=== PATIENT | female | born 1935 | race Caucasian/White ===

== ENCOUNTER 2017-04-07 16:57 | Inpatient (IN) | payer MEDICARE, BC, OTHER ==
[2017-04-07] VITALS (7 sets, daily range): BP systolic 159–168; BP diastolic 68–87; PULSE 60–64; RESP 16–20; TEMP 96–98; O2SAT 96–97
[~2017-04-07] VITALS: Ht 154.9 cm; Wt 58.8 kg
[~2017-04-07 16:57] MED LIST: ATEN-102 PO; B-COTAB41 PO; CART180C4 PO; CO Q100C9 PO; COUM2TAB PO; COUM3TAB PO; COZA100T PO; DIGO0.12 PO; ISOS60 PO; OSTETAB13 OR; SIMV10 PO; [UNRECOGNIZED DRUG - OTHER] PO; [UNRECOGNIZED DRUG - OTHER] PO
[2017-04-07] MEDS ORDERED: DILT0.05 PO (17:13)
[2017-04-07] MEDS ORDERED: SIMV5TAB3 PO (17:13)
[2017-04-07] MEDS ORDERED: ATEN50TA PO (17:13)
[2017-04-07] MEDS ORDERED: LOSA100T PO (17:13)
[2017-04-07] MEDS ORDERED: DIGO0.12 PO (17:13)
[2017-04-07] MEDS ORDERED: LEVO25TA4 PO (17:13)
[2017-04-07] MEDS ORDERED: ATEN25TA PO (17:13)
[2017-04-07] MEDS ORDERED: WARF4TAB51 PO (17:13)
[2017-04-07] MEDS ORDERED: NITR0.4S SL (17:13)
[2017-04-07] MEDS ORDERED: WARF-58 PO (17:13)
[2017-04-07] MEDS ORDERED: ISOS60TA PO (17:13)
[2017-04-07] MEDS ORDERED: SODIUM CHLORIDE 0.9% FLUSH 10 ML FLUSH IVF PRN (17:15)
[2017-04-07] MEDS ORDERED: ASPIRIN 81 MG CHEW TAB PO ONE (17:15)
[2017-04-07] MEDS: NITROGLYCERIN 0.4 MG SL 25 TABS/BTL SL SCH ×4 (17:20→17:49)
[2017-04-07 17:21] LABS: AUTOMATED NEUTROPHIL # 4.2 TH/MM3 (1.8-7.7); BASOPHIL % 0.7 % (0.0-2.0); EOSINOPHIL # 0.1 TH/MM3 (0-0.4); EOSINOPHIL % 1.4 % (0.0-4.0); HEMATOCRIT 43.9 % (35.0-46.0); HEMO FLAGS DIFF FINAL; LYMPH % 24.9 % (9.0-44.0); LYMPHOCYTE # 1.6 TH/MM3 (1.0-4.8); MEAN CELL VOLUME 91.4 FL (80.0-100.0); MEAN CORPUSCULAR HEMOGLOBIN 30.5 PG (27.0-34.0); MEAN CORPUSCULAR HGB CONC 33.3 % (32.0-36.0); MONO % 11.3 % (0.0-8.0); NEUT % 61.7 % (16.0-70.0); PLATELET COUNT 200 TH/MM3 (150-450); RED CELL DISTRIBUTION WIDTH 12.1 % (11.6-17.2); WHITE BLOOD COUNT 6.6 TH/MM3 (4.0-11.0)
--- NOTE | 2017-04-07 17:26 | PD ---
HPI Chief Complaint: Chest Pain Time Seen by Provider: 17:05 Travel History International Travel<30 days: No Contact w/Intl Traveler<30days: No History of Present Illness HPI Patient is an 81-year-old female with history of hypertension, hyperlipidemia, "prediabetes", A. fib currently on Coumadin for anticoagulation, mitral valve replacement, hx of bare-metal stent placement, presents to emergency room with complaints of chest pain. Patient reports that 2 hours prior to coming to the emergency room, she was at home sitting on her couch. Reports that she began to have pains to her left breast which radiated down her left arm. Patient reports that pain feels "pressure and pain" to her chest. Reports that she did feel short of breath with her symptoms. Patient denies nausea or vomiting or diaphoresis. 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 De Oliveira. Reports that she was given nitroglycerin to take for her chest pain, reports that she didn't take any prior to coming to the emergency room as didn't think her symptoms were severe. PFSH Past Medical History Hx Anticoagulant Therapy: Yes Atrial Fibrillation: Yes Anxiety: Yes Cardiac Catheterization: Yes Cardiovascular Problems: Yes (DE,CAD, STENTS, PACEMEAKER, CABG) Diminished Hearing: No Hypertension: Yes Immunizations Current: Yes (HEPAVAX) PNEUMOCCOCAL Vaccine (Year): 2007 Menopausal: Yes : 8 Para: 7 Miscarriage: 1 Past Surgical History Cardiac Surgery: Yes (MITRAL VALVE REPAIR; PACEMAKER stents 2013) Coronary Artery Bypass Graft: Yes Genitourinary Surgery: Yes (KIDNEY STONES REMOVED. 20 YR AGO) Pacemaker: Yes Other Surgery: Yes Social History Alcohol Use: Yes (OCC) Tobacco Use: No Substance Use: No Allergies-Medications (Allergen,Severity, Reaction): Coded Allergies: Flagyl (Unverified Allergy, Severe, RASH, 06/11/15) Reported Meds & Prescriptions Reported Meds & Active Scripts Active Reported Claritin (Loratadine) 5 Mg Chew 5 Mg CHEW DAILY Magnesium (Magnesium Oxide) 400 Mg Tablet 1 Tab PO DAILY Vitamin D (Cholecalciferol) 400 Unit Cap 1 Cap PO DAILY Co Q 10 (Coenzyme Q10 (Ubidecarenone)) 10 Mg Cap 1 Cap PO DAILY B Complex (B-Complex Vitamins) 1 Cap 1 Cap PO DAILY Vitamin A 8,000 Unit Capsule 1 Cap PO DAILY [Osteo prime ultra] 1 Tab PO BID [New remedy ] 150 Mg PO BID Preservision Areds (Multiple Vitamins W/ Minerals) 1 Tab 1 Tab PO BID [Turmeric force] 320 Mg PO BID Nitrostat SL (Nitroglycerin) 0.4 Mg Subl 0.4 Mg SL DIRECTED PRN 1 tablet under the tongue as needed for chest pain. Repeat every 5 minutes for a total of 3 DOSES or call 911 if NO relief. Levothyroxine (Levothyroxine Sodium) 25 Mcg Tab 25 Mcg PO DAILY Isosorbide Mononitrate ER (Isosorbide Mononitrate) 60 Mg Tab 60 Mg PO DAILY Simvastatin 5 Mg Tab 5 Mg PO DAILY Warfarin 2 Mg Tab 2 Mg PO DAILY Warfarin 3 Mg Tab 3 Mg PO DAILY Atenolol 50 Mg Tab 50 Mg PO HS Atenolol 25 Mg Tab 25 Mg PO DAILY Diltiazem ER 24 HR 180 Mg Finn 180 Mg PO DAILY Losartan (Losartan Potassium) 100 Mg Tab 150 Mg PO DAILY Digoxin 0.125 Mg Tab 0.125 Mg PO DAILY Review of Systems General / Constitutional: No: Fever Eyes: No: Visual changes HENT: No: Headaches Cardiovascular: Positive: Chest Pain or Discomfort, No: Palpitations, Irregular Rhythm, Tachycardia, Diaphoresis Respiratory: Positive: Shortness of Breath Gastrointestinal: No: Nausea, Vomiting, Abdominal Pain Genitourinary: No: Dysuria Musculoskeletal: No: Pain Skin: No Rash Neurologic: No: Weakness Psychiatric: No: Depression Endocrine: No: Polydipsia Hematologic/Lymphatic: No: Easy Bruising Physical Exam Narrative GENERAL: Mild distress SKIN: Focused skin assessment warm/dry. HEAD: Atraumatic. Normocephalic. EYES: Pupils equal and round. No scleral icterus. No injection or drainage. ENT: No nasal bleeding or discharge. Mucous membranes pink and moist. NECK: Trachea midline. No JVD. CARDIOVASCULAR: Regular rate and rhythm. No murmur appreciated. RESPIRATORY: No accessory muscle use. Clear to auscultation. Breath sounds equal bilaterally. GASTROINTESTINAL: Abdomen soft, non-tender, nondistended. Hepatic and splenic margins not palpable. MUSCULOSKELETAL: No obvious deformities. No clubbing. No cyanosis. No edema. NEUROLOGICAL: Awake and alert. No obvious cranial nerve deficits. Motor grossly within normal limits. Normal speech. PSYCHIATRIC: Patient anxious Data Data Last Documented VS Vital Signs Date Time Temp Pulse Resp B/P Pulse Ox O2 Delivery O2 Flow Rate FiO2 04/07/17 17:25 16 04/07/17 17:22 97 04/07/17 17:21 61 159/82 04/07/17 17:05 Room Air Orders B-Type Natriuretic Peptide (04/07/17 17:05) Ckmb (Isoenzyme) Profile (04/07/17 17:05) Complete Blood Count With Diff (04/07/17 17:05) Comprehensive Metabolic Panel (04/07/17 17:05) Magnesium (Mg) (04/07/17 17:05) Prothrombin Time / Inr (Pt) (04/07/17 17:05) Act Partial Throm Time (Ptt) (04/07/17 17:05) Troponin I (04/07/17 17:05) Lipase (04/07/17 17:05) Ecg Monitoring (04/07/17 17:05) Iv Access Insert/Monitor (04/07/17 17:05) Oximetry (04/07/17 17:05) Aspirin Chew (Aspirin Chew) (04/07/17 17:15) Sodium Chloride 0.9% Flush (Ns Flush) (04/07/17 17:15) Nitroglycerin Sl (Nitrostat Sl) (04/07/17 17:15) Chest, Single Ap (04/07/17 17:05) Place In Observation (04/07/17 17:52) Activity Bed Rest With Brp (04/07/17 17:52) Vital Signs (Adult) Q4H (04/07/17 17:52) Cardiac Rhythm .As Directed (04/07/17 17:52) Notify Dr: Other .PRN (04/07/17 17:52) Notify Dr. Parameters (04/07/17 17:52) Resp Oxygen Nasal Cannula (04/07/17 ) Diet Npo (04/08/17 Breakfast) Diet Heart Healthy (04/07/17 Dinner) Ckmb (Isoenzyme) Profile (04/07/17 17:52) Ckmb (Isoenzyme) Profile (04/07/17 20:52) Troponin I (04/07/17 17:52) Troponin I (04/07/17 20:52) Electrocardiogram (04/07/17 17:52) Electrocardiogram (04/07/17 20:52) ^ Obtain (04/07/17 17:52) Sodium Chloride 0.9% Flush (Ns Flush) (04/07/17 18:00) Sodium Chloride 0.9% Flush (Ns Flush) (04/07/17 21:00) Acetaminophen (Tylenol) (04/07/17 18:00) Nitroglycerin Sl (Nitrostat Sl) (04/07/17 18:00) Aquatic Ecologist / Telemetry JONATAN.Q8H (04/07/17 17:52) Labs Laboratory Tests Test 04/07/17 17:05 White Blood Count 6.6 TH/MM3 Red Blood Count 4.80 MIL/MM3 Hemoglobin 14.6 GM/DL Hematocrit 43.9 % Mean Corpuscular Volume 91.4 FL Mean Corpuscular Hemoglobin 30.5 PG Mean Corpuscular Hemoglobin 33.3 % Concent Red Cell Distribution Width 12.1 % Platelet Count 200 TH/MM3 Mean Platelet Volume 8.5 FL Neutrophils (%) (Auto) 61.7 % Lymphocytes (%) (Auto) 24.9 % Monocytes (%) (Auto) 11.3 % Eosinophils (%) (Auto) 1.4 % Basophils (%) (Auto) 0.7 % Neutrophils # (Auto) 4.2 TH/MM3 Lymphocytes # (Auto) 1.6 TH/MM3 Monocytes # (Auto) 0.7 TH/MM3 Eosinophils # (Auto) 0.1 TH/MM3 Basophils # (Auto) 0.0 TH/MM3 CBC Comment DIFF FINAL Differential Comment Prothrombin Time 21.3 SEC Prothromb Time International 1.9 RATIO Ratio Activated Partial 31.8 SEC Thromboplast Time Sodium Level 142 MEQ/L Potassium Level 3.8 MEQ/L Chloride Level 110 MEQ/L Carbon Dioxide Level 25.0 MEQ/L Anion Gap 7 MEQ/L Blood Urea Nitrogen 24 MG/DL Creatinine 0.78 MG/DL Estimat Glomerular Filtration 71 ML/MIN Rate Random Glucose 100 MG/DL Calcium Level 9.8 MG/DL Magnesium Level 1.9 MG/DL Total Bilirubin 0.3 MG/DL Aspartate Amino Transf 33 U/L (AST/SGOT) Alanine Aminotransferase 36 U/L (ALT/SGPT) Alkaline Phosphatase 73 U/L Total Creatine Kinase 57 U/L Troponin I LESS THAN 0.02 NG/ML B-Type Natriuretic Peptide 104 PG/ML Total Protein 7.6 GM/DL Albumin 4.0 GM/DL Lipase 162 U/L MDM Medical Decision Making Medical Screen Exam Complete: Yes Emergency Medical Condition: Yes Interpretation(s) EKG at 1701: Ventricular paced at 73bpm, qt/qtc: 349/375 Differential Diagnosis Differential includes ACS, arrhythmia, electrolyte abnormality, PE, pneumonia, afib Narrative Course Patient is an 81-year-old female with history of A. fib, hypertension, hyperlipidemia, mitral valve replacement, coronary disease with history of metal stent to her circumflex marginal branch presents to emergency room with complaints of chest pain for the past 2 hours. Patient reports a pressure to her left chest radiates that her left arm with associated shortness of breath. Patient reports history of chest pain in the past, she was seen and admitted to the hospital on June 13, [address] De Oliveira performed a cardiac catheterization. At that time, patient was found to have: 1) Left anterior descending artery with an eccentric 60% proximal stenosis 2) Right coronary artery is dominant and has about a 60% stenosis Impression: Patient was found to have a two-vessel coronary artery disease but since the fractional flow reserve measurements indicated that both lesions should be treated medically, nitrate therapy was added on top of her existing medications and she was discharged at that time. Plan to administer SL nitro to see if this helps with her. Labs including trop ordered. Xray of chest ordered. Patient was placed on monitoring tech upon arrival to ER. Patient with near resolution of chest pain after 3 SL nitro. Vital Signs Date Time Temp Pulse Resp B/P Pulse Ox O2 Delivery O2 Flow Rate FiO2 04/07/17 17:25 16 04/07/17 17:22 97 04/07/17 17:21 61 16 159/82 96 04/07/17 17:05 61 16 97 Room Air Laboratory Tests Test 04/07/17 17:05 White Blood Count 6.6 TH/MM3 (4.0-11.0) Red Blood Count 4.80 MIL/MM3 (4.00-5.30) Hemoglobin 14.6 GM/DL (11.6-15.3) Hematocrit 43.9 % (35.0-46.0) Mean Corpuscular Volume 91.4 FL (80.0-100.0) Mean Corpuscular Hemoglobin 30.5 PG (27.0-34.0) Mean Corpuscular Hemoglobin 33.3 % Concent (32.0-36.0) Red Cell Distribution Width 12.1 % (11.6-17.2) Platelet Count 200 TH/MM3 (150-450) Mean Platelet Volume 8.5 FL (7.0-11.0) Neutrophils (%) (Auto) 61.7 % (16.0-70.0) Lymphocytes (%) (Auto) 24.9 % (9.0-44.0) Monocytes (%) (Auto) 11.3 % (0.0-8.0) Eosinophils (%) (Auto) 1.4 % (0.0-4.0) Basophils (%) (Auto) 0.7 % (0.0-2.0) Neutrophils # (Auto) 4.2 TH/MM3 (1.8-7.7) Lymphocytes # (Auto) 1.6 TH/MM3 (1.0-4.8) Monocytes # (Auto) 0.7 TH/MM3 (0-0.9) Eosinophils # (Auto) 0.1 TH/MM3 (0-0.4) Basophils # (Auto) 0.0 TH/MM3 (0-0.2) CBC Comment DIFF FINAL Differential Comment Prothrombin Time 21.3 SEC (9.8-11.6) Prothromb Time International 1.9 RATIO Ratio Activated Partial 31.8 SEC Thromboplast Time (24.3-30.1) Sodium Level 142 MEQ/L (136-145) Potassium Level 3.8 MEQ/L (3.5-5.1) Chloride Level 110 MEQ/L (98-107) Carbon Dioxide Level 25.0 MEQ/L (21.0-32.0) Anion Gap 7 MEQ/L (5-15) Blood Urea Nitrogen 24 MG/DL (7-18) Creatinine 0.78 MG/DL (0.50-1.00) Estimat Glomerular Filtration 71 ML/MIN (>89) Rate Random Glucose 100 MG/DL (74-106) Calcium Level 9.8 MG/DL (8.5-10.1) Magnesium Level 1.9 MG/DL (1.5-2.5) Total Bilirubin 0.3 MG/DL (0.2-1.0) Aspartate Amino Transf 33 U/L (15-37) (AST/SGOT) Alanine Aminotransferase 36 U/L (10-53) (ALT/SGPT) Alkaline Phosphatase 73 U/L (45-117) Total Creatine Kinase 57 U/L (26-192) Troponin I LESS THAN 0.02 NG/ML (0.02-0.05) B-Type Natriuretic Peptide 104 PG/ML (0-100) Total Protein 7.6 GM/DL (6.4-8.2) Albumin 4.0 GM/DL (3.4-5.0) Lipase 162 U/L (73-393) Last Impressions Chest X-Ray 04/07/17 1705 Signed Impressions: Service Date/Time: Friday, April 07, 2017 17:12 - CONCLUSION: Cardiomegaly. Clear lungs. Chacho Trinidad Jr., MD Plan to obs for chest pain Case reviewed with Dr. Garcia who accepts pt to service Diagnosis Primary Impression: Chest pain Qualified Code: R07.9 - Chest pain, unspecified type Admitting Information Admitting Physician Requests: Observation Zahida Porras DO Apr 07, 2017 17:26
[2017-04-07 17:28] LABS: CHLORIDE 110 MEQ/L (98-107); POTASSIUM 3.8 MEQ/L (3.5-5.1); SODIUM (NA) 142 MEQ/L (136-145)
[2017-04-07 17:31] LABS: ANION GAP 7 MEQ/L (5-15)
[2017-04-07 17:32] LABS: BLOOD UREA NITROGEN 24 MG/DL (7-18); MAGNESIUM 1.9 MG/DL (1.5-2.5)
[2017-04-07 17:33] LABS: APTT (PATIENT) 31.8 SEC (24.3-30.1); INTERNATIONAL NORMALIZED RATIO 1.9 RATIO; PROTHROMBIN TIME - PATIENT 21.3 SEC (9.8-11.6)
[2017-04-07 17:34] LABS: ALT (GPT) 36 U/L (10-53); AST (GOT) 33 U/L (15-37); GLOMERULAR FILTRATION RATE 71 ML/MIN (>89)
[2017-04-07 17:36] LABS: TOTAL BILIRUBIN ADULT 0.3 MG/DL (0.2-1.0)
[2017-04-07 17:37] LABS: ALKALINE PHOSPHATASE 73 U/L (45-117)
[2017-04-07 17:38] LABS: CREATINE KINASE 57 U/L (26-192)
--- NOTE | 2017-04-07 17:43 | RADRPT ---
EXAM DATE/TIME: 04/07/2017 17:12 [facility] COMPARISON: CHEST SINGLE AP, June 11, 2015, 8:58. INDICATIONS : Chest pain with shortness of breath. MEDICAL HISTORY : Cardiovascular disease. SURGICAL HISTORY : Pacemaker. Mitral valve replacement. ENCOUNTER: Initial ACUITY: 1 day PAIN SCORE: 5/10 LOCATION: Left chest FINDINGS: A single portable frontal view of the chest shows mild cardiomegaly. No pulmonary vascular engorgemen t. Left-sided pacing device. Median sternotomy wires. Clear lungs. No effusions. CONCLUSION: Cardiomegaly. Clear lungs. Chacho Trinidad Jr., MD on April 07, 2017 at 17:41 Board Certified Radiologist. This report was verified electronically.
[2017-04-07] MEDS ORDERED: OCUVTAB4 PO (17:45)
[2017-04-07] MEDS ORDERED: [UNRECOGNIZED DRUG - OTHER] PO (17:45)
[2017-04-07] MEDS ORDERED: LORA1CHW CHEW (17:45)
[2017-04-07] MEDS ORDERED: CO Q10CA PO (17:45)
[2017-04-07] MEDS ORDERED: [UNRECOGNIZED DRUG - OTHER] PO (17:45)
[2017-04-07] MEDS ORDERED: MAGN400T24 PO (17:45)
[2017-04-07] MEDS ORDERED: VITA80003 PO (17:45)
[2017-04-07] MEDS ORDERED: VITA400C28 PO (17:45)
[2017-04-07] MEDS ORDERED: [UNRECOGNIZED DRUG - OTHER] PO (17:45)
[2017-04-07] MEDS ORDERED: VITACAP7 PO (17:45)
[2017-04-07] MEDS ORDERED: ACETAMINOPHEN 500 MG CPLT PO PRN (18:00)
[2017-04-07] MEDS ORDERED: NITROGLYCERIN 0.4 MG SL 25 TABS/BTL SL PRN ×2 (18:00→18:30)
[2017-04-07] MEDS ORDERED: SODIUM CHLORIDE 0.9% FLUSH 10 ML FLUSH IV FLUSH PRN (18:00)
--- NOTE | 2017-04-07 18:17 | HHI.HP ---
[facility] Primary Care Physician Radha Tucker Admission Diagnosis Chest pain Diagnoses: Chief Complaint: Chest pain History of Present Illness Patient is a 1-year-old female with known history of coronary artery disease and cardiac stent who complains of chest tightness in the left side and radiating into the mid chest and into her left shoulder. This occurred while she was playing cards. 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 She is on Coumadin for mitral valve replacement as well as for atrial fibrillation. She also has a pacemaker. Patient presents at this time with chest discomfort which resolved with nitroglycerin in the emergency room. Her urologist is Dr. De Oliveira who did have cardiac catheterization completed 2 years ago when she had a heart attack. Patient this time is chest pain-free, her EKG on my review is paced and irregular. Patient has been admitted to the chest pain unit for further observation Review of Systems Constitutional: DENIES: Diaphoretic episodes, Fatigue, Fever, Weight gain, Weight loss, Chills, Dizziness, Change in appetite, Night Sweats Endocrine: DENIES: Abnorml menstrual pattern, Heat/cold intolerance, Polydipsia , Polyuria, Polyphagia Eyes: DENIES: Blurred vision, Diplopia, Eye inflammation, Eye pain, Vision loss , Photosensitivity, Double Vision Ears, nose, mouth, throat: DENIES: Tinnitus, Hearing loss, Vertigo, Nasal discharge, Oral lesions, Throat pain, Hoarseness, Ear Pain, Running Nose, Epistaxis, Sinus Pain, Toothache, Odynophagia Respiratory: DENIES: Apneas, Cough, Snoring, Wheezing, Hemoptysis, Sputum production, Shortness of breath Cardiovascular: COMPLAINS OF: Chest pain Gastrointestinal: DENIES: Abdominal pain, Black stools, Bloody stools, Constipation, Diarrhea, Nausea, Vomiting, Difficulty Swallowing, Anorexia Genitourinary: DENIES: Abnormal vaginal bleeding, Dysmenorrhea, Dyspareunia, Sexual dysfunction, Urinary frequency, Urinary incontinence, Urgency, Hematuria , Dysuria, Nocturia, Vaginal discharge Musculoskeletal: DENIES: Joint pain, Muscle aches, Stiffness, Joint Swelling, Back pain, Neck pain Integumentary: DENIES: Abnormal pigmentation, Pruritus, Rash, Nail changes, Breast masses, Breast skin changes, Nipple discharge Hematologic/lymphatic: DENIES: Bruising, Lymphadenopathy Immunologic/allergic: DENIES: Eczema, Urticaria Neurologic: DENIES: Abnormal gait, Headache, Localized weakness, Paresthesias, Seizures, Speech Problems, Tremor, Poor Balance Psychiatric: DENIES: Anxiety, Confusion, Mood changes, Depression, Hallucinations, Agitation, Suicidal Ideation, Homicidal Ideation, Delusions Except as stated in HPI: all other systems reviewed are Neg Past Family Social History Past Medical History Hypertension Coronary artery disease Atrial fibrillation Mitral valve replacement, mechanical Hyperlipidemia Past Surgical History Mitral valve replacement, mechanical Pacemaker Lithotripsy Cardiac stent Reported Medications Reviewed in the medical record Allergies: Coded Allergies: Flagyl (Unverified Allergy, Severe, RASH, 06/11/15) Active Ordered Medications Reviewed in the medical record Family History Patient does not know any cardiac history, Social History No tobacco or alcohol dependency, lives independently, from [place] Physical Exam Vital Signs Vital Signs Date Time Temp Pulse Resp B/P Pulse Ox O2 Delivery O2 Flow Rate FiO2 04/07/17 17:25 16 04/07/17 17:22 97 04/07/17 17:21 61 16 159/82 96 04/07/17 17:05 61 16 97 Room Air Physical Exam GENERAL: This is a well-nourished, well-developed patient, in no apparent distress. SKIN: No rashes, ecchymoses or lesions. Cool and dry. HEAD: Atraumatic. Normocephalic. No temporal or scalp tenderness. EYES: Pupils equal round and reactive. Extraocular motions intact. No scleral icterus. No injection or drainage. ENT: Nose without bleeding, purulent drainage or septal hematoma. Throat without erythema, tonsillar hypertrophy or exudate. Uvula midline. Airway patent. NECK: Trachea midline. No JVD or lymphadenopathy. Supple, nontender, no meningeal signs. CARDIOVASCULAR: paced afib rhythm without murmurs, gallops, or rubs. RESPIRATORY: Clear to auscultation. Breath sounds equal bilaterally. No wheezes , rales, or rhonchi. GASTROINTESTINAL: Abdomen soft, non-tender, nondistended. No hepato-splenomegaly , or palpable masses. No guarding. MUSCULOSKELETAL: Extremities without clubbing, cyanosis, or edema. No joint tenderness, effusion, or edema noted. No calf tenderness. Negative Homans sign bilaterally. NEUROLOGICAL: Awake and alert. Cranial nerves II through XII intact. Motor and sensory grossly within normal limits. Five out of 5 muscle strength in all muscle groups. Normal speech. Laboratory Laboratory Tests Test 04/07/17 17:05 White Blood Count 6.6 Red Blood Count 4.80 Hemoglobin 14.6 Hematocrit 43.9 Mean Corpuscular Volume 91.4 Mean Corpuscular Hemoglobin 30.5 Mean Corpuscular Hemoglobin 33.3 Concent Red Cell Distribution Width 12.1 Platelet Count 200 Mean Platelet Volume 8.5 Neutrophils (%) (Auto) 61.7 Lymphocytes (%) (Auto) 24.9 Monocytes (%) (Auto) 11.3 Eosinophils (%) (Auto) 1.4 Basophils (%) (Auto) 0.7 Neutrophils # (Auto) 4.2 Lymphocytes # (Auto) 1.6 Monocytes # (Auto) 0.7 Eosinophils # (Auto) 0.1 Basophils # (Auto) 0.0 CBC Comment DIFF FINAL Differential Comment Prothrombin Time 21.3 Prothromb Time International 1.9 Ratio Activated Partial 31.8 Thromboplast Time Sodium Level 142 Potassium Level 3.8 Chloride Level 110 Carbon Dioxide Level 25.0 Anion Gap 7 Blood Urea Nitrogen 24 Creatinine 0.78 Estimat Glomerular Filtration 71 Rate Random Glucose 100 Calcium Level 9.8 Magnesium Level 1.9 Total Bilirubin 0.3 Aspartate Amino Transf 33 (AST/SGOT) Alanine Aminotransferase 36 (ALT/SGPT) Alkaline Phosphatase 73 Total Creatine Kinase 57 Troponin I LESS THAN 0.02 B-Type Natriuretic Peptide 104 Total Protein 7.6 Albumin 4.0 Lipase 162 Result Diagram: 04/07/17 1705 04/07/171704 Imaging Last Impressions Chest X-Ray 04/07/171704 Signed Impressions: Service Date/Time: Friday, April 07, 2017 17:12 - CONCLUSION: Cardiomegaly. Clear lungs. Chacho Trinidad Jr., MD Assessment and Plan Problem List: (1) Chest pain ICD Code: R07.9 Status: Acute Plan: atypical in nature but with risk factors of age, CAD admit to [facility], hold beta karma and continue other home medications, continue telemetry, morphine, oxygen, nitroglycerin, aspirin Patient on warfarin Paced rhythm likely will need pharmacological stress test Problem Qualifiers (1) Chest pain: Qualified Code: R07.9 - Chest pain, unspecified type Christina Garcia MD Apr 07, 2017 18:17
[2017-04-07] MEDS: PRAVASTATIN SOD 10 MG TAB PO SCH (21:27)
[2017-04-07] MEDS: SODIUM CHLORIDE 0.9% FLUSH 10 ML FLUSH IV FLUSH SCH (21:27)
[2017-04-08] VITALS (13 sets, daily range): BP systolic 118–155; BP diastolic 51–82; PULSE 50–76; RESP 18–20; TEMP 96.7–98.2; O2SAT 93–98
[2017-04-08] MEDS: HEPARIN-D5W INJ 250 ML IV SCH ×2 (03:11→21:32)
[2017-04-08] MEDS: LEVOTHYROXINE SODIUM 25 MCG TAB PO SCH (06:27)
[2017-04-08] MEDS ORDERED: HEPARIN SODIUM - IV 10,000 UNITS/10 ML VIAL IV PRN (07:45)
--- NOTE | 2017-04-08 08:26 | MB ---
cc: JONH CHENG MD DATE OF CONSULTATION April 04, 2017 REASON FOR CONSULTATION Non-ST elevation MO. HISTORY OF PRESENT ILLNESS The patient is a pleasant 81-year-old woman who sees my partner, Dr. De Oliveira, for a history of moderate two-vessel coronary disease as well as a mechanical mitral valve, atrial fibrillation and permanent pacemaker. The patient was in the usual state of health until yesterday when she began having left-sided chest pressure radiating to her arm and her back. This persisted for quite some time and then she presented to the emergency department where she received nitroglycerin with subsequent resolution of her symptoms. Her troponin became mildly positive and I was consulted. Currently the patient is asymptomatic, denying any residual chest pain, shortness breath, lightheadedness, dizziness or syncope. PAST MEDICAL HISTORY 1. Moderate coronary disease which has been treated medically and bare metal stent to the circumflex. 2. Pacemaker. 3. Atrial fibrillation. 4. Mechanical mitral valve on Coumadin. CURRENT MEDICATIONS 1. Digoxin 0.25 mg daily. 2. Cardizem 180 mg daily. 3. Imdur 60 mg daily. 4. Cozaar 150 mg daily. 5. Heparin drip. ALLERGIES FLAGYL. PHYSICAL EXAMINATION VITAL SIGNS: Afebrile, pulse 86, respiratory rate 16, BP 140/74, sating 98% on room air. GENERAL: A pleasant, well-appearing woman in no distress. NECK: No JVD. LUNGS: Clear to auscultation bilaterally. CARDIOVASCULAR: Regular rhythm. No murmurs appreciated. ABDOMEN: Benign. EXTREMITIES: No edema. LABORATORY DATA INR is 1.9, troponin is 0.13. Sodium 142, potassium 2.8, chloride 110, bicarb 25, BUN 24, creatinine 0.78. White count 6.6, hematocrit 43.9, platelets 200. EKG Baseline atrial fibrillation with ventricularly paced rhythm. IMPRESSION [id number] MO. The patient has convincing symptoms as well as this laboratory data consistent with non-ST elevation MO. She is currently on a heparin bridge while her Coumadin is being held. PLAN I will transfer her to the [facility] and likely one of my partners will perform a cardiac catheterization today or tomorrow. Further recommendation will be based on that test. Thank you again for the opportunity to participate in this patient's care. MD SANDIE Esparza/JACKSON 8:05 AM 8:12 AM
[2017-04-08] MEDS: SODIUM CHLORIDE 0.9% FLUSH 10 ML FLUSH IV FLUSH SCH ×2 (09:00→21:24)
--- NOTE | 2017-04-08 09:02 | HHI.PR ---
Subjective Remarks Written by Sharad Godwin, acting as scribe for Dr. Fierro on 04/08/17 at 09: 00. Patient denies any recurrent chest pain. Patient did have elevated troponin on her third set. Cardiology has evaluated patient and plans to transfer the patient to the main hospital for cardiac catheterization or further cardiac evaluation. Patient is currently asymptomatic. She is eager to go home. Objective Vitals Vital Signs Date Time Temp Pulse Resp B/P Pulse Ox O2 Delivery O2 Flow Rate FiO2 04/08/17 08:03 96 21 04/08/17 08:00 97.4 67 20 152/81 98 04/08/17 04:00 97.3 62 20 139/65 97 04/08/17 00:00 96.7 64 20 133/51 98 04/07/17 23:00 60 04/07/17 21:52 96 21 04/07/17 21:15 96.0 64 20 161/87 97 04/07/17 19:05 96 Room Air 04/07/17 19:05 98.0 62 18 168/68 97 Room Air 04/07/17 17:54 14 04/07/17 17:22 97 04/07/17 17:21 61 16 159/82 96 04/07/17 17:05 61 16 97 Room Air I/O 04/07/17 04/07/17 04/07/17 04/08/17 04/08/17 04/08/17 07:00 15:00 23:00 07:00 15:00 23:00 Intake Total 60 ml 60 ml Balance 60 ml 60 ml Intake Oral 60 ml 60 ml # Voids 1 1 # Bowel Movements 0 0 Result Diagram: 04/07/17 1705 04/07/171704 Imaging Last Impressions Chest X-Ray 04/07/171704 Signed Impressions: Service Date/Time: Friday, April 07, 2017 17:12 - CONCLUSION: Cardiomegaly. Clear lungs. Chacho Trinidad Jr., MD Objective Remarks GENERAL: Well-developed, well-nourished, in no acute distress. alert and orientated Eyes: Extraocular muscles are intact. Conjunctivae were clear. NECK: Supple Trachea midline no deviation. CARDIAC: Regular rhythm, regular rate. No murmurs LUNGS: Clear to auscultation bilaterally. No wheeze. No use of accessory muscles on inspiration or expiration. ABDOMEN: Soft, nontender. Nondistended. Bowel sounds heard in all 4 quadrants. EXTREMITIES: No edema, pulses are equal bilaterally. ambulating in room NEUROLOGY: Mood and affect appear appropriate. Cranial nerves II through XII grossly intact. Moving all extremities, speech is clear Urinary Catheter: No Vascular Central Line Catheter: No A/P Assessment and Plan Non-ST elevated myocardial infarction the patient presented with Chest pain with elevated troponin Patient with increased risk factors to include age, hypertension, hyponatremia , coronary artery disease, coronary stenting, coronary bypass surgery. Patient evaluated by demand planning analyst for elevated troponin level and recommending transfer to the main hospital for cardiac catheterization and further cardiac evaluation Patient continued on heparin IV Patient continued on Imdur, nitroglycerin as needed, ARB, statin Hypertension, hyperlipidemia, coronary disease Continue patient's home medications Obtain lipid panel Chronic atrial fibrillation Home medications have been continued Mechanical heart valve Patient continued on anticoagulation Hypothyroidism Replacement therapy has been continued DVT prevention Patient on heparin IV and Coumadin This note was transcribed by flako Godwin. I, Dr. Loretta Fierro personally performed the history, physical exam, and medical decision making; and confirmed the accuracy of the information in the transcribed note. Authenticated by Dr. Loretta Fierro on 04/08/17 at 0900. Sharad Godwin Apr 08, 2017 09:02 Loretta Fierro MD Apr 09, 2017 17:53
[2017-04-08] MEDS: DILTIAZEM-CD 180 MG CAP ER PO SCH (09:19)
[2017-04-08] MEDS: ISOSORBIDE MONONITRATE 60 MG TAB PO SCH (09:19)
[2017-04-08] MEDS: LOSARTAN 50 MG TAB PO SCH (09:19)
[2017-04-08] MEDS: DIGOXIN 0.125 MG TAB PO SCH (09:19)
[2017-04-08 09:50] LABS: APTT (PATIENT) 37.9 SEC (24.3-30.1)
[2017-04-08] MEDS: HEPARIN SODIUM - IV 10,000 UNITS/10 ML VIAL IV PRN (10:12)
--- NOTE | 2017-04-08 14:59 | EKG ---
Date Performed: 04/07/2017 Time Performed: 17:02:55 PTAGE: 81 years EKG: Underlying atrial fibrillation with a ventricular paced rhythm. ELECTRONIC VENTRICULAR PACE MAKER -- CONTOUR ANALYSIS BASED ON INTRINSIC RHYTHM ST DEVIATION AND MODERATE T-WAVE ABNORMALITY, CON CIVIL DEFENSE DIRECTOR LATERAL ISCHEMIA ST DEVIATION AND MODERATE T-WAVE ABNORMALITY, CONSIDER INFERIOR ISCHEMIA When compared to previous tracing, the patient is now paced. ABNORMAL ECG PREVIOUS TRACING : 06/11/2015 08.09 DOCTOR: Charleen Christensen Interpretating Date/Time 04/08/2017 14:58:23
[2017-04-08] MEDS ORDERED: MIDAZOLAM HCL 2 MG/2 ML VIAL ONE (16:19)
[2017-04-08] MEDS ORDERED: HEPARIN-NS/PF INJ 500 ML ONE (16:19)
[2017-04-08] MEDS ORDERED: HEPARIN SODIUM - IV 10,000 UNITS/10 ML VIAL ONE (16:21)
--- NOTE | 2017-04-08 16:41 | MB ---
cc: APRIL GOMEZ DATE OF CONSULTATION: 04/08/2017 REASON FOR CONSULTATION: Chest pain, mildly elevated troponin' s. DATE OF : 1935 HISTORY OF PRESENT ILLNESS: 81-year-old female with known history of coronary artery disease mechanical mitral valve replacement, atrial fibrillation and permanent pacemaker who presented to the hospital for evaluation of substernal chest pressure. She reports that she was in her usual state of health until yesterday when she began having this left-sided chest pressure that was radiating to the left arm for which she presented to the emergency department for further management and evaluation. Cardiology was consulted. Dr. Jansen saw her at [facility], I recommended the patient to be transferred to the [facility] hospital for cath evaluation. Currently she remains doing well. She reports that her chest pain that went away with nitroglycerin. She has been started on heparin drip and denies chest pain, shortness of breath, lightheadedness, dizziness, syncope, palpitations, paroxysmal nocturnal dyspnea, or leg edema. REVIEW OF SYSTEMS Review of systems negative except for what is mentioned in history of present illness. PAST MEDICAL HISTORY Mechanical mitral valve, atrial fibrillation, hypertension. Pacemaker. HOME MEDICATIONS: Digoxin 0.25 mg p.o. daily, Cardizem 180 mg p.o. daily, Imdur 60 mg p.o. daily, Cozaar 150 mg p.o. daily ALLERGIES FLAGYL FAMILY HISTORY Noncontributory. SOCIAL HISTORY Denies illicit drug use, smoking or alcohol abuse. PHYSICAL EXAMINATION: VITAL SIGNS: Temperature 97, respiratory rate 20, Heart rate 72, blood pressure 118/66, O2 sat 93% on room air. GENERAL: Generally awake, alert, oriented, in no acute distress. NECK: No jugular venous distention, no carotid bruits. HEART: Regular rate and rhythm, some metallic taste appreciated with 2/6 systolic ejection murmur. LUNGS: The lungs are clear to auscultation bilaterally. EXTREMITIES: No cyanosis or edema. Pulses throughout. LABORATORY DATA CBC; hemoglobin 14, Hematocrit 43, platelets 200, INR 1.9. Chemistries sodium 142, potassium 3.8, BUN 24, creatinine 0.78, troponin less than 0.02, 0.03 and 0.13. B-type natriuretic peptide 104. <<3:11>> 169, cholesterol 140, LDL 51, HDL 45. RADIOLOGIC: Chest x-ray; Cardiomegaly. ELECTROCARDIOGRAM; Ventricular paced rhythm. ASSESSMENT/PLAN 81-year-old female with known coronary artery disease presenting with chest pain suggestive of angina. She remains fairly hemodynamically stable. The chest pain has gone away with nitroglycerin and troponins have been mildly trending up. Given the patient's symptoms and findings, I would agree to do a left heart cath to further, restratify her coronary artery disease and progression of coronary artery disease, risks, benefits, of left heart cath / PCI including but not limited to infection, acute kidney injury, bleeding, neurovascular trauma, stroke, emergent bypass surgery and have been explained to the patient. The patient understands risks and is willing to proceed. RECOMMENDATIONS 1. Keep NPO for this work up today. 2. Continue aggressive medical management for coronary artery disease. 3. Continue heparin drip. Thank you further management to be determined. MD DESTINY Spivey/iain /2:27 PM /4:26 PM THONG
[2017-04-08] MEDS ORDERED: ADENOSINE STRESS TEST INJ 90 MG/30 ML VIAL ONE (16:57)
[2017-04-08] MEDS ORDERED: PROTAMINE SULFATE 50 MG/5 ML VIAL ONE (17:14)
[2017-04-08] MEDS ORDERED: CLOPIDOGREL 300 MG TAB ONE (17:14)
--- NOTE | 2017-04-08 17:25 | EKG ---
Date Performed: 04/07/2017 Time Performed: 22:34:13 PTAGE: 81 years EKG: ELECTRONIC VENTRICULAR PACEMAKER ABNORMAL RHYTHM ECG INTERPRETATION BASED ON A DEFAULT AGE OF 40 YEARS Since PREVIOUS TRACING , no significant change noted PREVIOUS TRACIN04/07/2017 20.36 DOCTOR: Charleen Christensen Interpretating Date/Time 04/08/2017 17:24:08
--- NOTE | 2017-04-08 17:26 | CATHPROC ---
[employer] HIS Report Study Information Study Number Admission Scheduled Start Study Start [id number] Apr 07 2017 5:54PM 04/08/2017 Apr 08 2017 1:15PM [facility] Cardiac Catheterization Admit Source Facility Department Other [facility] - Tape Maker Physician and Clinical Staff Initial Pete Smart RN, Jt Power Digger OperatorOma Peck RN Other cathlab, cathlab Other Kash RN, Jt RecordMango Walker RCIS(BS) Scrub Miroslava Jacome,(R) Scrub Zahida Vaughn RN Procedures Performed Procedure Location (Site) Vessel Name Coronary Angiograms LCA Left Coronary Coronary Angiograms RCA Right Coronary Drug Eluting Inflatio LAD Prox Left Coronary PTCA LAD Prox Left Coronary Wire insertion Fem Art (right) Femoral Art Equipment Time Pipe Bending Machine Operator Description Size Mfg Part Number Used/Scraped COPILOT VALVE, BLEEDBACK [id number] 16:49 [employer] Used CONTROL *[id number] PERCLOSE, PRO GLIDE CLOSER 17:13 [employer] FR 6 [id number] *[id number] Used DEVICE TRANSDUCER, TRUWAVE [id number] 16:16 PACE MELGOZA * Used W/STOCKCOCK *[id number]- INTRODUCER SET, 16:16 [employer]. FR 5 SC-NT-U-SST Used MICROPUNCTURE, STIFFENED *[id number] *[id number] *[id number] 16:16 SpaceFace INDUSTRIES PACK, CCL CUSTOM * Used *[id number] BALLOON, 3.5 X 12MM NC [id number] 17:11 MEDTRONIC 12MM Used EUPHORA *[id number] 17:06 MEDTRONIC STENT, 3.0 15 INTEGRITY 3.0 15 Used *[id number] 16:48 MEDTRONIC/AVE EBU 3.5 Z2 GUIDE CATHETER FR 6 Used *[id number] 17:04 Bevvy MEDICAL 30 BAYRON INDEFLATOR Used *[id number] 16:48 [employer]ev[employer] MEDICAL PACK, ANGIOPLASTY * [id number] Used [id number] 16:16 Bevvy MEDICAL WIRE, 3MMJ .035 180CM 180CM Used *[id number] 16:16 NAMIC MANIFOLD, 4 PORT * Used *[id number] 16:16 NYCOMED OMNIPAQUE, 350 MG, 150ML 150ML [id number] Used [id number] 16:16 STARR MEDICAL BLANKET,WARM AIR CCL * Used *[id number] 16:16 TERUMO MEDICAL SHEATH, FR5 TERUMO (10CM) FR 5 Used *[id number] 16:50 TERUMO MEDICAL SHEATH, FR6 TERUMO (10CM) FR 6 Used *[id number] 16:52 [employer] PRIME WIRE, VERRATA 185CM 185CM [id number] *[id number] Used Equipment Model, Serial, Lot Number and Expiration Data Description Model Number Serial Number Lot Number Expiration Date PERCLOSE, PRO GLIDE CLOSER [id number] 12-04-2018 DEVICE STENT, 3.0 15 INTEGRITY [id number] 01-30-2018 History: Current Medications Medication Dosage/Unit Route Frequency Last Date/Time Taken CARDIZEM Imdur ASA Coumadin HEPARIN History: Allergies Allergy Reaction Flagyl RASH History: Risk Factors Family History of Hypertension Dyslipidemia Previous [place] Previous Heart Failure Premature CAD Yes Yes No Yes No Prior Valve Prior PCI Prior PCIDate Prior CABG Surgery Yes Yes 09/06/2013 No Cerebrovascular Peripheral Artery Chronic Lung On Dialysis Diabetes Disease Disease Disease No No No No No History: Symptoms/Diagnosis Selection Items Chest pain History: CV Disease Selection Items Known CAD History: Stress Tests Stress or Imaging Studies Performed No History: Other Disease Selection Items CAD HTN History: [place]/CV Data Previous Cath Date Previous CABG Date 09/06/2013 09/06/2013 History: Other Current Smoker No Labs Hgb (g/dl) Hct (%) WBC (l/cumm) Platelets (thousands) 11.60-17.00 35.00-51.00 4.00-11.00 150.00-450.00 14.6 43.9 6.6 200 Glucose (mg/dl) BUN (mg/dl) Creatinine (mg/dl) BUN:Creatinine (1:x) 74.00-106.00 7.00-18.00 0.50-1.30 10.00-20.00 100 24 0.7 34.3 Na (meq/l) K (meq/l) 136.00-145.00 3.50-5.10 142 3.8 INR (PTT:PT) 0.90-1.10 1.9 Troponin I (ng/ml) CPK (u/l) CPK-MB (ng/ML) 0.02-0.05 26.00-308.00 0.50-3.60 0.13 56 Not Drawn Medication Medication Total Dose (Bolus/Oral) Medication Total Dosage/Unit 1% XYLOCAINE 20 mL FENTANYL 25 mcg HEPARIN 5000 units PLAVIX 600 mg PROTAMINE 30 mg VERSED 1 mg Medications (Bolus/Oral) Medication Time Given Dosage/Unit Administered By Reason FENTANYL 04/08/2017 4:39:06 PM 25 mcg Oma Heller 25 mcg FENTANYL given in lab by Oma Heller, MAGEN in Right Antecubital via Peripheral IV. Ordered b y Pete Hardwick. VERSED 04/08/2017 4:39:13 PM 1 mg Oma Heller 1 mg VERSED given in lab by Oma Heller RN in Right Antecubital via Peripheral IV. Ordered by Co Pete Duenas. 1% XYLOCAINE 04/08/2017 4:39:30 PM 20 mL Pete Hardwick 20 mL 1% XYLOCAINE given in lab by Pete Hardwick in Right Groin via Subcutaneous. Ordered by Pete Cook. HEPARIN 04/08/2017 4:46:02 PM 5000 units Oma Heller 5000 units HEPARIN given in lab by Oma Heller RN in Right Antecubital via Peripheral IV. Ordere d by Pete Hardwick. PROTAMINE 04/08/2017 5:23:38 PM 30 mg Oma Heller 30 mg PROTAMINE given in lab by Oma Heller RN in Right Antecubital via Peripheral IV. Ordered b y Pete Hardwick. PLAVIX 04/08/2017 5:25:52 PM 600 mg Oma Heller 600 mg PLAVIX given in lab by Oma Heller RN via Oral. Ordered by Pete Hardwick. Medication (Drip) Medication Time Given Dosage/Unit Concentration/Unit Diluent (ml) Solution ADENOSINE DRIP 04/08/2017 5:02:05 PM 140 mcg/kg/min 90 mg 90 NaCl .9 140 mcg/kg/min ADENOSINE DRIP given in lab by Oma Heller RN in Right Antecubital via Peripheral IV. Pump/Drip Flow = 518.28 ml/hr using NaCl .9 with a concentration of 90 mg in 90 ml. Ordered by Pete Hardwick. ADENOSINE DRIP 04/08/2017 5:03:14 PM 0 units/hr 0 D5W STOPPED 0 units/hr ADENOSINE DRIP STOPPED given in lab by Oma Heller, MAGEN in Left Antecubital via Periphe ral IV. Pump/Drip Flow = 0 ml/hr using D5W. Ordered by Pete Hardwick. IV Solutions 04/08/2017 4:15:41 PM 0 mL (IV) 500 NaCl .9 Patient arrived on IV Solutions given by cathlab cathbrittanie in Right Antecubital via Peripheral IV. Pum p/Drip Flow = 20 ml/hr using NaCl .9. Ordered by Pete Hardwick. Initial Case Assessment Cardiovascular HR Rhythm NIBP Chest Pain 67 nsr 162/47 0 Edema Present Skin color Skin None Normal Warm Dry Circulatory - Right Pulses Dorsalis Pedis Femoral 2 2 Scale (0,1,2,3,4,d) Circulatory - Left Pulses Dorsalis Pedis Femoral 2 2 Scale (0,1,2,3,4,d) Neurological State Oriented to time-place- Alert Moves all extremities person Respiration - General Respiration Rate SpO2 (%) (B/min) 15 98 Final Case Assessment Cardiovascular HR Rhythm NIBP Chest Pain 66 nsr 167/73 0 Edema Present Skin color Skin None Normal Warm Dry Circulatory - Right Pulses Dorsalis Pedis Femoral 2 2 Scale (0,1,2,3,4,d) Circulatory - Left Pulses Dorsalis Pedis Femoral 2 2 Scale (0,1,2,3,4,d) Neurological State Oriented to time-place- Alert Moves all extremities person Respiration - General Respiration Rate SpO2 (%) (B/min) 15 98 Chronological Log Time Study Chronological Log 16:15:32 Patient arrived via Bed. 16:15:33 Patient Name, D.O.B, / Armband Verified By R.N. 16:15:33 Consent signed by the physician and the patient and verified by the Tape Maker staff. 16:15:34 Verbal Stimulation=2 Physical Stimulation=2 Airway=2 Respiration=2 TOTAL=8. (0=absent, 1=li mited, 2=present) 16:15:34 Pre-op and post- op instructions given; patient acknowledges understanding of instructions. 16:15:35 Presedation assessment performed by Tape Maker RN. 16:15:36 Immediate Presedation assesment performed by physician. 16:15:37 Patient has been NPO for More than 6Hrs. 16:15:37 Skin Breakdown- none per patient 16:15:38 Patient Warmer Placed on the Table. 16:15:40 Eufemia Prominences Protected 16:15:41 A # 20 IV was noted in the Antecubital (right). Grade = 0 Patient arrived on IV Solutions given by cathlab, cathlab in Right Antecubital via Peripheral I V. Pump/Drip Flow = 20 16:15:41 ml/hr using NaCl .9. Ordered by Pete Hardwick. 16:15:42 History and physical on the chart or being dictated. Vitals capture started with the following parameters, Patient=Adult, Interval=5 min, Initial Pr tytpjm=281 mmHg, 16:19:21 Deflation Rate=5 mmHg, Cuff placed on Right Arm 16:20:38 HR=68 bpm, RQVI=246/47 mmhg, SpO2=97.0 %, Resp=15 B/min, Pain=0, Fritz=8, Cano=2 16:21:45 Reference ECG taken Assessment: Initial Case, HR=67 BPM, Rhythm=nsr, OMIL=876/47 mmhg, Chest Pain=0, Edema=None, Co thiago=Normal, Skin = Warm, Dry Right Pulses: Layo Ped=2, Femoral=2 16:22:27 Left Pulses: Layo Ped=2, Femoral=2 Neurological: State=Alert, Ox3, CASEY Respiration: Resp=15 B/min, SpO2=98 % 16:25:04 HR=70 bpm, FZSE=307/73 mmhg, SpO2=98.0 %, Resp=9 B/min, Pain=0, Fritz=8, Cano=2 16:30:01 HR=67 bpm, NQXN=924/72 mmhg, SpO2=97.0 %, Resp=8 B/min, Pain=0, Fritz=8, Cano=2 16:32:39 Bilateral groins prepped with 2% chlorhexidine, and with a 3 min. waiting time. 16:35:00 HR=68 bpm, LHTX=327/76 mmhg, SpO2=97.0 %, Resp=15 B/min, Pain=0, Fritz=8, Cano=2 16:35:02 MD arrived. 16::42 Contrast Scanned 16::43 Immediate Presedation assesment performed by physician. Time Out. Correct patient, correct procedure,correct physician, ,power injector loaded or not l oaded with contrast with 16:37:44 surgical team present. Time Out Concurred by MD, individual staff and BRINE TANK OPERATOR in procedure 16:38:02 Case Start 16:38:02 Verbal Stimulation=2 Physical Stimulation=2 Airway=2 Respiration=2 TOTAL=8. (0=absent, 1=li mited, 2=present) 16:38:11 Pressure channel 1 zeroed. 25 mcg FENTANYL given in lab by Oma Heller, MAGEN in Right Antecubital via Peripheral IV. Ord ered by Mulu, 16:39:06 Pete. 16:39:13 1 mg VERSED given in lab by Oma Heller, MAGEN in Right Antecubital via Peripheral IV. Ord ered by Pete Hardwick. 20 mL 1% XYLOCAINE given in lab by Pete Hardwick in Right Groin via Subcutaneous. Ordered b y Mulu, 16:39:30 Pete. 16:40:01 HR=72 bpm, QYKR=697/74 mmhg, SpO2=96.0 %, Resp=19 B/min, Pain=0, Fritz=8, Cano=2 16:40:40 Access site was Right Femoral Artery. A INTRODUCER SET, MICROPUNCTURE, STIFFENED FR 5 was advanced into the Fem Art (right) using the 16:40:47 Percutaneous technique. A SHEATH, FR5 TERUMO (10CM) FR 5 was exchanged in the Fem Art (right). This was necessary in or jade to 16:40:51 accomodate a larger catheter. A JR 4.0 INFINITI CATHETER FR 5 was advanced over a wire. OMNIPAQUE, 350 MG, 150ML 150ML was us ed for 16:42:26 injections. Recorded Pressure: Ao, HR=70, Condition=Condition 1 16:43:56 (Aorta) Ao 160/69/106 16:44:15 The RCA was injected and visualized at various angles. OMNIPAQUE, 350 MG, 150ML 150ML used . After removing the current catheter a JL 4.0 INFINITI CATHETER FR 5 was advanced over a WIRE, 3 MMJ .035 180CM 16:44:36 180CM. 16:45:06 HR=75 bpm, FQYS=657/75 mmhg, SpO2=93.0 %, Resp=15 B/min, Pain=0, Fritz=8, Cano=2 16:45:27 The LCA was injected and visualized at various angles. OMNIPAQUE, 350 MG, 150ML 150ML used . 5000 units HEPARIN given in lab by Oma Heller, RN in Right Antecubital via Peripheral IV. Ordered by Mulu, 16:46:02 Pete. 16:49:01 Catheter was removed A SHEATH, FR6 TERUMO (10CM) FR 6 was exchanged in the Fem Art (right). This was necessary in or jade to 16:49:05 accomodate a larger catheter. 16:50:03 HR=67 bpm, JHVZ=873/65 mmhg, SpO2=95.0 %, Resp=15 B/min, Pain=0, Fritz=8, Cano=2 A EBU 3.5 Z2 GUIDE CATHETER FR 6 was advanced over a wire. OMNIPAQUE, 350 MG, 150ML 150ML was u sed for 16:50:07 injections. 16:51:05 Activated Clotting Time Drawn 16:53:50 A PRIME WIRE, VERRATA 185CM 185CM was inserted via Fem Art (right). 16:55:06 HR=71 bpm, EEOK=331/68 mmhg, SpO2=94.0 %, Resp=15 B/min, Pain=0, Fritz=8, Cano=2 16:55:27 Interventional wire has crossed the lesion 16:55:51 Flow Wire was was placed in the LAD Prox. The FFR measures ~FFR~ percent. The IFR measures 90 Percent. 17:00:01 HR=65 bpm, DNTF=253/78 mmhg, SpO2=94.0 %, Resp=17 B/min, Pain=0, Fritz=8, Cano=2 140 mcg/kg/min ADENOSINE DRIP given in lab by Oma Heller, RN in Right Antecubital via Kira pheral IV. 17:02:05 Pump/Drip Flow = 518.28 ml/hr using NaCl .9 with a concentration of 90 mg in 90 ml. Ordered by Pete Hardwick. 17:02:21 Flow Wire was was placed in the LAD Prox. The FFR measures 79 percent. The IFR measures ~IF R~ Percent. 0 units/hr ADENOSINE DRIP STOPPED given in lab by Oma Heller, MAGEN in Left Antecubital via P eripheral IV. 17:03:14 Pump/Drip Flow = 0 ml/hr using D5W. Ordered by Pete Hardwick. 17:05:02 HR=68 bpm, MERJ=183/71 mmhg, SpO2=97.0 %, Resp=14 B/min, Pain=0, Fritz=8, Cano=2 A STENT, 3.0 15 INTEGRITY 3.0 15 was advanced through a EBU 3.5 Z2 GUIDE CATHETER FR 6 over a P RIME WIRE, 17:05:29 VERRATA 185CM 185CM. A STENT, 3.0 15 INTEGRITY 3.0 15 was deployed using a 30 BAYRON INDEFLATOR at 12 atmospheres for 1 5 seconds in 17:07:05 the LAD Prox. 17:07:58 Delivery device removed A BALLOON, 3.5 X 12MM NC EUPHORA 12MM was inserted over PRIME WIRE, VERRATA 185CM 185CM via the LAD 17:09:06 Prox. 17:10:03 HR=67 bpm, VSWN=723/71 mmhg, SpO2=96.0 %, Resp=13 B/min, Pain=0, Fritz=8, Cano=2 A BALLOON, 3.5 X 12MM NC EUPHORA 12MM over a PRIME WIRE, VERRATA 185CM 185CM in the LAD Prox wa s 17:10:20 inflated using a 30 BAYRON INDEFLATOR at 18 bayron for 20 sec. 17:11:37 Balloon Removed. 17:12:03 Wire removed 17:12:20 Catheter was removed 17:12:26 PERCLOSE, PRO GLIDE CLOSER DEVICE FR 6 placement in the Fem Art (right) 17:15:43 HR=71 bpm, CEJX=642/73 mmhg, SpO2=96.0 %, Resp=16 B/min, Pain=0, Fritz=8, Cano=2 17:15:59 Case End Assessment: Final Case, HR=66 BPM, Rhythm=nsr, WUQB=430/73 mmhg, Chest Pain=0, Edema=None, [place] r=Normal, Skin = Warm, Dry Right Pulses: Layo Ped=2, Femoral=2 17:16:04 Left Pulses: Layo Ped=2, Femoral=2 Neurological: State=Alert, Ox3, CASEY Respiration: Resp=15 B/min, SpO2=98 % 17:16:26 Sterile dressing applied to site 17:16:29 No case complications noted. 17:16:30 Cine recording checked. 17:16:31 Holding Area notified of successful intervention. 17:17:09 Bedside Report will be given. 17:17:10 Contrast Scanned 17:17:12 Verbal Stimulation=2 Physical Stimulation=2 Airway=2 Respiration=2 TOTAL=8. (0=absent, 1=li mited, 2=present) 17:20:01 ACT (Normal Range 90-180) = 410 17:20:10 HR=69 bpm, JLHN=493/62 mmhg, SpO2=96.0 %, Resp=11 B/min, Pain=0, Fritz=8, Cano=2 30 mg PROTAMINE given in lab by Oma Heller RN in Right Antecubital via Peripheral IV. Ord ered by Mulu 17:23:38 Pete. 17:25:03 HR=63 bpm, MXDI=205/75 mmhg, SpO2=95.0 %, Resp=11 B/min, Pain=0, Fritz=8, Cano=2 17:25:52 600 mg PLAVIX given in lab by Oma Heller, RN via Oral. Ordered by Pete Hardwick. 17:26:49 Vitals capture stopped. End Study - Contrast Media Used In Study Contrast Total Opened (mL) Total Used (mL) Total Wasted (mL) Omnipaque 90 90 0 End Study - Maximum Contrast Load Max Contrast Load (mL) 440.6 End Study - Radiation Exposure Fluoro Time (minutes) 6.6 End Study - Patient Disposition Complications Transferred To Interventional Outcome No Tape Maker Holding successful
[2017-04-08] MEDS ORDERED: SODIUM CHLOR 0.9% 1000 ML INJ 1,000 ML IV SCH (17:27)
--- NOTE | 2017-04-08 17:27 | EKG ---
Date Performed: 04/07/2017 Time Performed: 20:36:05 PTAGE: 81 years EKG: UNCERTAIN IRREGULAR RHYTHM ELECTRONIC VENTRICULAR PACEMAKER --demand PREVIOUS TRACING : 04/07/2017 17.02 Since previous tracing, no significant change noted DOCTOR: Charleen Christensen Interpretating Date/Time 04/08/2017 17:26:50
[2017-04-08] MEDS ORDERED: CLOPIDOGREL 300 MG TAB PO ONE (17:30)
[2017-04-08] MEDS ORDERED: ACETAMINOPHEN 325 MG TAB PO PRN (17:30)
[2017-04-08] MEDS ORDERED: MISC INFORMATION XX ONE (17:30)
[2017-04-08] MEDS ORDERED: PILL SPLITTER OTHER PRN (17:45)
--- NOTE | 2017-04-08 18:31 | MA ---
cc: APRIL GOMEZ DATE: 04/08/2017 PROCEDURE PERFORMED: 1. Left heart catheterization. 2. Selective right and left coronary angiography. 3. IFR and FFR to proximal left anterior descending. 4. Successful percutaneous coronary intervention / bare-metal stent to the proximal left anterior descending. INDICATIONS FOR THE PROCEDURE: Unstable angina. Positive FFR. DESCRIPTION OF THE PROCEDURE IN DETAIL: Consent was signed. The patient was brought to the cardiac record label intern in a fasting state. The right groin was prepped and draped in a sterile fashion using 1% lidocaine for local anesthesia and a micropuncture kit. A 5-Maltese sheath was inserted into the right common femoral artery. A right common femoral artery angiography was performed to confirm position of the sheath. Then selective right and left coronary angiography was performed with the JR-4 and JL-4 diagnostic catheters. Angiography was taken was taken in multiple views. There was a 70% lesion in the proximal left anterior descending, which had progressed from previously. We decided to do FFR to confirm ischemia. For this, the 5-Maltese sheath was exchanged for a 6-Maltese sheath. Heparin was given for IV anticoagulation. The left main was engaged with an EBU 3.5 guide and the pressure wire was introduced and equalized before crossing the lesion. The IFR measurement was 0.90 for which FFR was done with adenosine infusion. The FFR value was 0.79, which is positive for ischemia. Thus, we direct stented the proximal LAD with a 3.0 x 15 bare-metal stent and postdilated with a noncompliant 3.5 x 12 balloon. Final angiographic views revealed good stent position and expansion with CORI III flow. The patient tolerated procedure without complications. Estimated blood loss less than 30 mL. Total contrast used 75 mL The right groin access site was closed with a Perclose assist device. The patient was loaded with Plavix after the procedure. ANGIOGRAPHIC RESULTS: 1. Right coronary artery: The right coronary artery is a dominant vessel giving off the PDA. It is patent with CORI III flow and nonobstructive coronary artery disease. It has a 60% lesion in the proximal RCA. 2. Left main: The left main is patent with CORI III. 3. Left anterior descending: The left anterior descending is a transapical vessel giving off one diagonal and it has a 70% lesion mildly calcified in the proximal left anterior descending. 4. The left circumflex artery is patent with CORI III flow. It also has a patent stent in the first OM vessel. The and third are patent with CORI III flow and nonobstructive coronary artery disease. CONCLUSIONS: 1. Successful percutaneous coronary intervention / bare-metal stent to the proximal left anterior descending. 2. Positive FFR to the proximal left anterior descending. RECOMMENDATIONS: 1. The patient will be admitted to [facility] for post cath care and heparin infusion will be continued. 2. She should start the Coumadin for a goal INR of 2.5 to 3.5 in the setting of a metallic mitral valve. 3. She should continue aspirin and Plavix. 4. Follow up with her photocomposition keyboard operator upon discharge 5. The Plavix can be stopped in around 6-12 weeks given that the stent was a bare-metal stent. 6. Continue aggressive medical management for coronary artery disease. MD DESTINY Spivey/DEANNA /5:20 PM /6:19 PM THONG
[2017-04-08] MEDS ORDERED: WARFARIN SOD 3 MG TAB PO ONE (20:00)
[2017-04-08] MEDS: ATORVASTATIN 10 MG TAB PO SCH (21:00)
[2017-04-08] MEDS: METOPROLOL TARTRATE 25 MG TAB PO SCH (21:22)
[2017-04-08] MEDS: PRAVASTATIN SOD 10 MG TAB PO SCH (21:23)
[2017-04-08 22:07] LABS: APTT (PATIENT) 30.1 SEC (24.3-30.1)
[2017-04-09] VITALS (22 sets, daily range): BP systolic 114–151; BP diastolic 51–82; PULSE 50–101; RESP 18–19; TEMP 97.7–98.2; O2SAT 95–98
[2017-04-09 04:45] LABS: APTT (PATIENT) 29.3 SEC (24.3-30.1)
[2017-04-09] MEDS: HEPARIN SODIUM - IV 10,000 UNITS/10 ML VIAL IV PRN (05:44)
[2017-04-09] MEDS: LEVOTHYROXINE SODIUM 25 MCG TAB PO SCH (05:45)
[2017-04-09] MEDS: ASPIRIN 81 MG CHEW TAB PO SCH (08:57)
[2017-04-09] MEDS: DILTIAZEM-CD 180 MG CAP ER PO SCH (08:57)
[2017-04-09] MEDS: METOPROLOL TARTRATE 25 MG TAB PO SCH ×2 (08:57→22:10)
[2017-04-09] MEDS: CLOPIDOGREL 75 MG TAB PO SCH (08:58)
[2017-04-09] MEDS: DIGOXIN 0.125 MG TAB PO SCH (08:58)
[2017-04-09] MEDS: ISOSORBIDE MONONITRATE 60 MG TAB PO SCH (08:58)
[2017-04-09] MEDS: LISINOPRIL 5 MG TAB PO SCH (08:58)
[2017-04-09] MEDS: SODIUM CHLORIDE 0.9% FLUSH 10 ML FLUSH IV FLUSH SCH ×2 (08:59→22:12)
[2017-04-09] MEDS: LOSARTAN 50 MG TAB PO SCH (08:59)
--- NOTE | 2017-04-09 09:09 | HHI.PR ---
Subjective Remarks Hemocult positive. Patient however says rectal bleeding is improving. Says she has rectal bleeding with bowel movements. Says she had a quarter of a cough today with bowel movement but is getting less. Discussed with Dr. Bates cardiology. H&H is stable. We'll continue heparin. The patient denies having any chest pain, shortness of breath, nausea, vomiting diarrhea or constipation. No fever or chills. Denies cough. Objective Vitals Vital Signs Date Time Temp Pulse Resp B/P Pulse Ox O2 Delivery O2 Flow Rate FiO2 04/09/17 08:02 98.2 89 19 136/76 96 04/09/17 05:00 72 04/09/17 04:13 98.1 57 19 151/82 98 04/09/17 04:00 50 04/09/17 03:00 60 04/09/17 02:00 66 04/09/17 01:00 64 04/09/17 00:00 66 04/08/17 23:22 98.2 50 19 147/80 93 04/08/17 23:00 72 04/08/17 22:00 66 04/08/17 21:00 70 04/08/17 20:00 76 04/08/17 20:00 98.0 66 19 148/82 96 04/08/17 20:00 98.0 66 18 148/82 96 04/08/17 19:00 75 04/08/17 18:37 97.8 69 19 155/69 93 04/08/17 12:00 97.0 72 20 118/66 96 I/O 04/08/17 04/08/17 04/08/17 04/09/17 04/09/17 04/09/17 07:00 15:00 23:00 07:00 15:00 23:00 Intake Total 60 ml 0 ml 660 ml Output Total 650 ml Balance 60 ml 0 ml 10 ml Intake Oral 60 ml 0 ml 240 ml IV Total 420 ml Output Urine Total 650 ml # Voids 1 2 # Bowel Movements 0 1 Result Diagram: 04/07/17170404/07/171704 Imaging Last Impressions Chest X-Ray 04/07/171704 Signed Impressions: Service Date/Time: Friday, April 07, 2017 17:12 - CONCLUSION: Cardiomegaly. Clear lungs. Chacho Trinidad Jr., MD Objective Remarks GENERAL: Well-developed, well-nourished, in no acute distress. alert and orientated CARDIAC: Regular rhythm, regular rate. S1/S2 are heard. No murmurs gallops or rubs. LUNGS: Clear to auscultation bilaterally. No wheeze, rhonchi or rales. No use of accessory muscles on inspiration or expiration. ABDOMEN: Soft, nontender. Nondistended. Bowel sounds heard in all 4 quadrants. No organomegaly or masses. Negative rebound, negative guarding EXTREMITIES: No edema, pulses are equal bilaterally. No cyanosis or clubbing NEUROLOGY: Mood and affect appear appropriate. Cranial nerves II through XII grossly intact. Moving all extremities, speech is clear A/P Problem List: (1) Chest pain ICD Code: R07.9 Status: Acute Assessment and Plan Non-ST elevated myocardial infarction the patient presented with Chest pain with elevated troponin Patient with increased risk factors to include age, hypertension, hyponatremia, coronary artery disease, coronary stenting, coronary bypass surgery. S/P cardiac cath by Dr Bates cardiology: 60% on prox RCA Prox left anterior descending artery 70% lesion mildly calcified s/p PCI .bare - metal stent to the proximal left anterior descending Continue heparin infusion post cath per Dr Bates Start coumadin for goal of INR 2.5 - 3.5 in the setting of metallic valve Continue ASA and Plavix. Plavix can be stopped in around 6-12 weeks To follow up with her cardiology doctor upon discharge Continue aggressive management for CAD Continue Imdur, nitroglycerin as needed, ARB, statin Hemoccult positive: adjust heparin . H/H stable . Monitor H/H, consult GI. Will notify cardiology Hypertension, hyperlipidemia, coronary disease Continue patient's home medications Obtain lipid panel Chronic atrial fibrillation Home medications have been continued Mechanical heart valve Patient continued on anticoagulation Hypothyroidism Replacement therapy has been continued DVT prevention Patient on heparin IV and Coumadin However hemocult positive. H/H stable . Adjust heparin. Consult GI Problem Qualifiers (1) Chest pain: Qualified Code: R07.9 - Chest pain, unspecified type Chinyere Donnelly MD Apr 09, 2017 09:09
--- NOTE | 2017-04-09 09:38 | PD.CARD.PN ---
Subjective Subjective Remarks No CV complaints Episode of Black stools this AM Objective Medications Current Medications Medications (Trade) Dose Ordered Sig/Schuyler Route Start Time Stop Time Status Last Admin (NS Flush) 2 ml UNSCH PRN IV FLUSH 04/07/17 18:00 (NS Flush) 2 ml BID IV FLUSH 04/07/17 21:00 04/09/17 08:59 (Tylenol) 500 mg Q4H PRN PO 04/07/17 18:00 (Nitrostat Sl) 0.4 mg Q5M PRN SL 04/07/17 18:00 (Lanoxin) 0.125 mg DAILY PO 04/08/17 09:00 04/09/17 08:58 (Cardizem Cd) 180 mg DAILY PO 04/08/17 09:00 04/09/17 08:57 (Imdur) 60 mg DAILY PO 04/08/17 09:00 04/09/17 08:58 (Synthroid) 25 mcg DAILY@06 PO 04/08/17 06:00 04/09/17 05:45 (Cozaar) 150 mg DAILY PO 04/08/17 09:00 04/09/17 08:59 (Pravachol) 10 mg HS PO 04/07/17 21:00 04/08/17 21:23 (Heparin Inj) 5,000 units UNSCH PRN IV 04/08/17 07:45 Heparin Sodium (Porcine) 2500 units 2,500 units UNSCH PRN IV 04/08/17 07:45 04/09/17 05:44 (Heparin-D5W Inj) 250 ml @ 0 mls/hr TITRATE IV 04/08/17 01:45 04/08/17 21:32 (Tylenol) 325 mg Q4H PRN PO 04/08/17 17:30 (Aspirin Chew) 81 mg DAILY PO 04/09/17 09:00 04/09/17 08:57 (Plavix) 75 mg DAILY PO 04/09/17 09:00 04/09/17 08:58 (Lopressor) 12.5 mg BID PO 04/08/17 21:00 04/09/17 08:57 (Prinivil) 5 mg DAILY PO 04/09/17 09:00 04/09/17 08:58 (Lipitor) 10 mg HS PO 04/08/17 21:00 (Pill Splitter) 1 ea UNSCH PRN OTHER 04/08/17 17:45 Vital Signs / I&O Vital Signs Date Time Temp Pulse Resp B/P Pulse Ox O2 Delivery O2 Flow Rate FiO2 04/09/17 08:02 98.2 89 19 136/76 96 04/09/17 05:00 72 04/09/17 04:13 98.1 57 19 151/82 98 04/09/17 04:00 50 04/09/17 03:00 60 04/09/17 02:00 66 04/09/17 01:00 64 04/09/17 00:00 66 04/08/17 23:22 98.2 50 19 147/80 93 04/08/17 23:00 72 04/08/17 22:00 66 04/08/17 21:00 70 04/08/17 20:00 76 04/08/17 20:00 98.0 66 19 148/82 96 04/08/17 20:00 98.0 66 18 148/82 96 04/08/17 19:00 75 04/08/17 18:37 97.8 69 19 155/69 93 04/08/17 12:00 97.0 72 20 118/66 96 I/O 04/08/17 04/08/17 04/08/17 04/09/17 04/09/17 04/09/17 07:00 15:00 23:00 07:00 15:00 23:00 Intake Total 60 ml 0 ml 660 ml Output Total 650 ml Balance 60 ml 0 ml 10 ml Intake Oral 60 ml 0 ml 240 ml IV Total 420 ml Output Urine Total 650 ml # Voids 1 2 # Bowel Movements 0 1 Physical Exam GENERAL: Well-nourished, well-developed patient. SKIN: Warm and dry. HEAD: Normocephalic. EYES: No scleral icterus. No injection or drainage. NECK: Supple, trachea midline. No JVD or lymphadenopathy. CARDIOVASCULAR: Regular rate and rhythm metallic murmurs, gallops, or rubs. RESPIRATORY: Breath sounds equal bilaterally. No accessory muscle use. GASTROINTESTINAL: Abdomen soft, non-tender, nondistended. EXTREMITIES: No cyanosis, or edema. NEUROLOGICAL: Awake, alert, and oriented x 3. Non-focal. Laboratory Laboratory Tests Test 04/08/17 04/09/17 20:56 03:21 Activated Partial 30.1 SEC 29.3 SEC Thromboplast Time Assessment and Plan Problem List: (1) NSTEMI (non-ST elevated myocardial infarction) Assessment and Plan: s/p PCI/BMS to Prox LAD. DAPT ASA and Plavix Mechanical Mitral Valve on Heparin drip. Episode of Bloody bowel movement overnight. Hemodynamically stable. CBC/INR pending Recommendations: 1. f/u AM Labs results 2. Cont DAPT 3. Cont Heparin drip 4. INR goal 2.5-3.5 given mitral valve prothesis (2) Atrial fibrillation (3) HTN (hypertension) (4) Chest pain Problem Qualifiers (1) Chest pain: Qualified Code: R07.9 - Chest pain, unspecified type Pete Hardwick MD Apr 09, 2017 09:38
[2017-04-09 10:38] LABS: AUTOMATED NEUTROPHIL # 6.2 TH/MM3 (1.8-7.7); BASOPHIL % 0.5 % (0.0-2.0); EOSINOPHIL # 0.1 TH/MM3 (0-0.4); EOSINOPHIL % 1.1 % (0.0-4.0); HEMATOCRIT 42.3 % (35.0-46.0); HEMO FLAGS DIFF FINAL; LYMPH % 8.7 % (9.0-44.0); LYMPHOCYTE # 0.7 TH/MM3 (1.0-4.8); MEAN CELL VOLUME 91.5 FL (80.0-100.0); MEAN CORPUSCULAR HEMOGLOBIN 30.7 PG (27.0-34.0); MEAN CORPUSCULAR HGB CONC 33.5 % (32.0-36.0); MONO % 8.6 % (0.0-8.0); NEUT % 81.1 % (16.0-70.0); PLATELET COUNT 162 TH/MM3 (150-450); RED BLOOD COUNT 4.63 MIL/MM3 (4.00-5.30); RED CELL DISTRIBUTION WIDTH 12.5 % (11.6-17.2); WHITE BLOOD COUNT 7.7 TH/MM3 (4.0-11.0)
[2017-04-09 10:49] LABS: INTERNATIONAL NORMALIZED RATIO 1.5 RATIO; PROTHROMBIN TIME - PATIENT 16.4 SEC (9.8-11.6)
[2017-04-09 10:56] LABS: APTT (PATIENT) 55.8 SEC (24.3-30.1)
[2017-04-09 10:57] LABS: BICARBONATE 28.2 MEQ/L (21.0-32.0); POTASSIUM 3.7 MEQ/L (3.5-5.1)
--- NOTE | 2017-04-09 15:29 | PD.CONS ---
HPI History of Present Illness This is a 81 year old female with hx CAD, MVR, AF, pacemaker on coumadin who presented w/ c/o left sided chest pressure. She was found to have NSTEMI, is s/ p cath and on heparin gtt until INR therapeutic from coumadin, also on plavix and ASA. 2 d ago she started having black stool with BRBPR with some associated mild abd cramping. Pos hemoccult. No hx GIB. She is having loose stool as well but says that is normal for her- 7-9 BM daily. Denies n/v, weight loss. She had colonoscopy 2-3 ago locally but cannot recall further details. (Macie Smith) PFSH Past Medical History Hypertension Coronary artery disease Atrial fibrillation Mitral valve replacement, mechanical Hyperlipidemia Past Surgical History Mitral valve replacement, mechanical Pacemaker Lithotripsy Cardiac stent (Macie Smith) Coded Allergies: Flagyl (Unverified Allergy, Severe, RASH, 06/11/15) Family History Patient does not know any cardiac history, Social History No tobacco or alcohol dependency, lives independently, from [place] (Macie Smith) Review of Systems Constitutional: DENIES: Fever Eyes: DENIES: Blurred vision Ears, nose, mouth, throat: DENIES: Hearing loss Respiratory: DENIES: Hemoptysis Cardiovascular: DENIES: Chest pain Gastrointestinal: COMPLAINS OF: Black stools, Bloody stools, Diarrhea, DENIES : Abdominal pain, Constipation, Nausea, Vomiting, Hematemesis Genitourinary: DENIES: Hematuria Musculoskeletal: DENIES: Joint Swelling Integumentary: DENIES: Jaundice Hematologic/lymphatic: DENIES: Lymphadenopathy Neurologic: DENIES: Headache Psychiatric: DENIES: Confusion (Macie Smith) GI Exam Vitals I&O Vital Signs Date Time Temp Pulse Resp B/P Pulse Ox O2 Delivery O2 Flow Rate FiO2 04/09/17 14:05 101 04/09/17 13:01 85 04/09/17 12:18 72 04/09/17 12:18 97.7 72 19 119/66 97 04/09/17 10:50 85 04/09/17 09:02 81 04/09/17 08:02 89 04/09/17 08:02 98.2 89 19 136/76 96 04/09/17 05:00 72 04/09/17 04:13 98.1 57 19 151/82 98 04/09/17 04:00 50 04/09/17 03:00 60 04/09/17 02:00 66 04/09/17 01:00 64 04/09/17 00:00 66 04/08/17 23:22 98.2 50 19 147/80 93 04/08/17 23:00 72 04/08/17 22:00 66 04/08/17 21:00 70 04/08/17 20:00 76 04/08/17 20:00 98.0 66 19 148/82 96 04/08/17 20:00 98.0 66 18 148/82 96 04/08/17 19:00 75 04/08/17 18:37 97.8 69 19 155/69 93 I/O 04/08/17 04/08/17 04/08/17 04/09/17 04/09/17 04/09/17 07:00 15:00 23:00 07:00 15:00 23:00 Intake Total 60 ml 0 ml 660 ml Output Total 650 ml Balance 60 ml 0 ml 10 ml Intake Oral 60 ml 0 ml 240 ml IV Total 420 ml Output Urine Total 650 ml # Voids 1 2 # Bowel Movements 0 1 Imaging Last Impressions Chest X-Ray 04/07/17 1705 Signed Impressions: Service Date/Time: Friday, April 07, 2017 17:12 - CONCLUSION: Cardiomegaly. Clear lungs. Chacho Trinidad Jr., MD Laboratory Test 04/08/17 04/09/17 04/09/17 20:56 03:21 10:12 Activated Partial 30.1 SEC 29.3 SEC 55.8 SEC Thromboplast Time White Blood Count 7.7 TH/MM3 Red Blood Count 4.63 MIL/MM3 Hemoglobin 14.2 GM/DL Hematocrit 42.3 % Mean Corpuscular Volume 91.5 FL Mean Corpuscular Hemoglobin 30.7 PG Mean Corpuscular Hemoglobin 33.5 % Concent Red Cell Distribution Width 12.5 % Platelet Count 162 TH/MM3 Mean Platelet Volume 8.5 FL Neutrophils (%) (Auto) 81.1 % Lymphocytes (%) (Auto) 8.7 % Monocytes (%) (Auto) 8.6 % Eosinophils (%) (Auto) 1.1 % Basophils (%) (Auto) 0.5 % Neutrophils # (Auto) 6.2 TH/MM3 Lymphocytes # (Auto) 0.7 TH/MM3 Monocytes # (Auto) 0.7 TH/MM3 Eosinophils # (Auto) 0.1 TH/MM3 Basophils # (Auto) 0.0 TH/MM3 CBC Comment DIFF FINAL Differential Comment Prothrombin Time 16.4 SEC Prothromb Time International 1.5 RATIO Ratio Sodium Level 141 MEQ/L Potassium Level 3.7 MEQ/L Chloride Level 106 MEQ/L Carbon Dioxide Level 28.2 MEQ/L Anion Gap 7 MEQ/L Blood Urea Nitrogen 18 MG/DL Creatinine 0.71 MG/DL Estimat Glomerular Filtration 79 ML/MIN Rate Random Glucose 95 MG/DL Calcium Level 9.0 MG/DL Date/Time Procedure Status Source Growth 04/09/17 01:54 Stool Occult Blood (DUNCAN) - Final Complete Stool Stool HEMOCCULT POSITIVE Physical Examination HEENT: PERRL; normocephalic; atraumatic; no jaundice. CHEST: CTA CARDIAC: irr HR ABDOMEN: Soft, nondistended, mild lower abd TTP; no hepatosplenomegaly; bowel sounds are present in all four quadrants. EXTREMITIES: No clubbing, cyanosis, or edema. SKIN: Normal; no rash; no jaundice. 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 (Macie Smith) Assessment and Plan Plan ASSESSMENT - melena, hematochezia - onset 2 day ago. Has been on heparin gtt since cath, NSTEMI. Also on coumadin, plavix, ASA. no prev hx GIB last colonoscopy 2-3 y ago, never had EGD HH stable. INR 1.7 PLAN - pt could benefit from EGD/colonoscopy, would need to d/w cardiology - notify GI of active bleeding - if active bleeding bleed scan - will monitor HH over weekend - PPI - supporitive care - further recs to follow This pt seen by myself and Dr Aguilar and this note is written on her behalf ( Macie Smith) Physician Comments seen, examined agree with above cardiac clearance for egd/colonoscopy if further bleeding bleeding scan , ct abdomen/pelvis has chronic diarrhea, alternating with constipation, states sometimes she has 8- 10 bm's day, with crampy abdominal pain and urgency she had extensive work-up, as per her negative (Rajni Aguilar MD) Macie Smith Apr 09, 2017 15:29 Rajni Aguilar MD Apr 09, 2017 20:39
[2017-04-09 20:41] LABS: APTT (PATIENT) 51.3 SEC (24.3-30.1)
[2017-04-09] MEDS ORDERED: TEMAZEPAM 7.5 MG CAP PO ONE (21:00)
[2017-04-09] MEDS: ATORVASTATIN 10 MG TAB PO SCH (22:09)
[2017-04-09] MEDS: PRAVASTATIN SOD 10 MG TAB PO SCH (22:10)
[2017-04-10] VITALS (20 sets, daily range): BP systolic 91–141; BP diastolic 48–85; PULSE 59–88; RESP 16–18; TEMP 97.9–98.5; O2SAT 94–97
[2017-04-10] MEDS: HEPARIN-D5W INJ 250 ML IV SCH (04:07)
[2017-04-10] MEDS: LEVOTHYROXINE SODIUM 25 MCG TAB PO SCH (05:54)
[2017-04-10 07:57] LABS: AUTOMATED NEUTROPHIL # 3.8 TH/MM3 (1.8-7.7); BASOPHIL % 0.8 % (0.0-2.0); EOSINOPHIL # 0.2 TH/MM3 (0-0.4); EOSINOPHIL % 2.9 % (0.0-4.0); HEMATOCRIT 39.5 % (35.0-46.0); HEMO FLAGS DIFF FINAL; LYMPHOCYTE # 1.2 TH/MM3 (1.0-4.8); MEAN CELL VOLUME 91.7 FL (80.0-100.0); MEAN CORPUSCULAR HGB CONC 33.8 % (32.0-36.0); MONO % 11.7 % (0.0-8.0); NEUT % 64.6 % (16.0-70.0); PLATELET COUNT 157 TH/MM3 (150-450); RED BLOOD COUNT 4.31 MIL/MM3 (4.00-5.30); RED CELL DISTRIBUTION WIDTH 12.7 % (11.6-17.2); WHITE BLOOD COUNT 5.8 TH/MM3 (4.0-11.0)
[2017-04-10 08:02] LABS: INTERNATIONAL NORMALIZED RATIO 1.5 RATIO; PROTHROMBIN TIME - PATIENT 17.3 SEC (9.8-11.6)
[2017-04-10 08:04] LABS: APTT (PATIENT) 54.6 SEC (24.3-30.1)
[2017-04-10 08:19] LABS: POTASSIUM 3.9 MEQ/L (3.5-5.1)
--- NOTE | 2017-04-10 08:46 | HHI.PR ---
Subjective Remarks Had a bloody BM yesterday. Patient says she had no more bloody BM. Had a normal BM n blood in it in the morning today. No n/v/d/c. Denies chest pain or sob. Feels better. Patient is refusing EGD /colonoscopy says she had done this procedures recently and were normal. H/H at baseline so far. We might restart coumadin as INR is 1.5 and monitor for bleeding. Objective Vitals Vital Signs Date Time Temp Pulse Resp B/P Pulse Ox O2 Delivery O2 Flow Rate FiO2 04/10/17 06:13 60 04/10/17 05:06 64 04/10/17 04:17 98.1 87 16 120/64 96 04/10/17 04:17 61 04/10/17 03:26 59 04/10/17 02:08 61 04/10/17 01:28 63 04/10/17 00:14 62 04/10/17 00:14 97.9 84 16 141/75 97 04/09/17 23:45 63 04/09/17 22:00 74 04/09/17 21:51 68 04/09/17 20:15 98.0 69 18 114/51 95 04/09/17 20:15 66 04/09/17 19:00 79 04/09/17 18:34 76 04/09/17 17:10 93 04/09/17 16:26 97.8 98 19 123/60 97 04/09/17 16:26 98 04/09/17 15:37 97 04/09/17 14:05 101 04/09/17 13:01 85 04/09/17 12:18 72 04/09/17 12:18 97.7 72 19 119/66 97 04/09/17 10:50 85 04/09/17 09:02 81 I/O 04/09/17 04/09/17 04/09/17 04/10/17 04/10/17 04/10/17 07:00 15:00 23:00 07:00 15:00 23:00 Intake Total 660 ml 640 ml 723 ml Output Total 650 ml Balance 10 ml 640 ml 723 ml Intake Oral 240 ml 640 ml 480 ml IV Total 420 ml 243 ml Output Urine Total 650 ml # Voids 6 2 # Bowel Movements 1 5 Result Diagram: 04/10/1718 04/10/17 0718 Imaging Last Impressions Chest X-Ray 04/07/17 1705 Signed Impressions: Service Date/Time: Friday, April 07, 2017 17:12 - CONCLUSION: Cardiomegaly. Clear lungs. Chacho Trinidad Jr., MD Objective Remarks GENERAL: Well-developed, well-nourished, in no acute distress. alert and orientated CARDIAC: Regular rhythm, regular rate. S1/S2 are heard. No murmurs gallops or rubs. LUNGS: Clear to auscultation bilaterally. No wheeze, rhonchi or rales. No use of accessory muscles on inspiration or expiration. ABDOMEN: Soft, nontender. Nondistended. Bowel sounds heard in all 4 quadrants. No organomegaly or masses. Negative rebound, negative guarding EXTREMITIES: No edema, pulses are equal bilaterally. No cyanosis or clubbing NEUROLOGY: Mood and affect appear appropriate. Cranial nerves II through XII grossly intact. Moving all extremities, speech is clear A/P Problem List: (1) Chest pain ICD Code: R07.9 Status: Acute Assessment and Plan Non-ST elevated myocardial infarction the patient presented with Chest pain with elevated troponin Patient with increased risk factors to include age, hypertension, hyponatremia, coronary artery disease, coronary stenting, coronary bypass surgery. S/P cardiac cath by Dr Bates cardiology: 60% on prox RCA Prox left anterior descending artery 70% lesion mildly calcified s/p PCI .bare - metal stent to the proximal left anterior descending Continue heparin infusion post cath per Dr Bates Coumadin for goal of INR 2.5 - 3.5 in the setting of metallic valve held 2/2 rectal bleeding) Continue ASA and Plavix. Plavix can be stopped in around 6-12 weeks To follow up with her cardiology doctor upon discharge Continue aggressive management for CAD Continue Imdur, nitroglycerin as needed, ARB, statin Hemoccult positive: adjust heparin . H/H stable . Monitor H/H, consult GI. Discussed with Dr Bates, recommends continuing heparin. Rectal bleeding subsided. Patient is also refusing EGD/Colonoscopy. INR is 1.5 (04/10) Hypertension, hyperlipidemia, coronary disease Continue patient's home medications Obtain lipid panel Chronic atrial fibrillation Home medications have been continued Mechanical heart valve Patient continued on anticoagulation Hypothyroidism Replacement therapy has been continued DVT prevention Patient on heparin IV and Coumadin However hemocult positive. H/H stable . Adjust heparin. Consult GI, refusing EGD /colonoscopy Problem Qualifiers (1) Chest pain: Qualified Code: R07.9 - Chest pain, unspecified type Chinyere Donnelly MD Apr 10, 2017 08:46
[2017-04-10] MEDS: PANTOPRAZOLE SOD 40 MG DELAYED RELEASE TAB PO SCH (09:00)
[2017-04-10] MEDS: SODIUM CHLORIDE 0.9% FLUSH 10 ML FLUSH IV FLUSH SCH ×2 (09:00→20:26)
[2017-04-10] MEDS: DIGOXIN 0.125 MG TAB PO SCH (09:21)
[2017-04-10] MEDS: ASPIRIN 81 MG CHEW TAB PO SCH (09:21)
[2017-04-10] MEDS: LISINOPRIL 5 MG TAB PO SCH (09:21)
[2017-04-10] MEDS: ISOSORBIDE MONONITRATE 60 MG TAB PO SCH (09:21)
[2017-04-10] MEDS: METOPROLOL TARTRATE 25 MG TAB PO SCH ×2 (09:22→20:26)
[2017-04-10] MEDS: CLOPIDOGREL 75 MG TAB PO SCH (09:22)
[2017-04-10] MEDS: LOSARTAN 50 MG TAB PO SCH (09:23)
[2017-04-10] MEDS: DILTIAZEM-CD 180 MG CAP ER PO SCH (09:23)
--- NOTE | 2017-04-10 12:27 | HHI.GIFU ---
Subjective Remarks patient is resting in bed, denies further bleeding, states had BM today and that was normal in color. Refusing EGD/colonoscopy, states if bleeding persists when she goes home, she will consider doing colonoscopy but for now she is fine. (Nimesh Hilario) Objective Vitals I&O Vital Signs Date Time Temp Pulse Resp B/P Pulse Ox O2 Delivery O2 Flow Rate FiO2 04/10/17 06:13 60 04/10/17 05:06 64 04/10/17 04:17 98.1 87 16 120/64 96 04/10/17 04:17 61 04/10/17 03:26 59 04/10/17 02:08 61 04/10/17 01:28 63 04/10/17 00:14 62 04/10/17 00:14 97.9 84 16 141/75 97 04/09/17 23:45 63 04/09/17 22:00 74 04/09/17 21:51 68 04/09/17 20:15 98.0 69 18 114/51 95 04/09/17 20:15 66 04/09/17 19:00 79 04/09/17 18:34 76 04/09/17 17:10 93 04/09/17 16:26 97.8 98 19 123/60 97 04/09/17 16:26 98 04/09/17 15:37 97 04/09/17 14:05 101 04/09/17 13:01 85 I/O 04/09/17 04/09/17 04/09/17 04/10/17 04/10/17 04/10/17 07:00 15:00 23:00 07:00 15:00 23:00 Intake Total 660 ml 640 ml 723 ml Output Total 650 ml Balance 10 ml 640 ml 723 ml Intake Oral 240 ml 640 ml 480 ml IV Total 420 ml 243 ml Output Urine Total 650 ml # Voids 6 2 # Bowel Movements 1 5 Laboratory Laboratory Tests Test 04/09/17 04/10/17 18:55 07:18 Activated Partial 51.3 54.6 Thromboplast Time White Blood Count 5.8 Red Blood Count 4.31 Hemoglobin 13.4 Hematocrit 39.5 Mean Corpuscular Volume 91.7 Mean Corpuscular Hemoglobin 31.0 Mean Corpuscular Hemoglobin 33.8 Concent Red Cell Distribution Width 12.7 Platelet Count 157 Mean Platelet Volume 8.5 Neutrophils (%) (Auto) 64.6 Lymphocytes (%) (Auto) 20.0 Monocytes (%) (Auto) 11.7 Eosinophils (%) (Auto) 2.9 Basophils (%) (Auto) 0.8 Neutrophils # (Auto) 3.8 Lymphocytes # (Auto) 1.2 Monocytes # (Auto) 0.7 Eosinophils # (Auto) 0.2 Basophils # (Auto) 0.0 CBC Comment DIFF FINAL Differential Comment Prothrombin Time 17.3 Prothromb Time International 1.5 Ratio Sodium Level 142 Potassium Level 3.9 Chloride Level 108 Carbon Dioxide Level 27.0 Anion Gap 7 Blood Urea Nitrogen 25 Creatinine 0.68 Estimat Glomerular Filtration 83 Rate Random Glucose 98 Calcium Level 9.0 Date/Time Procedure Status Source Growth 04/09/17 01:54 Stool Occult Blood ([facility]) - Final Complete Stool Stool HEMOCCULT POSITIVE Imaging Last Impressions Chest X-Ray 04/07/17 1705 Signed Impressions: Service Date/Time: Wednesday, April 07, 2017 17:12 - CONCLUSION: Cardiomegaly. Clear lungs. Chacho Trinidad Jr., MD Physical Exam HEENT: normocephalic; atraumatic; no jaundice. NECK: Neck is supple, no JVD, no lymphadenopathy. CHEST: Chest is clear to auscultation and percussion. CARDIAC: irregular heart rate ABDOMEN: Soft, nondistended, nontender; no hepatosplenomegaly; bowel sounds are present in all four quadrants. EXTREMITIES: No clubbing, cyanosis, or edema. SKIN: Normal; no rash; no jaundice. 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 (Yanelis,Nimesh YANCEYP) Assessment and Plan Plan ASSESSMENT - melena, hematochezia - onset few days ago. No bleeding today, hh 13.4/39.5 stable Has been on heparin gtt since cath, NSTEMI. Also on Coumadin, Plavix, ASA. no prev hx GIB last colonoscopy 2-3 y ago, never had EGD HH stable. INR 1.7 PLAN - Heart healthy diet - pt refusing EGD/colonoscopy, will consider if bleeding returns - notify GI of active bleeding - if active bleeding bleed scan - monitor HH - PPI - supportive care This pt seen by myself and Dr Aguilar and this note is written on her behalf ( Nimesh Hilario) Physician Comments seen, examined agree with above just had black stools -still not willing to have egd/colon we will order bleeding scan stat , (Rajni Aguilar MD) Nimesh Hilario Apr 10, 2017 12:27 Rajni Aguilar MD Apr 10, 2017 15:10
[2017-04-10] MEDS ORDERED: WARFARIN SOD 3 MG TAB PO SCH (16:00)
--- NOTE | 2017-04-10 19:04 | RADRPT ---
EXAM DATE/TIME: 04/10/2017 16:31 [facility] COMPARISON: No previous studies available for comparison. INDICATIONS : Blood in stool. Abdominal cramping. DOSE: 22 mCi Tc99m Ultratag labeled red blood cells IV IMAGIN hrs MEDICAL HISTORY : Hypertension. SURGICAL HISTORY : Tonsillectomy. Coronary artery stent. Pacemaker. CABG. ENCOUNTER: Initial ACUITY: 2 days PAIN SCALE: 0/10 LOCATION: Abdomen. TECHNIQUE: Following the modified in vitro labeling of autologous red cells, dynamic continuous images were acqu ired for the specified interval. FINDINGS: BIODISTRIBUTION: There is a very good labeling of red cells without significant uptake in the gastric wall. There is good delineation of the blood pool of the spleen and abdominal vessels. BLEEDING: No episodes of active GI bleeding are observed during specified interval of continuous observation. CONCLUSION: Normal examination. Raimundo Bates MD on April 10, 2017 at 19:02 Board Certified Radiologist. This report was verified electronically.
[2017-04-10] MEDS: ATORVASTATIN 10 MG TAB PO SCH (20:26)
[2017-04-10] MEDS: PRAVASTATIN SOD 10 MG TAB PO SCH (20:26)
[2017-04-10] MEDS ORDERED: TEMAZEPAM 7.5 MG CAP PO ONE (21:15)
[2017-04-10 21:59] LABS: HEMATOCRIT 35.8 % (35.0-46.0); REVIEW FLAG FINAL
[2017-04-11] VITALS (25 sets, daily range): BP systolic 105–148; BP diastolic 55–80; PULSE 60–98; RESP 16–22; TEMP 97.3–98.2; O2SAT 97–98
[2017-04-11] MEDS: LEVOTHYROXINE SODIUM 25 MCG TAB PO SCH (06:10)
[2017-04-11] MEDS: HEPARIN-D5W INJ 250 ML IV SCH (06:14)
[2017-04-11] MEDS: ISOSORBIDE MONONITRATE 60 MG TAB PO SCH (08:12)
[2017-04-11] MEDS: LOSARTAN 50 MG TAB PO SCH (08:13)
[2017-04-11] MEDS: CLOPIDOGREL 75 MG TAB PO SCH (08:13)
[2017-04-11] MEDS: PANTOPRAZOLE SOD 40 MG DELAYED RELEASE TAB PO SCH (08:13)
[2017-04-11] MEDS: LISINOPRIL 5 MG TAB PO SCH (08:14)
[2017-04-11] MEDS: SODIUM CHLORIDE 0.9% FLUSH 10 ML FLUSH IV FLUSH SCH ×2 (08:15→21:00)
[2017-04-11] MEDS: DIGOXIN 0.125 MG TAB PO SCH (08:17)
[2017-04-11] MEDS: METOPROLOL TARTRATE 25 MG TAB PO SCH ×2 (08:17→21:57)
[2017-04-11] MEDS: DILTIAZEM-CD 180 MG CAP ER PO SCH (08:17)
[2017-04-11] MEDS: ASPIRIN 81 MG CHEW TAB PO SCH (08:18)
--- NOTE | 2017-04-11 09:10 | HHI.GIFU ---
Subjective Remarks Lying in bed in no distress. Wants to go home. Reports one episode of dark stool this morning. No abdominal pain. No nausea or vomiting. (Isabella Baez) Objective Vitals I&O Vital Signs Date Time Temp Pulse Resp B/P Pulse Ox O2 Delivery O2 Flow Rate FiO2 04/11/17 07:28 97.6 72 16 128/67 98 04/11/17 06:00 65 04/11/17 05:00 62 04/11/17 04:00 63 16 112/62 97 04/11/17 04:00 63 04/11/17 03:00 62 04/11/17 02:00 61 04/11/17 01:00 66 04/11/17 00:00 97.9 68 16 126/72 97 04/11/17 00:00 60 04/10/17 23:00 74 04/10/17 22:00 88 04/10/17 21:00 88 04/10/17 20:00 98.4 86 16 120/85 97 04/10/17 20:00 76 04/10/17 15:00 69 04/10/17 15:00 98.4 64 17 115/63 97 04/10/17 14:00 78 04/10/17 13:00 82 04/10/17 12:00 74 04/10/17 11:00 97.9 75 16 110/48 97 04/10/17 11:00 70 04/10/17 10:00 76 I/O 04/10/17 04/10/17 04/10/17 04/11/17 04/11/17 04/11/17 06:59 14:59 22:59 06:59 14:59 22:59 Intake Total 723 ml 240 ml 360 ml Balance 723 ml 240 ml 360 ml Intake Oral 480 ml 240 ml 360 ml IV Total 243 ml # Voids 2 3 2 # Bowel Movements 4 Laboratory Laboratory Tests Test 04/10/17 21:23 Hemoglobin 12.0 Hematocrit 35.8 Date/Time Procedure Status Source Growth 04/09/17 01:54 Stool Occult Blood ([facility]) - Final Complete Stool Stool HEMOCCULT POSITIVE Imaging Last Impressions GI Bleed Scan Nuclear Medicine 04/10/17 0000 Signed Impressions: Service Date/Time: Monday, April 10, 2017 16:31 - CONCLUSION: Normal examination. Raimundo Bates MD Chest X-Ray 04/07/17 1705 Signed Impressions: Service Date/Time: Friday, April 07, 2017 17:12 - CONCLUSION: Cardiomegaly. Clear lungs. Chacho Trinidad Jr., MD Physical Exam HEENT: PERRLA. Normocephalic; atraumatic; no jaundice. NECK: Neck is supple, no JVD, no lymphadenopathy. CHEST: CTA CARDIAC: Regular rate and rhythm. ABDOMEN: Soft, nondistended, nontender; no hepatosplenomegaly; bowel sounds x 4 quadrants. SKIN: Normal; no rash; no jaundice. ASP DEVELOPER: No focal deficits; alert and oriented x 3 (Isabella Baez) Assessment and Plan Plan ASSESSMENT - Melena, hematochezia, One episode of dark stools reported this morning. HH (04/10) 12/35.8, stable. INR 1.5. Has been on heparin gtt since cath, NSTEMI. Also on Coumadin, Plavix, ASA. No previous history of GIB. Last colonoscopy 2-3 y ago, never had EGD. GI Bleed Scan Nuclear Medicine 04/10/17--Normal examination. PLAN - Patient was refusing EGD/Colonoscopy when I first saw her this morning, but now agrees. - Obtain consents - Clear liquid diet today - NPO after MN tonight - Bowel prep today - Notify GI of active bleeding - Monitor HH, transfuse as needed - PPI - Supportive care Patient seen and examined by Dr. Aguilar and myself and this note is written on her behalf. (Isabella Baez) Physician Comments seen, examined agree with above egd/colon in am abdominal protrusion-states this is normal for her -we will order ct abdomen/ pelvis Coumadin on hold-on heparin drip hold heparin drip at 6 am (Rajni Aguilar MD) Isabella Baez Apr 11, 2017 09:10 Rajni Aguilar MD Apr 11, 2017 15:52
[2017-04-11 09:12] LABS: AUTOMATED NEUTROPHIL # 4.4 TH/MM3 (1.8-7.7); BASOPHIL # 0.1 TH/MM3 (0-0.2); BASOPHIL % 0.9 % (0.0-2.0); EOSINOPHIL # 0.2 TH/MM3 (0-0.4); EOSINOPHIL % 3.2 % (0.0-4.0); HEMO FLAGS DIFF FINAL; LYMPH % 19.6 % (9.0-44.0); LYMPHOCYTE # 1.3 TH/MM3 (1.0-4.8); MEAN CELL VOLUME 92.4 FL (80.0-100.0); MEAN CORPUSCULAR HGB CONC 33.6 % (32.0-36.0); NEUT % 66.3 % (16.0-70.0); PLATELET COUNT 164 TH/MM3 (150-450); RED BLOOD COUNT 4.22 MIL/MM3 (4.00-5.30); RED CELL DISTRIBUTION WIDTH 12.7 % (11.6-17.2); WHITE BLOOD COUNT 6.6 TH/MM3 (4.0-11.0)
[2017-04-11 09:23] LABS: APTT (PATIENT) 55.1 SEC (24.3-30.1); INTERNATIONAL NORMALIZED RATIO 1.3 RATIO; PROTHROMBIN TIME - PATIENT 14.1 SEC (9.8-11.6)
--- NOTE | 2017-04-11 11:37 | HHI.PR ---
Subjective Remarks Events overnight. Afebrile, vital signs stable. Patient continues to have bloody bowel movements. She has no complaints at this time and would like to go home. She refused colonoscopy/EGD again today. Discussed at length with patient the need to stop her GI bleeding prior to restarting her Coumadin and to be therapeutic on her INR prior to discharge. Patient agreed to have EGD colonoscopy done. Objective Vitals Vital Signs Date Time Temp Pulse Resp B/P Pulse Ox O2 Delivery O2 Flow Rate FiO2 04/11/17 07:28 97.6 72 16 128/67 98 04/11/17 07:00 69 04/11/17 06:00 65 04/11/17 05:00 62 04/11/17 04:00 63 16 112/62 97 04/11/17 04:00 63 04/11/17 03:00 62 04/11/17 02:00 61 04/11/17 01:00 66 04/11/17 00:00 97.9 68 16 126/72 97 04/11/17 00:00 60 04/10/17 23:00 74 04/10/17 22:00 88 04/10/17 21:00 88 04/10/17 20:00 98.4 86 16 120/85 97 04/10/17 20:00 76 04/10/17 15:00 69 04/10/17 15:00 98.4 64 17 115/63 97 04/10/17 14:00 78 04/10/17 13:00 82 04/10/17 12:00 74 I/O 04/10/17 04/10/17 04/10/17 04/11/17 04/11/17 04/11/17 07:00 15:00 23:00 07:00 15:00 23:00 Intake Total 723 ml 240 ml 360 ml Balance 723 ml 240 ml 360 ml Intake Oral 480 ml 240 ml 360 ml IV Total 243 ml # Voids 2 3 2 # Bowel Movements 4 Result Diagram: 04/11/17 0755 04/11/17 0755 Objective Remarks GENERAL: Well-developed, well-nourished, in no acute distress. alert and orientated CARDIAC: Regular rhythm, regular rate. S1/S2 are heard. No murmurs gallops or rubs. LUNGS: Clear to auscultation bilaterally. No wheeze, rhonchi or rales. No use of accessory muscles on inspiration or expiration. ABDOMEN: Soft, nontender. Nondistended. Bowel sounds heard in all 4 quadrants. No organomegaly or masses. Negative rebound, negative guarding EXTREMITIES: No edema, pulses are equal bilaterally. No cyanosis or clubbing NEUROLOGY: Mood and affect appear appropriate. Cranial nerves II through XII grossly intact. Moving all extremities, speech is clear A/P Problem List: (1) Chest pain ICD Code: R07.9 Status: Acute Assessment and Plan Non-ST elevated myocardial infarction the patient presented with Chest pain with elevated troponin Patient with increased risk factors to include age, hypertension, hyponatremia, coronary artery disease, coronary stenting, coronary bypass surgery. S/P cardiac cath by Dr Bates cardiology: 60% on prox RCA Prox left anterior descending artery 70% lesion mildly calcified s/p PCI .bare - metal stent to the proximal left anterior descending Continue heparin infusion post cath per Dr Bates Coumadin for goal of INR 2.5 - 3.5 in the setting of metallic valve (held 2/2 GI bleeding) Continue ASA and Plavix. Plavix can be stopped in around 6-12 weeks To follow up with her cardiology doctor upon discharge Continue aggressive management for CAD Continue Imdur, nitroglycerin as needed, ARB, statin Hemoccult positive: H/H stable. Monitor H/H, consult GI. Discussed with Dr Bates, recommends continuing heparin. Continues to have bloody BM. GI consulted, recommend EGD/Colonoscopy which the patient initially refused. Now agrees to procedure. INR is 1.3 (8/6). Hold Coumadin until GI bleed resolves. Goal INR as above. Hypertension, hyperlipidemia, coronary disease Continue patient's home medications Lipid panel significant for triglycerides of 169, rest within normal limits Chronic atrial fibrillation Home medications have been continued Mechanical heart valve Patient continued on anticoagulation as above Hypothyroidism Replacement therapy has been continued DVT prevention Patient on heparin IV Discharge Planning Pending results of EGD/colonoscopy and resolution of GI bleed. Transition to Coumadin when appropriate, goal INR 2.53.5. Problem Qualifiers (1) Chest pain: Qualified Code: R07.9 - Chest pain, unspecified type Zahida Mantilla MD R3 Apr 11, 2017 11:37
[2017-04-11] MEDS ORDERED: PEG (High)/E-LYTE SOLN 4000 ML BTL PO ONE (16:00)
[2017-04-11] MEDS ORDERED: DIATRIZOATE MEGLUM/DIATRIZOATE SOD 9 ML CUP PO ONE (16:45)
[2017-04-11] MEDS ORDERED: IOHEXOL 350 MG/ML 10 ML VIAL (for RAD DIAG) IV ONE (19:33)
--- NOTE | 2017-04-11 19:47 | RADRPT ---
EXAM DATE/TIME: 04/11/2017 19:26 [facility] COMPARISON: No previous studies available for comparison. INDICATIONS : Abdominal distension. IV CONTRAST: 71 cc Omnipaque 350 (iohexol) IV ORAL CONTRAST: Prescribed oral contrast ingested. RADIATION DOSE: 9.96 CTDIvol (mGy) MEDICAL HISTORY : Cardiovascular disease. Renal calculi. Hypertension.Coronary artery disease. SURGICAL HISTORY : Pacemaker. ENCOUNTER: Initial ACUITY: 1 day PAIN SCALE: 3/10 LOCATION: Bilateral abdomen TECHNIQUE: Volumetric scanning of the abdomen and pelvis was performed. Using automated exposure control and ad justment of the mA and/or kV according to patient size, radiation dose was kept as low as reasonably achievable to obtain optimal diagnostic quality images. DICOM format image data is available electro nically for review and comparison. FINDINGS: Linear atelectasis or scarring present at the lung bases. Pacer lead tip in right ventricle. Tiny hepatic cysts present. Liver otherwise unremarkable. No significant abnormality in the spleen, a drenals, pancreas. No calcified gallstones. There are numerous exophytic lesions in both kidneys most characteristic of simple and complex renal cysts. No hydronephrosis or evidence for obstructive uropathy. Numerous surgical clips in the retrope ritoneum on the right side. Calcification near the proximal right ureter measures about 3 mm but is u nclear if this is actually within the ureter. Previous study not currently available for review. No p elvic masses or adenopathy. No bladder calculi. No acute bony abnormalities. No bowel obstruction. CONCLUSION: 1. No bowel obstruction, free air or free fluid. No acute findings within the abdomen. 2. Numerous simple and complex renal cysts bilaterally. No obstructive uropathy or hydronephrosis. Colonic diverticula without evidence for diverticulitis. Raimundo Bates MD on April 11, 2017 at 19:38 Board Certified Radiologist. This report was verified electronically.
[2017-04-11] MEDS: PRAVASTATIN SOD 10 MG TAB PO SCH (21:57)
[2017-04-11] MEDS: ATORVASTATIN 10 MG TAB PO SCH (21:57)
[2017-04-12] VITALS (18 sets, daily range): BP systolic 119–147; BP diastolic 53–79; PULSE 60–94; RESP 18–20; TEMP 97.8–98.3; O2SAT 97–100
[2017-04-12] MEDS: LEVOTHYROXINE SODIUM 25 MCG TAB PO SCH (07:25)
[2017-04-12] MEDS: ASPIRIN 81 MG CHEW TAB PO SCH (08:12)
[2017-04-12] MEDS: LISINOPRIL 5 MG TAB PO SCH (08:12)
[2017-04-12] MEDS: DIGOXIN 0.125 MG TAB PO SCH (08:12)
[2017-04-12] MEDS: PANTOPRAZOLE SOD 40 MG DELAYED RELEASE TAB PO SCH (08:13)
[2017-04-12] MEDS: LOSARTAN 50 MG TAB PO SCH (08:13)
[2017-04-12] MEDS: METOPROLOL TARTRATE 25 MG TAB PO SCH ×2 (08:13→20:57)
[2017-04-12] MEDS: ISOSORBIDE MONONITRATE 60 MG TAB PO SCH (08:13)
[2017-04-12] MEDS: SODIUM CHLORIDE 0.9% FLUSH 10 ML FLUSH IV FLUSH SCH ×2 (08:15→20:58)
[2017-04-12] MEDS: DILTIAZEM-CD 180 MG CAP ER PO SCH (08:38)
[2017-04-12 09:25] LABS: AUTOMATED NEUTROPHIL # 4.4 TH/MM3 (1.8-7.7); BASOPHIL # 0.1 TH/MM3 (0-0.2); BASOPHIL % 0.8 % (0.0-2.0); EOSINOPHIL # 0.1 TH/MM3 (0-0.4); EOSINOPHIL % 2.3 % (0.0-4.0); HEMATOCRIT 36.7 % (35.0-46.0); HEMO FLAGS DIFF FINAL; LYMPH % 19.2 % (9.0-44.0); LYMPHOCYTE # 1.3 TH/MM3 (1.0-4.8); MEAN CELL VOLUME 90.1 FL (80.0-100.0); MEAN CORPUSCULAR HEMOGLOBIN 31.4 PG (27.0-34.0); MEAN CORPUSCULAR HGB CONC 34.9 % (32.0-36.0); NEUT % 67.7 % (16.0-70.0); PLATELET COUNT 157 TH/MM3 (150-450); RED BLOOD COUNT 4.07 MIL/MM3 (4.00-5.30); RED CELL DISTRIBUTION WIDTH 12.6 % (11.6-17.2); WHITE BLOOD COUNT 6.5 TH/MM3 (4.0-11.0)
[2017-04-12 09:33] LABS: APTT (PATIENT) 30.9 SEC (24.3-30.1); INTERNATIONAL NORMALIZED RATIO 1.1 RATIO
[2017-04-12 10:06] LABS: BICARBONATE 26.5 MEQ/L (21.0-32.0); POTASSIUM 4.4 MEQ/L (3.5-5.1)
[2017-04-12] MEDS ORDERED: PROPOFOL 200 MG/20 ML AMP IV ONE (10:18)
--- NOTE | 2017-04-12 10:55 | HHI.GIFU ---
Subjective Remarks EGD and Colonoscopy performed. Gastritis present and biopsy taken. In cecum an AVM was bleeding actively. Cauterized with bipolar and clip placed. Bleeding controlled and stopped. Tolerated well. Objective Vitals I&O Vital Signs Date Time Temp Pulse Resp B/P Pulse Ox O2 Delivery O2 Flow Rate FiO2 04/12/17 08:00 94 04/12/17 07:00 68 04/12/17 07:00 98.2 82 20 147/79 99 04/12/17 06:00 78 04/12/17 05:00 80 04/12/17 04:00 72 04/12/17 03:00 83 04/12/17 03:00 97.8 78 20 147/79 98 04/12/17 02:00 76 04/12/17 01:00 78 04/12/17 00:00 92 04/11/17 23:00 80 04/11/17 23:00 97.3 80 20 120/67 97 04/11/17 22:00 98 04/11/17 21:00 82 04/11/17 20:00 76 04/11/17 19:00 98.0 75 22 148/80 98 04/11/17 19:00 68 04/11/17 18:01 68 04/11/17 17:00 66 04/11/17 16:00 94 04/11/17 15:00 98.2 65 16 122/62 97 04/11/17 15:00 67 04/11/17 14:00 66 04/11/17 13:00 62 04/11/17 12:00 68 04/11/17 11:00 97.6 69 16 105/55 97 I/O 04/11/17 04/11/17 04/11/17 04/12/17 04/12/17 04/12/17 07:00 15:00 23:00 07:00 15:00 23:00 Intake Total 360 ml 1000 ml 1290 ml Output Total 350 ml Balance 360 ml 1000 ml 940 ml Intake Oral 360 ml 1000 ml 1200 ml IV Total 90 ml Output Urine Total 350 ml # Voids 2 6 5 Laboratory Laboratory Tests Test 04/12/17 08:12 White Blood Count 6.5 Red Blood Count 4.07 Hemoglobin 12.8 Hematocrit 36.7 Mean Corpuscular Volume 90.1 Mean Corpuscular Hemoglobin 31.4 Mean Corpuscular Hemoglobin 34.9 Concent Red Cell Distribution Width 12.6 Platelet Count 157 Mean Platelet Volume 9.2 Neutrophils (%) (Auto) 67.7 Lymphocytes (%) (Auto) 19.2 Monocytes (%) (Auto) 10.0 Eosinophils (%) (Auto) 2.3 Basophils (%) (Auto) 0.8 Neutrophils # (Auto) 4.4 Lymphocytes # (Auto) 1.3 Monocytes # (Auto) 0.7 Eosinophils # (Auto) 0.1 Basophils # (Auto) 0.1 CBC Comment DIFF FINAL Differential Comment Prothrombin Time 12.0 Prothromb Time International 1.1 Ratio Activated Partial 30.9 Thromboplast Time Sodium Level 143 Potassium Level 4.4 Chloride Level 109 Carbon Dioxide Level 26.5 Anion Gap 8 Blood Urea Nitrogen 21 Creatinine 0.75 Estimat Glomerular Filtration 74 Rate Random Glucose 90 Calcium Level 9.4 Date/Time Procedure Status Source Growth 04/09/17 01:54 Stool Occult Blood ([facility]) - Final Complete Stool Stool HEMOCCULT POSITIVE Physical Exam HEENT: PERRLA. Normocephalic; atraumatic; no jaundice. NECK: Neck is supple, no JVD, no lymphadenopathy. CHEST: CTA CARDIAC: Regular rate and rhythm. ABDOMEN: Soft, nondistended, nontender; no hepatosplenomegaly; bowel sounds x 4 quadrants. SKIN: Normal; no rash; no jaundice. 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 (04/10) 12/35.8, stable. INR 1.5. Has been on heparin gtt since cath, NSTEMI. Also on Coumadin, Plavix, ASA. No previous history of GIB. Last colonoscopy 2-3 y ago, never had EGD. GI Bleed Scan Nuclear Medicine 04/10/17--Normal examination. EGD performed. No ulcer, moderate gastritis. Colonoscopy showed actively bleeding AVM. Cauterized and clipped. PLAN Advance to regular diet. OK to discharge tomorrow if stable and otherwise ok for discharge. OK to resume anticoagulants tomorrow. Flakito Malhotra MD Apr 12, 2017 10:55
[2017-04-12] MEDS: CLOPIDOGREL 75 MG TAB PO SCH (11:45)
--- NOTE | 2017-04-12 15:04 | HHI.PR ---
Subjective Remarks Follow up for GI bleed, NSTEMI s/p stent. The patient is seen post EGD/ colonoscopy, ambulating her room. She reports multiple episodes of bright red bloody stools overnight with the bowel prep. Colonoscopy revealed cecum AVM that was cauterized and clipped. The patient denies any abdominal pain or nausea /vomiting. She tolerated oral intake post procedure. Denies any chest pain or shortness of breath. She adamantly wants to go home tomorrow. She is familiar with lovenox injections. She follows with Dr. De Oliveira cardiology and Deo in the office who monitors her INR. Explained tomorrow will initiate Lovenox and Coumadin and she will need to follow with Deo for INR checks every other day. Patient verbalizes understanding and is looking forward to discharge tomorrow. Objective Vitals Vital Signs Date Time Temp Pulse Resp B/P Pulse Ox O2 Delivery O2 Flow Rate FiO2 04/12/17 14:00 82 04/12/17 13:00 75 04/12/17 12:00 60 04/12/17 11:48 97.8 72 20 125/53 100 04/12/17 11:48 60 04/12/17 11:10 97.2 61 16 124/61 97 04/12/17 10:50 97.6 62 16 104/61 99 04/12/17 08:00 94 04/12/17 07:00 68 04/12/17 07:00 98.2 82 20 147/79 99 04/12/17 06:00 78 04/12/17 05:00 80 04/12/17 04:00 72 04/12/17 03:00 83 04/12/17 03:00 97.8 78 20 147/79 98 04/12/17 02:00 76 04/12/17 01:00 78 04/12/17 00:00 92 04/11/17 23:00 80 04/11/17 23:00 97.3 80 20 120/67 97 04/11/17 22:00 98 04/11/17 21:00 82 04/11/17 20:00 76 04/11/17 19:00 98.0 75 22 148/80 98 04/11/17 19:00 68 04/11/17 18:01 68 04/11/17 17:00 66 04/11/17 16:00 94 04/11/17 15:00 98.2 65 16 122/62 97 04/11/17 15:00 67 I/O 04/11/17 04/11/17 04/11/17 04/12/17 04/12/17 04/12/17 07:00 15:00 23:00 07:00 15:00 23:00 Intake Total 360 ml 1000 ml 1290 ml Output Total 350 ml Balance 360 ml 1000 ml 940 ml Intake Oral 360 ml 1000 ml 1200 ml IV Total 90 ml Output Urine Total 350 ml # Voids 2 6 5 Result Diagram: 04/12/17 0812 04/12/17 0812 Imaging Last Impressions Abdomen/Pelvis CT 04/11/17 0000 Signed Impressions: Service Date/Time: Tuesday, April 11, 2017 19:26 - CONCLUSION: 1. No bowel obstruction, free air or free fluid. No acute findings within the abdomen. 2. Numerous simple and complex renal cysts bilaterally. No obstructive uropathy or hydronephrosis. Colonic diverticula without evidence for diverticulitis. Raimundo Bates MD GI Bleed Scan Nuclear Medicine 04/10/17 0000 Signed Impressions: Service Date/Time: Monday, April 10, 2017 16:31 - CONCLUSION: Normal examination. Raimundo Bates MD Chest X-Ray 04/07/17 1705 Signed Impressions: Service Date/Time: Friday, April 07, 2017 17:12 - CONCLUSION: Cardiomegaly. Clear lungs. Chacho Trinidad Jr., MD Objective Remarks GENERAL: Well-nourished, well-developed pleasant elderly female patient in [facility]. Ambulating her room. SKIN: Warm and dry. No rash. HEENT: Normocephalic. Atraumatic.Pupils equal and round. Mucous membranes pink and moist. NECK: Supple. Trachea midline. CARDIOVASCULAR: Regular rate and rhythm. S1, S2 noted. No murmur appreciated. RESPIRATORY: No accessory muscle use. Clear to auscultation. Breath sounds equal bilaterally. GASTROINTESTINAL: Abdomen soft, non-tender, nondistended. Normoactive bowel sounds x4. MUSCULOSKELETAL: No obvious deformities. Extremities without clubbing, cyanosis , or edema. NEUROLOGICAL: Awake and alert. No obvious cranial nerve deficits. Motor grossly within normal limits. Normal speech. PSYCHIATRIC: Appropriate mood and affect; insight and judgment normal. Procedures 04/08/17 - cardiac catheterization by Dr. Bates - 60% on prox RCA; Prox LAD 70% lesion mildly calcified s/p PCI bare-metal stent to the proximal LAD 04/12/17 - EGD/Colonoscopy by Dr. Malhotra, revealed gastritis s/p biopsy, and cecum AVM s/p clip/cauterized. Medications and IVs Current Medications Medications (Trade) Dose Ordered Sig/Schuyler Route Start Time Stop Time Status Last Admin (NS Flush) 2 ml UNSCH PRN IV FLUSH 04/07/17 18:00 (NS Flush) 2 ml BID IV FLUSH 04/07/17 21:00 04/12/17 08:15 (Tylenol) 500 mg Q4H PRN PO 04/07/17 18:00 (Nitrostat Sl) 0.4 mg Q5M PRN SL 04/07/17 18:00 (Lanoxin) 0.125 mg DAILY PO 04/08/17 09:00 04/12/17 08:12 (Cardizem Cd) 180 mg DAILY PO 04/08/17 09:00 04/12/17 08:38 (Imdur) 60 mg DAILY PO 04/08/17 09:00 04/12/17 08:13 (Synthroid) 25 mcg DAILY@06 PO 04/08/17 06:00 04/12/17 07:25 (Cozaar) 150 mg DAILY PO 04/08/17 09:00 04/12/17 08:13 (Pravachol) 10 mg HS PO 04/07/17 21:00 04/11/17 21:57 (Heparin Inj) 5,000 units UNSCH PRN IV 04/08/17 07:45 Heparin Sodium (Porcine) 2500 units 2,500 units UNSCH PRN IV 04/08/17 07:45 04/09/17 05:44 (Heparin-D5W Inj) 250 ml @ 0 mls/hr TITRATE IV 04/08/17 01:45 Hold 04/11/17 06:14 (Tylenol) 325 mg Q4H PRN PO 04/08/17 17:30 (Aspirin Chew) 81 mg DAILY PO 04/09/17 09:00 04/12/17 08:12 (Plavix) 75 mg DAILY PO 04/09/17 09:00 04/12/17 11:45 (Lopressor) 12.5 mg BID PO 04/08/17 21:00 04/12/17 08:13 (Prinivil) 5 mg DAILY PO 04/09/17 09:00 04/12/17 08:12 (Lipitor) 10 mg HS PO 04/08/17 21:00 04/11/17 21:57 (Pill Splitter) 1 ea UNSCH PRN OTHER 04/08/17 17:45 Pantoprazole Sodium 40 mg 40 mg DAILY PO 04/10/17 09:00 04/12/17 08:13 (Coumadin Consult Pharmacy) 0 ml @ 0 mls/hr UNSCH OTHER 04/10/17 10:00 Hold (Coumadin) 3 mg DAILY@1600 PO 04/10/17 16:00 Hold A/P Problem List: (1) Chest pain ICD Code: R07.9 Status: Acute Assessment and Plan 81-year-old female with history of CAD, mechanical mitral valve replacement on Coumadin, atrial fibrillation, HTN, HLD, presents with chest pain. NSTEMI: patient presented with chest pain, troponins 0.02 --> 0.03 --> 0.13. Multiple risk factors with previous CABG, cardiac stent, HTN, HLD, age. -S/p cardiac catheterization 04/08/[address] Bates - 60% on prox RCA; Prox LAD 70% lesion mildly calcified s/p PCI bare-metal stent to the proximal LAD -continued on heparin infusion post cath with transition to Coumadin however held secondary to GI bleeding, see below -Coumadin goal of INR 2.5 - 3.5 in the setting of metallic valve -Continue ASA and Plavix. Plavix can be stopped in around 6-12 weeks per cardiology -Continue Imdur, nitroglycerin prn, ARB, statin -Plan to follow up with her ring conductor Dr. De Oliveira after discharge. GI Bleeding: patient reports bright red bloody BM, Hemoccult positive. -Monitored H&H, remained stable around 12-13 -Anticoagulation on hold -GI consulted -S/p EGD/colonoscopy which revealed gastritis s/p biopsy, and cecum bleeding AVM s/p clip/cautery, bleeding resolved -Per GI, cleared to restart anticoagulation tomorrow and ok to discharge if stable -repeat CBC in am Mechanical heart valve replacement: On Coumadin with Goal INR 2.5-3.5 -Coumadin initially held secondary to GIB as above, however cleared by GI to restart coumadin tomorrow 04/13 -patient adamantly wants to go home and does not want to wait for therapeutic INR, but agrees to bridging with Lovenox injections -will start Lovenox bid and Coumadin 04/13 -patient follows with Deo at Dr. De Oliveira's office for INR checks, instructed to check INR every other day after discharge Hypertension/Hyperlipidemia: chronic, stable -Continue patient's home medications -Lipid panel significant for triglycerides of 169, otherwise within normal limits -outpatient f/up with PCP Atrial fibrillation: chronic, stable -Home medications have been continued -Plan to restart Coumadin 04/13 as above Hypothyroidism: chronic -Replacement therapy has been continued DVT: Coumadin on hold as above, restart tomorrow 04/13 if stable. Discharge Planning Likely discharge tomorrow if stable. Needs lovenox injections at discharge. Patient plans to follow with Dr. De Oliveira's office for INR checks after discharge. Problem Qualifiers (1) Chest pain: Qualified Code: R07.9 - Chest pain, unspecified type Anna Kowalski PA-C Apr 12, 2017 3:04 pm
[2017-04-12] MEDS: ATORVASTATIN 10 MG TAB PO SCH (20:57)
[2017-04-12] MEDS: PRAVASTATIN SOD 10 MG TAB PO SCH (20:57)
[2017-04-13] VITALS: BP 124/56; PULSE 66; RESP 18; TEMP 98.3; O2SAT 96
[2017-04-13 02:14] VITALS: PULSE 59
[2017-04-13 04:00] VITALS: BP 117/58; PULSE 64; RESP 18; TEMP 98; O2SAT 98
[2017-04-13] MEDS: LEVOTHYROXINE SODIUM 25 MCG TAB PO SCH (06:44)
[2017-04-13 07:29] LABS: APTT (PATIENT) 24.9 SEC (24.3-30.1); AUTOMATED NEUTROPHIL # 4.1 TH/MM3 (1.8-7.7); BASOPHIL % 0.6 % (0.0-2.0); EOSINOPHIL # 0.1 TH/MM3 (0-0.4); EOSINOPHIL % 2.2 % (0.0-4.0); HEMO FLAGS DIFF FINAL; LYMPH % 16.6 % (9.0-44.0); MEAN CELL VOLUME 90.9 FL (80.0-100.0); MEAN CORPUSCULAR HEMOGLOBIN 31.2 PG (27.0-34.0); MEAN CORPUSCULAR HGB CONC 34.3 % (32.0-36.0); MONO % 10.9 % (0.0-8.0); NEUT % 69.7 % (16.0-70.0); PLATELET COUNT 139 TH/MM3 (150-450); PROTHROMBIN TIME - PATIENT 11.4 SEC (9.8-11.6); RED BLOOD COUNT 3.53 MIL/MM3 (4.00-5.30); RED CELL DISTRIBUTION WIDTH 12.3 % (11.6-17.2); WHITE BLOOD COUNT 5.8 TH/MM3 (4.0-11.0)
[2017-04-13 07:45] LABS: BICARBONATE 24.1 MEQ/L (21.0-32.0)
[2017-04-13 08:05] VITALS: BP 149/68; PULSE 86; RESP 16; TEMP 98.2; O2SAT 99
[2017-04-13] MEDS ORDERED: ENOXAPARIN SODIUM 60 MG/0.6 ML SYRINGE SQ SCH (09:00)
[2017-04-13] MEDS: SODIUM CHLORIDE 0.9% FLUSH 10 ML FLUSH IV FLUSH SCH (09:00)
[2017-04-13] MEDS: ISOSORBIDE MONONITRATE 60 MG TAB PO SCH (09:00)
[2017-04-13] MEDS: DILTIAZEM-CD 180 MG CAP ER PO SCH (09:13)
[2017-04-13] MEDS: PANTOPRAZOLE SOD 40 MG DELAYED RELEASE TAB PO SCH (09:13)
[2017-04-13] MEDS: METOPROLOL TARTRATE 25 MG TAB PO SCH (09:14)
[2017-04-13] MEDS: LOSARTAN 50 MG TAB PO SCH (09:14)
[2017-04-13] MEDS: ASPIRIN 81 MG CHEW TAB PO SCH (09:14)
[2017-04-13] MEDS: LISINOPRIL 5 MG TAB PO SCH (09:14)
[2017-04-13] MEDS: CLOPIDOGREL 75 MG TAB PO SCH (09:14)
[2017-04-13] MEDS: DIGOXIN 0.125 MG TAB PO SCH (09:15)
[2017-04-13] MEDS ORDERED: METO25TA3 PO (12:00)
[2017-04-13] MEDS ORDERED: PANT40TA3 PO (12:00)
[2017-04-13] MEDS ORDERED: ENOX60P SQ (12:00)
[2017-04-13] MEDS ORDERED: PLAV75TA29 PO (12:00)
[2017-04-13] MEDS ORDERED: LISI-519 PO (12:00)
[2017-04-13] MEDS ORDERED: ASPI81CH25 PO (12:00)
--- NOTE | 2017-04-13 12:04 | HHI.DCPOC ---
Discharge Care Plan Diagnosis: (1) Mitral valve replaced (2) NSTEMI (non-ST elevated myocardial infarction) (3) HTN (hypertension) (4) Atrial fibrillation (5) AVM (arteriovenous malformation) of colon with hemorrhage Goals to Promote Your Health * To prevent worsening of your condition and complications * To maintain your health at the optimal level Directions to Meet Your Goals Take your medications as prescribed Follow your dietary instruction Follow activity as directed Keep your appointments as scheduled Take your immunizations and boosters as scheduled If your symptoms worsen call your PCP, if no PCP go to Urgent Care Center or Emergency Room Smoking is Dangerous to Your Health. Avoid second hand smoke Call the 24-hour hour crisis hotline for domestic abuse at Yang Graham DO Apr 13, 2017 12:04
--- NOTE | 2017-04-13 12:18 | HHI.DS ---
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 Bates - 60% on prox RCA; Prox LAD 70% lesion mildly calcified s/p PCI bare-metal stent to the proximal LAD 04/12/17 - EGD/Colonoscopy by Dr. Malhotra, revealed gastritis s/p biopsy, and cecum AVM s/p clip/cauterized. Brief History - From Admission Patient is a 1-year-old female with known history of coronary artery disease and cardiac stent who complains of chest tightness in the left side and radiating into the mid chest and into her left shoulder. This occurred while she was playing cards. 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 She is on Coumadin for mitral valve replacement as well as for atrial fibrillation. She also has a pacemaker. Patient presents at this time with chest discomfort which resolved with nitroglycerin in the emergency room. Her urologist is Dr. De Oliveira who did have cardiac catheterization completed 2 years ago when she had a heart attack. Patient this time is chest pain-free, her EKG on my review is paced and irregular. Patient has been admitted to the chest pain unit for further observation CBC/BMP: 04/13/17 0612 04/13/17 0612 Significant Findings Laboratory Tests Test 04/11/17 04/12/17 04/13/17 07:55 08:12 06:12 Monocytes (%) (Auto) 10.0 % 10.0 % 10.9 % (0.0-8.0) (0.0-8.0) (0.0-8.0) Prothrombin Time 14.1 SEC 12.0 SEC (9.8-11.6) (9.8-11.6) Activated Partial 55.1 SEC 30.9 SEC Thromboplast Time (24.3-30.1) (24.3-30.1) Chloride Level 109 MEQ/L 109 MEQ/L 108 MEQ/L (98-107) (98-107) (98-107) Blood Urea Nitrogen 24 MG/DL (7-18) 21 MG/DL (7-18) 20 MG/DL (7-18) Estimat Glomerular Filtration 75 ML/MIN (>89) 74 ML/MIN (>89) 81 ML/MIN (>89) Rate Red Blood Count 3.53 MIL/MM3 (4.00-5.30) Hemoglobin 11.0 GM/DL (11.6-15.3) Hematocrit 32.0 % (35.0-46.0) Platelet Count 139 TH/MM3 (150-450) Imaging Last Impressions Abdomen/Pelvis CT 04/11/17 0000 Signed Impressions: Service Date/Time: Tuesday, April 11, 2017 19:26 - CONCLUSION: 1. No bowel obstruction, free air or free fluid. No acute findings within the abdomen. 2. Numerous simple and complex renal cysts bilaterally. No obstructive uropathy or hydronephrosis. Colonic diverticula without evidence for diverticulitis. Raimundo Bates MD GI Bleed Scan Nuclear Medicine 04/10/17 0000 Signed Impressions: Service Date/Time: Monday, April 10, 2017 16:31 - CONCLUSION: Normal examination. Raimundo Bates MD Chest X-Ray 04/07/17 1705 Signed Impressions: Service Date/Time: Friday, April 07, 2017 17:12 - CONCLUSION: Cardiomegaly. Clear lungs. Chacho Trinidad Jr., MD PE at Discharge GENERAL: Well-nourished, well-developed, in NAD. SKIN: Warm and dry. No rash. HEENT: Normocephalic. Atraumatic.Pupils equal and round. Mucous membranes pink and moist. NECK: Supple. Trachea midline. CARDIOVASCULAR: Irregularly irregular. Mechanical click appreciated. RESPIRATORY: No accessory muscle use. Clear to auscultation. Breath sounds equal bilaterally. GASTROINTESTINAL: Abdomen soft, non-tender, nondistended. Normoactive bowel sounds x4. MUSCULOSKELETAL: No obvious deformities. Extremities without clubbing, cyanosis , or edema. NEUROLOGICAL: Awake and alert. No obvious cranial nerve deficits. Motor grossly within normal limits. Normal speech. PSYCHIATRIC: Appropriate mood and affect; insight and judgment normal. Pt update on day of discharge The patient was feeling well and wanted to go home. She wanted to know why she started bleeding all of a sudden. She said she would have no problem giving herself the Lovenox injections at home. She says she will follow-up with her dolphin researcher on Wednesday. Discussed with physical therapy. Hospital Course NSTEMI The patient presented with chest pain, troponins 0.02 --> 0.03 --> 0.13. Multiple risk factors with previous CABG, cardiac stent, HTN, HLD, age. Cardiology was consulted. S/p cardiac catheterization 04/08/[address] Bates - 60 % on prox RCA; Prox LAD 70% lesion mildly calcified s/p PCI bare-metal stent to the proximal LAD. She was continued on heparin infusion post cath with transition to Coumadin. Coumadin goal of INR 2.5 - 3.5 in the setting of metallic valve. She will continue ASA and Plavix. Plavix can be stopped in around 6-12 weeks per cardiology. She will continue Imdur, nitroglycerin prn, ACEi, statin. She will follow up with her dolphin researcher Dr. De Oliveira on Wednesday. GI Bleeding Patient reported bright red bloody BM, Hemoccult positive. Anticoagulation was placed on hold. GI was consulted. Bleeding scan was negative. S/p EGD/ colonoscopy which revealed gastritis s/p biopsy, and cecum bleeding AVM s/p clip /cautery. Bleeding has resolved. She was cleared to restart anticoagulation by GI. Mechanical heart valve replacement On Coumadin with Goal INR 2.5-3.5. Coumadin initially held secondary to GIB as above, however, cleared by GI to restart Coumadin 04/13. Heparin gtt will be switched to Lovenox. The pt will receive Lovenox teaching. The pt will follow her INR regularly with her dolphin researcher while on Coumadin and Lovenox bridge. Pt Condition on Discharge: Good Discharge Disposition: Discharge Home Discharge Time: > 30 minutes Discharge Instructions DIET: Follow Instructions for: Heart Healthy Diet Activities you can perform: Weight Bearing as Diomedes Follow up Referrals: Cardiology - 1 Week with Bubba De Oliveira MD Gastroenterology - 1 Week with Flakito Malhotra MD PCP Follow-up - 04/16/17 New Orders: CBC NO DIFF - 2-3 Days PT/INR - 2-3 Days New Medications: Aspirin (Aspirin Low Strength) 81 Mg Chew 81 MG PO DAILY CAD #30 EA Clopidogrel (Plavix) 75 Mg Tab 75 MG PO DAILY CAD #30 TAB Enoxaparin Inj (Lovenox Inj) 60 Mg/0.6 Ml Syr 60 MG SQ Q12H Heart valve #14 INJECTION Lisinopril (Lisinopril) 5 Mg Tab 5 MG PO DAILY Blood Pressure Management #30 TAB Metoprolol Tartrate (Metoprolol Tartrate) 25 Mg Tab 12.5 MG PO BID CAD #60 TAB Pantoprazole (Pantoprazole) 40 Mg Tab 40 MG PO DAILY Stomach #30 TAB Continued Medications: Atenolol (Atenolol) 25 Mg Tab 25 MG PO DAILY Blood Pressure Management #30 TAB Atenolol (Atenolol) 50 Mg Tab 50 MG PO HS Blood Pressure Management #14 Ref 0 TAB B-Complex Vitamins (B Complex) 1 Cap 1 CAP PO DAILY Nutritional Supplement #30 Ref 0 CAP Cholecalciferol (Vitamin D) 400 Unit Cap 1 CAP PO DAILY Coenzyme Q10 (Ubidecarenone) (Co Q 10) 10 Mg Cap 1 CAP PO DAILY Digoxin (Digoxin) 0.125 Mg Tab 0.125 MG PO DAILY Regulate Heart Beat #30 Ref 0 TAB Diltiazem ER 24 HR (Diltiazem ER 24 HR) 180 Mg Finn 180 MG PO DAILY #30 Ref 0 TAB Isosorbide Mononitrate ER (Isosorbide Mononitrate ER) 60 Mg Tab 60 MG PO DAILY Prevent Chest Pain #30 Ref 0 TAB Levothyroxine (Levothyroxine) 25 Mcg Tab 25 MCG PO DAILY Thyroid #30 Ref 0 TAB Loratadine (Claritin) 5 Mg Chew 5 MG CHEW DAILY Allergy Management Ref 0 TAB Losartan (Losartan) 100 Mg Tab 150 MG PO DAILY Blood Pressure Management #30 Ref 0 TAB Magnesium Oxide (Magnesium) 400 Mg Tablet 1 TAB PO DAILY Multiple Vitamins W/ Minerals (Preservision Areds) 1 Tab 1 TAB PO BID Nutritional Supplement Ref 0 TAB Nitroglycerin SL (Nitrostat SL) 0.4 Mg Subl 0.4 MG SL DIRECTED 1 tablet under the tongue as needed for chest pain. Repeat every 5 minutes for a total of 3 DOSES or call 911 if NO relief. PRN CHEST PAIN #100 Ref 0 TAB.SL Simvastatin (Simvastatin) 5 Mg Tab 5 MG PO DAILY Cholesterol Management #30 Ref 0 TAB Vitamin A (Vitamin A) 8,000 Unit Capsule 1 CAP PO DAILY Warfarin (Warfarin) 3 Mg Tab 3 MG PO DAILY Blood Clot Prevention #30 Ref 0 TAB Warfarin (Warfarin) 2 Mg Tab 2 MG PO DAILY Blood Clot Prevention #30 Ref 0 TAB ([New remedy ]) 150 MG PO BID ([Osteo prime ultra]) 1 TAB PO BID ([Turmeric force]) 320 MG PO BID Yang Graham DO Apr 13, 2017 12:18
== END 2017-04-13 12:56 | disposition home or self-care (01) | DRG 249 ==
LOC: PHED 16:57 → PHEDA 17:54 → PH3B 21:12 → HCIS 04-08 15:13 → OBSVTOIN 04-10 10:40 → HCIS 04-11 13:30 → N04A 04-12 17:09
PROVIDERS: ADMIT Hospitalist; ATTEND Hospitalist
PROC: 4A023N7 Measurement of Cardiac Sampling and Pressure, Left Heart, Percutaneous Approach (ICD-10-PCS; 2017-04-08)
PROC: B2111ZZ Fluoroscopy of Multiple Coronary Arteries using Low Osmolar Contrast (ICD-10-PCS; 2017-04-08)
PROC: 4A033BC Measurement of Arterial Pressure, Coronary, Percutaneous Approach (ICD-10-PCS; 2017-04-08)
PROC: B41F1ZZ Fluoroscopy of Right Lower Extremity Arteries using Low Osmolar Contrast (ICD-10-PCS; 2017-04-08)
PROC: 02703DZ Dilation of Coronary Artery, One Artery with Intraluminal Device, Percutaneous Approach (ICD-10-PCS; principal; 2017-04-08 14:00)
PROC: 0DB68ZX Excision of Stomach, Via Natural or Artificial Opening Endoscopic, Diagnostic (ICD-10-PCS; 2017-04-12)
PROC: 0W3P4ZZ Control Bleeding in Gastrointestinal Tract, Percutaneous Endoscopic Approach (ICD-10-PCS; 2017-04-12 10:09)
DX: I21.4 Non-ST elevation (NSTEMI) myocardial infarction (principal); K92.2 Gastrointestinal hemorrhage, unspecified; I48.2 Chronic atrial fibrillation; I25.110 Atherosclerotic heart disease of native coronary artery with unstable angina pectoris; I10 Essential (primary) hypertension; Z95.2 Presence of prosthetic heart valve; Z95.1 Presence of aortocoronary bypass graft; Z95.0 Presence of cardiac pacemaker; E78.5 Hyperlipidemia, unspecified; R73.03 Prediabetes; Z79.01 Long term (current) use of anticoagulants; Z95.5 Presence of coronary angioplasty implant and graft; I25.2 Old myocardial infarction; Z87.442 Personal history of urinary calculi; E03.9 Hypothyroidism, unspecified; K29.70 Gastritis, unspecified, without bleeding; Q27.33 Arteriovenous malformation of digestive system vessel
CPT/HCPCS: 71010; 74177; 78278; 80048; 80053; 80061; 82272; 82550; 83690; 83735; 83880; 84484; 85002; 85014; 85018; 85025; 85610; 85730; 88305; 92928; 93005; 93454; 93571; 96365; 96366; 96375; 96376; A9560; C1725; C1760; C1769; C1876; C1887; C1893; G0269; G0378; J0153; J1644; J1650; J2250; J2720; J3010; J7030; Q9963; Q9967

== ENCOUNTER 2017-04-16 13:08 | Inpatient (IN) | payer MEDICARE, BC, OTHER ==
[~2017-04-16] VITALS: Ht 149.9 cm; Wt 59.5 kg
[~2017-04-16 13:08] MED LIST changes: +ASPI81CH25 PO; -ATEN-102 PO; +ATEN25TA PO; +ATEN50TA PO; -B-COTAB41 PO; -CART180C4 PO; -CO Q100C9 PO; +CO Q10CA PO; -COUM2TAB PO; -COUM3TAB PO; -COZA100T PO; +DILT0.05 PO; +ENOX60P SQ; -ISOS60 PO; +ISOS60TA PO; +LEVO25TA4 PO; +LISI-519 PO; +LORA1CHW CHEW; +LOSA100T PO; +MAGN400T24 PO; +METO25TA3 PO; +NITR0.4S SL; +OCUVTAB4 PO; -OSTETAB13 OR; +PANT40TA3 PO; +PLAV75TA29 PO; -SIMV10 PO; +SIMV5TAB3 PO; +VITA400C28 PO; +VITA80003 PO; +VITACAP7 PO; +WARF-58 PO; +WARF4TAB51 PO; +[UNRECOGNIZED DRUG - OTHER] PO; +[UNRECOGNIZED DRUG - OTHER] PO; +[UNRECOGNIZED DRUG - OTHER] PO; -[UNRECOGNIZED DRUG - OTHER] PO; -[UNRECOGNIZED DRUG - OTHER] PO
[2017-04-16 13:10] VITALS: BP 148/70; PULSE 90; RESP 16; TEMP 98.4; O2SAT 98
--- NOTE | 2017-04-16 13:20 | PD ---
Physical Exam Date Seen by Provider: Apr 16, 2017 Time Seen by Provider: 13:18 Narrative Pt is an 81 year old female presenting for evaluation of bleeding from rectum, on coumadin. Pt appears well, VSS. Awaiting bed placement. Data Data Last Documented VS Vital Signs Date Time Temp Pulse Resp B/P Pulse Ox O2 Delivery O2 Flow Rate FiO2 04/16/17 13:10 98.4 90 16 148/70 98 MDM Supervised Visit with JOON: Laureen Connolly Apr 16, 2017 13:20
[2017-04-16] MEDS ORDERED: SODIUM CHLORIDE 0.9% FLUSH 10 ML FLUSH IVF PRN (14:45)
--- NOTE | 2017-04-16 15:15 | PD ---
HPI Chief Complaint: Abdominal Pain Time Seen by Provider: 14:36 Travel History International Travel<30 days: No Contact w/Intl Traveler<30days: No Traveled to known affect area: No History of Present Illness HPI 81-year-old female presents with black stools with bright red blood since yesterday. She is on aspirin, Plavix, Lovenox, and Coumadin. She states she stopped her Lovenox and Coumadin this morning after advised by her specialist. She states Dr. Sanchez is her GI specialist. She states she recently was in the hospital within the cloth seconds sorter physician Dr. Malhotra did a scope where they had to cauterize bleeding. She states her specialist did not do the procedure because it happened also quickly. She denies any belly pain or other concurrent complaints at this time other than general tiredness. Quality is black with bright red blood. Severity is since yesterday. PFSH Past Medical History Hx Anticoagulant Therapy: Yes Atrial Fibrillation: Yes Blood Disorders: No Anxiety: Yes Cancer: No Cardiac Catheterization: Yes Cardiovascular Problems: Yes (FL,CAD, STENTS, PACEMEAKER, CABG) Chemotherapy: No Coronary Artery Disease: Yes Diminished Hearing: No Endocrine: No Genitourinary: No Hypertension: Yes Immune Disorder: No Implanted Vascular Access Dvce: Yes Musculoskeletal: No Neurologic: No Psychiatric: No Reproductive: No Respiratory: No Immunizations Current: Yes (HEPAVAX) Radiation Therapy: No PNEUMOCCOCAL Vaccine (Year): 2007 ?: Not Menopausal: Yes : 8 Para: 7 Miscarriage: 1 Past Surgical History Body Medical Devices: pace maker. Cardiac Surgery: Yes (MV, PACEMAKER) Coronary Artery Bypass Graft: Yes Coronary Stent: Yes Genitourinary Surgery: Yes (KIDNEY STONE X 2) Pacemaker: Yes Tonsillectomy: Yes Other Surgery: Yes Social History Alcohol Use: Yes (OCC) Tobacco Use: No Substance Use: No Allergies-Medications (Allergen,Severity, Reaction): Coded Allergies: Flagyl (Unverified Allergy, Severe, RASH, 06/11/15) Reported Meds & Prescriptions Reported Meds & Active Scripts Active Pantoprazole (Pantoprazole Sodium) 40 Mg Tab 40 Mg PO DAILY Metoprolol Tartrate 25 Mg Tab 12.5 Mg PO BID Lisinopril 5 Mg Tab 5 Mg PO DAILY Lovenox Inj (Enoxaparin Sodium) 60 Mg/0.6 Ml Syr 60 Mg SQ Q12H Plavix (Clopidogrel Bisulfate) 75 Mg Tab 75 Mg PO DAILY Aspirin Low Strength (Aspirin) 81 Mg Chew 81 Mg PO DAILY Reported Claritin (Loratadine) 5 Mg Chew 5 Mg CHEW DAILY Magnesium (Magnesium Oxide) 400 Mg Tablet 1 Tab PO DAILY Vitamin D (Cholecalciferol) 400 Unit Cap 1 Cap PO DAILY Co Q 10 (Coenzyme Q10 (Ubidecarenone)) 10 Mg Cap 1 Cap PO DAILY B Complex (B-Complex Vitamins) 1 Cap 1 Cap PO DAILY Vitamin A 8,000 Unit Capsule 1 Cap PO DAILY [Osteo prime ultra] 1 Tab PO BID [New remedy ] 150 Mg PO BID Preservision Areds (Multiple Vitamins W/ Minerals) 1 Tab 1 Tab PO BID [Turmeric force] 320 Mg PO BID Nitrostat SL (Nitroglycerin) 0.4 Mg Subl 0.4 Mg SL DIRECTED PRN 1 tablet under the tongue as needed for chest pain. Repeat every 5 minutes for a total of 3 DOSES or call 911 if NO relief. Levothyroxine (Levothyroxine Sodium) 25 Mcg Tab 25 Mcg PO DAILY Isosorbide Mononitrate ER (Isosorbide Mononitrate) 60 Mg Tab 60 Mg PO DAILY Simvastatin 5 Mg Tab 5 Mg PO DAILY Warfarin 2 Mg Tab 2 Mg PO DAILY Warfarin 3 Mg Tab 3 Mg PO DAILY Atenolol 50 Mg Tab 50 Mg PO HS Atenolol 25 Mg Tab 25 Mg PO DAILY Diltiazem ER 24 HR 180 Mg Finn 180 Mg PO DAILY Losartan (Losartan Potassium) 100 Mg Tab 150 Mg PO DAILY Digoxin 0.125 Mg Tab 0.125 Mg PO DAILY Review of Systems Except as stated in HPI: all other systems reviewed are Neg Physical Exam Narrative GENERAL: Well-nourished, well-developed patient. SKIN: Warm and dry. HEAD: Normocephalic and atraumatic. EYES: No injection or drainage. ENT: No nasal drainage noted. NECK: Supple, trachea midline. CARDIOVASCULAR: Regular rate and rhythm RESPIRATORY: No increased effort. No accessory muscle use. GASTROINTESTINAL: Abdomen soft, non-tender, nondistended. RECTAL EXAM: Performed with bicycle i assembler and after permission. No large external hemorrhoid or fissure, stool is black with blood NEUROLOGICAL: Awake. Moves all extremities. Normal speech. Data Data Last Documented VS Vital Signs Date Time Temp Pulse Resp B/P Pulse Ox O2 Delivery O2 Flow Rate FiO2 04/16/17 13:10 98.4 90 16 148/70 98 Orders Complete Blood Count With Diff (04/16/17 14:34) Comprehensive Metabolic Panel (04/16/17 14:34) Prothrombin Time / Inr (Pt) (04/16/17 14:34) Act Partial Throm Time (Ptt) (04/16/17 14:34) Type And Screen (04/16/17 14:34) Ecg Monitoring (04/16/17 14:34) Iv Access Insert/Monitor (04/16/17 14:34) Oximetry (04/16/17 14:34) Sodium Chloride 0.9% Flush (Ns Flush) (04/16/17 14:45) Consult Gastroenterology (04/16/17 ) (Hub Use Only)Inp Phy Cons/Ref (04/16/17 ) Admit Order (Ed Use Only) (04/16/17 16:38) Labs Laboratory Tests Test 04/16/17 14:50 White Blood Count 7.0 TH/MM3 Red Blood Count 3.47 MIL/MM3 Hemoglobin 10.9 GM/DL Hematocrit 31.7 % Mean Corpuscular Volume 91.4 FL Mean Corpuscular Hemoglobin 31.4 PG Mean Corpuscular Hemoglobin 34.4 % Concent Red Cell Distribution Width 12.7 % Platelet Count 187 TH/MM3 Mean Platelet Volume 8.7 FL Neutrophils (%) (Auto) 65.5 % Lymphocytes (%) (Auto) 22.4 % Monocytes (%) (Auto) 9.0 % Eosinophils (%) (Auto) 2.2 % Basophils (%) (Auto) 0.9 % Neutrophils # (Auto) 4.6 TH/MM3 Lymphocytes # (Auto) 1.6 TH/MM3 Monocytes # (Auto) 0.6 TH/MM3 Eosinophils # (Auto) 0.2 TH/MM3 Basophils # (Auto) 0.1 TH/MM3 CBC Comment DIFF FINAL Differential Comment Prothrombin Time 15.1 SEC Prothromb Time International 1.3 RATIO Ratio Activated Partial 29.5 SEC Thromboplast Time Sodium Level 141 MEQ/L Potassium Level 4.2 MEQ/L Chloride Level 109 MEQ/L Carbon Dioxide Level 24.2 MEQ/L Anion Gap 8 MEQ/L Blood Urea Nitrogen 24 MG/DL Creatinine 1.17 MG/DL Estimat Glomerular Filtration 44 ML/MIN Rate Random Glucose 96 MG/DL Calcium Level 8.9 MG/DL Total Bilirubin 0.2 MG/DL Aspartate Amino Transf 30 U/L (AST/SGOT) Alanine Aminotransferase 38 U/L (ALT/SGPT) Alkaline Phosphatase 62 U/L Total Protein 7.0 GM/DL Albumin 3.7 GM/DL Blood Type A POSITIVE Antibody Screen NEGATIVE Blood Bank Comment MDM Medical Decision Making Medical Screen Exam Complete: Yes Emergency Medical Condition: Yes Medical Record Reviewed: Yes (past history confirmed) Interpretation(s) CBC & BMP Diagram 04/16/17 14:50 Differential Diagnosis GI bleed, anemia, lab error, supratherapeutic INR Narrative Course Will check blood work and discuss with her GI specialist Labs are stable but patient has complex case given the mechanical valve and multiple blood thinners. She'll be admitted to the hospital for further care and I will discuss with her GI specialist who she is requesting Physician Communication Physician Communication dr medina states to admit to medicine dr herman agrees to admit Diagnosis Primary Impression: GI bleed Qualified Code: K92.2 - Gastrointestinal hemorrhage, unspecified gastrointestinal hemorrhage type Admitting Information Admitting Physician Requests: Admit Yeni Pruett MD Apr 16, 2017 15:15
[2017-04-16 15:18] LABS: AUTOMATED NEUTROPHIL # 4.6 TH/MM3 (1.8-7.7); BASOPHIL # 0.1 TH/MM3 (0-0.2); BASOPHIL % 0.9 % (0.0-2.0); EOSINOPHIL # 0.2 TH/MM3 (0-0.4); EOSINOPHIL % 2.2 % (0.0-4.0); HEMATOCRIT 31.7 % (35.0-46.0); HEMO FLAGS DIFF FINAL; LYMPH % 22.4 % (9.0-44.0); LYMPHOCYTE # 1.6 TH/MM3 (1.0-4.8); MEAN CELL VOLUME 91.4 FL (80.0-100.0); MEAN CORPUSCULAR HEMOGLOBIN 31.4 PG (27.0-34.0); MEAN CORPUSCULAR HGB CONC 34.4 % (32.0-36.0); NEUT % 65.5 % (16.0-70.0); PLATELET COUNT 187 TH/MM3 (150-450); RED BLOOD COUNT 3.47 MIL/MM3 (4.00-5.30); RED CELL DISTRIBUTION WIDTH 12.7 % (11.6-17.2)
[2017-04-16 15:27] LABS: APTT (PATIENT) 29.5 SEC (24.3-30.1); INTERNATIONAL NORMALIZED RATIO 1.3 RATIO; PROTHROMBIN TIME - PATIENT 15.1 SEC (9.8-11.6)
[2017-04-16 15:35] LABS: ALT (GPT) 38 U/L (10-53); ANION GAP 8 MEQ/L (5-15); AST (GOT) 30 U/L (15-37); BICARBONATE 24.2 MEQ/L (21.0-32.0); BLOOD UREA NITROGEN 24 MG/DL (7-18); CHLORIDE 109 MEQ/L (98-107); GLOMERULAR FILTRATION RATE 44 ML/MIN (>89); POTASSIUM 4.2 MEQ/L (3.5-5.1); SODIUM (NA) 141 MEQ/L (136-145)
[2017-04-16 15:38] LABS: ALKALINE PHOSPHATASE 62 U/L (45-117); TOTAL BILIRUBIN ADULT 0.2 MG/DL (0.2-1.0)
[2017-04-16 16:49] VITALS: BP 142/65; PULSE 61; RESP 16; O2SAT 98
[2017-04-16] MEDS: SODIUM CHLOR 0.9% 1000 ML INJ 1,000 ML IV SCH (17:07)
--- NOTE | 2017-04-16 17:44 | HHI.HP ---
[facility] Rad[facility] Tucker Admission Diagnosis gi bleed Diagnoses: Chief Complaint: black stools Travel History International Travel<30 Days: No Contact w/Intl Traveler <30 Da: No Traveled to Known Affected Are: No History of Present Illness Patient is a prepped pleasant 81-year-old female with known history of CAD status post PCI with bare metal stent of the LAD last April 08, history of mitral valve prosthesis metallic valve was actually just recently discharged here from a few days ago. She came back in today with black tarry stools that started yesterday evening. This morning had another black bowel movement and on wiping had bright red back bright re blood on tissue. Patient denies any nausea vomiting or abdominal pain. And admitted for further evaluation. Patient states compliance with medication. She was discharged from last admission with Lovenox with Coumadin overlap + Plavix. INR is subtherapeutic. Review of last admission patient underwent EGD with biopsy - shows mild gastritis, no ulcers, pathologic gastritis colonoscopy with cauterization of AVMs and clipping of cecal AVMs. Patient currently denies any chest pains or shortness of breath. Review of Systems Constitutional: DENIES: Fever, Weight loss, Chills, Change in appetite Eyes: DENIES: Blurred vision, Double Vision Ears, nose, mouth, throat: DENIES: Tinnitus, Ear Pain, Epistaxis, Odynophagia Respiratory: DENIES: Cough, Hemoptysis, Sputum production, Shortness of breath Cardiovascular: DENIES: Chest pain, Palpitations, Dyspnea on Exertion, Lower Extremity Edema, Orthopnea Gastrointestinal: DENIES: Black stools, Bloody stools, Difficulty Swallowing, Anorexia Genitourinary: DENIES: Urgency, Hematuria, Vaginal discharge Musculoskeletal: DENIES: Joint pain, Stiffness Integumentary: DENIES: Pruritus Hematologic/lymphatic: DENIES: Bruising Immunologic/allergic: DENIES: Urticaria Neurologic: DENIES: Headache, Speech Problems, Tremor Psychiatric: DENIES: Suicidal Ideation, Homicidal Ideation Past Family Social History Past Medical History CAD status post non-ST elevation DC [place] 3- status post PCI with bare-metal stent of LAD History of mitral valve metallic prosthesis Hypertension Hypothyroidism Past Surgical History No major surgeries Reported Medications Plavix Aspirin Lovenox 60 mg subcutaneous every 12 Lisinopril 5 mg daily Lopressor 12.5 mg twice a day Protonix Digoxin 0.125 mg daily Imdur 60 mg daily Synthroid 60 g daily Losartan 150 mg daily Allergies: Coded Allergies: Flagyl (Unverified Allergy, Severe, RASH, 06/11/15) Family History Noncontributory Social History Nonsmoker. Occasional wine Physical Exam Vital Signs Vital Signs Date Time Temp Pulse Resp B/P Pulse Ox O2 Delivery O2 Flow Rate FiO2 04/16/17 16:49 61 16 142/65 98 04/16/17 13:10 98.4 90 16 148/70 98 Physical Exam GENERAL: Awake alert no acute distress SKIN: No rashes, ecchymoses or lesions. Cool and dry. HEAD: Atraumatic. Normocephalic. No temporal or scalp tenderness. EYES: Pupils equal round and reactive. Extraocular motions intact. No scleral icterus. No injection or drainage. ENT: Nose without bleeding, purulent drainage or septal hematoma. Throat without erythema, tonsillar hypertrophy or exudate. Uvula midline. Airway patent. NECK: Trachea midline. No JVD or lymphadenopathy. Supple, nontender, no meningeal signs. CARDIOVASCULAR: irregularly irregular rhythm, systolic click left sternal border RESPIRATORY: Clear to auscultation. Breath sounds equal bilaterally. No wheezes , rales, or rhonchi. GASTROINTESTINAL: Abdomen soft, non-tender, nondistended. No guarding. MUSCULOSKELETAL: Extremities without clubbing, cyanosis, or edema. No joint tenderness, effusion, or edema noted. No calf tenderness. Negative Homans sign bilaterally. NEUROLOGICAL: Awake and alert. Cranial nerves II through XII intact. Motor and sensory grossly within normal limits. Five out of 5 muscle strength in all muscle groups. Normal speech. Laboratory Laboratory Tests Test 04/16/17 14:50 White Blood Count 7.0 Red Blood Count 3.47 Hemoglobin 10.9 Hematocrit 31.7 Mean Corpuscular Volume 91.4 Mean Corpuscular Hemoglobin 31.4 Mean Corpuscular Hemoglobin 34.4 Concent Red Cell Distribution Width 12.7 Platelet Count 187 Mean Platelet Volume 8.7 Neutrophils (%) (Auto) 65.5 Lymphocytes (%) (Auto) 22.4 Monocytes (%) (Auto) 9.0 Eosinophils (%) (Auto) 2.2 Basophils (%) (Auto) 0.9 Neutrophils # (Auto) 4.6 Lymphocytes # (Auto) 1.6 Monocytes # (Auto) 0.6 Eosinophils # (Auto) 0.2 Basophils # (Auto) 0.1 CBC Comment DIFF FINAL Differential Comment Prothrombin Time 15.1 Prothromb Time International 1.3 Ratio Activated Partial 29.5 Thromboplast Time Sodium Level 141 Potassium Level 4.2 Chloride Level 109 Carbon Dioxide Level 24.2 Anion Gap 8 Blood Urea Nitrogen 24 Creatinine 1.17 Estimat Glomerular Filtration 44 Rate Random Glucose 96 Calcium Level 8.9 Total Bilirubin 0.2 Aspartate Amino Transf 30 (AST/SGOT) Alanine Aminotransferase 38 (ALT/SGPT) Alkaline Phosphatase 62 Total Protein 7.0 Albumin 3.7 Blood Type A POSITIVE Antibody Screen NEGATIVE Blood Bank Comment Result Diagram: 04/16/17 1450 04/16/17 1450 Assessment and Plan Assessment and Plan 81-year-old female presenting with bright red blood per rectum Acute GI bleeding recurrent recent admission a week ago for the same. -Workup done showed AVMs status post cauterization and clipping. GI consultED Monitor H&H. Clear liquids for now. Nothing by mouth post midnight. Start patient on PPI IV Acute kidney injury likely secondary to GI bleed. Will start patient on gentle hydration Recent NSTEMI History of hypertension, hyperlipidemia History of metallic mitral valve History of atrial fibrillation rate controlled. Patient on Coumadin - HOld. Start Heparin drip protocol Continue on lisinopril 5 mg daily. Lopressor 12.5 mg twice a day. Digoxin 0.125 mg daily. Imdur 60 mg daily. Continue on Plavix. Plan is to be on Plavix 6-12 weeks post procedure. History of hypothyroidism continue on Synthroid Discussed with patient. She specifically requested for Dr. Sanchez Discussed Condition With Patient and family. Physician Certification 2 Midnight Certification Type: Admission for Inpatient Services Order for Inpatient Services The services are ordered in accordance with Medicare regulations or non- Medicare payer requirements, as applicable. In the case of services not specified as inpatient-only, they are appropriately provided as inpatient services in accordance with the 2-midnight benchmark. Estimated LOS (days): 3 days is the estimated time the patient will need to remain in the hospital, assuming treatment plan goals are met and no additional complications. Post-Hospital Plan: Not yet determined Emilie Malone MD Apr 16, 2017 17:44 Emilie Malone MD Apr 16, 2017 17:44
[2017-04-16] MEDS ORDERED: NITROGLYCERIN 0.4 MG SL 25 TABS/BTL SL PRN (18:00)
[2017-04-16] MEDS ORDERED: SODIUM CHLORIDE 0.9% FLUSH 10 ML FLUSH IV FLUSH PRN (18:00)
[2017-04-16] MEDS ORDERED: HEPARIN-D5W INJ 250 ML IV SCH (18:15)
[2017-04-16] MEDS ORDERED: PILL SPLITTER OTHER PRN (19:45)
[2017-04-16 20:00] VITALS: BP 140/63; PULSE 65; PULSE 66; RESP 20; TEMP 98.1; O2SAT 98
[2017-04-16] MEDS: PANTOPRAZOLE SODIUM 40 MG VIAL IV PUSH SCH (20:44)
[2017-04-16] MEDS: METOPROLOL TARTRATE 25 MG TAB PO SCH (20:44)
[2017-04-16 21:00] VITALS: PULSE 60
[2017-04-16 22:00] VITALS: PULSE 60
[2017-04-16] MEDS ORDERED: diphenhydrAMINE HCL 50 MG CAP PO PRN (22:15)
[2017-04-16 23:00] VITALS: PULSE 60
[2017-04-17] VITALS (16 sets, daily range): BP systolic 113–158; BP diastolic 65–75; PULSE 60–76; RESP 16–20; TEMP 97.3–98.1; O2SAT 98–100
[2017-04-17 01:12] LABS: HEMATOCRIT 26.3 % (35.0-46.0); MEAN CELL VOLUME 91.5 FL (80.0-100.0); MEAN CORPUSCULAR HEMOGLOBIN 31.5 PG (27.0-34.0); MEAN CORPUSCULAR HGB CONC 34.4 % (32.0-36.0); PLATELET COUNT 163 TH/MM3 (150-450); RED BLOOD COUNT 2.87 MIL/MM3 (4.00-5.30); RED CELL DISTRIBUTION WIDTH 12.8 % (11.6-17.2); REVIEW FLAG FINAL; WHITE BLOOD COUNT 7.1 TH/MM3 (4.0-11.0)
[2017-04-17 04:31] LABS: HEMATOCRIT 25.1 % (35.0-46.0); MEAN CELL VOLUME 91.5 FL (80.0-100.0); MEAN CORPUSCULAR HEMOGLOBIN 31.5 PG (27.0-34.0); MEAN CORPUSCULAR HGB CONC 34.4 % (32.0-36.0); PLATELET COUNT 148 TH/MM3 (150-450); RED BLOOD COUNT 2.74 MIL/MM3 (4.00-5.30); RED CELL DISTRIBUTION WIDTH 12.4 % (11.6-17.2); REVIEW FLAG FINAL; WHITE BLOOD COUNT 6.1 TH/MM3 (4.0-11.0)
[2017-04-17 04:42] LABS: APTT (PATIENT) 55.1 SEC (24.3-30.1)
[2017-04-17 04:52] LABS: BICARBONATE 24.1 MEQ/L (21.0-32.0); POTASSIUM 3.8 MEQ/L (3.5-5.1)
[2017-04-17] MEDS: LEVOTHYROXINE SODIUM 25 MCG TAB PO SCH (06:07)
[2017-04-17] MEDS: SODIUM CHLOR 0.9% 1000 ML INJ 1,000 ML IV SCH (07:18)
[2017-04-17] MEDS: CHOLECALCIFEROL (VIT D3) 400 UNIT TAB PO SCH (08:39)
[2017-04-17] MEDS: METOPROLOL TARTRATE 25 MG TAB PO SCH ×2 (08:39→21:19)
[2017-04-17] MEDS: PRAVASTATIN SOD 10 MG TAB PO SCH (08:39)
[2017-04-17] MEDS: LISINOPRIL 5 MG TAB PO SCH (08:39)
[2017-04-17] MEDS: MAGNESIUM OXIDE 400 MG TAB PO SCH (08:39)
[2017-04-17] MEDS: DILTIAZEM-CD 180 MG CAP ER PO SCH (08:39)
[2017-04-17] MEDS: DIGOXIN 0.125 MG TAB PO SCH (08:39)
[2017-04-17] MEDS: ISOSORBIDE MONONITRATE 60 MG TAB PO SCH (08:39)
--- NOTE | 2017-04-17 09:24 | HHI.PR ---
Subjective Remarks clinically feels well- no chest pains, shortness of breath, abdominal apin, nausea or vomiting patient had 2 episodes of bright red blood per rectum- no pain at all Objective Vitals Vital Signs Date Time Temp Pulse Resp B/P Pulse Ox O2 Delivery O2 Flow Rate FiO2 04/17/17 07:39 100 Room Air 04/17/17 07:39 67 04/17/17 07:39 97.9 67 18 123/67 100 04/17/17 06:00 60 04/17/17 05:00 60 04/17/17 04:00 60 04/17/17 04:00 Room Air 04/17/17 04:00 98.0 62 20 131/65 98 04/17/17 03:00 60 04/17/17 02:00 60 04/17/17 01:00 60 04/17/17 00:00 Room Air 04/17/17 00:00 62 04/17/17 00:00 98.0 72 20 144/71 99 04/16/17 23:00 60 04/16/17 22:00 60 04/16/17 21:00 60 04/16/17 20:00 Room Air 04/16/17 20:00 98.1 65 20 140/63 98 04/16/17 20:00 66 04/16/17 16:49 61 16 142/65 98 04/16/17 13:10 98.4 90 16 148/70 98 I/O 04/16/17 04/16/17 04/16/17 04/17/17 04/17/17 04/17/17 07:00 15:00 23:00 07:00 15:00 23:00 Intake Total 858 ml Output Total 700 ml Balance 158 ml Intake Oral 100 ml IV Total 758 ml Output Urine Total 700 ml # Bowel Movements 1 Result Diagram: 04/17/170 04/17/17409 Objective Remarks awake and alert, vital stable, NAD anicter lungs clear regular rhythm abdomen soft, nontender extremities no edema neuro exam unremarkable A/P Assessment and Plan 81-year-old female presenting with bright red blood per rectum recent NSTEMI on DAPT (DC on Lovenox/coumadin and Plavix) Acute GI bleeding recurrent recent admission a week ago for the same. 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 GI consulted- known to Dr. Sanchez- hopefully she will get scope today - will d/w Dr. Kim physician Nothing by mouth . on PPI IV get a Bleeding scan Acute anemia- secondary to GIB transfuse total 2 units RBC with recent VA. ff CBC Recent NSTEMI on DAPT History of hypertension, hyperlipidemia History of metallic mitral valve prosthesis History of atrial fibrillation rate controlled. Patient on Coumadin - HOld. Hold heparin drip. Hold Plavix for now (plan was to be on it for 6-12 weeks post procedure) Continue on lisinopril 5 mg daily. Lopressor 12.5 mg twice a day. Digoxin 0.125 mg daily. Imdur 60 mg daily. Cardiology consult for recommendations- dilemma- known to Dr. Bates Acute kidney injury likely secondary to GI bleed. - creatinine improved with gentle hydration ff BMP History of hypothyroidism continue on Synthroid Discussed with patient. total time spent discussion with consultants 90 minutes d/w Dr. Kim at length. we will get Cardiology - d/w Emilie Carpenter MD Apr 17, 2017 09:23
[2017-04-17 10:38] LABS: APTT (PATIENT) 51.2 SEC (24.3-30.1)
--- NOTE | 2017-04-17 10:38 | MB ---
cc: VICENTE FLOR DATE OF CONSULTATION: 04/17/2017. REASON FOR CONSULTATION: GI bleed. HISTORY OF PRESENT ILLNESS: This is a pleasant 81-year-old female who has a significant cardiac history. She has coronary artery disease status post percutaneous coronary intervention with insertion of a bare-metal stent on April 08, history of mitral valve prosthesis with metallic valve. She was discharged several days ago after a recent admission. She developed lower GI bleed and was evaluated by Dr. Malhotra here in the hospital. The patient underwent EGD with biopsy which showed mild gastritis, no active bleeding source on upper endoscopy evaluation. A colonoscopy revealed an actively bleeding AVM that was cauterized and apparently clipping was performed. The procedure note is not available in the computer at this time for some reason. In any event, the patient was discharged and then she was readmitted with bloody stools. She denies any abdominal pain. Hemoglobin in the emergency room was 10.9 and today it is currently 8.6. Transfusions have been ordered. This morning she had four bowel movements. She states she notes her stools are dark with a maroon component as well. It is notable that the patient has been on several anticoagulation medications including coumadin and Lovenox, which was bridging her Coumadin therapy to therapeutic levels. She was also receiving Plavix and aspirin therapy. Her anticoagulation therapy has been stopped temporarily. Hemodynamically she appears to be stable at this time. I was asked to evaluate her further. PAST MEDICAL HISTORY: 1. Hypertension. 2. Hypothyroidism. 3. Coronary artery disease. 4. Status post non-S-T myocardial infarction April 08. MEDICATIONS: Medications mentioned above includin. Anticoagulation therapy. 2. Aspirin. 3. Plavix. 4. Coumadin. 5. Protonix. 6. Lopressor. 7. Lisinopril. 8. Digoxin. 9. Imdur. 10. Synthroid. 11. Losartan. ALLERGIES: FLAGYL. FAMILY HISTORY: Negative from a GI standpoint. SOCIAL HISTORY: Nonsmoker. Denies alcohol use. REVIEW OF SYSTEMS: A twelve point review of systems is as mentioned above. She has had no syncopal episodes. PHYSICAL EXAMINATION: GENERAL: A well-developed female alert and oriented times three and in no acute distress. VITAL SIGNS: Stable. HEAD, EYES, EARS, NOSE, THROAT: Unremarkable. NECK: Neck is supple. CARDIAC: Cardiac exam S1-S2 slightly irregular rhythm. I do hear an audible click at the left chest region. She does have a palpable pacemaker on the left as well. CHEST: Chest is clear to A&P. ABDOMEN: The abdomen is soft, nontender. Bowel sounds are present. No mass. EXTREMITIES: Without clubbing, cyanosis or edema. NEUROLOGICALLY: She is intact. LAB WORK: Mentioned above. Platelet count was 187,000. INR on admission was 1.5. Prothrombin time 15. Liver enzymes are normal. IMPRESSION: An 81-year-old female with significant cardiac history who presents with recurrent GI bleeding. Suspected etiologies are lower GI source perhaps secondary to the recent AVM that was cauterized and apparently clipped endoscopically. PLAN: I have discussed the case with her primary care physician, admitting doctor. Her anticoagulation therapy has been placed on hold. We discussed options to evaluate her further. We will obtain a stat nuclear bleeding scan to try and localize the site. We will begin prep for colonoscopy for a second look and evaluation of her possible lower GI bleeding. We did discuss with the patient the procedure and risks of colonoscopy including bleeding, sepsis and especially the risks of perforation as I have concerns about any attempt at repeat cautery especially in the cecal area. We could consider injection therapy or repeat clipping if necessary if active bleeding is seen. Another option would be having interventional radiology involved if active bleeding source is found on the bleeding scan to attempt a coil technique procedure to stop the bleeding if necessary. Of course, all of this is probably related to her multiple anticoagulants that she has been taking, which makes bleeding more prominent. We could consider the use of Octreotide, although the value may be limited as well. I would certainly follow her hemoglobin and hematocrits and transfuse. Once again, I discussed the case with the staff and the patient herself. I thank you kindly for this consult. MD LINSEY Mason/DEANNA /10:05 AM /10:18 AM
--- NOTE | 2017-04-17 11:20 | PD.CONS ---
HPI Consult Requested By Reason for Consult GI bleeding with mitral valve replacement and coronary stent Primary Care Physician Radha Tucker History of Present Illness The patient has a complex cardiac history. She had a St[employer] Beau mitral valve replacement in 2001 for severe mitral regurgitation. In 2013 she underwent bare metal stent of obtuse marginal #1. She has known moderate disease with normal FFR but came in with a non-ST elevation AL earlier this month. Catheterization by Dr. Bates showed moderate disease with a 70% proximal LAD lesion that had an abnormal FFR. She underwent bare metal stenting with a 3.0 x 15 mm bare metal stent. Her obtuse marginal stent had been patent. During that hospital stay she did have GI bleeding with scoping showing gastritis along with an AV malformation which was cauterized. She was sent home on aspirin, clopidogrel, Coumadin and Lovenox bridging. She was readmitted with several episodes of dark black stool and actually had bright red blood in the presence of the hospitalist to have spoken to. She has no cardiopulmonary symptoms. EKG showed atrial fibrillation with ventricular demand pacemaker Review of Systems Respiratory: DENIES: Cough, Snoring, Wheezing, Sputum production Gastrointestinal: COMPLAINS OF: Bloody stools Genitourinary: DENIES: Urinary incontinence Neurologic: DENIES: Tingling or numbness Musculoskeletal: COMPLAINS OF: Joint pain Psychiatric: DENIES: Anxiety, Depression Hematologic: COMPLAINS OF: Bruising tendencies, Bleeding tendencies Past Family Social History Allergies: Coded Allergies: Flagyl (Unverified Allergy, Severe, RASH, 06/11/15) Past Medical History Cardiac as above Medtronic permanent pacemaker Hypertension Hyperlipidemia Hypothyroidism Renal calculus Hepatitis C Paroxysmal ventricular tachycardia GI as above Past Surgical History Mitral valve replacement Cataract Tonsillectomy Reported Medications Reported Meds & Active Scripts Active Metoprolol Tartrate 25 Mg Tab 12.5 Mg PO BID Lisinopril 5 Mg Tab 5 Mg PO DAILY Lovenox Inj (Enoxaparin Sodium) 60 Mg/0.6 Ml Syr 60 Mg SQ Q12H Plavix (Clopidogrel Bisulfate) 75 Mg Tab 75 Mg PO DAILY Aspirin Low Strength (Aspirin) 81 Mg Chew 81 Mg PO DAILY Reported Magnesium (Magnesium Oxide) 400 Mg Tablet 1 Tab PO DAILY Vitamin D (Cholecalciferol) 400 Unit Cap 1 Cap PO DAILY B Complex (B-Complex Vitamins) 1 Cap 1 Cap PO DAILY Vitamin A 8,000 Unit Capsule 1 Cap PO DAILY [Osteo prime ultra] 1 Tab PO BID [New remedy ] 150 Mg PO BID [Turmeric force] 320 Mg PO BID Nitrostat SL (Nitroglycerin) 0.4 Mg Subl 0.4 Mg SL DIRECTED PRN 1 tablet under the tongue as needed for chest pain. Repeat every 5 minutes for a total of 3 DOSES or call 911 if NO relief. Levothyroxine (Levothyroxine Sodium) 25 Mcg Tab 25 Mcg PO DAILY Isosorbide Mononitrate ER (Isosorbide Mononitrate) 60 Mg Tab 60 Mg PO DAILY Simvastatin 5 Mg Tab 5 Mg PO DAILY Warfarin 2 Mg Tab 2 Mg PO DAILY Warfarin 3 Mg Tab 3 Mg PO DAILY Diltiazem ER 24 HR 180 Mg Finn 180 Mg PO DAILY Losartan (Losartan Potassium) 100 Mg Tab 150 Mg PO DAILY Digoxin 0.125 Mg Tab 0.125 Mg PO DAILY Active Ordered Medications Current Medications Medications (Trade) Dose Ordered Sig/Schuyler Route Start Time Stop Time Status Last Admin Sodium Chloride 2 ml 2 ml UNSCH PRN IVF 04/16/17 14:45 (NS 1000 ml Inj) 1,000 ml @ 70 mls/hr [id number] IV 04/16/17 17:00 04/17/17 07:18 (Lanoxin) 0.125 mg DAILY PO 04/17/17 09:00 04/17/17 08:39 (Cardizem Cd) 180 mg DAILY PO 04/17/17 09:00 04/17/17 08:39 (Imdur) 60 mg DAILY PO 04/17/17 09:00 04/17/17 08:39 (Synthroid) 25 mcg DAILY@07 PO 04/17/17 07:00 04/17/17 06:07 (Prinivil) 5 mg DAILY PO 04/17/17 09:00 04/17/17 08:39 (Mag-Ox) 400 mg DAILY PO 04/17/17 09:00 04/17/17 08:39 (Lopressor) 12.5 mg BID PO 04/16/17 21:00 04/17/17 08:39 (Nitrostat Sl) 0.4 mg STAT PRN SL 04/16/17 18:00 (Vitamin D3) 400 units DAILY PO 04/17/17 09:00 04/17/17 08:39 (Pravachol) 10 mg DAILY PO 04/17/17 09:00 04/17/17 08:39 (Protonix Inj) 40 mg Q24H IV PUSH 04/16/17 18:00 04/16/17 20:44 (NS Flush) 2 ml UNSCH PRN IV FLUSH 04/16/17 18:00 (Pill Splitter) 1 ea UNSCH PRN OTHER 04/16/17 19:45 (Benadryl) 25 mg HS PRN PO 04/16/17 22:15 04/16/17 22:15 Family History Noncontributory Social History The patient is . She does not smoke and rarely drinks. Physical Exam Vital Signs Vital Signs Date Time Temp Pulse Resp B/P Pulse Ox O2 Delivery O2 Flow Rate FiO2 04/17/17 10:38 98.1 64 16 113/66 98 04/17/17 07:39 100 Room Air 04/17/17 07:39 67 04/17/17 07:39 97.9 67 18 123/67 100 04/17/17 06:00 60 04/17/17 05:00 60 04/17/17 04:00 60 04/17/17 04:00 Room Air 04/17/17 04:00 98.0 62 20 131/65 98 04/17/17 03:00 60 04/17/17 02:00 60 04/17/17 01:00 60 04/17/17 00:00 Room Air 04/17/17 00:00 62 04/17/17 00:00 98.0 72 20 144/71 99 04/16/17 23:00 60 04/16/17 22:00 60 04/16/17 21:00 60 04/16/17 20:00 Room Air 04/16/17 20:00 98.1 65 20 140/63 98 04/16/17 20:00 66 04/16/17 16:49 61 16 142/65 98 04/16/17 13:10 98.4 90 16 148/70 98 Physical Exam CONSTITUTIONAL: A well-developed, well-nourished patient in no apparent distress. EYES: Conjunctiva normal. Sclera nonicteric. Eyelids normal. No xanthelasma. HEENT: Oral mucosa normal without pallor or cyanosis. NECK: JVD less than or equal to 5 cm of water. RESPIRATORY: Breathing is unlabored without accessory muscle use. Normal breath sounds. No wheezes, rales or rubs present. CARDIOVASCULAR: Normal point of maximal impulse. No cardiac thrill present. Regular rate and rhythm. No murmurs, gallops, rubs or clicks present. [place] mitral valve closure sound. PULSES: Carotid arteries: Normal pulses bilaterally without bruits. Palmar arteries: Radial pulses 1-2+ bilaterally Abdominal aorta: Aortic pulses normal without bruits or enlargement. Femoral arteries: 1-2+ bilaterally. No bruits present. Pedal pulses: 1+ bilaterally PERIPHERAL CIRCULATION: No cyanosis, clubbing, edema or varicosities present. GASTROINTESTINAL: Normal bowel sounds. Nontender without rigidity or guarding. No masses present. No hepatomegaly. Liver is nontender to palpation and spleen is nonpalpable. Digital rectal exam-not indicated for cardiovascular exam. MUSCULOSKELETAL: No kyphosis or scoliosis present. The patient is not ambulated. Able to undergo rehabilitation. SKIN: Skin turgor is normal. No rashes. NEUROLOGIC: Grossly oriented to person, place and time. Normal mood and appropriate affect. Laboratory Laboratory Tests Test 04/16/17 04/16/17 04/16/17 04/17/17 14:50 17:57 19:47 00:33 White Blood Count 7.0 7.1 Red Blood Count 3.47 2.87 Hemoglobin 10.9 9.0 Hematocrit 31.7 26.3 Mean Corpuscular Volume 91.4 91.5 Mean Corpuscular Hemoglobin 31.4 31.5 Mean Corpuscular Hemoglobin 34.4 34.4 Concent Red Cell Distribution Width 12.7 12.8 Platelet Count 187 163 Mean Platelet Volume 8.7 8.7 Neutrophils (%) (Auto) 65.5 Lymphocytes (%) (Auto) 22.4 Monocytes (%) (Auto) 9.0 Eosinophils (%) (Auto) 2.2 Basophils (%) (Auto) 0.9 Neutrophils # (Auto) 4.6 Lymphocytes # (Auto) 1.6 Monocytes # (Auto) 0.6 Eosinophils # (Auto) 0.2 Basophils # (Auto) 0.1 CBC Comment DIFF FINAL Differential Comment Prothrombin Time 15.1 Prothromb Time International 1.3 Ratio Activated Partial 29.5 Thromboplast Time Sodium Level 141 Potassium Level 4.2 Chloride Level 109 Carbon Dioxide Level 24.2 Anion Gap 8 Blood Urea Nitrogen 24 Creatinine 1.17 Estimat Glomerular Filtration 44 Rate Random Glucose 96 Calcium Level 8.9 Total Bilirubin 0.2 Aspartate Amino Transf 30 (AST/SGOT) Alanine Aminotransferase 38 (ALT/SGPT) Alkaline Phosphatase 62 Total Protein 7.0 Albumin 3.7 Blood Type A POSITIVE A POSITIVE A POSITIVE Antibody Screen NEGATIVE Blood Bank Comment Crossmatch Leukocyte-Reduced Red Blood Cells Test 04/17/17 04/17/17 04:10 10:06 White Blood Count 6.1 Red Blood Count 2.74 Hemoglobin 8.6 Hematocrit 25.1 Mean Corpuscular Volume 91.5 Mean Corpuscular Hemoglobin 31.5 Mean Corpuscular Hemoglobin 34.4 Concent Red Cell Distribution Width 12.4 Platelet Count 148 Mean Platelet Volume 8.4 Activated Partial 55.1 51.2 Thromboplast Time Sodium Level 143 Potassium Level 3.8 Chloride Level 112 Carbon Dioxide Level 24.1 Anion Gap 7 Blood Urea Nitrogen 25 Creatinine 0.69 Estimat Glomerular Filtration 81 Rate Random Glucose 86 Calcium Level 8.3 Date/Time Procedure Status Source Growth 04/17/17 07:50 Stool Occult Blood ([facility]) Received Stool Stool Pending Result Diagram: 04/17/1740904/17/17409 Imaging Reviewed. Bleeding scan is pending. Assessment and Plan Assessment and Plan Problems: Recurrent GI bleed Recent bare metal stent St. Beau mitral valve replacement Atrial fibrillation Ventricular demand pacemaker Hypertension Hyperlipidemia Hypothyroidism Recommendations: Given active bleeding, hold anticoagulation and antiplatelet agents although risk of stent thrombosis and valve thrombosis is high. Endocarditis prophylaxis when appropriate Continue other medication Bleeding scan and GI input Further recommendations to follow. I suspect the patient might tolerate Coumadin and Plavix alone but I do feel that the Lovenox and additional aspirin may have influenced the bleeding. Js Quintero MD Apr 17, 2017 11:20
[2017-04-17] MEDS ORDERED: PEG (High)/E-LYTE SOLN 4000 ML BTL PO ONE (13:00)
--- NOTE | 2017-04-17 13:51 | RADRPT ---
EXAM DATE/TIME: 04/17/2017 12:19 [facility] COMPARISON: GI BLEEDING SCAN, April 10, 2017, 16:31. INDICATIONS : Rectal bleeding. DOSE: 21 mCi Tc99m Ultratag labeled red blood cells IV IMAGIN min. MEDICAL HISTORY : Hypertension. Myocardial infarction. SURGICAL HISTORY : Pacemaker. CABG Angioplasty. colonoscopy with cauterization of AVMs and clipping of cecal AVMs. ENCOUNTER: Initial ACUITY: 2 days PAIN SCALE: 0/10 LOCATION: lower quadrant TECHNIQUE: Following the modified in vitro labeling of autologous red cells, dynamic continuous images were acqu ired for the specified interval. FINDINGS: BIODISTRIBUTION: There is a very good labeling of red cells without significant uptake in the gastric wall. There is good delineation of the blood pool of the spleen and abdominal vessels. BLEEDING: Active extravasation of radiotracer is identified in the right lower cord in the abdomen. It is uncer tain whether the active extravasation is in the distal small bowel or proximal ascending colon.. CONCLUSION: Positive GI bleeding scan with active radiotracer extravasation in the right lower quadrant of the ab domen. Kota Aguilera MD on April 17, 2017 at 13:44 Board Certified Radiologist. This report was verified electronically.
[2017-04-17] MEDS ORDERED: OCTREOTIDE INJ 50 MCG/ML AMP IV ONE (16:45)
[2017-04-17] MEDS: OCTREOTIDE 500 MCG/NS 500 ML - 50 mcg/hr IV SCH ×2 (17:20)
[2017-04-17] MEDS: PANTOPRAZOLE SODIUM 40 MG VIAL IV PUSH SCH (17:22)
--- NOTE | 2017-04-17 17:23 | EKG ---
Date Performed: 04/16/2017 Time Performed: 17:47:03 PTAGE: 81 years EKG: ELECTRONIC VENTRICULAR PACEMAKER ABNORMAL RHYTHM ECG Compared to prior tracing no significa nt change PREVIOUS TRACING : 04/07/2017 22.34 DOCTOR: Toni Mcmanus Interpretating Date/Time 04/17/2017 17:19:29
[2017-04-17 19:49] LABS: HEMATOCRIT 39.7 % (35.0-46.0); REVIEW FLAG FINAL
[2017-04-18] VITALS (20 sets, daily range): BP systolic 119–160; BP diastolic 54–77; PULSE 60–74; RESP 16; TEMP 97.8–98.6; O2SAT 95–99
[2017-04-18] MEDS: OCTREOTIDE 500 MCG/NS 500 ML - 50 mcg/hr IV SCH ×4 (04:12→13:00)
[2017-04-18] MEDS: LEVOTHYROXINE SODIUM 25 MCG TAB PO SCH (06:18)
[2017-04-18] MEDS: MAGNESIUM OXIDE 400 MG TAB PO SCH (07:41)
[2017-04-18] MEDS: DILTIAZEM-CD 180 MG CAP ER PO SCH (07:42)
[2017-04-18] MEDS: METOPROLOL TARTRATE 25 MG TAB PO SCH ×2 (07:42→21:36)
[2017-04-18] MEDS: CHOLECALCIFEROL (VIT D3) 400 UNIT TAB PO SCH (07:42)
[2017-04-18] MEDS: LISINOPRIL 5 MG TAB PO SCH (07:42)
[2017-04-18] MEDS: ISOSORBIDE MONONITRATE 60 MG TAB PO SCH (07:42)
[2017-04-18] MEDS: PRAVASTATIN SOD 10 MG TAB PO SCH (07:42)
[2017-04-18] MEDS: DIGOXIN 0.125 MG TAB PO SCH (07:42)
[2017-04-18] MEDS: SODIUM CHLOR 0.9% 1000 ML INJ 1,000 ML IV SCH (07:43)
--- NOTE | 2017-04-18 08:18 | PD.CARD.PN ---
Subjective Subjective Remarks The patient has continued to have GI bleeding. Telemetry reveals atrial fibrillation with ventricular demand pacemaker. She denies chest pain, shortness of breath, lightheadedness or GI symptoms otherwise. Objective Medications Reviewed Vital Signs / I&O Vital Signs Date Time Temp Pulse Resp B/P Pulse Ox O2 Delivery O2 Flow Rate FiO2 04/18/17 07:46 97.9 66 16 160/68 99 04/18/17 07:46 66 04/18/17 06:00 74 04/18/17 05:00 60 04/18/17 04:00 60 04/18/17 03:00 97.9 61 16 154/70 96 04/18/17 03:00 60 04/18/17 02:00 62 04/18/17 01:00 62 04/18/17 00:00 62 04/17/17 23:00 97.8 68 16 152/73 99 04/17/17 23:00 60 04/17/17 22:00 76 04/17/17 21:00 76 04/17/17 20:00 72 04/17/17 19:00 72 04/17/17 19:00 97.8 71 18 158/70 98 04/17/17 15:55 97.3 62 18 136/75 99 04/17/17 15:55 69 04/17/17 11:09 98.1 63 18 113/66 100 04/17/17 10:38 98.1 64 16 113/66 98 I/O 04/17/17 04/17/17 04/17/17 04/18/17 04/18/17 04/18/17 07:00 15:00 23:00 07:00 15:00 23:00 Intake Total 858 ml 3606 ml 1194 ml Output Total 700 ml Balance 158 ml 3606 ml 1194 ml Intake Oral 100 ml 2500 ml IV Total 758 ml 414 ml 1194 ml Packed Cells 692 ml Output Urine Total 700 ml # Voids 7 8 # Bowel Movements 1 6 8 Physical Exam GENERAL: Well-nourished, well-developed patient in no apparent distress. SKIN: Warm and dry. NECK: JVD normal - less than or equal to 5 cm H20. CARDIOVASCULAR: Regular rate and rhythm without murmurs, gallops, or rubs. [place] mitral valve closure sound. RESPIRATORY: Normal breath sounds - equal bilaterally. No accessory muscle use. No wheezes, rales or rubs. PERIPHERY: No cyanosis, or edema. Laboratory Laboratory Tests Test 04/17/17 04/17/17 10:06 19:39 Activated Partial 51.2 SEC Thromboplast Time Hemoglobin 13.5 GM/DL Hematocrit 39.7 % Imaging Last 48 hours Impressions GI Bleed Scan Nuclear Medicine 04/17/17 0000 Signed Impressions: Service Date/Time: Wednesday, April 17, 2017 12:19 - CONCLUSION: Positive GI bleeding scan with active radiotracer extravasation in the right lower quadrant of the abdomen. Kota Aguilera MD Assessment and Plan Assessment and Plan Problems: Recurrent GI bleed Recent bare metal stent St. Beau mitral valve replacement Atrial fibrillation Ventricular demand pacemaker Hypertension Hyperlipidemia Hypothyroidism Recommendations: Given active bleeding, hold anticoagulation and antiplatelet agents although risk of stent thrombosis and valve thrombosis is high. Endocarditis prophylaxis when appropriate Continue other medication GI workup which certainly is absolutely necessary as we do need to reinitiate her antiplatelet agents and anticoagulation. Further recommendations to follow. I suspect the patient might tolerate Coumadin and Plavix alone but I do feel that the Lovenox and additional aspirin may have influenced the bleeding. Js Quintero MD Apr 18, 2017 08:18
[2017-04-18] MEDS ORDERED: ceFAZolin 1 GM ADDVANTAGE VIAL IV ONE (09:07)
[2017-04-18] MEDS ORDERED: EPINEPHrine HCL (1:10,000) 1 MG/10 ML SYRINGE OTHER ONE (09:20)
[2017-04-18] MEDS ORDERED: PROPOFOL 200 MG/20 ML AMP IV ONE (10:20)
--- NOTE | 2017-04-18 11:22 | RADRPT ---
EXAM DATE/TIME: 04/18/2017 10:49 [facility] COMPARISON: No previous studies available for comparison. INDICATIONS : Clip placement during colonoscopy and evaluation of free air. MEDICAL HISTORY : Kidney stones. SURGICAL HISTORY : Surgery for kidney stones 1983. ENCOUNTER: Initial ACUITY: 1 day PAIN SCORE: 0/10 LOCATION: Bilateral abdomen. FINDINGS: AP supine and erect views of the abdomen were obtained and demonstrate gas and stool noted in the col on. There are multiple loops nondilated air-containing small bowel present with no evidence of free a ir or mass effect. There are multiple surgical clips and karina in the right side of the pelvis. The patient is status post median sternotomy. Transvenous pacer is noted in place. There are multiple ov erlying electrocardiogram leads. CONCLUSION: Nonspecific, nonobstructive bowel gas pattern which may represent a mild ileus. Yang Johnson MD on April 18, 2017 at 11:19 Board Certified Radiologist. This report was verified electronically.
[2017-04-18 11:40] LABS: HEMATOCRIT 31.1 % (35.0-46.0); MEAN CELL VOLUME 89.5 FL (80.0-100.0); MEAN CORPUSCULAR HEMOGLOBIN 30.1 PG (27.0-34.0); MEAN CORPUSCULAR HGB CONC 33.6 % (32.0-36.0); PLATELET COUNT 144 TH/MM3 (150-450); RED BLOOD COUNT 3.47 MIL/MM3 (4.00-5.30); WHITE BLOOD COUNT 6.7 TH/MM3 (4.0-11.0)
[2017-04-18] MEDS ORDERED: DO NOT ADM ANY ANTICOAGULANT DRUGS PRN (12:00)
[2017-04-18 12:39] LABS: BANDS 1 % (0-6); EOSINOPHILS 1 % (0-4); MYELOCYTES 1 % (0-0); NEUTROPHIL # MANUAL DIFF 5.6 TH/MM3 (1.8-7.7); POLYS (SEG NEUTROPHILS) 82 % (16-70); WBC DIFF SAMPLE 100
[2017-04-18 12:40] LABS: SCAN/DIFF FINAL DIFF MANUAL
[2017-04-18] MEDS: SUCRALFATE 1 GM TAB PO SCH ×2 (13:47→18:00)
--- NOTE | 2017-04-18 13:49 | HHI.PR ---
Subjective Remarks had colonoscopy done just now- with epi-in with clipping now stools brown liquid, no blood at all this am prior to procedure- had bright red blood Objective Vitals Vital Signs Date Time Temp Pulse Resp B/P Pulse Ox O2 Delivery O2 Flow Rate FiO2 04/18/17 13:24 69 04/18/17 12:08 60 04/18/17 11:38 63 04/18/17 11:38 97.8 68 16 158/77 98 04/18/17 11:15 97.8 60 15 139/65 96 04/18/17 11:00 67 15 132/72 94 04/18/17 10:45 63 16 133/66 100 04/18/17 10:37 97.5 61 15 121/59 96 04/18/17 08:18 67 04/18/17 07:46 97.9 66 16 160/68 99 04/18/17 07:46 66 04/18/17 06:00 74 04/18/17 05:00 60 04/18/17 04:00 60 04/18/17 03:00 97.9 61 16 154/70 96 04/18/17 03:00 60 04/18/17 02:00 62 04/18/17 01:00 62 04/18/17 00:00 62 04/17/17 23:00 97.8 68 16 152/73 99 04/17/17 23:00 60 04/17/17 22:00 76 04/17/17 21:00 76 04/17/17 20:00 72 04/17/17 19:00 72 04/17/17 19:00 97.8 71 18 158/70 98 04/17/17 15:55 97.3 62 18 136/75 99 04/17/17 15:55 69 I/O 04/17/17 04/17/17 04/17/17 04/18/17 04/18/17 04/18/17 07:00 15:00 23:00 07:00 15:00 23:00 Intake Total 858 ml 3606 ml 1194 ml 100 ml Output Total 700 ml 0 ml Balance 158 ml 3606 ml 1194 ml 100 ml Intake Oral 100 ml 2500 ml IV Total 758 ml 414 ml 1194 ml Packed Cells 692 ml Other 100 ml Output Urine Total 700 ml Estimated Blood Loss 0 ml # Voids 7 8 0 # Bowel Movements 1 6 8 Result Diagram: 04/18/17 1111 04/17/17 0410 Imaging Last Impressions Abdomen X-Ray 04/18/17 0000 Signed Impressions: Service Date/Time: Tuesday, April 18, 2017 10:49 - CONCLUSION: Nonspecific, nonobstructive bowel gas pattern which may represent a mild ileus. Yang Johnson MD GI Bleed Scan Nuclear Medicine 04/17/17 0000 Signed Impressions: Service Date/Time: Monday, April 17, 2017 12:19 - CONCLUSION: Positive GI bleeding scan with active radiotracer extravasation in the right lower quadrant of the abdomen. 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 S/P repeat colonoscopy with clipping of cecal AVM today 04/18 PPI + sucralfate Decrease octreotide to 25 mg/hr x 4 hours then DC S/P 2 units RBC 04/17. H and H dropped from 13- 10/. actively bleeding- went for stat scope Keep Hgb > 10 with recent NV recheck H and H later this pm d/w Dr. Kim post colonoscopy - I will continue to hold antiplatelet today. continue on PPI, sucralfate added Recent NSTEMI on DAPT- will continue to hold for today- History of metallic mitral valve prosthesis- hold coumadin- will reevaluate in am History of atrial fibrillation rate controlled. reconsider starting tomorrow -Plavix + coumadin will need to be restarted as soon as possible to prevent stent thrombosis History of hypertension, hyperlipidemia Patient on Coumadin - HOld. Hold heparin drip. Hold Plavix for now (plan was to be on it for 6-12 weeks post procedure)- will restart in am if bleeding controlled Continue on lisinopril 5 mg daily. Lopressor 12.5 mg twice a day. Digoxin 0.125 mg daily. Imdur 60 mg daily. appreciate Cardiology- Dr. Quintero ff along with us closely Acute kidney injury likely secondary to GI bleed. - creatinine improved with gentle hydration ff BMP History of hypothyroidism continue on Synthroid Discussed with patient and Emilie Jin MD Apr 18, 2017 13:49
[2017-04-18] MEDS: PANTOPRAZOLE SODIUM 40 MG VIAL IV PUSH SCH (18:00)
[2017-04-18 18:30] LABS: HEMATOCRIT 33.4 % (35.0-46.0)
[2017-04-19] VITALS (26 sets, daily range): BP systolic 130–162; BP diastolic 60–83; PULSE 60–73; RESP 16–20; TEMP 97.9–98.4; O2SAT 95–98
[2017-04-19] MEDS: LEVOTHYROXINE SODIUM 25 MCG TAB PO SCH (06:43)
[2017-04-19 06:52] LABS: HEMATOCRIT 34.5 % (35.0-46.0); MEAN CELL VOLUME 88.5 FL (80.0-100.0); MEAN CORPUSCULAR HEMOGLOBIN 29.9 PG (27.0-34.0); MEAN CORPUSCULAR HGB CONC 33.8 % (32.0-36.0); PLATELET COUNT 165 TH/MM3 (150-450); RED CELL DISTRIBUTION WIDTH 14.4 % (11.6-17.2); REVIEW FLAG FINAL; WHITE BLOOD COUNT 6.7 TH/MM3 (4.0-11.0)
[2017-04-19] MEDS: CHOLECALCIFEROL (VIT D3) 400 UNIT TAB PO SCH (09:18)
[2017-04-19] MEDS: DILTIAZEM-CD 180 MG CAP ER PO SCH (09:18)
[2017-04-19] MEDS: PRAVASTATIN SOD 10 MG TAB PO SCH (09:18)
[2017-04-19] MEDS: ISOSORBIDE MONONITRATE 60 MG TAB PO SCH (09:18)
[2017-04-19] MEDS: SUCRALFATE 1 GM TAB PO SCH ×3 (09:18→17:01)
[2017-04-19] MEDS: METOPROLOL TARTRATE 25 MG TAB PO SCH ×2 (09:19→21:24)
[2017-04-19] MEDS: LISINOPRIL 5 MG TAB PO SCH (09:19)
[2017-04-19] MEDS: MAGNESIUM OXIDE 400 MG TAB PO SCH (09:20)
[2017-04-19] MEDS: DIGOXIN 0.125 MG TAB PO SCH (09:20)
--- NOTE | 2017-04-19 10:03 | HHI.GIFU ---
GI Follow-up Note Consult Follow-up Subjective: Patient doing well. no BM or bleeding this am. Hgb stable. No N,V, abd pain or SOB/CP Objective: PHYSICAL EXAMINATION: Vitals signs stable No fever HEENT: no jaundice. Throat is clear. NECK: Neck is supple, no JVD, no lymphadenopathy. CHEST: Chest is clear to auscultation and percussion. ABDOMEN: Soft, nondistended, nontender; no hepatosplenomegaly; bowel sounds are present in all four quadrants. EXTREMITIES: No edema. SKIN: no rash [employer]ER: No focal deficits; alert and oriented times three. Available Data (labs, X- Rays, Procedues) : 11.8 --11.7 (stable) ASSESSMENT/PLAN: 1. Lower GI bleeding-pt bleeding from past cautery site. are injected and re- clipped and bleeding so far as not re-occurred. 2. Anemia-stable PLAN: 1. Pt is at high risk of re-bleeding and at high risk for thrombosis. Ideally stay off anticoagulation but she needs them. I would start with Plavix and then add on her Coumadin. 2. If re-bleeding she will need IR for angiography or surgery. It was a pleasure seeing Aleksandr Hill Thank you for this consult. Entered by: Sarabjit Jain MD Apr 19, 2017 10:03
--- NOTE | 2017-04-19 11:33 | PD.CARD.PN ---
Subjective Subjective Remarks no angina Objective Medications Current Medications Medications (Trade) Dose Ordered Sig/Schuyler Route Start Time Stop Time Status Last Admin Sodium Chloride 2 ml 2 ml UNSCH PRN IVF 04/16/17 14:45 (NS 1000 ml Inj) 1,000 ml @ 40 mls/hr Q24H IV 04/16/17 17:00 04/18/17 07:43 (Lanoxin) 0.125 mg DAILY PO 04/17/17 09:00 04/19/17 09:20 (Cardizem Cd) 180 mg DAILY PO 04/17/17 09:00 04/19/17 09:18 (Imdur) 60 mg DAILY PO 04/17/17 09:00 04/19/17 09:18 (Synthroid) 25 mcg DAILY@07 PO 04/17/17 07:00 04/19/17 06:43 (Prinivil) 5 mg DAILY PO 04/17/17 09:00 04/19/17 09:19 (Mag-Ox) 400 mg DAILY PO 04/17/17 09:00 04/19/17 09:20 (Lopressor) 12.5 mg BID PO 04/16/17 21:00 04/19/17 09:19 (Nitrostat Sl) 0.4 mg STAT PRN SL 04/16/17 18:00 (Vitamin D3) 400 units DAILY PO 04/17/17 09:00 04/19/17 09:18 (Pravachol) 10 mg DAILY PO 04/17/17 09:00 04/19/17 09:18 (Protonix Inj) 40 mg Q24H IV PUSH 04/16/17 18:00 04/18/17 18:00 (NS Flush) 2 ml UNSCH PRN IV FLUSH 04/16/17 18:00 (Pill Splitter) 1 ea UNSCH PRN OTHER 04/16/17 19:45 (Benadryl) 25 mg HS PRN PO 04/16/17 22:15 04/16/17 22:15 Miscellaneous Information ALL NURSING DEPARTME... UNSCH PRN .XX 04/18/17 12:00 04/19/17 11:59 (Carafate) 1 gm TID PO 04/18/17 13:00 04/19/17 09:18 Vital Signs / I&O Vital Signs Date Time Temp Pulse Resp B/P Pulse Ox O2 Delivery O2 Flow Rate FiO2 04/19/17 08:02 98.1 62 20 159/77 95 04/19/17 07:00 60 04/19/17 06:00 62 04/19/17 05:00 64 04/19/17 04:00 60 04/19/17 03:00 60 04/19/17 03:00 98.0 70 16 162/66 98 04/19/17 02:00 60 04/19/17 01:00 60 04/19/17 00:00 60 04/18/17 23:00 98.6 61 16 119/57 96 04/18/17 23:00 60 04/18/17 22:00 64 04/18/17 21:00 62 04/18/17 20:00 62 04/18/17 19:00 62 04/18/17 19:00 98.1 66 16 141/54 98 04/18/17 18:05 61 04/18/17 17:05 65 04/18/17 16:24 69 04/18/17 16:24 97.9 69 16 153/71 95 04/18/17 13:24 69 04/18/17 12:08 60 04/18/17 11:38 63 04/18/17 11:38 97.8 68 16 158/77 98 I/O 04/18/17 04/18/17 04/18/17 04/19/17 04/19/17 04/19/17 07:00 15:00 23:00 07:00 15:00 23:00 Intake Total 1194 ml 100 ml 838 ml 240 ml Output Total 0 ml 400 ml Balance 1194 ml 100 ml 838 ml -160 ml Intake Oral 480 ml 240 ml IV Total 1194 ml 358 ml Other 100 ml Output Urine Total 400 ml Estimated Blood Loss 0 ml # Voids 8 0 7 2 # Bowel Movements 8 Physical Exam Alert Chest clear CV click S1 nl S2 RRR Abd soft Ext no edema Laboratory Laboratory Tests Test 04/18/17 04/18/17 04/19/17 14:02 17:42 04:57 Blood Type A POSITIVE Crossmatch Leukocyte-Reduced Red Blood Cells Blood Bank Comment Hemoglobin 11.8 GM/DL 11.7 GM/DL Hematocrit 33.4 % 34.5 % White Blood Count 6.7 TH/MM3 Red Blood Count 3.90 MIL/MM3 Mean Corpuscular Volume 88.5 FL Mean Corpuscular Hemoglobin 29.9 PG Mean Corpuscular Hemoglobin 33.8 % Concent Red Cell Distribution Width 14.4 % Platelet Count 165 TH/MM3 Mean Platelet Volume 8.5 FL Imaging Last 48 hours Impressions Abdomen X-Ray 04/18/17 0000 Signed Impressions: Service Date/Time: Tuesday, April 18, 2017 10:49 - CONCLUSION: Nonspecific, nonobstructive bowel gas pattern which may represent a mild ileus. Yang Johnson MD Assessment and Plan Problem List: (1) Stented coronary artery Assessment and Plan: restart clopidogrel. Try to stay off asa (2) History of mitral valve replacement with mechanical valve Assessment and Plan: resume warfarin (3) GI bleed (4) Atrial fibrillation Problem Qualifiers (1) GI bleed: Qualified Code: K92.2 - Gastrointestinal hemorrhage, unspecified gastrointestinal hemorrhage type Bubba De Oliveira MD Apr 19, 2017 11:33
[2017-04-19] MEDS ORDERED: CLOPIDOGREL 75 MG TAB PO ONE (11:45)
--- NOTE | 2017-04-19 13:31 | HHI.PR ---
Subjective Remarks no chest pains or shortness of breath no active GI bleeding reported no abdominal apin, nausea or vomiting Objective Vitals Vital Signs Date Time Temp Pulse Resp B/P Pulse Ox O2 Delivery O2 Flow Rate FiO2 04/19/17 11:00 97.9 69 18 154/74 98 04/19/17 08:02 98.1 62 20 159/77 95 04/19/17 07:00 60 04/19/17 06:00 62 04/19/17 05:00 64 04/19/17 04:00 60 04/19/17 03:00 60 04/19/17 03:00 98.0 70 16 162/66 98 04/19/17 02:00 60 04/19/17 01:00 60 04/19/17 00:00 60 04/18/17 23:00 98.6 61 16 119/57 96 04/18/17 23:00 60 04/18/17 22:00 64 04/18/17 21:00 62 04/18/17 20:00 62 04/18/17 19:00 62 04/18/17 19:00 98.1 66 16 141/54 98 04/18/17 18:05 61 04/18/17 17:05 65 04/18/17 16:24 69 04/18/17 16:24 97.9 69 16 153/71 95 I/O 04/18/17 04/18/17 04/18/17 04/19/17 04/19/17 04/19/17 07:00 15:00 23:00 07:00 15:00 23:00 Intake Total 1194 ml 100 ml 838 ml 240 ml Output Total 0 ml 400 ml Balance 1194 ml 100 ml 838 ml -160 ml Intake Oral 480 ml 240 ml IV Total 1194 ml 358 ml Other 100 ml Output Urine Total 400 ml Estimated Blood Loss 0 ml # Voids 8 0 7 2 # Bowel Movements 8 Result Diagram: 04/19/17 0457 04/17/17 0410 Imaging Last Impressions Abdomen X-Ray 04/18/17 0000 Signed Impressions: Service Date/Time: Tuesday, April 18, 2017 10:49 - CONCLUSION: Nonspecific, nonobstructive bowel gas pattern which may represent a mild ileus. Yang Johnson MD GI Bleed Scan Nuclear Medicine 04/17/17 0000 Signed Impressions: Service Date/Time: Monday, April 17, 2017 12:19 - CONCLUSION: Positive GI bleeding scan with active radiotracer extravasation in the right lower quadrant of the abdomen. 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 S/P 2 units RBC 04/17. Keep Hgb > 10 with recent AL continue on PPI, sucralfate Recent NSTEMI on DAPT History of metallic mitral valve prosthesis- hold coumadin- will reevaluate in am History of atrial fibrillation rate controlled. History of hypertension, hyperlipidemia start -Plavix + coumadin today 04/19 Continue on lisinopril 5 mg daily. Lopressor 12.5 mg twice a day. Digoxin 0.125 mg daily. Imdur 60 mg daily. cardiology ff Acute kidney injury likely secondary to GI bleed. - creatinine improved with gentle hydration ff BMP History of hypothyroidism continue on Synthroid Discussed with patient Increase activity as tolerated Emilie Malone MD Apr 19, 2017 13:31
[2017-04-19] MEDS: SODIUM CHLOR 0.9% 1000 ML INJ 1,000 ML IV SCH (14:12)
[2017-04-19] MEDS ORDERED: WARFARIN SOD 3 MG TAB PO SCH (16:00)
[2017-04-19] MEDS: PANTOPRAZOLE SODIUM 40 MG VIAL IV PUSH SCH (17:02)
[2017-04-19] MEDS: TEMAZEPAM 15 MG CAP PO PRN (21:24)
[2017-04-20] VITALS (27 sets, daily range): BP systolic 129–165; BP diastolic 68–85; PULSE 59–96; RESP 18–20; TEMP 98.1–98.8; O2SAT 96–98
[2017-04-20] MEDS: LEVOTHYROXINE SODIUM 25 MCG TAB PO SCH (06:10)
[2017-04-20 06:59] LABS: INTERNATIONAL NORMALIZED RATIO 1.1 RATIO
--- NOTE | 2017-04-20 08:47 | PD.CARD.PN ---
Subjective Subjective Remarks no complaints Objective Medications Current Medications Medications (Trade) Dose Ordered Sig/Schuyler Route Start Time Stop Time Status Last Admin Sodium Chloride 2 ml 2 ml UNSCH PRN IVF 04/16/17 14:45 (NS 1000 ml Inj) 1,000 ml @ 40 mls/hr Q24H IV 04/16/17 17:00 04/19/17 14:12 (Lanoxin) 0.125 mg DAILY PO 04/17/17 09:00 04/19/17 09:20 (Cardizem Cd) 180 mg DAILY PO 04/17/17 09:00 04/19/17 09:18 (Imdur) 60 mg DAILY PO 04/17/17 09:00 04/19/17 09:18 (Synthroid) 25 mcg DAILY@07 PO 04/17/17 07:00 04/20/17 06:10 (Prinivil) 5 mg DAILY PO 04/17/17 09:00 04/19/17 09:19 (Mag-Ox) 400 mg DAILY PO 04/17/17 09:00 04/19/17 09:20 (Lopressor) 12.5 mg BID PO 04/16/17 21:00 04/19/17 21:24 (Nitrostat Sl) 0.4 mg STAT PRN SL 04/16/17 18:00 (Vitamin D3) 400 units DAILY PO 04/17/17 09:00 04/19/17 09:18 (Pravachol) 10 mg DAILY PO 04/17/17 09:00 04/19/17 09:18 (Protonix Inj) 40 mg Q24H IV PUSH 04/16/17 18:00 04/19/17 17:02 (NS Flush) 2 ml UNSCH PRN IV FLUSH 04/16/17 18:00 (Pill Splitter) 1 ea UNSCH PRN OTHER 04/16/17 19:45 (Benadryl) 25 mg HS PRN PO 04/16/17 22:15 04/16/17 22:15 (Carafate) 1 gm TID PO 04/18/17 13:00 04/19/17 17:01 (Plavix) 75 mg DAILY PO 04/20/17 09:00 (Coumadin) 3 mg DAILY@1600 PO 04/19/17 16:00 04/19/17 17:01 (Restoril) 15 mg HS PRN PO 04/19/17 17:15 04/19/17 21:24 Vital Signs / I&O Vital Signs Date Time Temp Pulse Resp B/P Pulse Ox O2 Delivery O2 Flow Rate FiO2 04/20/17 07:01 78 04/20/17 06:11 65 04/20/17 05:00 62 04/20/17 04:00 64 04/20/17 03:00 59 04/20/17 03:00 98.4 63 156/81 96 04/20/17 02:00 64 04/20/17 01:00 66 04/20/17 00:00 64 04/19/17 23:00 98.4 69 145/83 97 04/19/17 23:00 66 04/19/17 22:00 70 04/19/17 21:00 68 04/19/17 20:00 64 04/19/17 20:00 98.2 62 130/60 98 04/19/17 19:00 73 04/19/17 18:00 68 04/19/17 17:00 66 04/19/17 16:30 98.3 66 20 135/65 97 04/19/17 16:00 62 04/19/17 15:00 60 04/19/17 14:00 60 04/19/17 13:00 68 04/19/17 12:00 64 04/19/17 11:00 60 04/19/17 11:00 97.9 69 18 154/74 98 04/19/17 10:00 60 04/19/17 09:00 70 I/O 04/19/17 04/19/17 04/19/17 04/20/17 04/20/17 04/20/17 07:00 15:00 23:00 07:00 15:00 23:00 Intake Total 240 ml 1260 ml 640 ml Output Total 400 ml 1000 ml 600 ml Balance -160 ml 260 ml 40 ml Intake Oral 240 ml 860 ml 240 ml IV Total 400 ml 400 ml Output Urine Total 400 ml 1000 ml 600 ml # Voids 2 Physical Exam Alert Chest clear CV click S1 nl S2 RRR Abd soft Ext no edema Laboratory Laboratory Tests Test 04/20/17 05:37 Prothrombin Time 12.0 SEC Prothromb Time International 1.1 RATIO Ratio Assessment and Plan Problem List: (1) Stented coronary artery Assessment and Plan: Continue clopidogrel. Check Verify Now test in AM (2) History of mitral valve replacement with mechanical valve Assessment and Plan: Increase warfarin 5mg daily (3) GI bleed Assessment and Plan: s/p transfusion and clipping of cecal AVM. (4) Atrial fibrillation Assessment and Plan DC home in AM if stable Problem Qualifiers (1) GI bleed: Qualified Code: K92.2 - Gastrointestinal hemorrhage, unspecified gastrointestinal hemorrhage type Bubba De Oliveira MD Apr 20, 2017 08:47
[2017-04-20] MEDS: ISOSORBIDE MONONITRATE 60 MG TAB PO SCH (09:00)
[2017-04-20] MEDS: MAGNESIUM OXIDE 400 MG TAB PO SCH (09:02)
[2017-04-20] MEDS: DIGOXIN 0.125 MG TAB PO SCH (09:02)
[2017-04-20] MEDS: LISINOPRIL 5 MG TAB PO SCH (09:02)
[2017-04-20] MEDS: CHOLECALCIFEROL (VIT D3) 400 UNIT TAB PO SCH (09:02)
[2017-04-20] MEDS: METOPROLOL TARTRATE 25 MG TAB PO SCH ×2 (09:03→21:46)
[2017-04-20] MEDS: DILTIAZEM-CD 180 MG CAP ER PO SCH (09:03)
[2017-04-20] MEDS: CLOPIDOGREL 75 MG TAB PO SCH (09:03)
[2017-04-20] MEDS: PRAVASTATIN SOD 10 MG TAB PO SCH (09:03)
[2017-04-20] MEDS: SUCRALFATE 1 GM TAB PO SCH ×3 (09:03→18:37)
--- NOTE | 2017-04-20 10:19 | HHI.GIFU ---
Subjective Remarks No further bleeding having normal BMs tolerating po well HB 11 Objective Vitals I&O Vital Signs Date Time Temp Pulse Resp B/P Pulse Ox O2 Delivery O2 Flow Rate FiO2 04/20/17 07:01 78 04/20/17 06:11 65 04/20/17 05:00 62 04/20/17 04:00 64 04/20/17 03:00 59 04/20/17 03:00 98.4 63 156/81 96 04/20/17 02:00 64 04/20/17 01:00 66 04/20/17 00:00 64 04/19/17 23:00 98.4 69 145/83 97 04/19/17 23:00 66 04/19/17 22:00 70 04/19/17 21:00 68 04/19/17 20:00 64 04/19/17 20:00 98.2 62 130/60 98 04/19/17 19:00 73 04/19/17 18:00 68 04/19/17 17:00 66 04/19/17 16:30 98.3 66 20 135/65 97 04/19/17 16:00 62 04/19/17 15:00 60 04/19/17 14:00 60 04/19/17 13:00 68 04/19/17 12:00 64 04/19/17 11:00 60 04/19/17 11:00 97.9 69 18 154/74 98 I/O 04/19/17 04/19/17 04/19/17 04/20/17 04/20/17 04/20/17 06:59 14:59 22:59 06:59 14:59 22:59 Intake Total 240 ml 1260 ml 640 ml Output Total 400 ml 1000 ml 600 ml Balance -160 ml 260 ml 40 ml Intake Oral 240 ml 860 ml 240 ml IV Total 400 ml 400 ml Output Urine Total 400 ml 1000 ml 600 ml # Voids 2 Laboratory Laboratory Tests Test 04/20/17 05:37 Prothrombin Time 12.0 Prothromb Time International 1.1 Ratio Date/Time Procedure Status Source Growth 04/17/17 07:50 Stool Occult Blood ([facility]) - Final Complete Stool Stool HEMOCCULT NEGATIVE Physical Exam NECK: Neck is supple, no JVD, no lymphadenopathy. CHEST: Chest is clear to auscultation and percussion. CARDIAC: Regular rate and rhythm with no murmur gallop or rubs. ABDOMEN: Soft, nondistended, nontender; no hepatosplenomegaly; bowel sounds are present in all four quadrants. EXTREMITIES: No clubbing, cyanosis, or edema. SKIN: Normal; no rash; no jaundice. Assessment and Plan Assessment: (1) GI bleed Plan Pt appears stable GI no further bleeding anticoag therapy as per cardilogy ...will sign off thanks Problem Qualifiers (1) GI bleed: Qualified Code: K92.2 - Gastrointestinal hemorrhage, unspecified gastrointestinal hemorrhage type Yao Kim MD Apr 20, 2017 10:19
--- NOTE | 2017-04-20 11:25 | MR ---
cc: VICENTE FLOR DATE 04/18/2017 DATE OF 1935 PROCEDURE PERFORMED Colonoscopy with control of hemorrhage INDICATION FOR THE PROCEDURE Patient with a history of multiple anticoagulation and therapy for cardiac disease who presented with rectal bleeding. The patient had a colonoscopy performed for rectal bleeding approximately a week ago. At that time, she was found to have a cecal AVM that was cauterized with a bipolar device and also a clip was applied. However, the patient had recurrent bleeding which required repeat colonoscopy at this time. Photographs were taken. No biopsies. PREMEDICATION Administered by anesthesiology. MONITORING Accomplished with pulse oximeter, EKG, and blood pressure monitor. PROCEDURE NOTE After informed consent was obtained and the procedure risks and benefits were explained including the risks of bleeding, sepsis, perforation, risks of anesthesia, the patient was placed in the left lateral position. The video colonoscope was inserted in the rectum. As the scope was advanced to the descending colon and transverse colon, several flecks of bright red blood were noted scattered. The ascending colon and cecum were approached and entered. There was more blood in the ascending colon and in the cecum there was a large 3 cm clot noted adherent to the mucosa. This was slowly removed in several portions using the polypectomy snare. Ultimately, we got to the base of the problem and the entire clot was removed. There was oozing of blood noted from a previous site where cautery was applied. There was one clip noted lateral to the bleeding site. Using the injector device, I injected 1:10,000 epinephrine into this site. Bleeding, most definitely diminished and stopped after injection therapy. Thereafter, we applied one additional clipped to the site for further hemostasis. A second clip was attempted to be deployed, but could not be deployed, therefore it felt prudent to remove the colonoscope as there was no further bleeding noted. The patient tolerated the procedure well. No immediate complications were noted. Postprocedure, vital signs were stable. Postprocedure abdominal films appeared to be benign. Two clips were noted in the cecum and there was multiple clips from a prior surgical procedures in the distribution of the ureter as she reports a previous history of kidney stones years ago. Once again, postprocedure vital signs were stable. The patient was alert without any complaints. IMPRESSION This examination revealed active bleeding from the cecal region, a large clot was found in this area. Bleeding from the lesion was controlled with epinephrine injection and ultimately another clip was applied to the area. PLAN Would monitor the H&H closely. Start the patient on a clear liquid diet. If she has no further bleeding, we could consider restarting and resuming her anticoagulation therapy as medically necessary. We will discuss the findings with the patient's family. I have discussed this with the patient herself as well. MD LINSEY Mason/MADDY /10:58 AM /11:13 AM
--- NOTE | 2017-04-20 13:11 | HHI.PR ---
Subjective Remarks doing great stools brown good po Objective Vitals Vital Signs Date Time Temp Pulse Resp B/P Pulse Ox O2 Delivery O2 Flow Rate FiO2 04/20/17 11:45 98.4 66 18 133/68 97 04/20/17 08:30 98.8 85 18 149/78 97 04/20/17 07:01 78 04/20/17 06:11 65 04/20/17 05:00 62 04/20/17 04:00 64 04/20/17 03:00 59 04/20/17 03:00 98.4 63 156/81 96 04/20/17 02:00 64 04/20/17 01:00 66 04/20/17 00:00 64 04/19/17 23:00 98.4 69 145/83 97 04/19/17 23:00 66 04/19/17 22:00 70 04/19/17 21:00 68 04/19/17 20:00 64 04/19/17 20:00 98.2 62 130/60 98 04/19/17 19:00 73 04/19/17 18:00 68 04/19/17 17:00 66 04/19/17 16:30 98.3 66 20 135/65 97 04/19/17 16:00 62 04/19/17 15:00 60 04/19/17 14:00 60 I/O 04/19/17 04/19/17 04/19/17 04/20/17 04/20/17 04/20/17 06:59 14:59 22:59 06:59 14:59 22:59 Intake Total 240 ml 1260 ml 640 ml Output Total 400 ml 1000 ml 600 ml Balance -160 ml 260 ml 40 ml Intake Oral 240 ml 860 ml 240 ml IV Total 400 ml 400 ml Output Urine Total 400 ml 1000 ml 600 ml # Voids 2 Result Diagram: 04/19/17 0457 04/17/17 0410 Imaging Last Impressions Abdomen X-Ray 04/18/17 0000 Signed Impressions: Service Date/Time: Tuesday, April 18, 2017 10:49 - CONCLUSION: Nonspecific, nonobstructive bowel gas pattern which may represent a mild ileus. Yang Johnson MD GI Bleed Scan Nuclear Medicine 04/17/17 0000 Signed Impressions: Service Date/Time: Monday, April 17, 2017 12:19 - CONCLUSION: Positive GI bleeding scan with active radiotracer extravasation in the right lower quadrant of the abdomen. 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 S/P repeat colonoscopy with clipping of cecal AVM today 04/18- No further episodes PPI + sucralfate. S/P 2 units RBC 04/17. Keep Hgb > 10 with recent PR continue on PPI, sucralfate Recent NSTEMI on DAPT History of metallic mitral valve prosthesis- hold coumadin- will reevaluate in am History of atrial fibrillation rate controlled. History of hypertension, hyperlipidemia started -Plavix + coumadin- 04/19- tolerating well Continue on lisinopril 5 mg daily. Lopressor 12.5 mg twice a day. Digoxin 0.125 mg daily. Imdur 60 mg daily. cardiology ff Acute kidney injury likely secondary to GI bleed. - resolved History of hypothyroidism continue on Synthroid Discussed with patient Increase activity as tolerated DC planning tomorrow if stable Emilie Malone MD Apr 20, 2017 13:11
[2017-04-20] MEDS ORDERED: WARFARIN SOD 5 MG TAB PO SCH (16:00)
[2017-04-20] MEDS: PANTOPRAZOLE SODIUM 40 MG VIAL IV PUSH SCH (18:37)
[2017-04-20] MEDS: TEMAZEPAM 15 MG CAP PO PRN (21:46)
[2017-04-21] VITALS (15 sets, daily range): BP systolic 145–160; BP diastolic 74–93; PULSE 60–92; RESP 18–20; TEMP 97.8–98.3; O2SAT 95–98
[2017-04-21] MEDS: LEVOTHYROXINE SODIUM 25 MCG TAB PO SCH (06:00)
[2017-04-21 07:07] LABS: HEMATOCRIT 30.4 % (35.0-46.0); MEAN CELL VOLUME 87.5 FL (80.0-100.0); MEAN CORPUSCULAR HGB CONC 35.5 % (32.0-36.0); PLATELET COUNT 158 TH/MM3 (150-450); RED BLOOD COUNT 3.47 MIL/MM3 (4.00-5.30); RED CELL DISTRIBUTION WIDTH 14.4 % (11.6-17.2); REVIEW FLAG FINAL; WHITE BLOOD COUNT 5.3 TH/MM3 (4.0-11.0)
[2017-04-21 07:12] LABS: BICARBONATE 25.9 MEQ/L (21.0-32.0); POTASSIUM 3.6 MEQ/L (3.5-5.1)
[2017-04-21 07:21] LABS: P2Y12 REACTION UNITS (PRU) 205 PRU (194-418)
--- NOTE | 2017-04-21 07:27 | PD.CARD.PN ---
Subjective Subjective Remarks no complaints. Denies seeing blood in her stool Objective Medications Current Medications Medications (Trade) Dose Ordered Sig/Schuyler Route Start Time Stop Time Status Last Admin Sodium Chloride 2 ml 2 ml UNSCH PRN IVF 04/16/17 14:45 (NS 1000 ml Inj) 1,000 ml @ 40 mls/hr Q24H IV 04/16/17 17:00 04/19/17 14:12 (Lanoxin) 0.125 mg DAILY PO 04/17/17 09:00 04/20/17 09:02 (Cardizem Cd) 180 mg DAILY PO 04/17/17 09:00 04/20/17 09:03 (Imdur) 60 mg DAILY PO 04/17/17 09:00 04/20/17 09:00 (Synthroid) 25 mcg DAILY@07 PO 04/17/17 07:00 04/21/17 06:00 (Prinivil) 5 mg DAILY PO 04/17/17 09:00 04/20/17 09:02 (Mag-Ox) 400 mg DAILY PO 04/17/17 09:00 04/20/17 09:02 (Lopressor) 12.5 mg BID PO 04/16/17 21:00 04/20/17 21:46 (Nitrostat Sl) 0.4 mg STAT PRN SL 04/16/17 18:00 (Vitamin D3) 400 units DAILY PO 04/17/17 09:00 04/20/17 09:02 (Pravachol) 10 mg DAILY PO 04/17/17 09:00 04/20/17 09:03 (Protonix Inj) 40 mg Q24H IV PUSH 04/16/17 18:00 04/20/17 18:37 (NS Flush) 2 ml UNSCH PRN IV FLUSH 04/16/17 18:00 (Pill Splitter) 1 ea UNSCH PRN OTHER 04/16/17 19:45 (Benadryl) 25 mg HS PRN PO 04/16/17 22:15 04/16/17 22:15 (Carafate) 1 gm TID PO 04/18/17 13:00 04/20/17 18:37 (Plavix) 75 mg DAILY PO 04/20/17 09:00 04/20/17 09:03 (Restoril) 15 mg HS PRN PO 04/19/17 17:15 04/20/17 21:46 (Coumadin) 5 mg DAILY@16 PO 04/20/17 16:00 04/20/17 16:35 Vital Signs / I&O Vital Signs Date Time Temp Pulse Resp B/P Pulse Ox O2 Delivery O2 Flow Rate FiO2 04/21/17 04:00 60 04/21/17 00:00 97.9 63 20 149/74 96 04/21/17 00:00 64 04/20/17 20:00 67 04/20/17 20:00 98.3 70 20 165/85 98 04/20/17 18:01 68 04/20/17 17:00 88 04/20/17 16:00 94 04/20/17 15:01 98.1 63 18 129/70 97 04/20/17 15:00 67 04/20/17 14:00 78 04/20/17 13:01 68 04/20/17 12:00 64 04/20/17 11:45 98.4 66 18 133/68 97 04/20/17 11:00 76 04/20/17 10:00 78 04/20/17 09:00 96 04/20/17 08:30 98.8 85 18 149/78 97 04/20/17 08:00 70 I/O 04/20/17 04/20/17 04/20/17 04/21/17 04/21/17 04/21/17 07:00 15:00 23:00 07:00 15:00 23:00 Intake Total 640 ml 1020 ml 240 ml Output Total 600 ml 600 ml 300 ml Balance 40 ml 420 ml -60 ml Intake Oral 240 ml 720 ml 240 ml IV Total 400 ml 300 ml Output Urine Total 600 ml 600 ml 300 ml # Voids 6 # Bowel Movements 6 Physical Exam Alert Chest clear CV click S1 nl S2 RRR Abd soft Ext no edema Laboratory Laboratory Tests Test 04/21/17 05:02 White Blood Count 5.3 TH/MM3 Red Blood Count 3.47 MIL/MM3 Hemoglobin 10.8 GM/DL Hematocrit 30.4 % Mean Corpuscular Volume 87.5 FL Mean Corpuscular Hemoglobin 31.0 PG Mean Corpuscular Hemoglobin 35.5 % Concent Red Cell Distribution Width 14.4 % Platelet Count 158 TH/MM3 Mean Platelet Volume 8.6 FL Platelet Function P2Y12 React 205 PRU Units Sodium Level 141 MEQ/L Potassium Level 3.6 MEQ/L Chloride Level 109 MEQ/L Carbon Dioxide Level 25.9 MEQ/L Anion Gap 6 MEQ/L Blood Urea Nitrogen 8 MG/DL Creatinine 0.50 MG/DL Estimat Glomerular Filtration 118 ML/MIN Rate Random Glucose 83 MG/DL Calcium Level 8.2 MG/DL Assessment and Plan Problem List: (1) Stented coronary artery Assessment and Plan: continue clopidogrel and warfarin (2) History of mitral valve replacement with mechanical valve Assessment and Plan: warfarin resumed (3) GI bleed Assessment and Plan: will hold off on ASA or lovenox (4) Atrial fibrillation Assessment and Plan OK to DC home. Warfarin 3mg daily until INR Wednesday my office. PCP or GI need to follow her hematocrit Problem Qualifiers (1) GI bleed: Qualified Code: K92.2 - Gastrointestinal hemorrhage, unspecified gastrointestinal hemorrhage type Bubba De Oliveira MD Apr 21, 2017 07:27
[2017-04-21] MEDS: CHOLECALCIFEROL (VIT D3) 400 UNIT TAB PO SCH (09:11)
[2017-04-21] MEDS: PRAVASTATIN SOD 10 MG TAB PO SCH (09:11)
[2017-04-21] MEDS: LISINOPRIL 5 MG TAB PO SCH (09:11)
[2017-04-21] MEDS: CLOPIDOGREL 75 MG TAB PO SCH (09:11)
[2017-04-21] MEDS: MAGNESIUM OXIDE 400 MG TAB PO SCH (09:11)
[2017-04-21] MEDS: METOPROLOL TARTRATE 25 MG TAB PO SCH (09:12)
[2017-04-21] MEDS: DIGOXIN 0.125 MG TAB PO SCH (09:12)
[2017-04-21] MEDS: DILTIAZEM-CD 180 MG CAP ER PO SCH (09:12)
[2017-04-21] MEDS: ISOSORBIDE MONONITRATE 60 MG TAB PO SCH (09:12)
[2017-04-21] MEDS: SUCRALFATE 1 GM TAB PO SCH (09:14)
--- NOTE | 2017-04-21 11:32 | HHI.PR ---
Subjective Remarks doing great stools brown, Objective Vitals Vital Signs Date Time Temp Pulse Resp B/P Pulse Ox O2 Delivery O2 Flow Rate FiO2 04/21/17 08:45 98.3 76 18 160/93 96 04/21/17 07:01 67 04/21/17 06:00 68 04/21/17 05:00 66 04/21/17 04:00 97.8 62 20 160/83 98 04/21/17 04:00 60 04/21/17 03:00 60 04/21/17 02:00 60 04/21/17 01:00 64 04/21/17 00:00 97.9 63 20 149/74 96 04/21/17 00:00 64 04/20/17 23:00 60 04/20/17 22:00 68 04/20/17 21:00 62 04/20/17 20:00 67 04/20/17 20:00 98.3 70 20 165/85 98 04/20/17 19:00 74 04/20/17 18:01 68 04/20/17 17:00 88 04/20/17 16:00 94 04/20/17 15:01 98.1 63 18 129/70 97 04/20/17 15:00 67 04/20/17 14:00 78 04/20/17 13:01 68 04/20/17 12:00 64 04/20/17 11:45 98.4 66 18 133/68 97 I/O 04/20/17 04/20/17 04/20/17 04/21/17 04/21/17 04/21/17 07:00 15:00 23:00 07:00 15:00 23:00 Intake Total 640 ml 1020 ml 240 ml Output Total 600 ml 600 ml 300 ml Balance 40 ml 420 ml -60 ml Intake Oral 240 ml 720 ml 240 ml IV Total 400 ml 300 ml Output Urine Total 600 ml 600 ml 300 ml # Voids 6 # Bowel Movements 6 Result Diagram: 04/21/17 0502 04/21/17 0502 Imaging Last Impressions Abdomen X-Ray 04/18/17 0000 Signed Impressions: Service Date/Time: Tuesday, April 18, 2017 10:49 - CONCLUSION: Nonspecific, nonobstructive bowel gas pattern which may represent a mild ileus. Yang Johnson MD GI Bleed Scan Nuclear Medicine 04/17/17 0000 Signed Impressions: Service Date/Time: Monday, April 17, 2017 12:19 - CONCLUSION: Positive GI bleeding scan with active radiotracer extravasation in the right lower quadrant of the abdomen. 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 S/P repeat colonoscopy with clipping of cecal AVM today 04/18- No further episodes PPI + sucralfate. S/P 2 units RBC 04/17. Keep Hgb > 10 with recent IA continue on PPI, sucralfate Recent NSTEMI on DAPT History of metallic mitral valve prosthesis- hold coumadin- will reevaluate in am History of atrial fibrillation rate controlled. History of hypertension, hyperlipidemia started -Plavix + coumadin- 04/19- tolerating well Continue on lisinopril 5 mg daily. Lopressor 12.5 mg twice a day. Digoxin 0.125 mg daily. Imdur 60 mg daily. cardiology ff - ff up with Dr. de oliveira on [facility] Acute kidney injury likely secondary to GI bleed. - resolved History of hypothyroidism continue on Synthroid Home today Increase activity as tolerated FF up with PCP, Dr. medina and Dr. De Oliveira as OP Emilie Malone MD Apr 21, 2017 11:32
--- NOTE | 2017-04-21 11:41 | HHI.DS ---
Discharge Summary Admission Date Apr 16, 2017 at 16:41 Discharge Date: Apr 21, 2017 Admitting Diagnosis gi bleed Procedures 04/18- colonoscopy with epi injection and clipping of cecal AVM Brief History - From Admission Patient is a prepped pleasant 81-year-old female with known history of CAD status post PCI with bare metal stent of the LAD last April 08, history of mitral valve prosthesis metallic valve was actually just recently discharged here from a few days ago. She came back in today with black tarry stools that started yesterday evening. This morning had another black bowel movement and on wiping had bright red back bright re blood on tissue. Patient denies any nausea vomiting or abdominal pain. And admitted for further evaluation. Patient states compliance with medication. She was discharged from last admission with Lovenox with Coumadin overlap + Plavix. INR is subtherapeutic. Review of last admission patient underwent EGD with biopsy - shows mild gastritis, no ulcers, pathologic gastritis colonoscopy with cauterization of AVMs and clipping of cecal AVMs. Patient currently denies any chest pains or shortness of breath. CBC/BMP: 04/21/17 0502 04/21/17 0502 Significant Findings Laboratory Tests Test 04/18/17 04/19/17 04/20/17 04/21/17 17:42 04:57 05:37 05:02 Hematocrit 33.4 % 34.5 % 30.4 % (35.0-46.0) (35.0-46.0) (35.0-46.0) Red Blood Count 3.90 MIL/MM3 3.47 MIL/MM3 (4.00-5.30) (4.00-5.30) Prothrombin Time 12.0 SEC (9.8-11.6) Hemoglobin 10.8 GM/DL (11.6-15.3) Chloride Level 109 MEQ/L (98-107) Calcium Level 8.2 MG/DL (8.5-10.1) Imaging Last Impressions Abdomen X-Ray 04/18/17 0000 Signed Impressions: Service Date/Time: Tuesday, April 18, 2017 10:49 - CONCLUSION: Nonspecific, nonobstructive bowel gas pattern which may represent a mild ileus. Yang Johnson MD GI Bleed Scan Nuclear Medicine 04/17/17 0000 Signed Impressions: Service Date/Time: Monday, April 17, 2017 12:19 - CONCLUSION: Positive GI bleeding scan with active radiotracer extravasation in the right lower quadrant of the abdomen. Kota Aguilera MD PE at Discharge awake and alert, vital stable, NAD anicteric lungs clear regular rhythm abdomen soft, nontender extremities no edema neuro exam unremarkable Pt update on day of discharge vital stable\ no bleeding no chest pains or shortness of breath no abdominal pain Hospital Course 81-year-old female presenting with bright red blood per rectum recent NSTEMI on DAPT (was DC on Lovenox/coumadin and Plavix) Acute GI bleeding recurrent recent admission a week ago for the same. S/P repeat colonoscopy with clipping of cecal AVM today 04/18- No further episodes PPI + sucralfate. S/P 2 units RBC 04/17. Keep Hgb > 10 with recent CA continue on PPI, sucralfate Recent NSTEMI on DAPT History of metallic mitral valve prosthesis- hold coumadin- will reevaluate in am History of atrial fibrillation rate controlled. History of hypertension, hyperlipidemia started -Plavix + coumadin- 04/19- tolerating well Continue on lisinopril 5 mg daily. Lopressor 12.5 mg twice a day. Digoxin 0.125 mg daily. Imdur 60 mg daily. cardiology ff - ff up with Dr. de oliveira on [facility] Acute kidney injury likely secondary to GI bleed. - resolved History of hypothyroidism continue on Synthroid Home today Increase activity as tolerated FF up with PCP, Dr. kim and Dr. De Oliveira as OP Pt Condition on Discharge: Stable Discharge Disposition: Discharge Home Discharge Time: <= 30 minutes Discharge Instructions DIET: Follow Instructions for: Heart Healthy Diet Follow up Referrals: Cardiology - 04/26/17 with Bubba De Oliveira MD Gastroenterology - 04/26/17 with Yao Kim MD PCP Follow-up - 04/23/17 with ROSALBA New Medications: Lansoprazole (Prevacid) 30 Mg Capdr 30 MG PO DAILY GI #30 Ref 0 CAP Sucralfate (Carafate) 1 Gm Tab 1 GM PO TID GI Days 30 TAB Continued Medications: B-Complex Vitamins (B Complex) 1 Cap 1 CAP PO DAILY Nutritional Supplement #30 Ref 0 CAP Cholecalciferol (Vitamin D) 400 Unit Cap 1 CAP PO DAILY Clopidogrel (Plavix) 75 Mg Tab 75 MG PO DAILY CAD #30 TAB Digoxin (Digoxin) 0.125 Mg Tab 0.125 MG PO DAILY Regulate Heart Beat #30 Ref 0 TAB Diltiazem ER 24 HR (Diltiazem ER 24 HR) 180 Mg Finn 180 MG PO DAILY #30 Ref 0 TAB Isosorbide Mononitrate ER (Isosorbide Mononitrate ER) 60 Mg Tab 60 MG PO DAILY Prevent Chest Pain #30 Ref 0 TAB Levothyroxine (Levothyroxine) 25 Mcg Tab 25 MCG PO DAILY Thyroid #30 Ref 0 TAB Lisinopril (Lisinopril) 5 Mg Tab 5 MG PO DAILY Blood Pressure Management #30 TAB Losartan (Losartan) 100 Mg Tab 150 MG PO DAILY Blood Pressure Management #30 Ref 0 TAB Magnesium Oxide (Magnesium) 400 Mg Tablet 1 TAB PO DAILY Metoprolol Tartrate (Metoprolol Tartrate) 25 Mg Tab 12.5 MG PO BID CAD #60 TAB Nitroglycerin SL (Nitrostat SL) 0.4 Mg Subl 0.4 MG SL DIRECTED 1 tablet under the tongue as needed for chest pain. Repeat every 5 minutes for a total of 3 DOSES or call 911 if NO relief. PRN CHEST PAIN #100 Ref 0 TAB.SL Simvastatin (Simvastatin) 5 Mg Tab 5 MG PO DAILY Cholesterol Management #30 Ref 0 TAB Vitamin A (Vitamin A) 8,000 Unit Capsule 1 CAP PO DAILY Warfarin (Warfarin) 3 Mg Tab 3 MG PO DAILY Blood Clot Prevention #30 Ref 0 TAB Discontinued Medications: Aspirin (Aspirin Low Strength) 81 Mg Chew 81 MG PO DAILY CAD #30 EA Warfarin (Warfarin) 2 Mg Tab 2 MG PO DAILY Blood Clot Prevention #30 Ref 0 TAB Emilie Malone MD Apr 21, 2017 11:41
[2017-04-21] MEDS ORDERED: CARA1TAB6 PO (12:10)
[2017-04-21] MEDS ORDERED: PREV30CA11 PO (12:11)
== END 2017-04-21 13:41 | disposition home or self-care (01) | DRG 920 ==
LOC: NEPE 13:08 → NEDH 16:41 → HCIS 18:46
PROVIDERS: ADMIT Internal Medicine; ATTEND Internal Medicine
PROC: 30233N1 Transfusion of Nonautologous Red Blood Cells into Peripheral Vein, Percutaneous Approach (ICD-10-PCS; 2017-04-17)
PROC: 0W3P8ZZ Control Bleeding in Gastrointestinal Tract, Via Natural or Artificial Opening Endoscopic (ICD-10-PCS; principal; 2017-04-18 09:05)
DX: K91.840 Postprocedural hemorrhage of a digestive system organ or structure following a digestive system procedure (principal); N17.9 Acute kidney failure, unspecified; I48.91 Unspecified atrial fibrillation; K92.2 Gastrointestinal hemorrhage, unspecified; D62 Acute posthemorrhagic anemia; Z95.1 Presence of aortocoronary bypass graft; I25.2 Old myocardial infarction; I10 Essential (primary) hypertension; E78.5 Hyperlipidemia, unspecified; Z95.2 Presence of prosthetic heart valve; Z79.01 Long term (current) use of anticoagulants; Z79.82 Long term (current) use of aspirin; Z79.02 Long term (current) use of antithrombotics/antiplatelets; E03.9 Hypothyroidism, unspecified; Z95.5 Presence of coronary angioplasty implant and graft; I25.10 Atherosclerotic heart disease of native coronary artery without angina pectoris; Z95.0 Presence of cardiac pacemaker
CPT/HCPCS: 36430; 74020; 78278; 80048; 80053; 82272; 85007; 85014; 85018; 85025; 85027; 85576; 85610; 85730; 86850; 86900; 86901; 86920; 93005; A9560; C9113; J0171; J0690; J1644; J2354; J7030; J7040; P9016; Q0163

== ENCOUNTER 2018-06-27 20:11 | Inpatient (IN) ==
--- NOTE | 2018-06-27 21:00 | ED ---
HPI General Chief complaint: Chest Pain Stated complaint: Patient states chest pain/left arm hurts/head pain Time Seen by Provider: 06/27/18 20:25 Source: patient Mode of arrival: ambulatory Limitations: no limitations History of Present Illness HPI narrative: The patient is an 82 year old female who presents to the [facility] emergency department with a history of after eating dinner tonight having onset of lightheaded sensation, left arm achy sensation, headache overlying her forehead and shortness of breath. She reports that she has had similar pain in the past related to cardiac disease. She reports that she had 3 stents placed previously. She denies being on aspirin daily, however she is on warfarin related to a history of atrial fibrillation and a prosthetic metallic valve replacement involving her mitral valve. The patient reports that she took 1 nitroglycerin prior to arrival. She reports that the symptoms continued, therefore she came to the emergency department. She denies having any chest pain at this time, however she reports that when she has had cardiac problems in the past she did not have chest pain. She reports that after the nitroglycerin her shortness of breath, lightheaded sensation, sensation that her body was in a vice improved, however she continues to have an achy sensation in the left arm and headache over her forehead. The patient reports that her blood pressure was elevated prior to arrival at 163/90. 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 She reports that she last had a stress test done approximate 1-2 years ago. Her last cardiac catheterization with stent placement was in April 2017. She denies having any known recent fevers. She reports having a chronic cough which she determines is related to allergies and medication. Otherwise on review of systems she denies having neck pain, abdominal pain, vomiting, diarrhea, urinary symptoms, one-sided weakness, slurred speech, facial droop, difficulty with word finding ability, or vision changes. Related Data Home Medications Medication Instructions Recorded Confirmed atenolol 75 mg PO DAILY 06/27/18 06/27/18 digoxin 0.125 mg PO DAILY 06/27/18 06/27/18 diltiazem HCl 180 mg PO DAILY 06/27/18 06/27/18 isosorbide mononitrate 60 mg PO QAM 06/27/18 06/27/18 levothyroxine 25 mcg PO DAILY 06/27/18 06/27/18 lisinopril 5 mg PO DAILY 06/27/18 06/27/18 losartan 100 mg PO DAILY 06/27/18 06/27/18 magnesium 250 mg PO DAILY 06/27/18 06/27/18 nitroglycerin [Nitrostat] 0.4 mg SUBLINGUAL Q5-15M PRN 06/27/18 06/27/18 simvastatin 5 mg PO QPM 06/27/18 06/27/18 warfarin 5 mg PO [id number] 06/27/18 06/27/18 Allergies Allergy/AdvReac Type Severity Reaction Status Date / Time metronidazole Allergy Severe RASH Verified 06/27/18 20:21 diphenhydramine AdvReac Anxiety Verified 06/27/18 20:21 [From Bennicol] Review of Systems ROS: all other systems reviewed are negative [facility] Medical History Medical History A-fib (Acute) Anxiety (Acute) GI bleed (Acute) H/O one miscarriage (Acute) Hypertension (Acute) Kidney stone (Acute) Menopause (Acute) Mitral valve disease (Acute) Pacemaker (Acute) Surgical History Surgical History History of cardiac cath (Acute) Hx of CABG (Acute) H/O mitral valve replacement (Acute) Social History Social History Substance History: No History of Abuse Smoking Status: Never smoker How Often Do You Have a Drink Containing Alcohol: Never Recent Travel in [facility] within the Last 8 Weeks: No Recent Out of Country Travel within the Last 8 Weeks: No Immunization History Tetanus Immunization: Unsure Exam Const General: cooperative, no acute distress and well developed Nutritional Appearance: well nourished Orientation: alert, awake and oriented x3 HENMT Head: normocephalic and atraumatic Nose: no nasal discharge and no epistaxis Mouth: moist mucous membranes Throat: posterior oropharynx normal and uvula midline Eyes Sclera: normal sclerae Pupils: PERRL Neck Neck: no meningeal signs, trachea midline and no JVD Resp Effort & Inspection: no use of accessory muscles Auscultation: clear to auscultation bilaterally Cardio Rate: regular rate Rhythm: regular rhythm Heart Sounds: no murmurs GI Inspection: non-distended Palpation: soft, no hepatosplenomegaly and nontender Auscultation: normal bowel sounds Back/Spine/Pelvis Back: no CVA tenderness Skin General: dry skin (warm) Neuro General: alert, awake, oriented x3 and other (Grossly nonfocal.) Speech: speech normal Motor: no movement abnormalities noted Extrem General: normal to inspection (2+ pulses in all 4 extremities.), no calf tenderness, no clubbing, no cyanosis and no edema Psych Mood: congruent mood Affect: normal affect Judgment: judgment good Course Initial Documented Vital Signs Temperature 98.2 F 06/27/18 20:17 Pulse Rate 78 06/27/18 20:17 Respiratory Rate 20 06/27/18 20:17 Blood Pressure 162/77 H 06/27/18 20:17 Pulse Oximetry 97 06/27/18 20:17 Last Documented Vital Signs Temperature 98.2 F 06/27/18 20:31 Pulse Rate 60 06/27/18 21:05 Respiratory Rate 20 06/27/18 21:24 Blood Pressure 142/63 H 06/27/18 21:05 Pulse Oximetry 97 06/27/18 21:39 Medical Decision Making [facility] Narrative Medical decision making narrative: During the course of the patient's emergency department visit, the patient's history, examination, and differential diagnosis were reviewed with the patient. The patient was placed on a home energy inspector with oximetry and frequent blood pressure monitoring. The patient had IV access obtained and blood work sent for analysis. The patient was initially provided glycerin sublingual x1, nitroglycerin 1 inch to the chest wall. The patient's diagnostic studies are remarkable for a normal white count at 7.4 , hemoglobin 15.1, platelets 57 in a patient with a history of normal platelets recently, however she has been slightly low in the past down to 144 in April 2017, PT 26.1, INR 2.6, PTT 34.5, chemistries remarkable for BUN of 25, creatinine 1.02, glucose 124, AST is 40, magnesium 2, initial set of cardiac enzymes within normal limits, normal BNP. Lipase is noted to be within normal limits. Chest x-ray showed compensated cardiomegaly, lungs remain clear, no significant abnormality or change from prior examinations. The patient will be admitted to the chest pain center for rule out serial cardiac enzyme protocol followed by stress testing. The patient reports that her last stress test was 1-2 years ago. The patient's results were discussed with the patient, including the plan of care. I explained that further testing and/ or monitoring is indicated based on the patient's history, examination, and/ or laboratory findings. Therefore, I recommended admission for additional evaluation. The patient expressed understanding and was agreeable with this plan. The patient was admitted to the hospital in stable condition and sent to a bed under the care of the [facility]. Medical Screen Exam Complete: Yes Emergency Medical Condition: Yes Differential Diagnosis Differential Diagnosis: Acute coronary syndrome, versus pneumonia, versus congestive heart failure, versus angina Medical Records Medical records reviewed: Yes I reviewed the patient's medical records. Lab Data Lab results reviewed: Yes I reviewed the patient's lab results. Result diagrams: 06/27/18 20:57 06/27/18 20:57 Lab Results 06/27/18 06/27/18 06/27/18 Range/Units 20:57 20:57 20:57 WBC 7.4 (4.0-11.0) th/mm3 RBC 4.79 (4.00-5.30) mil/mm3 Hgb 15.1 (11.6-15.3) gm/dL Hct 43.6 (35.0-46.0) % MCV 91.0 (80.0-100.0) fL MCH 31.4 (27.0-34.0) pg MCHC 34.5 (32.0-36.0) % RDW 12.6 (11.6-17.2) % Plt Count 57 L (150-450) th/mm3 MPV 10.6 (7.0-11.0) fL Prelim Diff (Auto) Slide review pending Neut % (Auto) 66.9 (16.0-70.0) % Lymph % (Auto) 20.5 (9.0-44.0) % Hart % (Auto) 8.9 H (0.0-8.0) % Eos % (Auto) 2.8 (0.0-4.0) % Baso % (Auto) 0.9 (0.0-2.0) % Neut # (Auto) 5.0 (1.8-7.7) th/mm3 Lymph # (Auto) 1.5 (1.0-4.8) th/mm3 Hart # (Auto) 0.7 (0.0-0.9) th/mm3 Eos # (Auto) 0.2 (0.0-0.4) th/mm3 Baso # (Auto) 0.1 (0.0-0.2) th/mm3 WBC Differential . Diff Scan Auto diff confirmed Differential Comment . PT (9.8-11.6) sec INR Ratio APTT (24.3-30.1) sec Sodium 140 (136-145) meq/L Potassium 4.6 (3.5-5.1) meq/L Chloride 106 (98-107) meq/L Carbon Dioxide 26.0 (21.0-32.0) meq/L Anion Gap 8 (5-15) meq/L BUN 25 H (7-18) mg/dL Creatinine 1.02 H (0.50-1.00) mg/dL Estimated GFR 52 L (>89) mL/min Random Glucose 124 H (74-106) mg/dL Calcium 9.4 (8.5-10.1) mg/dL Magnesium (1.5-2.5) mg/dL Total Bilirubin 0.4 (0.2-1.0) mg/dL AST 40 H (15-37) U/L ALT 49 (10-53) U/L Alkaline Phosphatase 72 (45-117) U/L Total Creatine Kinase (26-192) U/L Troponin I Less than 0.02 L (0.02-0.05) ng/mL B-Natriuretic Peptide 74 (0-100) pg/mL Total Protein 7.6 (6.4-8.2) g/dL Albumin 3.9 (3.4-5.0) g/dL Lipase 135 (73-393) U/L 06/27/18 06/27/18 Range/Units 20:57 20:57 WBC (4.0-11.0) th/mm3 RBC (4.00-5.30) mil/mm3 Hgb (11.6-15.3) gm/dL Hct (35.0-46.0) % MCV (80.0-100.0) fL MCH (27.0-34.0) pg MCHC (32.0-36.0) % RDW (11.6-17.2) % Plt Count (150-450) th/mm3 MPV (7.0-11.0) fL Prelim Diff (Auto) Neut % (Auto) (16.0-70.0) % Lymph % (Auto) (9.0-44.0) % Hart % (Auto) (0.0-8.0) % Eos % (Auto) (0.0-4.0) % Baso % (Auto) (0.0-2.0) % Neut # (Auto) (1.8-7.7) th/mm3 Lymph # (Auto) (1.0-4.8) th/mm3 Hart # (Auto) (0.0-0.9) th/mm3 Eos # (Auto) (0.0-0.4) th/mm3 Baso # (Auto) (0.0-0.2) th/mm3 WBC Differential Diff Scan Differential Comment PT 26.1 H (9.8-11.6) sec INR 2.6 Ratio APTT 34.5 H (24.3-30.1) sec Sodium (136-145) meq/L Potassium (3.5-5.1) meq/L Chloride (98-107) meq/L Carbon Dioxide (21.0-32.0) meq/L Anion Gap (5-15) meq/L BUN (7-18) mg/dL Creatinine (0.50-1.00) mg/dL Estimated GFR (>89) mL/min Random Glucose (74-106) mg/dL Calcium (8.5-10.1) mg/dL Magnesium 2.0 (1.5-2.5) mg/dL Total Bilirubin (0.2-1.0) mg/dL AST (15-37) U/L ALT (10-53) U/L Alkaline Phosphatase (45-117) U/L Total Creatine Kinase 75 (26-192) U/L Troponin I (0.02-0.05) ng/mL B-Natriuretic Peptide (0-100) pg/mL Total Protein (6.4-8.2) g/dL Albumin (3.4-5.0) g/dL Lipase (73-393) U/L Imaging Data Radiologist's impression: Chest X-Ray 06/27/18 20:44 CONCLUSION: 1. Compensated cardiomegaly. 2. Lungs remain clear. 3. No significant change from prior. ECG Data Attestation: I personally reviewed and interpreted this ECG as follows: Interpretation: The patient had an EKG done on arrival that shows an electronic ventricular paced rhythm, heart rate of 68, QRS duration 164 ms, QTC 440 ms. Discharge Plan Discharge Disposition Patient Disposition: 30 Still Patient Discharge Details Diagnosis: Chest pain, rule out acute myocardial infarction Physicians Team ED Provider: Caroline De Oliveira Primary Care Provider: UNKNOWN, Attending Provider: Brett Adame Discharge Interventions Interventions: Vital Signs Last Done: 06/27/18 20:33 Status ED Status: Admitted Observation Patient
[2018-06-27 21:10] LABS: Baso # (Auto) 0.1 th/mm3 (0.0-0.2); Baso % (Auto) 0.9 % (0.0-2.0); Eos # (Auto) 0.2 th/mm3 (0.0-0.4); Eos % (Auto) 2.8 % (0.0-4.0); Hematocrit 43.6 % (35.0-46.0); Hemoglobin 15.1 gm/dL (11.6-15.3); Lymph # (Auto) 1.5 th/mm3 (1.0-4.8); Lymph % (Auto) 20.5 % (9.0-44.0); Mean Corpuscular HGB Conc 34.5 % (32.0-36.0); Mean Corpuscular Hemoglobin 31.4 pg (27.0-34.0); Mean Platelet Volume 10.6 fL (7.0-11.0); Mono # (Auto) 0.7 th/mm3 (0.0-0.9); Mono % (Auto) 8.9 % (0.0-8.0); Neut % (Auto) 66.9 % (16.0-70.0); Platelet Count 57 th/mm3 (150-450); Red Blood Count 4.79 mil/mm3 (4.00-5.30); Red Cell Distribution Width 12.6 % (11.6-17.2); White Blood Count 7.4 th/mm3 (4.0-11.0)
[2018-06-27 21:20] LABS: Activated Partial Thrombo Time 34.5 sec (24.3-30.1); INR 2.6 Ratio; Prothrombin Time 26.1 sec (9.8-11.6)
[2018-06-27 21:36] LABS: Albumin 3.9 g/dL (3.4-5.0); Anion Gap 8 meq/L (5-15); Aspartate Aminotransferase 40 U/L (15-37); Blood Urea Nitrogen 25 mg/dL (7-18); Calcium 9.4 mg/dL (8.5-10.1); Chloride 106 meq/L (98-107); Glomerular Filtration Rate 52 mL/min (>89); Glucose,Random 124 mg/dL (74-106); Lipase 135 U/L (73-393); Potassium 4.6 meq/L (3.5-5.1); Sodium 140 meq/L (136-145)
[2018-06-27 21:37] LABS: Alanine Aminotransferase 49 U/L (10-53)
--- NOTE | 2018-06-27 21:38 | XR ---
EXAM DATE: 06/27/2018 8:44 PM EDT AGE/SEX: 82 years / Female INDICATIONS: Chest pain. CLINICAL DATA: This is the patient's initial encounter. Patient reports that signs and symptoms have been present for 1 day and indicates a pain score of 4/10. MEDICAL/SURGICAL HISTORY: Cardiovascular disease. . Pacemaker. Mitral valve replacement. COMPARISON: [facility], CHEST SINGLE AP, 04/07/2017. . FINDINGS: A single AP view of the chest demonstrates the lungs to be symmetrically aerated without evidence of mass, infiltrate or effusion. Heart size remains prominent but well compensated. Left subclavian bipo lar pacer is radiographically intact. Median sternotomy wires are intact as well. Osseous structures are intact. CONCLUSION: 1. Compensated cardiomegaly. 2. Lungs remain clear. 3. No significant change from prior. Electronically signed by: Ehsan Wick MD 06/27/2018 9:37 PM EDT
[2018-06-27 21:41] LABS: Alkaline Phosphatase 72 U/L (45-117); Total Protein 7.6 g/dL (6.4-8.2)
[2018-06-27] MEDS ORDERED: Acetaminophen 500 MG Tablet PO PRN (22:26)
[2018-06-28 00:48] LABS: Troponin I 0.04 ng/mL (0.02-0.05)
[2018-06-28 04:08] LABS: Troponin I 0.29 ng/mL (0.02-0.05)
[2018-06-28] MEDS: dilTIAZem CD 180 MG Capsule PO SCH (08:40)
[2018-06-28] MEDS: Digoxin 125 MCG Tablet PO SCH (08:40)
[2018-06-28] MEDS: Isosorbide Mononitrate 60 MG ER 24HR Tablet (Imdur) PO SCH (08:40)
[2018-06-28] MEDS: Atenolol 25 MG Tablet PO SCH (08:41)
[2018-06-28] MEDS: Lisinopril 5 MG Tablet PO SCH (08:41)
[2018-06-28] MEDS ORDERED: MAGNESIUM 250 MG PO SCH (09:00)
[2018-06-28] MEDS ORDERED: Aspirin 325 MG Tablet PO SCH (09:00)
--- NOTE | 2018-06-28 09:50 | P.HPCA ---
History of Present Illness Primary Care Physician: UNKNOWN Chief Complaint: Chest pain History of Present Illness: This is an 82-year-old female history of CAD with total of 3 stents most recently April 2017 that presents to ED with complaint of last evening around 6 :00 developing a left arm pain and then a pressure in the top of her head with some shortness of breath. She states these are the symptoms that she has had in the past when needing stents. Denies diaphoresis. Symptoms lasted about 3 hours. She tried nitroglycerin at home without any change in symptoms. She was given sublingual nitroglycerin in the emergency department which did seem to help. Currently denies chest discomfort. Voices compliance with all medications. Takes warfarin as she has a mechanical mitral valve. History of CAD with stents. History of mitral valve replacement. Hypertension and hyperlipidemia. There is family history of CAD. She is a non-smoker. - Diagnosis (1) Chest pain (2) CAD (coronary artery disease) (3) History of heart artery stent (4) Hyperlipidemia (5) Pacemaker Review of Systems General: Patient denies fevers, chills, and recent travel. HEENT: Patient denies headache, sore throat, difficulty swallowing. Cardiovascular: Has the chest discomfort as mentioned above. Denies sensation of heart beating rapidly or irregularly. No syncope. Denies diaphoresis. Respiratory: She was short of breath mildly. Denies inspirational chest discomfort. Denies coughing wheezing or hemoptysis. GI: Patient denies nausea, vomiting, diarrhea, abdominal pain, bloody stools. Musculoskeletal: Patient denies joint pain or edema. Denies calf pain or edema. Neurovascular: Patient denies numbness, tingling, weakness in extremities. Denies headache. Endocrine: Denies polyuria and polydipsia. Hematologic: Denies easy bruising. Skin: Denies rash or itching. PMFSH - History History Provided By: Patient - Medical History Medical History: Medical History (Last Reviewed 06/27/18 @ 20:57 by Caroline De Oliveira MD) A-fib Anxiety GI bleed H/O one miscarriage Hypertension Kidney stone Menopause Mitral valve disease Pacemaker - Surgical History Surgical History: Surgical History (Last Updated 06/27/18 @ 20:58 by Caroline De Oliveira MD) History of cardiac cath Hx of CABG H/O mitral valve replacement - Tobacco History Second Hand Smoke Exposure: No Smoking Status: Never smoker - Alcohol History How Often Do You Have a Drink Containing Alcohol: Monthly or less - Substance Use History Substance History: No History of Abuse - Travel History Recent Travel in the [place] Within the Last 8 Weeks: No Recent Travel Out of the Country Within the Last 8 Weeks: No - Immunization History Tetanus Immunization: Unsure Medications and Allergies Active Medications: Active Medications Acetaminophen (Tylenol) 500 mg PO Q4H PRN PRN Reason: HEADACHE Aspirin (Aspirin) 325 mg PO DAILY [facility] Last Admin: 06/28/18 08:39 Dose: 325 mg Atenolol (Tenormin) 50 mg PO HS [facility] Atenolol (Tenormin) 25 mg PO DAILY [facility] Last Admin: 06/28/18 08:41 Dose: 25 mg Digoxin (Lanoxin) 125 mcg PO DAILY [facility] Last Admin: 06/28/18 08:40 Dose: 125 mcg Diltiazem HCl (Cardizem Cd 24hr) 180 mg PO DAILY [facility] Last Admin: 06/28/18 08:40 Dose: 180 mg Isosorbide Mononitrate (Imdur) 60 mg PO DAILY [facility] Last Admin: 06/28/18 08:40 Dose: 60 mg Levothyroxine Sodium (Synthroid) 25 mcg PO DAILY@0600 [facility] Last Admin: 06/28/18 08:39 Dose: 25 mcg Lisinopril (Prinivil) 5 mg PO DAILY [facility] Last Admin: 06/28/18 08:41 Dose: 5 mg Losartan Potassium (Cozaar) 100 mg PO DAILY [facility] Last Admin: 06/28/18 08:40 Dose: 100 mg Nitroglycerin (Nitro-Bid 2% Oint) 0.5 inch TOPICAL Q6HR [facility] Last Admin: 06/28/18 08:39 Dose: 0.5 inch Non-Formulary Medication (Magnesium [Magnesium]) 250 mg PO DAILY [facility] Pravastatin Sodium (Pravachol) 10 mg PO QPM [facility] Sodium Chloride (Ns Flush) 2 ml IV.FLUSH UNSCH PRN PRN Reason: FLUSH AFTER USING IV ACCESS Sodium Chloride (Ns Flush) 2 ml IV.FLUSH BID [facility] Sodium Chloride (Ns Flush) 2 ml IV.FLUSH PRN PRN PRN Reason: FLUSH AFTER USING IV ACCESS Allergies Allergy/AdvReac Type Severity Reaction Status Date / Time metronidazole Allergy Severe RASH Verified 06/27/18 20:21 diphenhydramine AdvReac Anxiety Verified 06/27/18 20:21 [From Jennie] Home Medications Medication Instructions Recorded Confirmed Type atenolol 25 mg PO DAILY 06/27/18 06/28/18 History digoxin 0.125 mg PO DAILY 06/27/18 06/27/18 History diltiazem HCl 180 mg PO DAILY 06/27/18 06/27/18 History isosorbide mononitrate 60 mg PO QAM 06/27/18 06/27/18 History levothyroxine 25 mcg PO DAILY 06/27/18 06/27/18 History lisinopril 5 mg PO DAILY 06/27/18 06/27/18 History losartan 100 mg PO DAILY 06/27/18 06/27/18 History magnesium 250 mg PO DAILY 06/27/18 06/27/18 History nitroglycerin [Nitrostat] 0.4 mg SUBLINGUAL Q5-15M PRN 06/27/18 06/27/18 History simvastatin 5 mg PO QPM 06/27/18 06/27/18 History warfarin 5 mg PO [id number] 06/27/18 06/27/18 History atenolol 50 mg PO HS 06/28/18 06/28/18 History Exam Vital signs: Vital Signs 06/27/18 20:17 06/27/18 20:31 06/27/18 20:33 Temperature 98.2 F 98.2 F Pulse Rate 78 70 67 Respiratory Rate 20 20 20 Blood Pressure 162/77 H 140/65 140/65 Pulse Oximetry 97 96 98 06/27/18 21:05 06/27/18 21:24 06/27/18 21:39 Temperature Pulse Rate 60 Respiratory Rate 18 20 Blood Pressure 142/63 H Pulse Oximetry 97 97 06/27/18 22:38 06/28/18 00:00 06/28/18 00:15 Temperature 98.2 F Pulse Rate 60 63 Respiratory Rate 20 16 Blood Pressure 155/67 H 142/76 H Pulse Oximetry 93 L 98 06/28/18 04:00 06/28/18 08:00 Temperature 98.4 F 97.8 F Pulse Rate 62 67 Respiratory Rate 16 16 Blood Pressure 134/60 157/72 H Pulse Oximetry 94 L 98 Intake & Output 06/27/18 06/28/18 06/28/18 18:59 06:59 18:59 Weight 58.96 kg Other: # Voids 2 Date of Last Bowel Movement 06/27/18 Weight On Admission 58.96 kg Narrative: GENERAL: This is a well-nourished, well-developed patient, in no apparent distress. Patient speaks in clear complete sentences. Patient is pleasant. HEENT: Head is atraumatic and normocephalic. Neck is supple without lymphadenopathy and trachea is midline. No JVD or carotid bruits. CARDIOVASCULAR: Grade 2 systolic murmur left sternal border. Regular rate and rhythm without gallops or rubs. RESPIRATORY: Clear to auscultation. Breath sounds equal bilaterally. No wheezes , rales, or rhonchi. Chest wall is nontender. No use of accessory muscles. GASTROINTESTINAL: Abdomen is nontender, nondistended. Abdomen soft. No obvious pulsatile mass or bruit. No CVA tenderness. Strong femoral pulses bilaterally. Normal bowel sounds in all quadrants. MUSCULOSKELETAL: Patient is moving upper and lower extremities freely. No calf tenderness or edema, no Homans sign. Strong pulses in upper and lower extremities. NEUROLOGICAL: Patient is alert and oriented. Cranial nerves 2-12 are grossly intact. No focal deficits and speech is clear. SKIN: No rash and turgor is normal. Results 06/27/18 20:57 06/27/18 20:57 Cardiac Enzymes 06/27/18 06/27/18 06/28/18 Range/Units 20:57 20:57 00:01 AST 40 H (15-37) U/L Troponin I Less than 0.02 L 0.04 (0.02-0.05) ng/mL B-Natriuretic Peptide 74 (0-100) pg/mL 06/28/18 Range/Units 03:23 AST (15-37) U/L Troponin I 0.29 H D (0.02-0.05) ng/mL B-Natriuretic Peptide (0-100) pg/mL Coagulation 06/27/18 06/27/18 Range/Units 20:57 20:57 PT 26.1 H (9.8-11.6) sec APTT 34.5 H (24.3-30.1) sec B-Natriuretic Peptide 74 (0-100) pg/mL CBC 06/27/18 Range/Units 20:57 WBC 7.4 (4.0-11.0) th/mm3 RBC 4.79 (4.00-5.30) mil/mm3 Hgb 15.1 (11.6-15.3) gm/dL Hct 43.6 (35.0-46.0) % Plt Count 57 L (150-450) th/mm3 Neut # (Auto) 5.0 (1.8-7.7) th/mm3 Lymph # (Auto) 1.5 (1.0-4.8) th/mm3 Addison # (Auto) 0.7 (0.0-0.9) th/mm3 Eos # (Auto) 0.2 (0.0-0.4) th/mm3 Baso # (Auto) 0.1 (0.0-0.2) th/mm3 Comprehensive Metabolic Panel 06/27/18 Range/Units 20:57 Sodium 140 (136-145) meq/L Potassium 4.6 (3.5-5.1) meq/L Chloride 106 (98-107) meq/L Carbon Dioxide 26.0 (21.0-32.0) meq/L BUN 25 H (7-18) mg/dL Creatinine 1.02 H (0.50-1.00) mg/dL Calcium 9.4 (8.5-10.1) mg/dL AST 40 H (15-37) U/L ALT 49 (10-53) U/L Alkaline Phosphatase 72 (45-117) U/L Total Protein 7.6 (6.4-8.2) g/dL Albumin 3.9 (3.4-5.0) g/dL Intake and Output 06/27/18 06/28/18 06/28/18 22:59 06:59 14:59 Other: # Voids 2 Date of Last Bowel Movement 06/27/18 Weight 58.967 kg 58.96 kg Weight On Admission 58.96 kg - Imaging and Cardiology Imaging: Impressions Chest X-Ray 06/27/18 20:44 CONCLUSION: 1. Compensated cardiomegaly. 2. Lungs remain clear. 3. No significant change from prior. EKG interpretations - IA, pacemaker, normal Pacemaker: ventricular pacing w/capture (except when refractory) (EKGs reveal ventricular pacing.) Caprini VTE Risk Assessment Caprini VTE Risk Assessment: Moderate/High Risk (score >= 2) Caprini Risk Assessment Model: Point Value = 1 Point Value = 2 Point Value = 3 Point Value = 5 Age 41-60 Minor surgery BMI > 25 kg/m2 Swollen legs Varicose veins or History of unexplained or recurrent spontaneous Oral contraceptives or hormone replacement Sepsis (< 1 month) Serious lung disease, including pneumonia (< 1 month) Abnormal pulmonary function Acute myocardial infarction Congestive heart failure (< 1 month) History of inflammatory bowel disease Medical patient at bed rest Age 61-74 Arthroscopic surgery Major open surgery (> 45 min) Laparoscopic surgery (> 45 min) Malignancy Confined to bed (> 72 hours) Immobilizing plaster cast Central venous access Age >= 75 History of VTE Family history of VTE Factor V Leiden Prothrombin [id number] Lupus anticoagulant Anticardiolipin antibodies Elevated serum homocysteine Heparin-induced thrombocytopenia Other congenital or acquired thrombophilia Stroke (< 1 month) Elective arthroplasty Hip, pelvis, or leg fracture Acute spinal cord injury (< 1 month) Prophylaxis Regimen: Total Risk Factor Score Risk Level Prophylaxis Regimen 0-1 Low Early ambulation 2 Moderate Order ONE of the following: *Sequential Compression Device (SCD) *Heparin 5000 units SQ BID 3-4 Higher Order ONE of the following medications: *Heparin 5000 units SQ TID *Enoxaparin/Lovenox 40 mg SQ daily (WT < 150 kg, CrCl > 30 mL/min) *Enoxaparin/Lovenox 30 mg SQ daily (WT < 150 kg, CrCl > 10-29 mL/min) *Enoxaparin/Lovenox 30 mg SQ BID (WT < 150 kg, CrCl > 30 mL/min) AND/OR *Sequential Compression Device (SCD) 5 or more Highest Order ONE of the following medications: *Heparin 5000 units SQ TID (Preferred with Epidurals) *Enoxaparin/Lovenox 40 mg SQ daily (WT < 150 kg, CrCl > 30 mL/min) *Enoxaparin/Lovenox 30 mg SQ daily (WT < 150 kg, CrCl > 10-29 mL/min) *Enoxaparin/Lovenox 30 mg SQ BID (WT < 150 kg, CrCl > 30 mL/min) AND *Sequential Compression Device (SCD) Assessment and Plan - Assessment (1) Chest pain Code(s): R07.9 - Chest pain, unspecified Status: Acute (2) CAD (coronary artery disease) Code(s): I25.10 - Atherosclerotic heart disease of [place] coronary artery without angina pectoris Status: Acute (3) History of heart artery stent Code(s): Z95.5 - Presence of coronary angioplasty implant and graft Status: Acute (4) Hyperlipidemia Code(s): E78.5 - Hyperlipidemia, unspecified Status: Acute (5) Pacemaker Code(s): Z95.0 - Presence of cardiac pacemaker Status: Acute - Plan * Chest pain: Patient's third troponin elevated to 0.29 and is now a non-STEMI. She was seen by Dr. Christensen. I discussed this patient with her ultimate hoops trainer which is Dr. De Oliveira. Recommended to hold warfarin and he will perform a cardiac catheterization tomorrow. Also requested heparin and that will be started as well. * History of CAD with heart artery stents: Patient of cardiac catheterization with Dr. De Oliveira tomorrow. * Hypertension: Continue medication. * Hyperlipidemia: Continue medication. * Pacemaker: Patient is ventricularly paced. Continue follow-up with her ultimate hoops trainer. Patient is stable at this time. She is agreeable to this plan. H&P: Quality - VTE Deep Vein Thrombosis/Pulmonary Embolism Present on Admission: No
[2018-06-28] MEDS ORDERED: Heparin 10,000 UNITS/10 ML Vial (for IV use) IV.PUSH STA (10:00)
[2018-06-28] MEDS ORDERED: Heparin Drip 25,000 UNIT/250 ML BAG IV.CONT PRN (10:02)
[2018-06-28 10:44] LABS: Activated Partial Thrombo Time 34.7 sec (24.3-30.1); INR 2.9 Ratio; Prothrombin Time 29.6 sec (9.8-11.6)
[2018-06-28 11:31] LABS: Hematocrit 39.5 % (35.0-46.0); Hemoglobin 13.6 gm/dL (11.6-15.3); Mean Corpuscular HGB Conc 34.4 % (32.0-36.0); Mean Corpuscular Hemoglobin 31.4 pg (27.0-34.0); Mean Corpuscular Volume 91.3 fL (80.0-100.0); Mean Platelet Volume 10.3 fL (7.0-11.0); Platelet Count 49 th/mm3 (150-450); Red Blood Count 4.33 mil/mm3 (4.00-5.30); Red Cell Distribution Width 12.4 % (11.6-17.2); White Blood Count 5.7 th/mm3 (4.0-11.0)
--- NOTE | 2018-06-28 16:38 | ECG ---
Date Performed: 06/27/2018 Time Performed: 20:29:26 PTAGE: 82 years EKG: ELECTRONIC VENTRICULAR PACEMAKER ABNORMAL RHYTHM ECG Since PREVIOUS TRACING , no significant change noted DOCTOR: Charleen Christensen Interpretating Date/Time 06/28/2018 16:36:56
--- NOTE | 2018-06-28 16:38 | ECG ---
Date Performed: 06/28/2018 Time Performed: 00:48:12 PTAGE: 82 years EKG: ELECTRONIC VENTRICULAR PACEMAKER ABNORMAL RHYTHM ECG Since PREVIOUS TRACING , no significant change noted PREVIOUS TRACIN06/27/2018 20.29 DOCTOR: Charleen Christensen Interpretating Date/Time 06/28/2018 16:37:21
--- NOTE | 2018-06-28 16:39 | ECG ---
Date Performed: 06/28/2018 Time Performed: 03:38:15 PTAGE: 82 years EKG: ELECTRONIC VENTRICULAR PACEMAKER ABNORMAL RHYTHM ECG Since PREVIOUS TRACING , no significant change noted PREVIOUS TRACIN06/28/2018 00.48 DOCTOR: Charleen Christensen Interpretating Date/Time 06/28/2018 16:37:46
[2018-06-28] MEDS ORDERED: diazePAM 5 MG Tablet PO SCH (17:30)
--- NOTE | 2018-06-28 19:37 | MB ---
cc: Bubba De Oliveira MD DATE: 06/28/2018 REASON FOR CONSULTATION: Evaluation of chest pain and elevated troponin. HISTORY OF PRESENT ILLNESS: Aleksandr Paris is an 82-year-old woman well known to me. She has a mechanical mitral valve and known coronary artery disease and has 2 previous stents. She had an episode last Wednesday of chest pain for which she took 1 nitro and it went away. Then the evening of admission after dinner developed severe chest pain and a funny feeling on the top of her head. This was something similar to what she had before when she had blockages. She came in and initial discomfort subsequently resolved. Her troponin has gone up consistent with a non-STEMI. She is currently pain free at this time. She has multiple cardiac risk factors. 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 PAST SURGICAL HISTORY: She has had 3 previous catheterization procedures 11/29/2013, 04/13/2015 and 04/08/2017. She has had stents of the circumflex marginal branch 11/29/2013, which was a 2.5 mm bare-metal stent. On 04/08/2017, she had stenting of the proximal LAD with a bare metal 3 mm diameter x 15 mm long stent postdilated with a 3.5 mm balloon. Last catheterization demonstrated a severe LAD lesion that was stented, circumflex marginal branch stent was okay, she had a 60% proximal right coronary artery. Other surgical history includes cataract surgery, a [employer] #29 mechanical mitral valve replacement 04/25/2002, tonsillectomy as a child. MEDICATIONS: 1. Atenolol 25 mg in the morning and 50 mg in the evening. 2. Digoxin 0.125 mg daily. 3. Diltiazem 180 mg daily. 4. Imdur 60 mg daily. 5. Lisinopril 5 mg daily. 6. Losartan 100 mg 1-1/2 tablets daily. 7. Magnesium 250 mg daily. 8. Multivitamin daily. 9. Osteo prime 2 tabs b.i.d. 10. Simvastatin 5 mg daily. 11. Vitamin D. 12. Warfarin. SOCIAL HISTORY: She has never smoked. 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 High school graduate. She is . Only occasional alcohol. PHYSICAL EXAMINATION: GENERAL: A well-developed, well-nourished white female, in no acute distress. VITAL SIGNS: Charted. HEENT: Unremarkable. NECK: Shows no JVD. No bruits. CHEST: Clear to auscultation. CARDIOVASCULAR: Shows a click S1, normal S2. Regular rate and rhythm. ABDOMEN: Soft. EXTREMITIES: No clubbing, cyanosis or edema. Pulses are intact. DIAGNOSTIC DATA: EKG shows atrial fibrillation with a ventricularly paced rhythm. LABORATORY DATA: Notable for a normal CBC. Creatinine 1.02, troponin went from less than 0.02 to 0.04 then 0.29, consistent with a non-STEMI. IMPRESSION: Status post acute non-ST segment elevation myocardial infarction. PLAN: Perform a diagnostic catheterization via left radial artery approach tomorrow. The patient is on heparin and aspirin, in addition to warfarin which is currently being held. Likely has another stenosis and high chance that she will end up with another stent. Informed consent has been obtained for a cath, possible intervention. MD MARVIN Bates/ana , 05:41 PM , 06:01 PM
[2018-06-28] MEDS: Atenolol 50 MG Tablet PO SCH (21:17)
[2018-06-29] MEDS: Sod Chloride 0.9% Inj 1,000 ML IV.CONT SCH ×2 (02:17→12:39)
[2018-06-29] MEDS: dilTIAZem CD 180 MG Capsule PO SCH (09:47)
[2018-06-29] MEDS: Digoxin 125 MCG Tablet PO SCH (09:47)
[2018-06-29] MEDS: Lisinopril 5 MG Tablet PO SCH (09:47)
[2018-06-29] MEDS: Isosorbide Mononitrate 60 MG ER 24HR Tablet (Imdur) PO SCH (09:47)
[2018-06-29] MEDS: Atenolol 25 MG Tablet PO SCH (09:48)
--- NOTE | 2018-06-29 11:05 | P.PN ---
Subjective Interval history: Went for cardiac cath, cardiac cath is not possible today because patient has low platelets. Discontinue heparin. Start on good rub on, transfer patient to [facility] for close observation. So far no signs of bleeding at this time. Patient denies any gum bleeding, no hematuria, has a normal bowel movement no blood in it. Patient says no chest pain overnight and she feels better however she describes symptoms similar to previous heart attack. Otherwise no concerns. Physical Exam Vital signs: Vital Signs 06/28/18 12:00 06/28/18 16:00 06/28/18 20:00 Temperature 98.5 F 97.9 F 97.9 F Pulse Rate 60 61 64 Respiratory Rate 16 18 15 Blood Pressure 115/56 L 139/60 111/53 L Pulse Oximetry 97 97 96 06/29/18 00:00 06/29/18 04:00 06/29/18 04:44 Temperature 97.9 F 97.1 F L Pulse Rate 62 61 60 Respiratory Rate 17 17 Blood Pressure 143/68 H 136/64 Pulse Oximetry 97 97 Intake & Output 06/28/18 06/29/18 06/29/18 18:59 06:59 18:59 Other: # Voids 7 Date of Last Bowel Movement 06/27/18 06/27/18 # Bowel Movements 1 Narrative: GENERAL: This is a pleasant elderly F, well-nourished, well-developed patient, in no apparent distress. CARDIOVASCULAR: Grade 2 systolic murmur left sternal border. Regular rate and rhythm without gallops or rubs. RESPIRATORY: Clear to auscultation. Breath sounds equal bilaterally. No wheezes , rales, or rhonchi. Chest wall is nontender. No use of accessory muscles. GASTROINTESTINAL: Abdomen is nontender, nondistended. Abdomen soft. No obvious pulsatile mass or bruit. No CVA tenderness. Strong femoral pulses bilaterally. Normal bowel sounds in all quadrants. MUSCULOSKELETAL: Patient is moving upper and lower extremities freely. No calf tenderness or edema, no Homans sign. Strong pulses in upper and lower extremities. NEUROLOGICAL: Patient is alert and oriented. Cranial nerves 2-12 are grossly intact. No focal deficits and speech is clear. SKIN: No rash and turgor is normal. Results - Labs CBC & Chem 7: 06/29/18 13:12 06/27/18 20:57 Laboratory Results - last 24 hr 06/28/18 06/28/18 06/28/18 11:12 17:27 22:45 WBC 5.7 RBC 4.33 Hgb 13.6 Hct 39.5 MCV 91.3 MCH 31.4 MCHC 34.4 RDW 12.4 Plt Count 49 L MPV 10.3 APTT 74.8 H D 59.0 H D Assessment and Plan - Plan Chest pain: Patient's third troponin elevated to 0.29 and is now a non-STEMI. She was seen by Dr. Christensen. 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 De Oliveira recommended to hold warfarin and he will perform a cardiac catheterization . Also requested heparin, patient was on heparin. However noted with low platelets. Hematology oncology consulted. DC heparin. Started Aegotraban by IV History of CAD with heart artery stents: Plan for cardiac catheterization with Dr. De Oliveira when PLT better and cleared by hem/onc Thrombocytopenia: Hematology oncology consulted. DC heparin. Started Argotraban by IV Hypertension: Continue medication. Hyperlipidemia: Continue medication. Pacemaker: Patient is ventricularly paced. Continue follow-up with her sheep farm worker.
--- NOTE | 2018-06-29 11:55 | P.PNCA ---
Subjective Interval history: Cardiac cath postponed due to low platelet count. No angina Medications and Allergies Active Medications: Active Medications Acetaminophen (Tylenol) 500 mg PO Q4H PRN PRN Reason: HEADACHE Aspirin (Aspirin Chew) 81 mg PO DAILY [facility] Last Admin: 06/29/18 10:21 Dose: Not Given Atenolol (Tenormin) 50 mg PO HS [facility] Last Admin: 06/28/18 21:17 Dose: 50 mg Atenolol (Tenormin) 25 mg PO DAILY [facility] Last Admin: 06/29/18 09:48 Dose: 25 mg Diazepam (Valium) 5 mg PO [employer] [facility] Stop: 07/02/18 17:29 Digoxin (Lanoxin) 125 mcg PO DAILY [facility] Last Admin: 06/29/18 09:47 Dose: 125 mcg Diltiazem HCl (Cardizem Cd 24hr) 180 mg PO DAILY [facility] Last Admin: 06/29/18 09:47 Dose: 180 mg Diphenhydramine HCl (Benadryl) 50 mg PO [employer] [facility] Stop: 07/02/18 17:29 Heparin Sodium/Dextrose (Heparin/D5w 25,000 U/250 Ml) 25,000 unit in 250 mls @ 7 mls/hr IV.CONT TITRATE PRN; Protocol PRN Reason: Per Protocol Last Admin: 06/28/18 11:09 Dose: 700 unit/hr, 7 mls/hr Sodium Chloride (Ns Inj) 1,000 mls @ 80 mls/hr IV.CONT .[id number] [facility] Last Admin: 06/29/18 02:17 Dose: 80 mls/hr Isosorbide Mononitrate (Imdur) 60 mg PO DAILY [facility] Last Admin: 06/29/18 09:47 Dose: 60 mg Levothyroxine Sodium (Synthroid) 25 mcg PO DAILY@0600 [facility] Last Admin: 06/29/18 06:14 Dose: 25 mcg Lisinopril (Prinivil) 5 mg PO DAILY [facility] Last Admin: 06/29/18 09:47 Dose: 5 mg Losartan Potassium (Cozaar) 100 mg PO DAILY [facility] Last Admin: 06/29/18 09:48 Dose: 100 mg Nitroglycerin (Nitro-Bid 2% Oint) 0.5 inch TOPICAL Q6HR [facility] Last Admin: 06/29/18 06:24 Dose: Not Given Pravastatin Sodium (Pravachol) 10 mg PO QPM [facility] Last Admin: 06/28/18 18:00 Dose: 10 mg Sodium Chloride (Ns Flush) 2 ml IV.FLUSH UNSCH PRN PRN Reason: FLUSH AFTER USING IV ACCESS Sodium Chloride (Ns Flush) 2 ml IV.FLUSH BID [facility] Last Admin: 06/29/18 10:21 Dose: Not Given Sodium Chloride (Ns Flush) 2 ml IV.FLUSH PRN PRN PRN Reason: FLUSH AFTER USING IV ACCESS Allergies Allergy/AdvReac Type Severity Reaction Status Date / Time metronidazole Allergy Severe RASH Verified 06/27/18 20:21 diphenhydramine AdvReac Anxiety Verified 06/27/18 20:21 [From Jennie] Home Medications Medication Instructions Recorded Confirmed Type atenolol 25 mg PO DAILY 06/27/18 06/28/18 History digoxin 0.125 mg PO DAILY 06/27/18 06/27/18 History diltiazem HCl 180 mg PO DAILY 06/27/18 06/27/18 History isosorbide mononitrate 60 mg PO QAM 06/27/18 06/27/18 History levothyroxine 25 mcg PO DAILY 06/27/18 06/27/18 History lisinopril 5 mg PO DAILY 06/27/18 06/27/18 History losartan 100 mg PO DAILY 06/27/18 06/27/18 History magnesium 250 mg PO DAILY 06/27/18 06/27/18 History nitroglycerin [Nitrostat] 0.4 mg SUBLINGUAL Q5-15M PRN 06/27/18 06/27/18 History simvastatin 5 mg PO QPM 06/27/18 06/27/18 History warfarin 5 mg PO [id number] 06/27/18 06/27/18 History atenolol 50 mg PO HS 06/28/18 06/28/18 History Physical Exam Vital signs: Vital Signs 06/28/18 12:00 06/28/18 16:00 06/28/18 20:00 Temperature 98.5 F 97.9 F 97.9 F Pulse Rate 60 61 64 Respiratory Rate 16 18 15 Blood Pressure 115/56 L 139/60 111/53 L Pulse Oximetry 97 97 96 06/29/18 00:00 06/29/18 04:00 06/29/18 04:44 Temperature 97.9 F 97.1 F L Pulse Rate 62 61 60 Respiratory Rate 17 17 Blood Pressure 143/68 H 136/64 Pulse Oximetry 97 97 Intake & Output 06/28/18 06/29/18 06/29/18 18:59 06:59 18:59 Other: # Voids 7 Date of Last Bowel Movement 06/27/18 06/27/18 # Bowel Movements 1 Narrative: GENERAL: This is a pleasant elderly F, well-nourished, well-developed patient, in no apparent distress. CARDIOVASCULAR: Click S1, nlS2, Grade 2 systolic murmur left sternal border. Regular rate and rhythm without gallops or rubs. RESPIRATORY: Clear to auscultation. Breath sounds equal bilaterally. No wheezes , rales, or rhonchi. Chest wall is nontender. No use of accessory muscles. GASTROINTESTINAL: Abdomen is nontender, nondistended. Abdomen soft. No obvious pulsatile mass or bruit. No CVA tenderness. Strong femoral pulses bilaterally. Normal bowel sounds in all quadrants. MUSCULOSKELETAL: Patient is moving upper and lower extremities freely. No calf tenderness or edema, no Homans sign. Strong pulses in upper and lower extremities. NEUROLOGICAL: Patient is alert and oriented. Cranial nerves 2-12 are grossly intact. No focal deficits and speech is clear. SKIN: No rash and turgor is normal. Results 06/29/18 13:12 06/27/18 20:57 Cardiac Enzymes 06/27/18 06/27/18 06/28/18 Range/Units 20:57 20:57 00:01 AST 40 H (15-37) U/L Troponin I Less than 0.02 L 0.04 (0.02-0.05) ng/mL B-Natriuretic Peptide 74 (0-100) pg/mL 06/28/18 Range/Units 03:23 AST (15-37) U/L Troponin I 0.29 H D (0.02-0.05) ng/mL B-Natriuretic Peptide (0-100) pg/mL Coagulation 06/27/18 06/27/18 06/28/18 Range/Units 20:57 20:57 10:29 PT 26.1 H 29.6 H (9.8-11.6) sec APTT 34.5 H 34.7 H (24.3-30.1) sec B-Natriuretic Peptide 74 (0-100) pg/mL 06/28/18 06/28/18 Range/Units 17:27 22:45 PT (9.8-11.6) sec APTT 74.8 H D 59.0 H D (24.3-30.1) sec B-Natriuretic Peptide (0-100) pg/mL CBC 06/27/18 06/28/18 Range/Units 20:57 11:12 WBC 7.4 5.7 (4.0-11.0) th/mm3 RBC 4.79 4.33 (4.00-5.30) mil/mm3 Hgb 15.1 13.6 (11.6-15.3) gm/dL Hct 43.6 39.5 (35.0-46.0) % Plt Count 57 L 49 L (150-450) th/mm3 Neut # (Auto) 5.0 (1.8-7.7) th/mm3 Lymph # (Auto) 1.5 (1.0-4.8) th/mm3 [place] # (Auto) 0.7 (0.0-0.9) th/mm3 Eos # (Auto) 0.2 (0.0-0.4) th/mm3 Baso # (Auto) 0.1 (0.0-0.2) th/mm3 Comprehensive Metabolic Panel 06/27/18 Range/Units 20:57 Sodium 140 (136-145) meq/L Potassium 4.6 (3.5-5.1) meq/L Chloride 106 (98-107) meq/L Carbon Dioxide 26.0 (21.0-32.0) meq/L BUN 25 H (7-18) mg/dL Creatinine 1.02 H (0.50-1.00) mg/dL Calcium 9.4 (8.5-10.1) mg/dL AST 40 H (15-37) U/L ALT 49 (10-53) U/L Alkaline Phosphatase 72 (45-117) U/L Total Protein 7.6 (6.4-8.2) g/dL Albumin 3.9 (3.4-5.0) g/dL Intake and Output 06/28/18 06/29/18 06/29/18 22:59 06:59 14:59 Other: # Voids 7 Date of Last Bowel Movement 06/27/18 06/27/18 # Bowel Movements 1 - Imaging and Cardiology Imaging: Impressions Chest X-Ray 06/27/18 20:44 CONCLUSION: 1. Compensated cardiomegaly. 2. Lungs remain clear. 3. No significant change from prior. Assessment and Plan - Assessment (1) Non-STEMI (non-ST elevated myocardial infarction) Code(s): I21.4 - Non-ST elevation (NSTEMI) myocardial infarction Status: Acute Plan: Plan cardiac cath tomorrow AM (2) History of mitral valve replacement with mechanical valve Code(s): Z95.2 - Presence of prosthetic heart valve Status: Acute (3) Thrombocytopenia Code(s): D69.6 - Thrombocytopenia, unspecified Status: Acute Plan: Appreciate Dr. Al consult - Plan * Chest pain: Patient's third troponin elevated to 0.29 and is now a non-STEMI. She was seen by Dr. Christensen. I discussed this patient with her change agent which is Dr. De Oliveira. Recommended to hold warfarin and he will perform a cardiac catheterization tomorrow. Also requested heparin and that will be started as well. * History of CAD with heart artery stents: Patient of cardiac catheterization with Dr. De Oliveira tomorrow. * Hypertension: Continue medication. * Hyperlipidemia: Continue medication. * Pacemaker: Patient is ventricularly paced. Continue follow-up with her change agent. Patient is stable at this time. She is agreeable to this plan.
[2018-06-29 13:18] LABS: INR 2.2 Ratio; Prothrombin Time 22.6 sec (9.8-11.6)
[2018-06-29] MEDS ORDERED: Argatroban Inj 250 MG in Sodium Chlor 0.9% Inj 247.5 ML IV.CONT PRN (14:00)
--- NOTE | 2018-06-29 15:08 | US ---
EXAM DATE: 06/29/2018 2:00 PM EDT AGE/SEX: 82 years / Female INDICATIONS: Abnormal labs. CLINICAL DATA: This is the patient's initial encounter. Patient reports that signs and symptoms have been present for 1 day and indicates a pain score of 0/10. MEDICAL/SURGICAL HISTORY: Hypertension. A-fib. GI bleed. Kidney stone. Mitral valve disease. Pa cemaker. CABG. Cardiac cath. COMPARISON: [facility] – [place], CT ABDOMEN & PELVIS W CONTRAST, 04/11/2017. . MEASUREMENTS: Liver:__ 13.2 cm. Common Bile Duct:__ 4mm. Right Kidney:__ 10.2 x 5.0 x 4.4 cm. FINDINGS: Liver: Increased echotexture without focal lesion or ductal dilation. Portal Vein: Hepatopedal flow seen in portal vein. Common Duct: No intraluminal mass or stone visualized. Gallbladder: Demonstrates no wall thickening or pericholecystic fluid. No stones visualized. Pancreas: The pancreas appears to be normal in size and echogenicity. There is some minimal dilatatio n of the pancreatic duct at 2 mm. No surrounding fluid collections are demonstrated. Right Kidney: Increased echotexture. No mass or hydronephrosis. Other: None. CONCLUSION: 1. No evidence of gallstones or biliary tract obstruction. 2. Increased echogenicity of the liver suggestive of fatty infiltration. 3. Mild increased echogenicity of the right renal parenchyma suggestive of chronic medical renal dis ease. No evidence of hydronephrosis. Electronically signed by: Monster Baker MD 06/29/2018 3:07 PM EDT
--- NOTE | 2018-06-29 18:41 | MB ---
cc: Spring Al MD, Vance E MD DATE: 06/29/2018 REFERRING PHYSICIAN: Dr. Bubba De Oliveira. CHIEF COMPLAINT: Dr. De Oliveira requested consultation regarding for Ms Hill regarding new thrombocytopenia. HISTORY OF PRESENT ILLNESS: Ms. Hill is an 82-year-old woman, well known patient to Dr. Bubba De Oliveira. She has a history of atrial fibrillation, hypertension, valvular heart disease, status post mitral valve replacement. She is on chronic anticoagulant therapy with Coumadin. She presented to the emergency room with typical vice-like chest pain, which radiates to the left arm. She had taken 1 nitroglycerin with symptoms that persist. Her third troponin was elevated at 0.29. She is diagnosed with non-ST elevated myocardial infarction. Her Coumadin was discontinued. She is pending a cardiac catheterization today with Dr. De Oliveira. However, she was found to have a significant thrombocytopenia and her cardiac catheterization was deferred. She has a known cardiac history with a total of 3 stents, most recently in April 2017. She had the same symptoms of vice-like chest pain radiating to the arm. She denies any problem with her anticoagulant therapy recently. She has had a history of GI bleed in the past. She denies any bloody stools, melena or bright red blood per rectum. She denies any other bleeding such as nosebleeds or epistaxis. She felt well at the time of the consultation. She is not having acute chest pain. She has had no bleeding events. Review of the electronic medical record shows a platelet count of 57,000 on admission. Last platelet count from 04/21/2017 was 158. Repeat platelet count is 49,000. Platelet count in a citrated tube was 55,000. Her platelet counts have consistently been high, above 100,000 in 04/2017. Review of historical visits shows no thrombocytopenia less than 100,000 dating back to 2010. She denies any recent exposure to heparin. The last time she was hospitalized was in April 2017. She denies any knowledge of the thrombocytopenia previously. Review of the electronic medical record shows a history of fatty liver by imaging. CT scan of the abdomen from 03/18/2011 shows fatty liver. She has known of a diagnosis of fatty liver, but has been asymptomatic. Her review of the hepatitis serology from 2013 shows hepatitis C RNA less than 1.18. Liver function, AST, ALT and alkaline phosphatase and bilirubin were normal in 2017. On admission, AST is mildly elevated. Albumin is normal. PT was 22.6 seconds with an INR of 2.2. PTT is also prolonged at 48.6 seconds. PAST MEDICAL HISTORY: Coronary artery disease, status post 3 stents, hyperlipidemia, hypertension, pacemaker, mitral valve disease, status post mitral valve replacement, on chronic anticoagulant therapy Coumadin. Fatty liver, nephrolithiasis, anxiety, atrial fibrillation and GI bleed. PAST SURGICAL HISTORY: Cardiac catheterization, stent placement, CABG, mitral valve replacement. SOCIAL HISTORY: Denies any alcohol, tobacco or illicit drug use. FAMILY HISTORY: Father had colon cancer. ALLERGIES: METRONIDAZOLE and DIPHENHYDRAMINE. MEDICATIONS: 1. Acetaminophen. 2. Aspirin. 3. Tylenol. 4. Atenolol. 5. Diazepam. 6. Digoxin. 7. Diltiazem. 8. Benadryl. 9. Imdur. 10. Synthroid. 11. Lisinopril. 12. Cozaar. 13. Nitroglycerin. 14. Pravachol. PHYSICAL EXAMINATION: VITAL SIGNS: Temperature 98.3, heart rate 66, respiratory rate 16, blood pressure 162/74, saturation 98%. GENERAL: Ms. Hill is a pleasant 82-year-old woman, who appears younger than stated age. She is quite witty. HEENT: Her pupils are round, reactive to light and accommodation. Oropharynx is clear. NECK: Supple with no adenopathy. LUNGS: Clear. CARDIOVASCULAR: Reveals mild bradycardia. ABDOMEN: Benign. EXTREMITIES: Lower extremity with no edema. SKIN: With multiple freckles. Mild senile purpura on lower extremities. No rash. NEUROLOGIC: Nonfocal. ASSESSMENT AND PLAN: Ms. Hill is an 82-year-old woman with multiple medical problems. She has a history of coronary artery disease, status post stent placement and mitral valve disease, status post mitral valve replacement, on chronic anticoagulant therapy with Coumadin. Despite antiplatelet therapy and Coumadin, she presents with non-ST elevated myocardial infarction. She is pending cardiac catheterization with Dr. De Oliveira, but has developed thrombocytopenia. Hematology/Oncology is consulted for the thrombocytopenia. The case was discussed with Dr. De Oliveira. I had a lengthy discussion with Ms. Hill about her thrombocytopenia. We discussed plans to exclude the etiology of thrombocytopenia. Many of the medications that she is on are quite chronic and unlikely to be the etiology, such as her digoxin. We discussed her platelet count previously, which was normal above 100,000. This is the first time her platelet count is less than 50,000. Her last admission was in 2017. We discussed her history of fatty liver findings from 2010. There is questionable history of hepatitis C. Her AST is mildly elevated. Whether or not this is contributing to her thrombocytopenia is not clear. I will obtain an ultrasound of the liver and spleen to evaluate further. A peripheral smear will be reviewed along with HIT antibodies. Clinical suspicion for HIT is low; however, she has been hospitalized previously. Rapid onset HIT is considered. In the meantime argatroban is initiated as empiric therapy, her platelet count will be monitored. Anticardiolipin antibody will be checked. Lupus anticoagulant is a consideration given her baseline PTT is prolonged, even before starting unfractionated heparin. She is on Coumadin. With an INR 2.0, the PTT is expected to have been normal. Depending on her platelet count recovery, she may need a platelet transfusion to support her during the procedure. The more difficult question how much antiplatelet treatment can she tolerate given the thrombocytopenia. Lastly, the diagnosis of immune thrombocytopenic purpura is a diagnosis of exclusion. LDH, haptoglobin and a Tobias test will also be checked. Her questions were answered to her satisfaction. MD ADALBERTO Segundo/hcris , 05:34 PM , 05:52 PM
[2018-06-29] MEDS: Atenolol 50 MG Tablet PO SCH (20:56)
[2018-06-30] MEDS: Sod Chloride 0.9% Inj 1,000 ML IV.CONT SCH (01:04)
[2018-06-30 05:23] LABS: Baso # (Auto) 0.1 th/mm3 (0.0-0.2); Eos # (Auto) 0.2 th/mm3 (0.0-0.4); Eos % (Auto) 3.2 % (0.0-4.0); Hematocrit 41.8 % (35.0-46.0); Hemoglobin 14.3 gm/dL (11.6-15.3); Lymph # (Auto) 1.2 th/mm3 (1.0-4.8); Lymph % (Auto) 22.9 % (9.0-44.0); Mean Corpuscular HGB Conc 34.3 % (32.0-36.0); Mean Corpuscular Hemoglobin 31.2 pg (27.0-34.0); Mean Corpuscular Volume 91.1 fL (80.0-100.0); Mean Platelet Volume 10.2 fL (7.0-11.0); Mono # (Auto) 0.5 th/mm3 (0.0-0.9); Mono % (Auto) 9.8 % (0.0-8.0); Neut # (Auto) 3.3 th/mm3 (1.8-7.7); Neut % (Auto) 63.1 % (16.0-70.0); Platelet Count 45 th/mm3 (150-450); Red Blood Count 4.59 mil/mm3 (4.00-5.30); Red Cell Distribution Width 12.6 % (11.6-17.2); White Blood Count 5.3 th/mm3 (4.0-11.0)
[2018-06-30 05:31] LABS: Activated Partial Thrombo Time 55.5 sec (24.3-30.1); INR 4.1 Ratio; Prothrombin Time 41.1 sec (9.8-11.6)
[2018-06-30 05:48] LABS: Calcium 8.9 mg/dL (8.5-10.1); Carbon Dioxide 25.6 meq/L (21.0-32.0); Potassium 4.2 meq/L (3.5-5.1)
[2018-06-30] MEDS ORDERED: Heparin/NS PF Inj 1,000 ML ONE (07:39)
[2018-06-30] MEDS ORDERED: Heparin 10,000 UNITS/10 ML Vial (for IV use) ONE (07:42)
[2018-06-30] MEDS ORDERED: fentaNYL Citrate Inj 100 MCG/2 ML Ampul ONE (07:59)
[2018-06-30 08:28] LABS: Platelet Morphology Normal (Normal)
[2018-06-30] MEDS ORDERED: Misc Info for Pharmacy OTHER ONE (08:49)
--- NOTE | 2018-06-30 08:50 | CATHPROC ---
[employer] HIS Report Study Information Study Number Admission Scheduled Start Study Start [id number] Jun 27 2018 10:04PM 06/30/2018 Jun 30 2018 7:29AM [place] Service Cath Endovascular Study Admit Source Facility Department Emergency department [facility] - Auto Design Checker Physician and Clinical Staff Initial Bubba Bonilla Radiographer Technologist Mike Jackson,RN Recorder Student, REMOTE SENSING SCIENTIST/RT(R) Recorder Mango Matamoros,REMOTE SENSING SCIENTIST(BS) Scrub Christi Marie ,RT(R) Equipment Time Generator Mechanic Description Size Mfg Part Number Used/Scraped TRANSDUCER, TRUWAVE [id number] 08:18 PACE MELGOZA * Used W/STOCKCOCK *[id number] 08:18 MALLINCKRODT SYRINGE, ANGIOMAT 150ML 150ML *[id number] Used 2SUB [id number] 08:[address] [employer] BLANKET,WARM AIR CCL * Used *[id number] 08:[address] [employer] PACK, CCL CUSTOM * Used *[id number] 08:[address] [employer] SUPPORT, ARTERIAL ADULT 78012 *[id number] Used [id number] 08:18 [employer] PACER PEN, SKIN DUAL W/ RULER * Used *[id number] BAND, RADIAL COMPRESSION TR [id number] 08:37 [employer]PinYou 24CM Used SHORT 24 *[id number] 08:18 [employer] WIRE, EXCHANGE 260CM 3MMJ 260CM Used *[id number] PROBE COVER, STERILE [id number] 08:18 [employer] MEDICAL * Used ULTRASOUND W/ GEL *[id number] 08:18 NAMIC MANIFOLD, 4 PORT * Used *[id number] 08:18 NYCOMED OMNIPAQUE, 350 MG, 100ML 100ML [id number] Used 08:18 T[employer]us MEDICAL JELCO NEEDLE 4056 *[id number] Used 08:25 STARR MEDICAL JELCO NEEDLE 4056 *[id number] Used SHEATH, FR6 TRANSRADIAL [id number] 08:18 TERScimetrika MEDICAL FR 6 Used SLENDER 10CM *[id number] History: Current Medications Medication Dosage/Unit Route Frequency Last Date/Time Taken Beta Marcus Statins (any) COZAAR CARDIZEM ASA History: Allergies Allergy Reaction Flagyl RASH metronidazole RASH diphenhydramine Anxiety History: Risk Factors Family History of Hypertension Dyslipidemia Previous AL Previous Heart Failure Premature CAD Yes Yes Yes Yes No Prior Valve Prior PCI Prior PCIDate Prior CABG Surgery Yes Yes 04/06/2017 Yes Cerebrovascular Peripheral Artery Chronic Lung On Dialysis Diabetes Disease Disease Disease No No No No No History: Symptoms/Diagnosis Selection Items Chest pain History: Stress Tests Stress or Imaging Studies Performed No History: Other Disease Selection Items CAD HTN History: Other Current Smoker No Labs Hgb (g/dl) Hct (%) RBC (MIL/MM3) WBC (l/cumm) Platelets (thousands) 11.60-17.00 35.00-51.00 4.00-5.90 4.00-11.00 150.00-450.00 14.3 41.8 4.9 5.3 45 Glucose (mg/dl) BUN (mg/dl) Creatinine (mg/dl) BUN:Creatinine (1:x) 74.00-106.00 7.00-18.00 0.50-1.30 10.00-20.00 99 18 0.7 25.7 Na (meq/l) K (meq/l) 136.00-145.00 3.50-5.10 141 4.2 INR (PTT:PT) 0.90-1.10 4.1 CPK-MB (ng/ML) 0.50-3.60 Not Drawn Medication Medication Total Dose (Bolus/Oral) Medication Total Dosage/Unit 1% XYLOCAINE 3 mL FENTANYL 25 mcg VERSED 1 mg Medications (Bolus/Oral) Medication Time Given Dosage/Unit Administered By Reason VERSED 06/30/2018 8:12:29 AM 1 mg Manuel, Mike 1 mg VERSED given in lab by Mike Jackson RN in Right Antecubital via Peripheral IV. Ordered by Bubba Mcneal. 1% XYLOCAINE 06/30/2018 8:13:02 AM 3 mL Bubba De Oliveira 3 mL 1% XYLOCAINE given in lab by Bubba De Oliveira in Left Radial via Subcutaneous. Ordered by Shalini De Oliveira. FENTANYL 06/30/2018 8:13:38 AM 25 mcg Manuel, Mike 25 mcg FENTANYL given in lab by Mike Jackson, RN in Right Antecubital via Peripheral IV. Ordered by Bubba Junior. Medication (Drip) Medication Time Given Dosage/Unit Concentration/Unit Diluent (ml) Solution IV Solutions 06/30/2018 7:36:11 AM 0 mL (IV) 500 NaCl .9 Patient arrived on IV Solutions given by Mike Jackson RN in Right Antecubital via Peripheral IV. Pum p/Drip Flow = 20 ml/hr using NaCl .9. Ordered by Bubba De Oliveira. Final Case Assessment Cardiovascular HR Rhythm NIBP Chest Pain 65 paced 159/73 0 Edema Present Skin color Skin None Normal Warm Dry Circulatory - Right Pulses Dorsalis Pedis Femoral Radial 3 3 3 Scale (0,1,2,3,4,d) Circulatory - Left Pulses Dorsalis Pedis Femoral Radial 3 Scale (0,1,2,3,4,d) Neurological State Oriented to time-place- Alert Moves all extremities person Respiration - General Respiration Rate SpO2 (%) (B/min) 15 97 Final Case Assessment Cardiovascular HR Rhythm NIBP Chest Pain 65 paced 159/73 0 Edema Present Skin color Skin None Normal Warm Dry Circulatory - Right Pulses Dorsalis Pedis Femoral Radial 3 3 3 Scale (0,1,2,3,4,d) Circulatory - Left Pulses Dorsalis Pedis Femoral Radial 3 Scale (0,1,2,3,4,d) Neurological State Oriented to time-place- Alert Moves all extremities person Respiration - General Respiration Rate SpO2 (%) (B/min) 15 97 Chronological Log Time Study Chronological Log 7:35:56 Patient arrived via Bed. 7:35:56 Patient Name, D.O.B, / Armband Verified By R.N. 7:35:57 Consent signed by the physician and the patient and verified by the Auto Design Checker staff. 7:35:58 Pre-op and post- op instructions given; patient acknowledges understanding of instructions. 7:36:01 Presedation assessment performed by Auto Design Checker RN. 7:36:02 Allens test performed on the left radial and ulnar artery. POSITIVE. 7:36:07 Immediate Presedation assesment performed by physician. 7:36:07 Patient has been NPO for More than 6Hrs. 7:36:08 Skin Breakdown- none per patient 7:36:09 Patient Warmer Placed on the Table. 7:36:09 Eufemia Prominences Protected 7:36:10 A # 22 IV was noted in the Hand (right). Grade = 0 7:36:11 A # 20 IV was noted in the Antecubital (right). Grade = 0 Patient arrived on IV Solutions given by Manuel, Mike, RN in Right Antecubital via Peripheral I V. Pump/Drip Flow = 20 7:36:11 ml/hr using NaCl .9. Ordered by Bubba De Oliveira. 7:36:12 PT arrived on Argatroban drip going at 2 mcg/kg/hour via R. AC #20 peripheral IV. 7:36:13 History and physical on the chart or being dictated. Vitals capture started with the following parameters, Patient=Adult, Interval=5 min, Initial Pre lrtzt=754 mmHg, 7:39:31 Deflation Rate=5 mmHg, Cuff placed on Left Arm Assessment: Final Case, HR=65 BPM, Rhythm=paced, CFLF=379/73 mmhg, Chest Pain=0, Edema=None, Color=Normal, Skin = Warm, Dry Right Pulses: Layo Ped=3, Femoral=3, Radial=3 7:40:43 Left Pulses: Radial=3 Neurological: State=Alert, Ox3, CASEY Respiration: Resp=15 B/min, SpO2=97 % 7:40:58 HR=65 bpm, JQOY=965/73 mmhg, SpO2=97.0 %, Resp=15 B/min, Pain=0, Fritz=10, Cano=2 7:42:42 Reference ECG taken 7:45:14 HR=66 bpm, EEKZ=295/76 mmhg, SpO2=97.0 %, Resp=15 B/min, Pain=0, Fritz=10, Cano=2 7:50:11 HR=60 bpm, CKHU=133/76 mmhg, SpO2=97.0 %, Resp=15 B/min, Pain=0, Fritz=10, Cano=2 7:55:08 HR=63 bpm, CSFL=074/76 mmhg, SpO2=97.0 %, Resp=17 B/min, Pain=0, Fritz=10, Cano=2 7:57:09 paged 8:00:13 HR=64 bpm, YYTA=929/78 mmhg, SpO2=96.0 %, Resp=14 B/min, Pain=0, Fritz=10, Cano=2 8:01:06 Pressure channel 2 zeroed. 8:05:14 HR=60 bpm, KWST=089/72 mmhg, SpO2=98.0 %, Resp=14 B/min, Pain=0, Fritz=10, Cano=2 8:05:50 MD arrived. 8:10:15 HR=68 bpm, NFST=718/79 mmhg, SpO2=97.0 %, Resp=21 B/min, Pain=0, Fritz=10, Cano=2 Time Out. Correct patient, correct procedure, correct physician, labs, allergies, and equipment verified with outside laborer 8:11:04 team present. Fire risk assesment completed (see hard stop sheet for coding). Time Out Concu rred by MD and individual staff in procedure. 8:12:29 1 mg VERSED given in lab by Mike Jackson RN in Right Antecubital via Peripheral IV. Ordered by Bubba De Oliveira. 8:12:59 Case Start 8:13:02 3 mL 1% XYLOCAINE given in lab by Bubba De Oliveira in Left Radial via Subcutaneous. Ordered by Bubba De Oliveira. 8:13:38 25 mcg FENTANYL given in lab by Mike Jackson RN in Right Antecubital via Peripheral IV. Ord ered by Bubba De Oliveira. 8:15:12 HR=67 bpm, CHRR=382/79 mmhg, SpO2=93.0 %, Resp=19 B/min, Pain=0, Fritz=10, Cano=2 8:20:13 HR=60 bpm, JTID=026/63 mmhg, SpO2=91.0 %, Resp=19 B/min, Pain=0, Fritz=10, Cano=2 8:25:14 HR=60 bpm, OHPW=948/70 mmhg, SpO2=94.0 %, Resp=32 B/min, Pain=0, Fritz=10, Cano=2 8:25:19 Access site was Left Radial Artery. 8:30:09 HR=64 bpm, MOJO=367/76 mmhg, SpO2=92.0 %, Resp=24 B/min, Pain=0, Fritz=10, Cano=2 8:35:10 Case End (Physician broke scrub) 8:35:12 HR=63 bpm, KQSU=580/66 mmhg, SpO2=92.0 %, Resp=16 B/min, Pain=0, Fritz=10, Cano=2 8:37:23 Unable to advance wire via L radial. Case Aborted Radial Compression Device Used. 12 mLs of air placed in BAND, RADIAL COMPRESSION TR SHORT 24 24C M. Affected 8:38:02 hand 96 % O2 saturation. 8:38:26 Case End (Physician broke scrub) 8:40:13 HR=64 bpm, REOF=825/65 mmhg, SpO2=94.0 %, Resp=20 B/min, Pain=0, Fritz=10, Cano=2 8:45:14 HR=61 bpm, HUAI=816/63 mmhg, SpO2=96 %, Resp=23 B/min, Pain=0, Fritz=10, Cano=2 8:45:21 Vitals capture stopped. 8:45:35 No case complications noted. Assessment: Final Case, HR=65 BPM, Rhythm=paced, LMXF=266/73 mmhg, Chest Pain=0, Edema=None, Color=Normal, Skin = Warm, Dry Right Pulses: Layo Ped=3, Femoral=3, Radial=3 8:45:37 Left Pulses: Radial=3 Neurological: State=Alert, Ox3, CASEY Respiration: Resp=15 B/min, SpO2=97 % 8:45:43 Bedside Report will be given. 8:48:37 Sterile dressing applied to site 8:48:38 No case complications noted. 8:48:51 [facility] Study - Contrast Media Used In Study Contrast Total Opened (mL) Total Used (mL) Total Wasted (mL) Omnipaque 0 0 0 End Study - Maximum Contrast Load Max Contrast Load (mL) 420.8 End Study - Radiation Exposure Fluoro Time (minutes) 0.0 End Study - Patient Disposition Complications Transferred To Interventional Outcome No Telemetry Bed No attempt made
--- NOTE | 2018-06-30 09:47 | P.PN ---
Subjective Interval history: This is a pleasant 82 y/o Female with diagnosis of NSTEMI, his Primary waste specialist Dr. De Oliveira following to perform Cardiac Catheterization, on Heparin drip, recommended client delivery specialist consult due to Thrombocytopenia for this reason discontinued Heparin and started on Argatroban IV, was not possible to perform the Cardiac cath yesterday due to Thrombocytopenia. 06/30: he was seen yesterday by ID specialist doctor Jeff Desir unclear about infection after evaluation of the CTA chest, recommended to continue Vancomycin and Aztreonam, follow blood cultures, asked for Mycoplasma for probable atypical Pneumonia. I have been called by Addiction Psychiatrist the patient meets inpatient management will switch to inpatient. Seen by Hematology and automation controls specialist today, the patient has status post Mitral valve replacement, awaiting for Coagulopathy workup, Cardiac cath using radial Approach was unsuccessful due to bleeding, INR over 4, Hepatitis C asked for Bone Marrow Biopsy to rule out Myelodysplastic syndrome, no nausea, vomit or diarrhea. Physical Exam Vital signs: Vital Signs 06/29/18 11:55 06/29/18 16:00 06/29/18 17:00 Temperature 98.3 F Pulse Rate 66 60 60 Respiratory Rate 16 20 Blood Pressure 162/74 H 127/75 Pulse Oximetry 98 97 06/29/18 19:00 06/29/18 20:00 06/29/18 21:00 Temperature 98.6 F Pulse Rate 60 60 68 Respiratory Rate 14 Blood Pressure 124/60 Pulse Oximetry 96 06/29/18 22:00 06/29/18 23:00 06/30/18 00:00 Temperature 98.6 F Pulse Rate 64 59 L 64 Respiratory Rate 16 Blood Pressure 109/60 Pulse Oximetry 97 06/30/18 01:00 06/30/18 02:00 06/30/18 03:00 Temperature 97.7 F Pulse Rate 61 60 64 Respiratory Rate 14 Blood Pressure 142/74 H Pulse Oximetry 98 06/30/18 04:00 06/30/18 05:00 06/30/18 06:00 Temperature Pulse Rate 60 60 60 Respiratory Rate Blood Pressure Pulse Oximetry Intake & Output 06/29/18 06/30/18 06/30/18 18:59 06:59 18:59 Intake Total 1460 / 1460 280 / 280 Output Total 900 / 900 Balance 1460 / 1460 -620 / -620 Weight 56 kg Intake: IV 1100 / 1100 Heparin/D5W 25,000 U/250 mL 25, 100 / 100 000 unit In 250 ml @ 700 UNIT/ HR 7 mls/hr IV.CONT TITRATE PRN Rx#:[id number] NS Inj 1,000 ML @ 80 mls/hr IV. 1000 / 1000 CONT .[id number] ARGENIS Rx#:[id number] Oral 360 / 360 280 / 280 Output: Urine 900 / 900 Other: Date of Last Bowel Movement 06/27/18 06/30/18 06/30/18 # Bowel Movements 2 Narrative: GENERAL: This is a pleasant elderly F, well-nourished, well-developed patient, in no apparent distress. CARDIOVASCULAR: Grade 2 systolic murmur left sternal border. Regular rate and rhythm without gallops or rubs. RESPIRATORY: Clear to auscultation. Breath sounds equal bilaterally. No wheezes , rales, or rhonchi. Chest wall is nontender. No use of accessory muscles. GASTROINTESTINAL: Soft, non tender, positive bowel sounds. MUSCULOSKELETAL: No clubbing, cyanosis or edema. NEUROLOGICAL: Patient is alert and oriented. Results - Labs CBC & Chem 7: 07/01/18 07:04 07/01/18 07:04 Laboratory Results - last 24 hr 06/29/18 06/29/18 06/29/18 11:32 11:32 12:32 WBC RBC Hgb Hct MCV MCH MCHC RDW Plt Count MPV Prelim Diff (Auto) Neut % (Auto) Lymph % (Auto) [place] % (Auto) Eos % (Auto) Baso % (Auto) Neut # (Auto) Lymph # (Auto) [place] # (Auto) Eos # (Auto) Baso # (Auto) WBC Differential Diff Scan Differential Comment Platelet Morphology Smear Path Review PT 22.6 H INR 2.2 APTT 48.6 H Sodium Potassium Chloride Carbon Dioxide Anion Gap BUN Creatinine Estimated GFR Random Glucose Calcium Lactate Dehydrogenase Direct Antiglob Test 06/29/18 06/29/18 06/29/18 13:12 13:12 16:58 WBC RBC Hgb Hct MCV MCH MCHC RDW Plt Count 55 L MPV Prelim Diff (Auto) Neut % (Auto) Lymph % (Auto) [place] % (Auto) Eos % (Auto) Baso % (Auto) Neut # (Auto) Lymph # (Auto) [place] # (Auto) Eos # (Auto) Baso # (Auto) WBC Differential Diff Scan Differential Comment Platelet Morphology Smear Path Review PT INR APTT Sodium Potassium Chloride Carbon Dioxide Anion Gap BUN Creatinine Estimated GFR Random Glucose Calcium Lactate Dehydrogenase 264 H Direct Antiglob Test Negative 06/29/18 06/30/18 06/30/18 21:05 05:05 05:05 WBC 5.3 RBC 4.59 Hgb 14.3 Hct 41.8 MCV 91.1 MCH 31.2 MCHC 34.3 RDW 12.6 Plt Count 45 L MPV 10.2 Prelim Diff (Auto) Slide review pending Neut % (Auto) 63.1 Lymph % (Auto) 22.9 [place] % (Auto) 9.8 H Eos % (Auto) 3.2 Baso % (Auto) 1.0 Neut # (Auto) 3.3 Lymph # (Auto) 1.2 [place] # (Auto) 0.5 Eos # (Auto) 0.2 Baso # (Auto) 0.1 WBC Differential . Diff Scan Auto diff confirmed Differential Comment . Platelet Morphology Normal Smear Path Review PT 41.1 H D INR 4.1 APTT 58.0 H 55.5 H Sodium Potassium Chloride Carbon Dioxide Anion Gap BUN Creatinine Estimated GFR Random Glucose Calcium Lactate Dehydrogenase Direct Antiglob Test 06/30/18 05:05 WBC RBC Hgb Hct MCV MCH MCHC RDW Plt Count MPV Prelim Diff (Auto) Neut % (Auto) Lymph % (Auto) [place] % (Auto) Eos % (Auto) Baso % (Auto) Neut # (Auto) Lymph # (Auto) [place] # (Auto) Eos # (Auto) Baso # (Auto) WBC Differential Diff Scan Differential Comment Platelet Morphology Smear Path Review PT INR APTT Sodium 141 Potassium 4.2 Chloride 109 H Carbon Dioxide 25.6 Anion Gap 6 BUN 18 Creatinine 0.74 Estimated GFR 75 L Random Glucose 99 Calcium 8.9 Lactate Dehydrogenase Direct Antiglob Test - Imaging Impressions Liver Ultrasound 06/29/18 14:00 CONCLUSION: 1. No evidence of gallstones or biliary tract obstruction. 2. Increased echogenicity of the liver suggestive of fatty infiltration. 3. Mild increased echogenicity of the right renal parenchyma suggestive of chronic medical renal disease. No evidence of hydronephrosis. - Procedures Cardiac Cath attempt using Radial approach Unsuccessful due to bleeding. Assessment and Plan - Plan This is a pleasant 82 y/o Female with diagnosis of NSTEMI, his Primary waste specialist Dr. De Oliveira following to perform Cardiac Catheterization, on Heparin drip, recommended client delivery specialist consult due to Thrombocytopenia for this reason discontinued Heparin and started on Argatroban IV, was not possible to perform the Cardiac cath yesterday due to Thrombocytopenia. 06/30: Seen by Hematology and automation controls specialist today, the patient has status post Mitral valve replacement, awaiting for Coagulopathy workup, Cardiac cath using radial Approach was unsuccessful due to bleeding, INR over 4, Hepatitis C asked for Bone Marrow Biopsy to rule out Myelodysplastic syndrome. History of CAD with heart artery stents: Plan for cardiac catheterization with Dr. De Oliveira when PLT better and cleared by hem/onc Abnormal CTA/Atypical Pneumonia Seen yesterday by ID specialist doctor Jeff Desir unclear about infection after evaluation of the CTA chest, recommended to continue Vancomycin and Aztreonam , follow blood cultures, asked for Mycoplasma for probable atypical Pneumonia, Thrombocytopenia: Hematology oncology consulted. DC heparin. Started Argotraban by IV Hypertension: Continue medication. Hyperlipidemia: Continue medication. Pacemaker: Patient is ventricularly paced. Continue follow-up with her embossing clerk. DVT prophylaxis with Argatroban. Code Status: Full code. Discussed Condition With: Patient and Nurse. Discharge Planning: Once cleared by specialists.
--- NOTE | 2018-06-30 10:12 | MA ---
cc: Bubba De Oliveira MD DATE: 06/30/2018 PROCEDURE: Attempted cardiac catheterization via the left radial artery, unsuccessful attempt to catheterize the left radial artery. BRIEF HISTORY: Janki Hill is an 82-year-old woman with a mechanical mitral valve replacement who has aggressive coronary artery disease. She has required stenting of her proximal LAD and her circumflex artery and comes in now with an acute non-STEMI. She has had no further chest pain since admission. A major problem we have noted is thrombocytopenia. Hematology is following. They started her on argatroban. Made a decision to go ahead and try a diagnostic catheterization, possible intervention via the left radial artery, thinking left radial artery would carry minimal procedural access site bleeding. DESCRIPTION OF PROCEDURE: The patient was brought to cardiac catheterization lab in fasting state. She received 1 mg of Versed and 25 mcg of fentanyl for sedation. Left radial pulse was readily palpable. Using a Jelco needle, I tried to stick the left radial artery. I was never able to get any blood return. Finally, I brought in ultrasound. I stuck the artery directly under ultrasound; and even though by ultrasound I stuck the artery directly, I still had no blood return. Pulling the needle out and backing off the Angiocath got to the point where there was blood return, but it was just a trickle. I was not ever able to pass a guidewire. The Angiocath was pulled back. I was going to reattempt of another stick; but now every time I let go of the left radial artery, there is persistent bleeding. Bleeding was controlled as long as pressure was applied; but as soon as pressure was removed, then it starts to bleed again. I finally decided to put a Terumo band on the left wrist. At this point, she is not having any chest pain and I will hold off on trying to go to the other arm or anything else at this point. The situation is extremely complicated due to her mechanical valve and severe thrombocytopenia as well as a non-STEMI. I have spoken with Dr. Al as well as my colleague. Continue continuing medical management for now. MD MARVIN Bates/evan , 08:48 AM , 08:52 AM
[2018-06-30] MEDS: dilTIAZem CD 180 MG Capsule PO SCH (10:27)
[2018-06-30] MEDS: Lisinopril 5 MG Tablet PO SCH (10:27)
[2018-06-30] MEDS: Atenolol 25 MG Tablet PO SCH (10:28)
[2018-06-30] MEDS: Digoxin 125 MCG Tablet PO SCH (10:28)
[2018-06-30] MEDS: Isosorbide Mononitrate 60 MG ER 24HR Tablet (Imdur) PO SCH (10:28)
--- NOTE | 2018-06-30 13:29 | P.PNONC ---
Subjective Interval history: Patient lying in bed comfortably, awake and alert, in no acute distress. Her sister is at the bedside. Patient denies any chest pain, shortness of breath. Denies any bleeding. Discussed with RN, heart catheterization was attempted this a.m. through her wrist and was unsuccessful. Her INR was 4.1 which was too high to proceed with groin approach. HIT Ashley was negative, per Dr Bhumika saul to stop argatroban, discussed with pharmacy. Unknown at this time if desk assistant is planning heart catheterization reattempt. Patient has a metal valve and if there is not going to be any further procedures would need to be restarted on her anticoagulation. Objective Vital Signs/Intake & Output: Vital Signs 06/29/18 16:00 06/29/18 17:00 06/29/18 19:00 Temperature Pulse Rate 60 60 60 Respiratory Rate 20 Blood Pressure 127/75 Pulse Oximetry 97 06/29/18 20:00 06/29/18 21:00 06/29/18 22:00 Temperature 98.6 F Pulse Rate 60 68 64 Respiratory Rate 14 Blood Pressure 124/60 Pulse Oximetry 96 06/29/18 23:00 06/30/18 00:00 06/30/18 01:00 Temperature 98.6 F Pulse Rate 59 L 64 61 Respiratory Rate 16 Blood Pressure 109/60 Pulse Oximetry 97 06/30/18 02:00 06/30/18 03:00 06/30/18 04:00 Temperature 97.7 F Pulse Rate 60 64 60 Respiratory Rate 14 Blood Pressure 142/74 H Pulse Oximetry 98 06/30/18 05:00 06/30/18 06:00 06/30/18 07:00 Temperature Pulse Rate 60 60 60 Respiratory Rate Blood Pressure Pulse Oximetry 06/30/18 08:00 06/30/18 09:00 06/30/18 10:00 Temperature Pulse Rate 60 60 60 Respiratory Rate Blood Pressure Pulse Oximetry Intake & Output 06/29/18 06/30/18 06/30/18 18:59 06:59 18:59 Intake Total 1460 / 1460 280 / 280 500 / 500 Output Total 900 / 900 Balance 1460 / 1460 -620 / -620 500 / 500 Weight 56 kg Intake: IV 1100 / 1100 500 / 500 Heparin/D5W 25,000 U/250 mL 25, 100 / 100 000 unit In 250 ml @ 700 UNIT/ HR 7 mls/hr IV.CONT TITRATE PRN Rx#:[id number] NS Inj 1,000 ML @ 80 mls/hr IV. 1000 / 1000 500 / 500 CONT .[id number] ARGENIS Rx#:[id number] Oral 360 / 360 280 / 280 Output: Urine 900 / 900 Other: Date of Last Bowel Movement 06/27/18 06/30/18 06/30/18 # Bowel Movements 2 Result Diagrams: 06/30/18 05:05 06/30/18 05:05 Laboratory Results: Laboratory Results - last 24 hr 06/29/18 06/29/18 06/29/18 11:32 12:32 13:12 WBC RBC Hgb Hct MCV MCH MCHC RDW Plt Count 55 L MPV Prelim Diff (Auto) Neut % (Auto) Lymph % (Auto) [place] % (Auto) Eos % (Auto) Baso % (Auto) Neut # (Auto) Lymph # (Auto) [place] # (Auto) Eos # (Auto) Baso # (Auto) WBC Differential Diff Scan Differential Comment Platelet Morphology Smear Path Review PT 22.6 H INR 2.2 APTT Sodium Potassium Chloride Carbon Dioxide Anion Gap BUN Creatinine Estimated GFR Random Glucose Calcium Lactate Dehydrogenase Heparin Dep Plt Ab OD Hep-Induced Plt Ab Ashley Direct Antiglob Test 06/29/18 06/29/18 06/29/18 13:12 13:12 16:58 WBC RBC Hgb Hct MCV MCH MCHC RDW Plt Count MPV Prelim Diff (Auto) Neut % (Auto) Lymph % (Auto) [place] % (Auto) Eos % (Auto) Baso % (Auto) Neut # (Auto) Lymph # (Auto) [place] # (Auto) Eos # (Auto) Baso # (Auto) WBC Differential Diff Scan Differential Comment Platelet Morphology Smear Path Review PT INR APTT Sodium Potassium Chloride Carbon Dioxide Anion Gap BUN Creatinine Estimated GFR Random Glucose Calcium Lactate Dehydrogenase 264 H Heparin Dep Plt Ab OD 0.421 Hep-Induced Plt Ab Ashley Negative Direct Antiglob Test Negative 06/29/18 06/30/18 06/30/18 21:05 05:05 05:05 WBC 5.3 RBC 4.59 Hgb 14.3 Hct 41.8 MCV 91.1 MCH 31.2 MCHC 34.3 RDW 12.6 Plt Count 45 L MPV 10.2 Prelim Diff (Auto) Slide review pending Neut % (Auto) 63.1 Lymph % (Auto) 22.9 Tyrrell % (Auto) 9.8 H Eos % (Auto) 3.2 Baso % (Auto) 1.0 Neut # (Auto) 3.3 Lymph # (Auto) 1.2 [place] # (Auto) 0.5 Eos # (Auto) 0.2 Baso # (Auto) 0.1 WBC Differential . Diff Scan Auto diff confirmed Differential Comment . Platelet Morphology Normal Smear Path Review PT 41.1 H D INR 4.1 APTT 58.0 H 55.5 H Sodium Potassium Chloride Carbon Dioxide Anion Gap BUN Creatinine Estimated GFR Random Glucose Calcium Lactate Dehydrogenase Heparin Dep Plt Ab OD Hep-Induced Plt Ab Ashley Direct Antiglob Test 06/30/18 05:05 WBC RBC Hgb Hct MCV MCH MCHC RDW Plt Count MPV Prelim Diff (Auto) Neut % (Auto) Lymph % (Auto) [place] % (Auto) Eos % (Auto) Baso % (Auto) Neut # (Auto) Lymph # (Auto) [place] # (Auto) Eos # (Auto) Baso # (Auto) WBC Differential Diff Scan Differential Comment Platelet Morphology Smear Path Review PT INR APTT Sodium 141 Potassium 4.2 Chloride 109 H Carbon Dioxide 25.6 Anion Gap 6 BUN 18 Creatinine 0.74 Estimated GFR 75 L Random Glucose 99 Calcium 8.9 Lactate Dehydrogenase Heparin Dep Plt Ab OD Hep-Induced Plt Ab Ashley Direct Antiglob Test Imaging Studies: Impressions Liver Ultrasound 06/29/18 14:00 CONCLUSION: 1. No evidence of gallstones or biliary tract obstruction. 2. Increased echogenicity of the liver suggestive of fatty infiltration. 3. Mild increased echogenicity of the right renal parenchyma suggestive of chronic medical renal disease. No evidence of hydronephrosis. Medications: Active Medications Generic Name Dose Route Start Last Admin Trade Name Freq PRN Reason Stop Dose Admin Aspirin 81 mg 06/28/18 18:00 06/30/18 12:37 Aspirin Chew PO 81 mg DAILY ARGENIS Administration Atenolol 50 mg 06/28/18 21:00 06/29/18 20:56 Tenormin PO 50 mg HS ARGENIS Administration Atenolol 25 mg 06/28/18 09:00 06/30/18 10:28 Tenormin PO 25 mg DAILY ARGENIS Administration Digoxin 125 mcg 06/28/18 09:00 06/30/18 10:28 Lanoxin PO 125 mcg DAILY ARGENIS Administration Diltiazem HCl 180 mg 06/28/18 09:00 06/30/18 10:27 Cardizem Cd 24hr PO 180 mg DAILY ARGENIS Administration Isosorbide Mononitrate 60 mg 06/28/18 09:00 06/30/18 10:28 Imdur PO 60 mg DAILY ARGENIS Administration Levothyroxine Sodium 25 mcg 06/28/18 08:00 06/30/18 05:09 Synthroid PO 25 mcg DAILY@0600 ARGENIS Administration Lisinopril 5 mg 06/28/18 09:00 06/30/18 10:27 Prinivil PO 5 mg DAILY ARGENIS Administration Losartan Potassium 100 mg 06/28/18 09:00 06/30/18 10:28 Cozaar PO 100 mg DAILY ARGENIS Administration Nitroglycerin 0.5 inch 06/28/18 08:05 06/30/18 05:10 Nitro-Bid 2% Oint TOPICAL 0.5 inch Q6HR ARGENIS Administration Pravastatin Sodium 10 mg 06/28/18 18:00 06/29/18 17:22 Pravachol PO 10 mg QPM ARGENIS Administration Sodium Chloride 2 ml 06/28/18 09:00 06/30/18 10:29 Ns Flush IV.FLUSH Not Given BID ARGENIS Objective Remarks: GENERAL: Well-nourished, well-developed female patient, in no acute distress. SKIN: Warm and dry. 2 IV to right forearm. Splint to left wrist. HEAD: Normocephalic. EYES: No scleral icterus. No injection or drainage. NECK: Supple, trachea midline. CARDIOVASCULAR: Regular rate and rhythm. RESPIRATORY: Breath sounds equal bilaterally. No accessory muscle use. GASTROINTESTINAL: Abdomen soft, non-tender, nondistended. EXTREMITIES: No cyanosis, or edema. MUSCULOSKELETAL: Adequate muscle tone. NEUROLOGICAL: No obvious focal deficit. Awake, alert, and oriented x3. PSYCHIATRIC: Appropriate mood and affect; insight and judgment normal. Assessment/Plan - Plan Ms. Hill is a pleasant 82-year-old woman valvular heart disease, status post mitral valve replacement. She has been on Coumadin anticoagulation for her valve. She is currently admitted to the hospital for chest pain rule out ACS. She was found to have thrombocytopenia which was new onset for this patient and hematology was consulted. Patient was placed on Argatroban. Recommendation: 1. Thrombocytopenia, continues platelet count today 45,000. HIT ashley, negative. Argatroban gtt has been stopped. INR today 4.1. Liver ultrasound showed increased echogenicity of the liver suggestive of fatty infiltrates. Remainder of the coagulopathy workup is pending. 2. Chest pain, rule out ACS. Heart catheterization with wrist approach attempted this a.m. Per RN this was unsuccessful and the patient's INR was too high for a groin approach. Argatroban can increase the INR. This has been stopped since the HIT ashley was negative. Unsure at this time if cardiology is planning to reattempt heart catheterization once INR is down. Pt with history of metal valve. 3. Continue to monitor platelet count. We will await cardiology's decision in regards to any further planned procedures. - Attending Statement The exam, history, and the medical decision-making described in the above note were completed with the assistance of the mid-level provider. I reviewed and agree with the findings presented. I attest that I had a [id number] encounter with the patient on the same day, and personally performed and documented my assessment and findings in the medical record. Pt seen and examined in afternoon. Events during the day noted. The elevated PT is related to previous days Coumadin interacting with the Argatroban. Bleeding during the procedure noted, in part due to thrombocytopenia. Lengthy discussion with the patient. She reports to be receiving a blood transfusion and suspected to have acquired hepatitis C. Review of electronic medical record shows hepatitis C RNA positivity. This is compounding her history of fatty liver. We discussed follow-up as an outpatient with infectious disease for possible treatment of hepatitis C chronic carrier state. Not certain if this is contributing to her current thrombocytopenia which seems to be more acute in onset. Last platelet count on record was from 2017. Review of peripheral smear shows giant platelets, megaloblastic changes, dysplastic looking nucleated red blood cells with multiple nuclei. We discussed the risk and benefit of bone marrow biopsy procedure to rule out myelodysplastic syndrome. She plans to discuss this further with Dr. De Oliveira and her family. For now we have deferred bone marrow biopsy evaluation. We discussed the risk and benefit of empiric treatment for immune thrombocytopenic purpura with steroids. We will start with a low-dose of prednisone 20 mg p.o. twice daily. We will follow platelet count tomorrow. She denies any chest pain at present.
[2018-06-30 16:48] LABS: INR 1.5 Ratio; Prothrombin Time 15.5 sec (9.8-11.6)
[2018-06-30] MEDS: Atenolol 50 MG Tablet PO SCH (20:02)
[2018-06-30] MEDS: predniSONE 20 MG Tablet PO SCH (20:02)
[2018-06-30] MEDS ORDERED: Argatroban Inj 250 MG in Sodium Chlor 0.9% Inj 247.5 ML IV.CONT PRN (22:10)
[2018-07-01 01:26] LABS: Baso % (Auto) 0.6 % (0.0-2.0); Eos % (Auto) 0.2 % (0.0-4.0); Hematocrit 42.4 % (35.0-46.0); Hemoglobin 14.6 gm/dL (11.6-15.3); Lymph # (Auto) 0.7 th/mm3 (1.0-4.8); Lymph % (Auto) 9.9 % (9.0-44.0); Mean Corpuscular HGB Conc 34.4 % (32.0-36.0); Mean Corpuscular Hemoglobin 31.2 pg (27.0-34.0); Mean Corpuscular Volume 90.8 fL (80.0-100.0); Mean Platelet Volume 10.2 fL (7.0-11.0); Mono # (Auto) 0.1 th/mm3 (0.0-0.9); Mono % (Auto) 1.3 % (0.0-8.0); Platelet Count 49 th/mm3 (150-450); Red Blood Count 4.67 mil/mm3 (4.00-5.30); Red Cell Distribution Width 12.7 % (11.6-17.2); White Blood Count 6.9 th/mm3 (4.0-11.0)
[2018-07-01 01:40] LABS: Calcium 9.6 mg/dL (8.5-10.1); Carbon Dioxide 25.1 meq/L (21.0-32.0); Potassium 4.6 meq/L (3.5-5.1)
--- NOTE | 2018-07-01 08:09 | P.PNCA ---
Subjective Interval history: No complaints Medications and Allergies Active Medications: Active Medications Acetaminophen (Tylenol) 500 mg PO Q4H PRN PRN Reason: HEADACHE Aspirin (Aspirin Chew) 81 mg PO DAILY [facility] Last Admin: 06/30/18 12:37 Dose: 81 mg Atenolol (Tenormin) 50 mg PO HS [facility] Last Admin: 06/30/18 20:02 Dose: 50 mg Atenolol (Tenormin) 25 mg PO DAILY [facility] Last Admin: 06/30/18 10:28 Dose: 25 mg Diazepam (Valium) 5 mg PO [employer] [facility] Stop: 07/02/18 17:29 Digoxin (Lanoxin) 125 mcg PO DAILY [facility] Last Admin: 06/30/18 10:28 Dose: 125 mcg Diltiazem HCl (Cardizem Cd 24hr) 180 mg PO DAILY [facility] Last Admin: 06/30/18 10:27 Dose: 180 mg Diphenhydramine HCl (Benadryl) 50 mg PO [employer] [facility] Stop: 07/02/18 17:29 Isosorbide Mononitrate (Imdur) 60 mg PO DAILY [facility] Last Admin: 06/30/18 10:28 Dose: 60 mg Levothyroxine Sodium (Synthroid) 25 mcg PO DAILY@0600 [facility] Last Admin: 07/01/18 05:07 Dose: 25 mcg Lisinopril (Prinivil) 5 mg PO DAILY [facility] Last Admin: 06/30/18 10:27 Dose: 5 mg Losartan Potassium (Cozaar) 100 mg PO DAILY [facility] Last Admin: 06/30/18 10:28 Dose: 100 mg Nitroglycerin (Nitro-Bid 2% Oint) 0.5 inch TOPICAL Q6HR [facility] Last Admin: 07/01/18 05:07 Dose: 0.5 inch Pravastatin Sodium (Pravachol) 10 mg PO QPM [facility] Last Admin: 06/30/18 17:58 Dose: 10 mg Prednisone (Deltasone) 20 mg PO BID [facility] Last Admin: 06/30/18 20:02 Dose: 20 mg Sodium Chloride (Ns Flush) 2 ml IV.FLUSH UNSCH PRN PRN Reason: FLUSH AFTER USING IV ACCESS Sodium Chloride (Ns Flush) 2 ml IV.FLUSH BID [facility] Last Admin: 06/30/18 20:03 Dose: 2 ml Sodium Chloride (Ns Flush) 2 ml IV.FLUSH PRN PRN PRN Reason: FLUSH AFTER USING IV ACCESS Allergies Allergy/AdvReac Type Severity Reaction Status Date / Time metronidazole Allergy Severe RASH Verified 06/27/18 20:21 diphenhydramine AdvReac Anxiety Verified 06/27/18 20:21 [From Jennie] Home Medications Medication Instructions Recorded Confirmed Type atenolol 25 mg PO DAILY 06/27/18 06/28/18 History digoxin 0.125 mg PO DAILY 06/27/18 06/27/18 History diltiazem HCl 180 mg PO DAILY 06/27/18 06/27/18 History isosorbide mononitrate 60 mg PO QAM 06/27/18 06/27/18 History levothyroxine 25 mcg PO DAILY 06/27/18 06/27/18 History lisinopril 5 mg PO DAILY 06/27/18 06/27/18 History losartan 100 mg PO DAILY 06/27/18 06/27/18 History magnesium 250 mg PO DAILY 06/27/18 06/27/18 History nitroglycerin [Nitrostat] 0.4 mg SUBLINGUAL Q5-15M PRN 06/27/18 06/27/18 History simvastatin 5 mg PO QPM 06/27/18 06/27/18 History warfarin 5 mg PO [id number] 06/27/18 06/27/18 History atenolol 50 mg PO HS 06/28/18 06/28/18 History Physical Exam Vital signs: Vital Signs 06/30/18 09:00 06/30/18 10:00 06/30/18 11:00 Temperature 97.8 F Pulse Rate 60 60 62 Respiratory Rate 16 Blood Pressure 129/68 Pulse Oximetry 96 06/30/18 12:00 06/30/18 13:00 06/30/18 14:00 Temperature Pulse Rate 60 60 60 Respiratory Rate Blood Pressure Pulse Oximetry 06/30/18 15:00 06/30/18 16:00 06/30/18 17:00 Temperature 97.6 F Pulse Rate 64 60 62 Respiratory Rate 16 Blood Pressure 122/67 Pulse Oximetry 97 06/30/18 18:00 06/30/18 19:00 06/30/18 20:00 Temperature 98.0 F Pulse Rate 62 60 62 Respiratory Rate 16 Blood Pressure 125/81 Pulse Oximetry 98 06/30/18 21:00 06/30/18 22:00 06/30/18 23:00 Temperature 97.4 F L Pulse Rate 66 58 L 66 Respiratory Rate 16 Blood Pressure 130/81 Pulse Oximetry 98 07/01/18 00:00 07/01/18 01:00 07/01/18 02:00 Temperature Pulse Rate 58 L 72 59 L Respiratory Rate Blood Pressure Pulse Oximetry 07/01/18 03:00 07/01/18 04:00 07/01/18 05:00 Temperature 98.4 F Pulse Rate 60 59 L 60 Respiratory Rate 14 Blood Pressure 124/68 Pulse Oximetry 95 07/01/18 06:00 07/01/18 07:00 Temperature 97.6 F Pulse Rate 63 60 Respiratory Rate 16 Blood Pressure 139/82 Pulse Oximetry 98 Intake & Output 06/30/18 07/01/18 07/01/18 18:59 06:59 18:59 Intake Total 1704 / 1704 265 / 265 Balance 1704 / 1704 265 / 265 Weight 58 kg Intake: IV 584 / 584 Novastan Inj 250 MG In NS Inj 247.5 ML @ Per Protocol IV.CONT TITRATE PRN Rx#:[id number] NS Inj 1,000 ML @ 80 mls/hr IV. 500 / 500 CONT .[id number] ARGENIS Rx#:[id number] Oral 1120 / 1120 240 / 240 Other: # Voids 5 3 Date of Last Bowel Movement 06/30/18 06/30/18 # Bowel Movements 4 Narrative: Alert, NAD Chest CTA CV click S1, nl S2 RRR with 1/6 DELIA Abd soft Ext Left wrist OK, fem pulses OK Results 07/01/18 01:18 07/01/18 01:18 Cardiac Enzymes 06/29/18 Range/Units 16:58 Lactate Dehydrogenase 264 H (84-246) U/L Coagulation 06/29/18 06/29/18 06/29/18 Range/Units 11:32 11:32 21:05 PT 22.6 H (9.8-11.6) sec APTT 48.6 H 58.0 H (24.3-30.1) sec 06/30/18 06/30/18 06/30/18 Range/Units 05:05 16:09 23:18 PT 41.1 H D 15.5 H D (9.8-11.6) sec APTT 55.5 H 34.9 H D (24.3-30.1) sec 07/01/18 Range/Units 01:18 PT (9.8-11.6) sec APTT 40.8 H (24.3-30.1) sec CBC 06/29/18 06/30/18 07/01/18 Range/Units 13:12 05:05 01:18 WBC 5.3 6.9 (4.0-11.0) th/mm3 RBC 4.59 4.67 (4.00-5.30) mil/mm3 Hgb 14.3 14.6 (11.6-15.3) gm/dL Hct 41.8 42.4 (35.0-46.0) % Plt Count 55 L 45 L 49 L (150-450) th/mm3 Neut # (Auto) 3.3 6.0 (1.8-7.7) th/mm3 Lymph # (Auto) 1.2 0.7 L (1.0-4.8) th/mm3 [place] # (Auto) 0.5 0.1 (0.0-0.9) th/mm3 Eos # (Auto) 0.2 0.0 (0.0-0.4) th/mm3 Baso # (Auto) 0.1 0.0 (0.0-0.2) th/mm3 Comprehensive Metabolic Panel 06/30/18 07/01/18 Range/Units 05:05 01:18 Sodium 141 141 (136-145) meq/L Potassium 4.2 4.6 (3.5-5.1) meq/L Chloride 109 H 107 (98-107) meq/L Carbon Dioxide 25.6 25.1 (21.0-32.0) meq/L BUN 18 21 H (7-18) mg/dL Creatinine 0.74 0.76 (0.50-1.00) mg/dL Calcium 8.9 9.6 (8.5-10.1) mg/dL Intake and Output 06/30/18 07/01/18 07/01/18 22:59 06:59 14:59 Intake Total 1120 / 1120 265 / 265 Balance 1120 / 1120 265 / 265 Intake: IV Novastan Inj 250 MG In NS Inj 247.5 ML @ Per Protocol IV.CONT TITRATE PRN Rx#:[id number] Oral 1120 / 1120 240 / 240 Other: # Voids 5 3 Date of Last Bowel Movement 06/30/18 06/30/18 # Bowel Movements 4 Weight 58 kg - Imaging and Cardiology Imaging: Impressions Liver Ultrasound 06/29/18 14:00 CONCLUSION: 1. No evidence of gallstones or biliary tract obstruction. 2. Increased echogenicity of the liver suggestive of fatty infiltration. 3. Mild increased echogenicity of the right renal parenchyma suggestive of chronic medical renal disease. No evidence of hydronephrosis. Assessment and Plan - Assessment (1) Non-STEMI (non-ST elevated myocardial infarction) Code(s): I21.4 - Non-ST elevation (NSTEMI) myocardial infarction Status: Acute Plan: Informed consent for cath, poss PCI. Plan to use right groin. (2) History of mitral valve replacement with mechanical valve Code(s): Z95.2 - Presence of prosthetic heart valve Status: Acute (3) Thrombocytopenia Code(s): D69.6 - Thrombocytopenia, unspecified Status: Acute Plan: Appreciate Dr. Al help - Plan * INR is down. I stopped Argatroban earlier this AM. Plan cath via RFA.
[2018-07-01 08:12] LABS: Baso % (Auto) 0.4 % (0.0-2.0); Eos % (Auto) 0.1 % (0.0-4.0); Hematocrit 44.5 % (35.0-46.0); Hemoglobin 15.2 gm/dL (11.6-15.3); Lymph # (Auto) 0.9 th/mm3 (1.0-4.8); Lymph % (Auto) 15.5 % (9.0-44.0); Mean Corpuscular HGB Conc 34.1 % (32.0-36.0); Mean Corpuscular Hemoglobin 31.2 pg (27.0-34.0); Mean Corpuscular Volume 91.6 fL (80.0-100.0); Mean Platelet Volume 11.4 fL (7.0-11.0); Mono # (Auto) 0.3 th/mm3 (0.0-0.9); Mono % (Auto) 5.5 % (0.0-8.0); Neut # (Auto) 4.4 th/mm3 (1.8-7.7); Neut % (Auto) 78.5 % (16.0-70.0); Platelet Count 48 th/mm3 (150-450); Red Blood Count 4.86 mil/mm3 (4.00-5.30); Red Cell Distribution Width 12.7 % (11.6-17.2); White Blood Count 5.6 th/mm3 (4.0-11.0)
[2018-07-01] MEDS ORDERED: Heparin/NS PF Inj 1,500 ML ONE (08:24)
[2018-07-01] MEDS ORDERED: fentaNYL Citrate Inj 100 MCG/2 ML Ampul ONE (08:25)
[2018-07-01] MEDS ORDERED: Lidocaine PF 1% Inj 30 ML Vial ONE (08:26)
[2018-07-01 08:31] LABS: Calcium 9.5 mg/dL (8.5-10.1); Carbon Dioxide 22.9 meq/L (21.0-32.0); Potassium 4.7 meq/L (3.5-5.1)
[2018-07-01 09:06] LABS: Platelet Morphology Normal (Normal)
--- NOTE | 2018-07-01 09:32 | CATHPROC ---
[facility] Report Study Information Study Number Admission Scheduled Start Study Start [id number] Jun 30 2018 12:07PM 07/01/2018 Jul 01 2018 8:04AM [place] [facility] Cardiac Catheterization Admit Source Facility Department Other [facility] - [facility]door Emergency Care Technician Physician and Clinical Staff Initial Bubba Bonilla Steam Tank Operator Mike Jackson,MAGEN Recorder Yoli Patel,WATER HYDRANT INSTALLER TECH2 Recorder Christi Marie ,RT(R) Scrub Miroslava Jacome,RT(R) Procedures Performed Procedure Location (Site) Vessel Name Angiogram LV LV Ventricle Coronary Angiograms LCA Left Coronary Coronary Angiograms RCA Right Coronary Equipment Time Channel Development Manager Description Size Mfg Part Number Used/Scraped TRANSDUCER, TRUWAVE [id number] 08:54 PACE MELGOZA * Used W/STOCKCOCK *[id number] INTRODUCER SET, 08:08 [employer] FR 5 [id number] *[id number] Used MICROPUNCTURE STIFF [id number] *[id number] 534-620T *[id number] [id number] *[id number] PIGTAIL ANG. 145 INFINITI [id number] CATHETER *[id number] 09:07 DAIG/ST. UNA MEDICAL ANGIOSEAL, FR6 VIP FR 6 Used *[id number] 08:54 [employer] BLANKET,WARM AIR CCL * Used *[id number] 08:54 [employer] PACK, CCL CUSTOM * Used *[id number] 08:54 [employer] PACER PEN, SKIN DUAL W/ RULER * Used *[id number] 08:07 Yummy77 MEDICAL SHEATH, FR6.5 PRELUDE 11CM FR 6.5 038ACT Used *[id number] 08:07 Yummy77 MEDICAL WIRE, 3MMJ .035 180CM 180CM Used *[id number] 08:54 NAMIC MANIFOLD, 4 PORT * Used *[id number] 08:54 [employer] OMNIPAQUE, 350 MG, 150ML 150ML [id number] Used 08:55 [employer]ED OMNIPAQUE, 350 MG, 50ML 50ML [id number] Used Equipment Model, Serial, Lot Number and Expiration Data Description Model Number Serial Number Lot Number Expiration Date ANGIOSEAL, FR6 VIP [id number] 02-03-2019 History: Current Medications Medication Dosage/Unit Route Frequency Last Date/Time Taken Beta Marcus Statins (any) COZAAR CARDIZEM ASA Coumadin History: Allergies Allergy Reaction Flagyl RASH metronidazole RASH diphenhydramine Anxiety History: Risk Factors Family History of Hypertension Dyslipidemia Previous SD Previous Heart Failure Premature CAD Yes Yes Yes Yes No Prior Valve Prior PCI Prior PCIDate Prior CABG Surgery Yes Yes 04/06/2017 No Cerebrovascular Peripheral Artery Chronic Lung On Dialysis Diabetes Disease Disease Disease No No No No No History: Symptoms/Diagnosis Selection Items Chest pain History: Stress Tests Stress or Imaging Studies Performed No History: Arrhythmias Selection Items Atrial fibrillation History: Other Disease Selection Items CAD HTN History: Other Current Smoker No Labs Hgb (g/dl) Hct (%) WBC (l/cumm) Platelets (thousands) 11.60-17.00 35.00-51.00 4.00-11.00 150.00-450.00 14.6 42.4 6.9 49 Glucose (mg/dl) BUN (mg/dl) Creatinine (mg/dl) BUN:Creatinine (1:x) 74.00-106.00 7.00-18.00 0.50-1.30 10.00-20.00 146 21 0.7 30 Na (meq/l) K (meq/l) 136.00-145.00 3.50-5.10 141 4.6 INR (PTT:PT) 0.90-1.10 1.5 Troponin I (ng/ml) CPK (u/l) CPK-MB (ng/ML) 0.02-0.05 26.00-308.00 0.50-3.60 0.29 49 Not Drawn Medication Medication Total Dose (Bolus/Oral) Medication Total Dosage/Unit 1% XYLOCAINE 20 mL FENTANYL 25 mcg VERSED 2 mg Medications (Bolus/Oral) Medication Time Given Dosage/Unit Administered By Reason VERSED 07/01/2018 8:36:04 AM 1 mg Manuel, Mike 1 mg VERSED given in lab by Mike Jackson RN in Right Hand via Peripheral IV. Ordered by Nicky De Oliveira FENTANYL 07/01/2018 8:37:20 AM 25 mcg Manuel, Mike 25 mcg FENTANYL given in lab by Mike Jackson RN in Right Hand via Peripheral IV. Ordered by Bubba De Oliveira. VERSED 07/01/2018 8:47:33 AM 1 mg Manuel, Mike 1 mg VERSED given in lab by Mike Jackson RN in Right Hand via Peripheral IV. Ordered by Nicky De Oliveira 1% XYLOCAINE 07/01/2018 8:49:12 AM 20 mL Bubba De Oliveira 20 mL 1% XYLOCAINE given in lab by Bubba De Oliveira in Right Groin via Subcutaneous. Ordered by Bubba De Oliveira. Medication (Drip) Medication Time Given Dosage/Unit Concentration/Unit Diluent (ml) Solution IV Solutions 07/01/2018 8:22:56 AM 50 mL (IV) NaCl .9 Patient arrived on IV Solutions via Peripheral IV. Pump/Drip Flow using NaCl .9. Initial Case Assessment Cardiovascular HR Rhythm NIBP Chest Pain 66 paced 149/62 0 Edema Present Skin color Skin None Normal Warm Dry Circulatory - Right Pulses Dorsalis Pedis Femoral 3 3 Scale (0,1,2,3,4,d) Circulatory - Left Pulses Dorsalis Pedis Femoral 3 3 Scale (0,1,2,3,4,d) Neurological State Oriented to time-place- Alert Moves all extremities person Respiration - General Respiration Rate SpO2 (%) (B/min) 16 98 Chronological Log Time Study Chronological Log 8:15:04 Patient arrived via Bed. 8:15:05 Patient Name, D.O.B, / Armband Verified By R.N. 8:15:07 Consent signed by the physician and the patient and verified by the Outdoor Emergency Care Technician staff. 8:15:08 Pre-op and post- op instructions given; patient acknowledges understanding of instructions. 8:15:09 Verbal Stimulation=2 Physical Stimulation=2 Airway=2 Respiration=2 TOTAL=8. (0=absent, 1=li mited, 2=present) Vitals capture started with the following parameters, Patient=Adult, Interval=5 min, Initial Pr kpdrib=242 mmHg, 8:19:39 Deflation Rate=5 mmHg, Cuff placed on Left Arm 8:20:53 TCOS=474/62 mmhg, SpO2=98.0 % 8:22:45 Verbal Stimulation=2 Physical Stimulation=2 Airway=2 Respiration=2 TOTAL=8. (0=absent, 1=li mited, 2=present) 8:22:48 Patient has been NPO for More than 6Hrs. 8:22:50 Skin Breakdown- none per patient 8:22:50 Patient Warmer Placed on the Table. 8:22:53 Eufemia Prominences Protected 8:22:56 A # 18 IV was noted in the Hand (right). Grade = 0 8:22:56 Patient arrived on IV Solutions via Peripheral IV. Pump/Drip Flow using NaCl .9. 8:22:57 History and physical on the chart or being dictated. Assessment: Initial Case, HR=66 BPM, Rhythm=paced, XMZG=565/62 mmhg, Chest Pain=0, Edema=None, Color=Normal, Skin = Warm, Dry Right Pulses: Layo Ped=3, Femoral=3 8:22:58 Left Pulses: Layo Ped=3, Femoral=3 Neurological: State=Alert, Ox3, CASEY Respiration: Resp=16 B/min, SpO2=98 % 8:25:18 HR=66 bpm, NPUA=906/72 mmhg, SpO2=97.0 %, Resp=12 B/min 8:30:58 HR=66 bpm, GWLL=098/62 mmhg, SpO2=97.0 %, Resp=13 B/min 8:31:55 Bilateral groins prepped with 2% chlorhexidine, and draped after a 3 minute waiting time. 8:32:03 Reference ECG taken 8:33:21 MD arrived. 8:35:18 HR=65 bpm, CMFB=155/68 mmhg, SpO2=96.0 %, Resp=11 B/min 8:36:04 1 mg VERSED given in lab by Mike Jackson RN in Right Hand via Peripheral IV. Ordered by Bubba Forte. 8:37:20 25 mcg FENTANYL given in lab by Mike Jackson RN in Right Hand via Peripheral IV. Ordered by Bubba De Oliveira. 8:39:26 Pressure channel 1 zeroed. 8:40:23 HR=55 bpm, LASI=622/52 mmhg, SpO2=92.0 %, Resp=16 B/min 8:45:12 HR=63 bpm, JFGQ=518/59 mmhg, SpO2=94.0 %, Resp=13 B/min Time Out. Correct patient, correct procedure, correct physician, labs, allergies, and equipment verified with labeler 8:46:36 team present. Fire risk assesment completed (see hard stop sheet for coding). Time Out Concu rred by MD and individual staff in procedure. 8:47:33 1 mg VERSED given in lab by Mike Jackson RN in Right Hand via Peripheral IV. Ordered by Bubba Forte. 8:49:09 Case Start 8:49:12 20 mL 1% XYLOCAINE given in lab by Bubba De Oliveira in Right Groin via Subcutaneous. Ordered by Bubba De Oliveira. 8:50:06 Access site was Right Femoral Artery. A INTRODUCER SET, MICROPUNCTURE STIFF FR 5 was advanced into the Fem Art (right) using the Torri abad 8:50:12 technique. 8:50:13 HR=58 bpm, NEPI=165/56 mmhg, SpO2=91.0 %, Resp=13 B/min 8:51:55 An injection in the Fem Art (right) was made through the INTRODUCER SET, MICROPUNCTURE STIFF FR 5. A SHEATH, FR6.5 PRELUDE 11CM FR 6.5 was exchanged in the Fem Art (right). This was necessary in order to 8:52:14 accomodate a larger catheter. A PIGTAIL ANG. 145 INFINITI CATHETER FR 6 was advanced over a wire. OMNIPAQUE, 350 MG, 50ML 50ML was used 8:54:37 for injections. 8:55:14 HR=60 bpm, ORGK=468/54 mmhg, SpO2=93.0 %, Resp=16 B/min Recorded Pressure: LV, HR=64, Condition=Condition 1 8:55:27 (Left Ventricle) LV 117/1/4 8:56:43 The LV was injected at 10 cc/sec for a total of 30. OMNIPAQUE, 350 MG, 50ML 50ML used. Recorded Pressure: LV, Ao, HR=67, Condition=Condition 1 8:57:18 (Left Ventricle) LV 111/2/6, (Aorta) Ao 111/42/69 8:57:39 Catheter was removed A JL 5.0 INFINITI CATHETER FR 6 was advanced over a wire. OMNIPAQUE, 350 MG, 150ML 150ML was use d for 8:57:43 injections. 8:59:54 The LCA was injected and visualized at various angles. OMNIPAQUE, 350 MG, 150ML 150ML used. 9:00:15 HR=56 bpm, MARF=078/49 mmhg, SpO2=95.0 %, Resp=11 B/min After removing the current catheter a 3DRC INFINITI CATHETER FR 6 was advanced over a WIRE, 3MMJ .035 180CM 9:03:58 180CM. 9:05:08 The RCA was injected and visualized at various angles. OMNIPAQUE, 350 MG, 150ML 150ML used. 9:05:16 HR=60 bpm, PPLQ=079/46 mmhg, SpO2=93.0 %, Resp=15 B/min 9:05:28 Catheter was removed 9:09:58 ANGIOSEAL, FR6 VIP FR 6 placement in the Fem Art (right) Site reprepped with chloroprep 9:10:17 HR=52 bpm, GING=179/47 mmhg, SpO2=96.0 %, Resp=19 B/min 9:11:20 Case End (Physician broke scrub) 9:15:18 HR=60 bpm, PHFD=409/49 mmhg, SpO2=96.0 %, Resp=15 B/min, Pain=0, Cano=2 9:17:14 Sterile dressing applied to site 9:20:17 HR=62 bpm, ZJBT=916/54 mmhg, SpO2=98.0 %, Resp=11 B/min 9:24:24 Patient moved to bed 9:26:14 Patient transported to [facility]. End Study - Contrast Media Used In Study Contrast Total Opened (mL) Total Used (mL) Total Wasted (mL) Omnipaque 90 90 0 End Study - Maximum Contrast Load Max Contrast Load (mL) 414.3 End Study - Radiation Exposure Fluoro Time Fluoro Dose (mGy) Cine Dose (uGym2) (minutes) 2.5 486 3210 End Study - Sheaths Sheaths Pulled By Sheath Hold Time (min) Bubba De Oliveira End Study - Patient Disposition Complications Transferred To Interventional Outcome No Telemetry Bed No attempt made
[2018-07-01] MEDS: Lisinopril 5 MG Tablet PO SCH (09:55)
[2018-07-01] MEDS: Digoxin 125 MCG Tablet PO SCH (09:55)
[2018-07-01] MEDS: predniSONE 20 MG Tablet PO SCH ×2 (09:55→20:31)
[2018-07-01] MEDS: Isosorbide Mononitrate 60 MG ER 24HR Tablet (Imdur) PO SCH (09:55)
[2018-07-01] MEDS: dilTIAZem CD 180 MG Capsule PO SCH (09:55)
[2018-07-01] MEDS: Atenolol 25 MG Tablet PO SCH (09:55)
[2018-07-01] MEDS: Sod Chloride 0.9% Inj 1,000 ML IV.CONT SCH ×2 (10:09→20:33)
[2018-07-01] MEDS ORDERED: Iohexol 350 MG/ML 100 ML Vial (for Cath Lab) IVCONTRAST ONE (10:20)
--- NOTE | 2018-07-01 10:53 | P.PNONC ---
Subjective Interval history: Patient is status post cardiac catheter via a groin approach. No bleeding noted. Anticipate starting unfractionated heparin bridge to a therapeutic INR, 6 hours after the procedure. She had 1 dose of prednisone and tolerated it well. Objective Vital Signs/Intake & Output: Vital Signs 06/30/18 11:00 06/30/18 12:00 06/30/18 13:00 Temperature 97.8 F Pulse Rate 62 60 60 Respiratory Rate 16 Blood Pressure 129/68 Pulse Oximetry 96 06/30/18 14:00 06/30/18 15:00 06/30/18 16:00 Temperature 97.6 F Pulse Rate 60 64 60 Respiratory Rate 16 Blood Pressure 122/67 Pulse Oximetry 97 06/30/18 17:00 06/30/18 18:00 06/30/18 19:00 Temperature 98.0 F Pulse Rate 62 62 60 Respiratory Rate 16 Blood Pressure 125/81 Pulse Oximetry 98 06/30/18 20:00 06/30/18 21:00 06/30/18 22:00 Temperature Pulse Rate 62 66 58 L Respiratory Rate Blood Pressure Pulse Oximetry 06/30/18 23:00 07/01/18 00:00 07/01/18 01:00 Temperature 97.4 F L Pulse Rate 66 58 L 72 Respiratory Rate 16 Blood Pressure 130/81 Pulse Oximetry 98 07/01/18 02:00 07/01/18 03:00 07/01/18 04:00 Temperature 98.4 F Pulse Rate 59 L 60 59 L Respiratory Rate 14 Blood Pressure 124/68 Pulse Oximetry 95 07/01/18 05:00 07/01/18 06:00 07/01/18 07:00 Temperature 97.6 F Pulse Rate 60 63 60 Respiratory Rate 16 Blood Pressure 139/82 Pulse Oximetry 98 Intake & Output 06/30/18 07/01/18 07/01/18 18:59 06:59 18:59 Intake Total 1704 / 1704 265 / 265 5 / 5 Balance 1704 / 1704 265 / 265 5 / 5 Weight 58 kg Intake: IV 584 / 584 5 / 5 Heparin/NS PF Inj 1,500 ML @ 0 5 / 5 mls/hr .ROUTE .STK-MED ONE Rx#: [id number] Novastan Inj 250 MG In NS Inj / 247.5 ML @ Per Protocol IV.CONT TITRATE PRN Rx#:[id number] NS Inj 1,000 ML @ 80 mls/hr IV. 500 / 500 CONT .[id number] ARGENIS Rx#:[id number] Oral 1120 / 1120 240 / 240 Other: # Voids 5 3 Date of Last Bowel Movement 06/30/18 06/30/18 # Bowel Movements 4 Result Diagrams: 07/01/18 07:04 07/01/18 07:04 Laboratory Results: Laboratory Results - last 24 hr 06/29/18 06/30/18 06/30/18 13:12 16:09 23:18 WBC RBC Hgb Hct MCV MCH MCHC RDW Plt Count MPV Prelim Diff (Auto) Neut % (Auto) Lymph % (Auto) Emmet % (Auto) Eos % (Auto) Baso % (Auto) Neut # (Auto) Lymph # (Auto) Emmet # (Auto) Eos # (Auto) Baso # (Auto) WBC Differential Diff Scan Differential Comment Platelet Estimate Platelet Morphology PT 15.5 H D INR 1.5 APTT 34.9 H D Sodium Potassium Chloride Carbon Dioxide Anion Gap BUN Creatinine Estimated GFR Random Glucose Calcium Heparin Dep Plt Ab OD 0.421 Hep-Induced Plt Ab Ashley Negative 07/01/18 07/01/18 07/01/18 01:18 01:18 01:18 WBC 6.9 RBC 4.67 Hgb 14.6 Hct 42.4 MCV 90.8 MCH 31.2 MCHC 34.4 RDW 12.7 Plt Count 49 L MPV 10.2 Prelim Diff (Auto) Auto diff final Neut % (Auto) 88.0 H Lymph % (Auto) 9.9 Emmet % (Auto) 1.3 Eos % (Auto) 0.2 Baso % (Auto) 0.6 Neut # (Auto) 6.0 Lymph # (Auto) 0.7 L Emmet # (Auto) 0.1 Eos # (Auto) 0.0 Baso # (Auto) 0.0 WBC Differential . Diff Scan Differential Comment . Platelet Estimate Platelet Morphology PT INR APTT 40.8 H Sodium 141 Potassium 4.6 Chloride 107 Carbon Dioxide 25.1 Anion Gap 9 BUN 21 H Creatinine 0.76 Estimated GFR 73 L Random Glucose 146 H Calcium 9.6 Heparin Dep Plt Ab OD Hep-Induced Plt Ab Ashley 07/01/18 07/01/18 07/01/18 07:04 07:04 07:04 WBC 5.6 RBC 4.86 Hgb 15.2 Hct 44.5 MCV 91.6 MCH 31.2 MCHC 34.1 RDW 12.7 Plt Count 48 L MPV 11.4 H Prelim Diff (Auto) Slide review pending Neut % (Auto) 78.5 H Lymph % (Auto) 15.5 Emmet % (Auto) 5.5 Eos % (Auto) 0.1 Baso % (Auto) 0.4 Neut # (Auto) 4.4 Lymph # (Auto) 0.9 L Emmet # (Auto) 0.3 Eos # (Auto) 0.0 Baso # (Auto) 0.0 WBC Differential . Diff Scan Auto diff confirmed Differential Comment . Platelet Estimate Low L Platelet Morphology Normal PT INR APTT 29.1 D Sodium 140 Potassium 4.7 Chloride 107 Carbon Dioxide 22.9 Anion Gap 10 BUN 23 H Creatinine 0.76 Estimated GFR 73 L Random Glucose 117 H Calcium 9.5 Heparin Dep Plt Ab OD Hep-Induced Plt Ab Ashley Medications: Active Medications Generic Name Dose Route Start Last Admin Trade Name Orlandoq PRN Reason Stop Dose Admin Aspirin 81 mg 06/28/18 18:00 07/01/18 09:55 Aspirin Chew PO 81 mg DAILY ARGENIS Administration Atenolol 50 mg 06/28/18 21:00 06/30/18 20:02 Tenormin PO 50 mg HS ARGENIS Administration Atenolol 25 mg 06/28/18 09:00 07/01/18 09:55 Tenormin PO 25 mg DAILY ARGENIS Administration Digoxin 125 mcg 06/28/18 09:00 07/01/18 09:55 Lanoxin PO 125 mcg DAILY ARGENIS Administration Diltiazem HCl 180 mg 06/28/18 09:00 07/01/18 09:55 Cardizem Cd 24hr PO 180 mg DAILY ARGENIS Administration Sodium Chloride 1,000 mls @ 100 mls/hr 07/01/18 10:00 07/01/18 10:09 Ns Inj IV.CONT 100 mls/hr .Q10H ARGENIS Administration Isosorbide Mononitrate 60 mg 06/28/18 09:00 07/01/18 09:55 Imdur PO 60 mg DAILY ARGENIS Administration Levothyroxine Sodium 25 mcg 06/28/18 08:00 07/01/18 05:07 Synthroid PO 25 mcg DAILY@0600 ARGENIS Administration Lisinopril 5 mg 06/28/18 09:00 07/01/18 09:55 Prinivil PO 5 mg DAILY ARGENIS Administration Losartan Potassium 100 mg 06/28/18 09:00 07/01/18 09:55 Cozaar PO 100 mg DAILY ARGENIS Administration Nitroglycerin 0.5 inch 06/28/18 08:05 07/01/18 05:07 Nitro-Bid 2% Oint TOPICAL 0.5 inch Q6HR ARGENIS Administration Pravastatin Sodium 10 mg 06/28/18 18:00 06/30/18 17:58 Pravachol PO 10 mg QPM ARGENIS Administration Prednisone 20 mg 06/30/18 21:00 07/01/18 09:55 Deltasone PO 20 mg BID ARGENIS Administration Sodium Chloride 2 ml 06/28/18 09:00 07/01/18 09:56 Ns Flush IV.FLUSH 2 ml BID ARGENIS Administration Objective Remarks: GENERAL: Elderly, well-developed patient. SKIN: Warm and dry. Multiple freckles and hyperpigmented skin changes HEAD: Normocephalic. EYES: No scleral icterus. No injection or drainage. NECK: Supple, trachea midline. No JVD or lymphadenopathy. LYMPHATIC: No adenopathy. CARDIOVASCULAR: Regular rate and rhythm without murmurs. RESPIRATORY: Breath sounds equal bilaterally. No accessory muscle use. GASTROINTESTINAL: Abdomen soft, non-tender, nondistended. EXTREMITIES: No cyanosis, or edema. MUSCULOSKELETAL: Adequate muscle tone. NEUROLOGICAL: No obvious focal deficit. Awake, alert, and oriented x3. PSYCHIATRIC: Appropriate mood and affect; insight and judgment normal. Assessment/Plan (1) Thrombocytopenia Code(s): D69.6 - Thrombocytopenia, unspecified Status: Acute (2) Hepatitis C virus carrier state Code(s): B18.2 - Chronic viral hepatitis C Status: Chronic - Plan Ms. Hill is a pleasant 82-year-old woman valvular heart disease, status post mitral valve replacement. She is on chronic anticoagulant therapy with Coumadin along with antiplatelet therapy for stent placed a year ago. She was admitted with non-STEMI and was found to have new thrombocytopenia. Her platelet count remains less than 50,000. She has had no bleeding event despite the attempted cardiac catheterization through the arm and the cardiac catheterization through a groin approach today. Workup was negative for H IT antibodies. Hepatitis C carrier state is suspected. She also has fatty liver. She had no response to empiric anticoagulant therapy with Argatroban. Microangiopathic hemolytic process is excluded. Peripheral smear shows no occasional giant platelet and multi nucleated red blood cells to suggest myelodysplastic syndrome. A bone marrow biopsy was offered which she declined. She was started on prednisone 20 mg p.o. 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 She plans to discuss with her family consideration for bone marrow biopsy. We discussed the standard of care up workup to include bone marrow biopsy evaluation patient's older than 65 as workup of thrombocytopenia. Underlying myelodysplastic process or bone marrow pathology needs to be excluded. The increase in mean platelet volume after 1 or 2 doses of prednisone supports a diagnosis of ITP. We will continue to follow her platelet count on prednisone. Case was discussed with Dr. De Oliveira. She will be followed by my partner over the weekend. We will coordinate follow-up in hematology clinic for thrombocytopenia if discharged over the weekend.
--- NOTE | 2018-07-01 11:20 | MA ---
cc: Bubba De Oliveira MD DATE: 07/01/2018 INDICATIONS: This is an 82-year-old woman with a mechanical valve replacement. She has had a previous 3.0 mm x 15 mm bare-metal stent of the proximal LAD postdilated with a 3.5 mm balloon. She also has a 2.5 mm bare-metal stent at the origin of the major obtuse marginal branch. She came in with fairly typical angina and ruled in for a non-STEMI with mild troponin bump. DESCRIPTION OF PROCEDURE: The patient was brought to the cardiac catheterization lab in a fasting state. The right groin was prepped and draped in sterile fashion. Using a micropuncture set, the right femoral artery was easily accessed. Angiography demonstrated adequate placement. It was exchanged over a wire to a 6-Omani sheath. Left ventricular pressure was then recorded using an angled pigtail catheter, followed by left ventriculography and then a pullback. Coronary angiography was then completed using a left 5 Nelly for the left coronary artery and a 3DRC for the right coronary artery. Her films were carefully studied. There was nothing needing revascularization. The patient will be treated medically. Angiography was then obtained of the right femoral artery, followed by Angio-Seal placement with good hemostasis. FINDINGS: 1. HEMODYNAMICS: Left ventricular pressure is 111/2 with an end diastolic pressure of 6. Aortic pressure is 111/42 with a mean of 69. There was no gradient during pullback from the left ventricle to the aorta. There was no mitral regurgitation seen. Aortic root was mildly enlarged. 2. CORONARY ANGIOGRAPHY: Left main coronary artery appears normal. It bifurcates into the LAD and circumflex vessel. The LAD has a widely patent proximal stent with about 10%-20% irregularity. Distal to the stent, by the second septal cylinder press operator apprentice branch, are additional just mild irregularities. Distal LAD appears fairly normal. Circumflex artery gives off a very large obtuse marginal branch, which has a proximal stent that appears widely patent. The distal circumflex off 2 posterolateral branches, which are widely patent with minimal disease. The right coronary artery is a dominant. Vessel was described as having about a 60% stenosis proximally in the previous catheterization; on this catheterization it only looks to be about 30%. The remainder of the right coronary artery appears normal. CONCLUSIONS: 1. Normal hemodynamics. 2. Normal left ventricular systolic function. 3. Mild nonocclusive coronary artery disease with her 2 previous stents being widely patent. RECOMMENDATIONS: Medical management. PLAN: I am going to wait 4 hours and then initiate heparin without a bolus; at the same time initiate warfarin. Once her INR is close to 2.5, we can let her go home. MD MARVIN Bates/trinity/anahy , 09:26 AM , 09:34 AM
[2018-07-01] MEDS: Heparin Drip 25,000 UNIT/250 ML BAG IV.CONT PRN (13:07)
--- NOTE | 2018-07-01 17:09 | P.PN ---
Subjective Interval history: This is a pleasant 82 y/o Female with diagnosis of NSTEMI, his Primary business employment specialist Dr. De Oliveira following to perform Cardiac Catheterization, on Heparin drip, recommended geophysical support specialist consult due to Thrombocytopenia for this reason discontinued Heparin and started on Argatroban IV, was not possible to perform the Cardiac cath yesterday due to Thrombocytopenia. 06/30: he was seen yesterday by ID specialist doctor Jeff Desir unclear about infection after evaluation of the CTA chest, recommended to continue Vancomycin and Aztreonam, follow blood cultures, asked for Mycoplasma for probable atypical Pneumonia. I have been called by Steel Cutter the patient meets inpatient management will switch to inpatient. Seen by Hematology and firearms specialist today, the patient has status post Mitral valve replacement, awaiting for Coagulopathy workup, Cardiac cath using radial Approach was unsuccessful due to bleeding, INR over 4, Hepatitis C asked for Bone Marrow Biopsy to rule out Myelodysplastic syndrome. 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 Physical Exam Vital signs: Vital Signs 06/30/18 17:00 06/30/18 18:00 06/30/18 19:00 Temperature 98.0 F Pulse Rate 62 62 60 Respiratory Rate 16 Blood Pressure 125/81 Pulse Oximetry 98 06/30/18 20:00 06/30/18 21:00 06/30/18 22:00 Temperature Pulse Rate 62 66 58 L Respiratory Rate Blood Pressure Pulse Oximetry 06/30/18 23:00 07/01/18 00:00 07/01/18 01:00 Temperature 97.4 F L Pulse Rate 66 58 L 72 Respiratory Rate 16 Blood Pressure 130/81 Pulse Oximetry 98 07/01/18 02:00 07/01/18 03:00 07/01/18 04:00 Temperature 98.4 F Pulse Rate 59 L 60 59 L Respiratory Rate 14 Blood Pressure 124/68 Pulse Oximetry 95 07/01/18 05:00 07/01/18 06:00 07/01/18 07:00 Temperature 97.6 F Pulse Rate 60 63 60 Respiratory Rate 16 Blood Pressure 139/82 Pulse Oximetry 98 07/01/18 08:00 07/01/18 10:00 07/01/18 11:00 Temperature 97.7 F Pulse Rate 62 64 62 Respiratory Rate 18 Blood Pressure 140/71 Pulse Oximetry 98 07/01/18 12:00 07/01/18 13:00 07/01/18 14:00 Temperature Pulse Rate 60 60 64 Respiratory Rate Blood Pressure Pulse Oximetry 07/01/18 15:00 Temperature 97.8 F Pulse Rate 74 Respiratory Rate 18 Blood Pressure 140/67 Pulse Oximetry 96 Intake & Output 06/30/18 07/01/18 07/01/18 18:59 06:59 18:59 Intake Total 1704 / 1704 265 / 265 5 / 5 Balance 1704 / 1704 265 / 265 5 / 5 Weight 58 kg Intake: IV 584 / 584 5 / 5 Heparin/NS PF Inj 1,500 ML @ 0 5 / 5 mls/hr .ROUTE .[facility] ONE Rx#: [id number] Novastan Inj 250 MG In NS Inj 84 / 84 247.5 ML @ Per Protocol IV.CONT TITRATE PRN Rx#:[id number] NS Inj 1,000 ML @ 80 mls/hr IV. 500 / 500 CONT .[id number] [facility] Rx#:[id number] Oral 1120 / 1120 240 / 240 Other: # Voids 5 3 Date of Last Bowel Movement 06/30/18 06/30/18 # Bowel Movements 4 Narrative: GENERAL: This is a pleasant elderly F, well-nourished, well-developed patient, in no apparent distress. CARDIOVASCULAR: Grade 2 systolic murmur left sternal border. Regular rate and rhythm without gallops or rubs. RESPIRATORY: Clear to auscultation. Breath sounds equal bilaterally. GASTROINTESTINAL: Soft, non tender, positive bowel sounds. MUSCULOSKELETAL: No clubbing, cyanosis or edema. right groin dressed. NEUROLOGICAL: Patient is alert and oriented. Results - Labs CBC & Chem 7: 07/01/18 07:04 07/01/18 07:04 Laboratory Results - last 24 hr 06/30/18 06/30/18 06/30/18 05:05 16:09 23:18 WBC RBC Hgb Hct MCV MCH MCHC RDW Plt Count MPV Prelim Diff (Auto) Neut % (Auto) Lymph % (Auto) Mobile % (Auto) Eos % (Auto) Baso % (Auto) Neut # (Auto) Lymph # (Auto) Mobile # (Auto) Eos # (Auto) Baso # (Auto) WBC Differential Diff Scan Differential Comment Platelet Estimate Platelet Morphology PT 15.5 H D INR 1.5 APTT 34.9 H D von Willebrand Interp Sodium Potassium Chloride Carbon Dioxide Anion Gap BUN Creatinine Estimated GFR Random Glucose Calcium Anti-Phospholipid Intrp 07/01/18 07/01/18 07/01/18 01:18 01:18 01:18 WBC 6.9 RBC 4.67 Hgb 14.6 Hct 42.4 MCV 90.8 MCH 31.2 MCHC 34.4 RDW 12.7 Plt Count 49 L MPV 10.2 Prelim Diff (Auto) Auto diff final Neut % (Auto) 88.0 H Lymph % (Auto) 9.9 Mobile % (Auto) 1.3 Eos % (Auto) 0.2 Baso % (Auto) 0.6 Neut # (Auto) 6.0 Lymph # (Auto) 0.7 L Mobile # (Auto) 0.1 Eos # (Auto) 0.0 Baso # (Auto) 0.0 WBC Differential . Diff Scan Differential Comment . Platelet Estimate Platelet Morphology PT INR APTT 40.8 H von Willebrand Interp Sodium 141 Potassium 4.6 Chloride 107 Carbon Dioxide 25.1 Anion Gap 9 BUN 21 H Creatinine 0.76 Estimated GFR 73 L Random Glucose 146 H Calcium 9.6 Anti-Phospholipid Intrp 07/01/18 07/01/18 07/01/18 07:04 07:04 07:04 WBC 5.6 RBC 4.86 Hgb 15.2 Hct 44.5 MCV 91.6 MCH 31.2 MCHC 34.1 RDW 12.7 Plt Count 48 L MPV 11.4 H Prelim Diff (Auto) Slide review pending Neut % (Auto) 78.5 H Lymph % (Auto) 15.5 Mobile % (Auto) 5.5 Eos % (Auto) 0.1 Baso % (Auto) 0.4 Neut # (Auto) 4.4 Lymph # (Auto) 0.9 L Mobile # (Auto) 0.3 Eos # (Auto) 0.0 Baso # (Auto) 0.0 WBC Differential . Diff Scan Auto diff confirmed Differential Comment . Platelet Estimate Low L Platelet Morphology Normal PT INR APTT 29.1 D von Willebrand Interp Sodium 140 Potassium 4.7 Chloride 107 Carbon Dioxide 22.9 Anion Gap 10 BUN 23 H Creatinine 0.76 Estimated GFR 73 L Random Glucose 117 H Calcium 9.5 Anti-Phospholipid Intrp - Imaging Chest X-Ray 06/27/18 20:44 CONCLUSION: 1. Compensated cardiomegaly. 2. Lungs remain clear. 3. No significant change from prior. Liver Ultrasound 06/29/18 14:00 CONCLUSION: 1. No evidence of gallstones or biliary tract obstruction. 2. Increased echogenicity of the liver suggestive of fatty infiltration. 3. Mild increased echogenicity of the right renal parenchyma suggestive of chronic medical renal disease. No evidence of hydronephrosis. - Procedures Cardiac Cath attempt using Radial approach Unsuccessful due to bleeding. Assessment and Plan - Plan This is a pleasant 82 y/o Female with diagnosis of NSTEMI, his Primary business employment specialist Dr. De Oliveira following to perform Cardiac Catheterization, on Heparin drip, recommended geophysical support specialist consult due to Thrombocytopenia for this reason discontinued Heparin and started on Argatroban IV, was not possible to perform the Cardiac cath yesterday due to Thrombocytopenia. 06/30: Seen by Hematology and firearms specialist today, the patient has status post Mitral valve replacement, awaiting for Coagulopathy workup, Cardiac cath using radial Approach was unsuccessful due to bleeding, INR over 4, Hepatitis C asked for Bone Marrow Biopsy to rule out Myelodysplastic syndrome. 07/01: Patient refused Bone marrow biopsy, History of CAD with heart artery stents: Plan for cardiac catheterization unsuccessful Cardiac cath yesterday and now status post Right groin Cardiac cath and not found pathology by Dr. De Oliveira, started on heparin while Warfarin gives INR therapeutic. Abnormal CTA/Atypical Pneumonia Seen yesterday by ID specialist doctor Jeff Desir unclear about infection after evaluation of the CTA chest, recommended to continue Vancomycin and Aztreonam , follow blood cultures, asked for Mycoplasma for probable atypical Pneumonia, Thrombocytopenia: Hematology oncology consulted. DC heparin. used Argatroban with no improvement, started on Prednisone 20 mg bid to rule out ITP. Hypertension: Continue medication. Hyperlipidemia: Continue medication. Pacemaker: Patient is ventricularly paced. Continue follow-up with her system programmer. DVT prophylaxis with Argatroban. Code Status: Full code. Discussed Condition With: patient and Nurse Miss Bowman. Discharge Planning: Once cleared by specialists.
[2018-07-01] MEDS: Atenolol 50 MG Tablet PO SCH (20:30)
[2018-07-02 01:23] LABS: Activated Partial Thrombo Time 38.7 sec (24.3-30.1); INR 1.3 Ratio; Prothrombin Time 13.4 sec (9.8-11.6)
[2018-07-02] MEDS: Sod Chloride 0.9% Inj 1,000 ML IV.CONT SCH ×2 (06:11→17:01)
[2018-07-02] MEDS: Lisinopril 5 MG Tablet PO SCH (09:05)
[2018-07-02] MEDS: Isosorbide Mononitrate 60 MG ER 24HR Tablet (Imdur) PO SCH (09:05)
[2018-07-02] MEDS: Atenolol 25 MG Tablet PO SCH (09:05)
[2018-07-02] MEDS: dilTIAZem CD 180 MG Capsule PO SCH (09:06)
[2018-07-02] MEDS: predniSONE 20 MG Tablet PO SCH ×2 (09:06→20:29)
[2018-07-02] MEDS: Digoxin 125 MCG Tablet PO SCH (09:06)
--- NOTE | 2018-07-02 09:30 | P.PN ---
Subjective Interval history: This is a pleasant 82 y/o Female with diagnosis of NSTEMI, his Primary technical specialist cytogenetics Dr. De Oliveira following to perform Cardiac Catheterization, on Heparin drip, recommended specialist managers consult due to Thrombocytopenia for this reason discontinued Heparin and started on Argatroban IV, was not possible to perform the Cardiac cath yesterday due to Thrombocytopenia. 06/30: he was seen yesterday by ID specialist doctor Jeff Desir unclear about infection after evaluation of the CTA chest, recommended to continue Vancomycin and Aztreonam, follow blood cultures, asked for Mycoplasma for probable atypical Pneumonia. I have been called by Sports Medicine Specialist the patient meets inpatient management will switch to inpatient. Seen by Hematology and bed control specialist today, the patient has status post Mitral valve replacement, awaiting for Coagulopathy workup, Cardiac cath using radial Approach was unsuccessful due to bleeding, INR over 4, Hepatitis C asked for Bone Marrow Biopsy to rule out Myelodysplastic syndrome. 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 07/02: Stable in her bedroom, no nausea, vomit or diarrhea. not yet therapeutic her INR 1.3 specialist managers following she is on chronic anticoagulation with Coumadin due to Mitral valve replacement and on antiplatelet therapy due to stent placement one year ago, found to have thrombocytopenia, negative workup for HIT , Hepatitis C Carrier state suspected, no response to anticoagulant therapy with Argatroban, Peripheral smear shows no occasional giant platelet and multi nucleated red blood cells to suggest myelodysplastic syndrome. A bone marrow biopsy was offered which she declined. She was started on prednisone 20 mg p.o. 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 Today she states decided for her Bone Marrow Biopsy probable for tomorrow. Physical Exam Vital signs: Vital Signs 07/01/18 10:00 07/01/18 11:00 07/01/18 12:00 Temperature 97.7 F Pulse Rate 64 62 60 Respiratory Rate 18 Blood Pressure 140/71 Pulse Oximetry 98 07/01/18 13:00 07/01/18 14:00 07/01/18 15:00 Temperature 97.8 F Pulse Rate 60 64 60 Respiratory Rate 18 Blood Pressure 140/67 Pulse Oximetry 96 07/01/18 16:00 07/01/18 17:00 07/01/18 18:00 Temperature Pulse Rate 60 62 60 Respiratory Rate Blood Pressure Pulse Oximetry 07/01/18 19:00 07/01/18 20:00 07/01/18 21:00 Temperature 98 F Pulse Rate 63 63 61 Respiratory Rate 18 Blood Pressure 139/60 Pulse Oximetry 97 07/01/18 22:00 07/01/18 23:00 07/02/18 00:00 Temperature 98.1 F Pulse Rate 60 62 60 Respiratory Rate 18 Blood Pressure 151/76 H Pulse Oximetry 96 07/02/18 01:00 07/02/18 02:00 07/02/18 03:00 Temperature 97.7 F Pulse Rate 58 L 61 59 L Respiratory Rate 18 Blood Pressure 142/66 H Pulse Oximetry 98 07/02/18 03:59 07/02/18 05:00 07/02/18 06:00 Temperature Pulse Rate 59 L 60 60 Respiratory Rate Blood Pressure Pulse Oximetry Intake & Output 07/01/18 07/02/18 07/02/18 18:59 06:59 18:59 Intake Total 1165 / 1165 2481 / 2481 Output Total 700 / 700 800 / 800 Balance 465 / 465 1681 / 1681 Weight 59.5 kg Intake: IV 5 / 5 1999 Heparin/NS PF Inj 1,500 ML @ 0 5 / 5 mls/hr .ROUTE .[facility] Rx#: [id number] NS Inj 1,000 ML @ 100 mls/hr IV 1999 .CONT .Q10H [facility] Rx#:[id number] Oral 1160 / 1160 481 / 481 Output: Urine 700 / 700 800 / 800 Other: # Voids 3 Date of Last Bowel Movement 06/30/18 07/01/18 # Bowel Movements 1 Narrative: GENERAL: No acute distress. CARDIOVASCULAR: Grade 2 systolic murmur left sternal border. Regular rate and rhythm without gallops or rubs. RESPIRATORY: Clear to auscultation. Breath sounds equal bilaterally. GASTROINTESTINAL: Soft, non tender, positive bowel sounds. MUSCULOSKELETAL: No clubbing, cyanosis or edema. right groin dressed. NEUROLOGICAL: Patient is alert and oriented. Results - Labs CBC & Chem 7: 07/03/18 07:00 07/01/18 07:04 Laboratory Results - last 24 hr 06/30/18 07/01/18 07/02/18 05:05 18:35 01:06 PT 13.4 H INR 1.3 APTT 30.9 H 38.7 H D von Willebrand Antigen 205 vWF Ristocetin Cofactr 183 von Willebrand Interp Anti-Phospholipid Intrp 07/02/18 07:15 PT INR APTT 56.2 H D von Willebrand Antigen vWF Ristocetin Cofactr von Willebrand Interp Anti-Phospholipid Intrp - Imaging Chest X-Ray 06/27/18 20:44 CONCLUSION: 1. Compensated cardiomegaly. 2. Lungs remain clear. 3. No significant change from prior. Liver Ultrasound 06/29/18 14:00 CONCLUSION: 1. No evidence of gallstones or biliary tract obstruction. 2. Increased echogenicity of the liver suggestive of fatty infiltration. 3. Mild increased echogenicity of the right renal parenchyma suggestive of chronic medical renal disease. No evidence of hydronephrosis. - Procedures Cardiac Catheterization performed via Right Femoral Artery. Assessment and Plan - Plan This is a pleasant 82 y/o Female with diagnosis of NSTEMI, his Primary technical specialist cytogenetics Dr. De Oliveira following to perform Cardiac Catheterization, on Heparin drip, recommended specialist managers consult due to Thrombocytopenia for this reason discontinued Heparin and started on Argatroban IV, was not possible to perform the Cardiac cath yesterday due to Thrombocytopenia. 06/30: Seen by Hematology and bed control specialist today, the patient has status post Mitral valve replacement, awaiting for Coagulopathy workup, Cardiac cath using radial Approach was unsuccessful due to bleeding, INR over 4, Hepatitis C asked for Bone Marrow Biopsy to rule out Myelodysplastic syndrome. 07/01: Patient refused Bone marrow biopsy. 07/02: not yet therapeutic her INR 1.3 specialist managers following she is on chronic anticoagulation with Coumadin due to Mitral valve replacement and on antiplatelet therapy due to stent placement one year ago, found to have thrombocytopenia, negative workup for HIT , Hepatitis C Carrier state suspected, no response to anticoagulant therapy with Argatroban, Peripheral smear shows no occasional giant platelet and multi nucleated red blood cells to suggest myelodysplastic syndrome. A bone marrow biopsy was offered which she declined. She was started on prednisone 20 mg p.o. 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 History of CAD with heart artery stents: Plan for cardiac catheterization unsuccessful Cardiac cath yesterday and now status post Right groin Cardiac cath and not found pathology by Dr. De Oliveira, started on heparin while Warfarin gives INR therapeutic. Abnormal CTA/Atypical Pneumonia Seen yesterday by ID specialist doctor Jeff Desir unclear about infection after evaluation of the CTA chest, recommended to continue Vancomycin and Aztreonam , follow blood cultures, asked for Mycoplasma for probable atypical Pneumonia, Thrombocytopenia: Hematology oncology consulted. DC heparin. used Argatroban with no improvement, started on Prednisone 20 mg bid to rule out ITP. Hypertension: Continue medication. Hyperlipidemia: Continue medication. Pacemaker: Patient is ventricularly paced. Continue follow-up with her supervisor pastry. DVT prophylaxis with Argatroban. Code Status: Full code. Discussed Condition With: Patient and Nurse Discharge Planning: Once cleared by specialists.
--- NOTE | 2018-07-02 10:03 | P.PNCA ---
Subjective Interval history: no angina Medications and Allergies Active Medications: Active Medications Acetaminophen (Tylenol) 500 mg PO Q4H PRN PRN Reason: HEADACHE Aspirin (Aspirin Chew) 81 mg PO DAILY [facility] Last Admin: 07/01/18 09:55 Dose: 81 mg Atenolol (Tenormin) 50 mg PO HS [facility] Last Admin: 07/01/18 20:30 Dose: 50 mg Atenolol (Tenormin) 25 mg PO DAILY [facility] Last Admin: 07/02/18 09:05 Dose: 25 mg Diazepam (Valium) 5 mg PO CERTIFIED PEER SPECIALIST [facility] Stop: 07/02/18 17:29 Digoxin (Lanoxin) 125 mcg PO DAILY [facility] Last Admin: 07/02/18 09:06 Dose: 125 mcg Diltiazem HCl (Cardizem Cd 24hr) 180 mg PO DAILY [facility] Last Admin: 07/02/18 09:06 Dose: 180 mg Diphenhydramine HCl (Benadryl) 50 mg PO CERTIFIED PEER SPECIALIST [facility] Stop: 07/02/18 17:29 Sodium Chloride (Ns Inj) 1,000 mls @ 100 mls/hr IV.CONT .Q10H [facility] Last Admin: 07/02/18 06:11 Dose: 100 mls/hr Heparin Sodium/Dextrose (Heparin/D5w 25,000 U/250 Ml) 25,000 unit in 250 mls @ 7 mls/hr IV.CONT TITRATE PRN; Protocol PRN Reason: Per Protocol Last Titration: 07/02/18 01:00 Dose: 900 units/hr, 9 mls/hr Isosorbide Mononitrate (Imdur) 60 mg PO DAILY [facility] Last Admin: 07/02/18 09:05 Dose: 60 mg Levothyroxine Sodium (Synthroid) 25 mcg PO DAILY@0600 [facility] Last Admin: 07/02/18 06:08 Dose: 25 mcg Lisinopril (Prinivil) 5 mg PO DAILY [facility] Last Admin: 07/02/18 09:05 Dose: 5 mg Losartan Potassium (Cozaar) 100 mg PO DAILY [facility] Last Admin: 07/02/18 09:05 Dose: 100 mg Nitroglycerin (Nitro-Bid 2% Oint) 0.5 inch TOPICAL Q6HR [facility] Last Admin: 07/02/18 06:11 Dose: Not Given Pravastatin Sodium (Pravachol) 10 mg PO QPM [facility] Last Admin: 07/01/18 18:38 Dose: 10 mg Prednisone (Deltasone) 20 mg PO BID [facility] Last Admin: 07/02/18 09:06 Dose: 20 mg Sodium Chloride (Ns Flush) 2 ml IV.FLUSH UNSCH PRN PRN Reason: FLUSH AFTER USING IV ACCESS Last Admin: 07/01/18 20:35 Dose: 2 ml Sodium Chloride (Ns Flush) 2 ml IV.FLUSH BID [facility] Last Admin: 07/02/18 09:06 Dose: 2 ml Sodium Chloride (Ns Flush) 2 ml IV.FLUSH PRN PRN PRN Reason: FLUSH AFTER USING IV ACCESS Warfarin Sodium (Coumadin) 5 mg PO DAILY@1600 [facility] Warfarin Sodium (Coumadin) 7.5 mg PO ONCE ONE Stop: 07/02/18 09:50 Allergies Allergy/AdvReac Type Severity Reaction Status Date / Time metronidazole Allergy Severe RASH Verified 06/27/18 20:21 diphenhydramine AdvReac Anxiety Verified 06/27/18 20:21 [From [facility]ie] Home Medications Medication Instructions Recorded Confirmed Type atenolol 25 mg PO DAILY 06/27/18 06/28/18 History digoxin 0.125 mg PO DAILY 06/27/18 06/27/18 History diltiazem HCl 180 mg PO DAILY 06/27/18 06/27/18 History isosorbide mononitrate 60 mg PO QAM 06/27/18 06/27/18 History levothyroxine 25 mcg PO DAILY 06/27/18 06/27/18 History lisinopril 5 mg PO DAILY 06/27/18 06/27/18 History losartan 100 mg PO DAILY 06/27/18 06/27/18 History magnesium 250 mg PO DAILY 06/27/18 06/27/18 History nitroglycerin [Nitrostat] 0.4 mg SUBLINGUAL Q5-15M PRN 06/27/18 06/27/18 History simvastatin 5 mg PO QPM 06/27/18 06/27/18 History warfarin 5 mg PO [id number] 06/27/18 06/27/18 History atenolol 50 mg PO HS 06/28/18 06/28/18 History Physical Exam Vital signs: Vital Signs 07/01/18 11:00 07/01/18 12:00 07/01/18 13:00 Temperature 97.7 F Pulse Rate 62 60 60 Respiratory Rate 18 Blood Pressure 140/71 Pulse Oximetry 98 07/01/18 14:00 07/01/18 15:00 07/01/18 16:00 Temperature 97.8 F Pulse Rate 64 60 60 Respiratory Rate 18 Blood Pressure 140/67 Pulse Oximetry 96 07/01/18 17:00 07/01/18 18:00 07/01/18 19:00 Temperature 98 F Pulse Rate 62 60 63 Respiratory Rate 18 Blood Pressure 139/60 Pulse Oximetry 97 07/01/18 20:00 07/01/18 21:00 07/01/18 22:00 Temperature Pulse Rate 63 61 60 Respiratory Rate Blood Pressure Pulse Oximetry 07/01/18 23:00 07/02/18 00:00 07/02/18 01:00 Temperature 98.1 F Pulse Rate 62 60 58 L Respiratory Rate 18 Blood Pressure 151/76 H Pulse Oximetry 96 07/02/18 02:00 07/02/18 03:00 07/02/18 03:59 Temperature 97.7 F Pulse Rate 61 59 L 59 L Respiratory Rate 18 Blood Pressure 142/66 H Pulse Oximetry 98 07/02/18 05:00 07/02/18 06:00 Temperature Pulse Rate 60 60 Respiratory Rate Blood Pressure Pulse Oximetry Intake & Output 07/01/18 07/02/18 07/02/18 18:59 06:59 18:59 Intake Total 1165 / 1165 2481 / 2481 Output Total 700 / 700 800 / 800 Balance 465 / 465 1681 / 1681 Weight 59.5 kg Intake: IV 5 / 5 1999 Heparin/NS PF Inj 1,500 ML @ 0 5 / 5 mls/hr .ROUTE [facility] Rx#: [id number] NS Inj 1,000 ML @ 100 mls/hr IV 1999 .CONT .Q10H [facility] Rx#:[id number] Oral 1160 / 1160 481 / 481 Output: Urine 700 / 700 800 / 800 Other: # Voids 3 Date of Last Bowel Movement 06/30/18 07/01/18 # Bowel Movements 1 Narrative: Alert, NAD No JVD Chest CTA CV click S1, nl S2 RRR 1/6 DELIA Right Groin OK Results 07/01/18 07:04 07/01/18 07:04 Coagulation 06/30/18 06/30/18 07/01/18 Range/Units 16:09 23:18 01:18 PT 15.5 H D (9.8-11.6) sec APTT 34.9 H D 40.8 H (24.3-30.1) sec 07/01/18 07/01/18 07/02/18 Range/Units 07:04 18:35 01:06 PT 13.4 H (9.8-11.6) sec APTT 29.1 D 30.9 H 38.7 H D (24.3-30.1) sec 07/02/18 Range/Units 07:15 PT (9.8-11.6) sec APTT 56.2 H D (24.3-30.1) sec CBC 07/01/18 07/01/18 Range/Units 01:18 07:04 WBC 6.9 5.6 (4.0-11.0) th/mm3 RBC 4.67 4.86 (4.00-5.30) mil/mm3 Hgb 14.6 15.2 (11.6-15.3) gm/dL Hct 42.4 44.5 (35.0-46.0) % Plt Count 49 L 48 L (150-450) th/mm3 Neut # (Auto) 6.0 4.4 (1.8-7.7) th/mm3 Lymph # (Auto) 0.7 L 0.9 L (1.0-4.8) th/mm3 Randall # (Auto) 0.1 0.3 (0.0-0.9) th/mm3 Eos # (Auto) 0.0 0.0 (0.0-0.4) th/mm3 Baso # (Auto) 0.0 0.0 (0.0-0.2) th/mm3 Comprehensive Metabolic Panel 07/01/18 07/01/18 Range/Units 01:18 07:04 Sodium 141 140 (136-145) meq/L Potassium 4.6 4.7 (3.5-5.1) meq/L Chloride 107 107 (98-107) meq/L Carbon Dioxide 25.1 22.9 (21.0-32.0) meq/L BUN 21 H 23 H (7-18) mg/dL Creatinine 0.76 0.76 (0.50-1.00) mg/dL Calcium 9.6 9.5 (8.5-10.1) mg/dL Intake and Output 07/01/18 07/02/18 07/02/18 22:59 06:59 14:59 Intake Total 2160 / 2160 1481 / 1481 Output Total 700 / 700 800 / 800 Balance 1460 / 1460 681 / 681 Intake: IV 1000 / 1000 1000 / 1000 NS Inj 1,000 ML @ 100 mls/hr IV 1000 / 1000 1000 / 1000 .CONT .Q10H [facility] Rx#:[id number] Oral 1160 / 1160 481 / 481 Output: Urine 700 / 700 800 / 800 Other: # Voids 3 Date of Last Bowel Movement 06/30/18 07/01/18 # Bowel Movements 1 Weight 59.5 kg Assessment and Plan - Assessment (1) Non-STEMI (non-ST elevated myocardial infarction) Code(s): I21.4 - Non-ST elevation (NSTEMI) myocardial infarction Status: Acute Plan: No obstructive CAD found/ med therapy (2) History of mitral valve replacement with mechanical valve Code(s): Z95.2 - Presence of prosthetic heart valve Status: Acute Plan: needs INR 2.5-3.5 (3) Thrombocytopenia Code(s): D69.6 - Thrombocytopenia, unspecified Status: Acute (4) ferry terminal agent (current) use of anticoagulants Code(s): Z79.01 - ferry terminal agent (current) use of anticoagulants Status: Acute Plan: On IV heparin awaiting for INR to come up with warfarin. - Plan * INR is down. I stopped Argatroban earlier this AM. Plan cath via RFA.
[2018-07-02 10:07] LABS: Baso % (Auto) 0.2 % (0.0-2.0); Hematocrit 43.3 % (35.0-46.0); Hemoglobin 15.1 gm/dL (11.6-15.3); Lymph # (Auto) 1.3 th/mm3 (1.0-4.8); Lymph % (Auto) 16.1 % (9.0-44.0); Mean Corpuscular Hemoglobin 31.7 pg (27.0-34.0); Mean Corpuscular Volume 90.6 fL (80.0-100.0); Mean Platelet Volume 10.5 fL (7.0-11.0); Mono # (Auto) 0.4 th/mm3 (0.0-0.9); Mono % (Auto) 4.3 % (0.0-8.0); Neut # (Auto) 6.4 th/mm3 (1.8-7.7); Neut % (Auto) 79.4 % (16.0-70.0); Platelet Count 59 th/mm3 (150-450); Red Blood Count 4.78 mil/mm3 (4.00-5.30); Red Cell Distribution Width 12.8 % (11.6-17.2); White Blood Count 8.1 th/mm3 (4.0-11.0)
[2018-07-02 10:46] LABS: Platelet Morphology Normal (Normal)
--- NOTE | 2018-07-02 10:46 | P.PNONC ---
Subjective Interval history: Afebrile Patient sitting up on side of bed eating breakfast Denies any bleeding Has not had any further chest pain Wants to go home soon Objective Vital Signs/Intake & Output: Vital Signs 07/01/18 11:00 07/01/18 12:00 07/01/18 13:00 Temperature 97.7 F Pulse Rate 62 60 60 Respiratory Rate 18 Blood Pressure 140/71 Pulse Oximetry 98 07/01/18 14:00 07/01/18 15:00 07/01/18 16:00 Temperature 97.8 F Pulse Rate 64 60 60 Respiratory Rate 18 Blood Pressure 140/67 Pulse Oximetry 96 07/01/18 17:00 07/01/18 18:00 07/01/18 19:00 Temperature 98 F Pulse Rate 62 60 63 Respiratory Rate 18 Blood Pressure 139/60 Pulse Oximetry 97 07/01/18 20:00 07/01/18 21:00 07/01/18 22:00 Temperature Pulse Rate 63 61 60 Respiratory Rate Blood Pressure Pulse Oximetry 07/01/18 23:00 07/02/18 00:00 07/02/18 01:00 Temperature 98.1 F Pulse Rate 62 60 58 L Respiratory Rate 18 Blood Pressure 151/76 H Pulse Oximetry 96 07/02/18 02:00 07/02/18 03:00 07/02/18 03:59 Temperature 97.7 F Pulse Rate 61 59 L 59 L Respiratory Rate 18 Blood Pressure 142/66 H Pulse Oximetry 98 07/02/18 05:00 07/02/18 06:00 Temperature Pulse Rate 60 60 Respiratory Rate Blood Pressure Pulse Oximetry Intake & Output 07/01/18 07/02/18 07/02/18 18:59 06:59 18:59 Intake Total 1165 / 1165 2481 / 2481 Output Total 700 / 700 800 / 800 Balance 465 / 465 1681 / 1681 Weight 131 lb 2.801 oz Intake: IV 5 1999 Heparin/NS PF Inj 1,500 ML @ 0 5 / 5 mls/hr .ROUTE .STK-MED ONE Rx#: [id number] NS Inj 1,000 ML @ 100 mls/hr IV 1999 .CONT .Q10H ARGENIS Rx#:[id number] Oral 1160 / 1160 481 / 481 Output: Urine 700 / 700 800 / 800 Other: # Voids 3 Date of Last Bowel Movement 06/30/18 07/01/18 # Bowel Movements 1 Result Diagrams: 07/02/18 09:46 07/01/18 07:04 Laboratory Results: Laboratory Results - last 24 hr 06/30/18 07/01/18 07/02/18 05:05 18:35 01:06 WBC RBC Hgb Hct MCV MCH MCHC RDW Plt Count MPV Prelim Diff (Auto) Neut % (Auto) Lymph % (Auto) Parke % (Auto) Eos % (Auto) Baso % (Auto) Neut # (Auto) Lymph # (Auto) [place]ke # (Auto) Eos # (Auto) Baso # (Auto) Differential Comment PT 13.4 H INR 1.3 APTT 30.9 H 38.7 H D von Willebrand Antigen 205 vWF Ristocetin Cofactr 183 von Willebrand Interp Anti-Phospholipid Intrp 07/02/18 07/02/18 07:15 09:46 WBC 8.1 RBC 4.78 Hgb 15.1 Hct 43.3 MCV 90.6 MCH 31.7 MCHC 35.0 RDW 12.8 Plt Count 59 L MPV 10.5 Prelim Diff (Auto) Slide review pending Neut % (Auto) 79.4 H Lymph % (Auto) 16.1 Parke % (Auto) 4.3 Eos % (Auto) 0.0 Baso % (Auto) 0.2 Neut # (Auto) 6.4 Lymph # (Auto) 1.3 Parke # (Auto) 0.4 Eos # (Auto) 0.0 Baso # (Auto) 0.0 Differential Comment . PT INR APTT 56.2 H D von Willebrand Antigen vWF Ristocetin Cofactr von Willebrand Interp Anti-Phospholipid Intrp Medications: Active Medications Generic Name Dose Route Start Last Admin Trade Name Freq PRN Reason Stop Dose Admin Aspirin 81 mg 06/28/18 18:00 07/01/18 09:55 Aspirin Chew PO 81 mg DAILY ARGENIS Administration Atenolol 50 mg 06/28/18 21:00 07/01/18 20:30 Tenormin PO 50 mg HS ARGENIS Administration Atenolol 25 mg 06/28/18 09:00 07/02/18 09:05 Tenormin PO 25 mg DAILY ARGENIS Administration Digoxin 125 mcg 06/28/18 09:00 07/02/18 09:06 Lanoxin PO 125 mcg DAILY ARGENIS Administration Diltiazem HCl 180 mg 06/28/18 09:00 07/02/18 09:06 Cardizem Cd 24hr PO 180 mg DAILY ARGENIS Administration Sodium Chloride 1,000 mls @ 100 mls/hr 07/01/18 10:00 07/02/18 06:11 Ns Inj IV.CONT 100 mls/hr .Q10H ARGENIS Administration Heparin Sodium/Dextrose 25,000 unit in 250 mls @ 7 mls/hr 07/01/18 13:00 01:00 Heparin/D5w 25,000 U/250 Ml IV.CONT 900 units/hr TITRATE PRN 9 mls/hr Per Protocol Titration Protocol 700 UNITS/HR Isosorbide Mononitrate 60 mg 06/28/18 09:00 07/02/18 09:05 Imdur PO 60 mg DAILY ARGENIS Administration Levothyroxine Sodium 25 mcg 06/28/18 08:00 07/02/18 06:08 Synthroid PO 25 mcg DAILY@0600 ARGENIS Administration Lisinopril 5 mg 06/28/18 09:00 07/02/18 09:05 Prinivil PO 5 mg DAILY ARGENIS Administration Losartan Potassium 100 mg 06/28/18 09:00 07/02/18 09:05 Cozaar PO 100 mg DAILY ARGENIS Administration Nitroglycerin 0.5 inch 06/28/18 08:05 07/02/18 06:11 Nitro-Bid 2% Oint TOPICAL Not Given Q6HR ARGENIS Pravastatin Sodium 10 mg 06/28/18 18:00 07/01/18 18:38 Pravachol PO 10 mg QPM ARGENIS Administration Prednisone 20 mg 06/30/18 21:00 07/02/18 09:06 Deltasone PO 20 mg BID ARGENIS Administration Sodium Chloride 2 ml 06/27/18 20:44 07/01/18 20:35 Ns Flush IV.FLUSH 2 ml UNSCH PRN Administration FLUSH AFTER USING IV ACCESS Sodium Chloride 2 ml 06/28/18 09:00 07/02/18 09:06 Ns Flush IV.FLUSH 2 ml BID ARGENIS Administration Objective Remarks: GENERAL: Elderly, well-developed patient. SKIN: Warm and dry. Multiple freckles and hyperpigmented skin changes. No bleeding from sites HEAD: Normocephalic. EYES: No scleral icterus. No injection or drainage. NECK: Supple, trachea midline. No JVD or lymphadenopathy. CARDIOVASCULAR: Regular rate and rhythm without murmurs. RESPIRATORY: Breath sounds equal bilaterally. No accessory muscle use. GASTROINTESTINAL: Abdomen soft, non-tender, nondistended. EXTREMITIES: No cyanosis, or edema. MUSCULOSKELETAL: Adequate muscle tone. NEUROLOGICAL: No obvious focal deficit. Awake, alert, and oriented x3. Assessment/Plan (1) Thrombocytopenia Code(s): D69.6 - Thrombocytopenia, unspecified Status: Acute (2) Hepatitis C virus carrier state Code(s): B18.2 - Chronic viral hepatitis C Status: Chronic - Plan Ms. Hill is a pleasant 82-year-old woman valvular heart disease, status post mitral valve replacement. She is on chronic anticoagulant therapy with Coumadin along with antiplatelet therapy for stent placed a year ago. She was admitted with non-STEMI and was found to have new thrombocytopenia. She has had no bleeding event despite the attempted cardiac catheterization through the arm and the cardiac catheterization through a groin approach today. Workup was negative for HIT antibodies. Hepatitis C carrier state is suspected. She also has fatty liver. She had no response to empiric anticoagulant therapy with Argatroban. Microangiopathic hemolytic process is excluded. Peripheral smear shows no occasional giant platelet and multi nucleated red blood cells to suggest myelodysplastic syndrome. A bone marrow biopsy was offered which she declined. She was started on prednisone 20 mg p.o. 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 1. Noted an increase of her platelet count after getting prednisone 20 mg twice daily yesterday. Continue current dose 2. Monitor CBC 3. Anticoagulation per cardiology - Attending Statement Pt examined. Mild bruising at venepuncture sites only. Care reviewed. Platelets seem to be improving with steroids. Pt decided to go for bone marrow bx early next week if no significant increase in platelet count by 07/04/18,
[2018-07-02] MEDS: Heparin Drip 25,000 UNIT/250 ML BAG IV.CONT PRN (16:47)
[2018-07-02] MEDS: Atenolol 50 MG Tablet PO SCH (20:29)
[2018-07-03] MEDS: Sod Chloride 0.9% Inj 1,000 ML IV.CONT SCH ×2 (01:56→17:12)
[2018-07-03 07:57] LABS: Baso % (Auto) 0.2 % (0.0-2.0); Hematocrit 38.3 % (35.0-46.0); Hemoglobin 13.4 gm/dL (11.6-15.3); Lymph % (Auto) 12.9 % (9.0-44.0); Mean Corpuscular HGB Conc 34.9 % (32.0-36.0); Mean Corpuscular Hemoglobin 31.5 pg (27.0-34.0); Mean Corpuscular Volume 90.2 fL (80.0-100.0); Mean Platelet Volume 10.7 fL (7.0-11.0); Mono # (Auto) 0.4 th/mm3 (0.0-0.9); Mono % (Auto) 5.2 % (0.0-8.0); Neut # (Auto) 6.1 th/mm3 (1.8-7.7); Neut % (Auto) 81.7 % (16.0-70.0); Platelet Count 66 th/mm3 (150-450); Red Blood Count 4.25 mil/mm3 (4.00-5.30); White Blood Count 7.5 th/mm3 (4.0-11.0)
[2018-07-03 08:13] LABS: Activated Partial Thrombo Time 89.6 sec (24.3-30.1); INR 3.1 Ratio; Prothrombin Time 31.1 sec (9.8-11.6)
[2018-07-03] MEDS: Lisinopril 5 MG Tablet PO SCH (08:33)
[2018-07-03] MEDS: Atenolol 25 MG Tablet PO SCH (08:33)
[2018-07-03] MEDS: Isosorbide Mononitrate 60 MG ER 24HR Tablet (Imdur) PO SCH (08:33)
[2018-07-03] MEDS: predniSONE 20 MG Tablet PO SCH ×2 (08:33→20:27)
[2018-07-03] MEDS: Digoxin 125 MCG Tablet PO SCH (08:34)
[2018-07-03] MEDS: dilTIAZem CD 180 MG Capsule PO SCH (08:34)
[2018-07-03 08:57] LABS: Platelet Morphology Normal (Normal)
--- NOTE | 2018-07-03 10:31 | P.PN ---
Subjective Interval history: This is a pleasant 82 y/o Female with diagnosis of NSTEMI, his Primary assurance specialist Dr. De Oliveira following to perform Cardiac Catheterization, on Heparin drip, recommended title specialist consult due to Thrombocytopenia for this reason discontinued Heparin and started on Argatroban IV, was not possible to perform the Cardiac cath yesterday due to Thrombocytopenia. 06/30: he was seen yesterday by ID specialist doctor Jeff Desir unclear about infection after evaluation of the CTA chest, recommended to continue Vancomycin and Aztreonam, follow blood cultures, asked for Mycoplasma for probable atypical Pneumonia. I have been called by [employer] the patient meets inpatient management will switch to inpatient. Seen by Hematology and customer account specialist today, the patient has status post Mitral valve replacement, awaiting for Coagulopathy workup, Cardiac cath using radial Approach was unsuccessful due to bleeding, INR over 4, Hepatitis C asked for Bone Marrow Biopsy to rule out Myelodysplastic syndrome. 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 07/02: Stable. not yet therapeutic her INR 1.3 title specialist following she is on chronic anticoagulation with Coumadin due to Mitral valve replacement and on antiplatelet therapy due to stent placement one year ago, found to have thrombocytopenia, negative workup for HIT , Hepatitis C Carrier state suspected, no response to anticoagulant therapy with Argatroban, Peripheral smear shows no occasional giant platelet and multi nucleated red blood cells to suggest myelodysplastic syndrome. A bone marrow biopsy was offered which she declined. She was started on prednisone 20 mg p.o. 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 07/03: No nausea, vomit or diarrhea, today therapeutic INR 3.1 as per Protocol must overlap two days will follow, also she is waiting for probable Bone Marrow Biopsy for tomorrow. Physical Exam Vital signs: Vital Signs 07/02/18 11:00 07/02/18 11:48 07/02/18 12:00 Temperature 98.2 F Pulse Rate 65 70 62 Respiratory Rate 18 Blood Pressure 149/79 H Pulse Oximetry 98 07/02/18 13:00 07/02/18 14:00 07/02/18 15:00 Temperature Pulse Rate 60 60 65 Respiratory Rate Blood Pressure Pulse Oximetry 07/02/18 16:00 07/02/18 16:37 07/02/18 17:00 Temperature 98 F Pulse Rate 68 62 65 Respiratory Rate 18 Blood Pressure 135/62 Pulse Oximetry 98 07/02/18 18:00 07/02/18 19:00 07/02/18 20:00 Temperature 98.1 F Pulse Rate 65 60 60 Respiratory Rate 18 Blood Pressure 146/67 H Pulse Oximetry 97 07/02/18 21:00 07/02/18 22:00 07/02/18 23:00 Temperature 98 F Pulse Rate 62 65 70 Respiratory Rate 18 Blood Pressure 116/64 Pulse Oximetry 96 07/03/18 00:00 07/03/18 01:00 07/03/18 02:00 Temperature Pulse Rate 70 65 66 Respiratory Rate Blood Pressure Pulse Oximetry 07/03/18 03:00 07/03/18 04:00 07/03/18 05:00 Temperature 98.2 F Pulse Rate 61 61 62 Respiratory Rate 18 Blood Pressure 130/64 Pulse Oximetry 98 07/03/18 06:00 07/03/18 08:22 Temperature 98 F Pulse Rate 64 61 Respiratory Rate 17 Blood Pressure 157/70 H Pulse Oximetry 97 Intake & Output 07/02/18 07/03/18 07/03/18 18:59 06:59 18:59 Intake Total 1969 / 1969 1480 / 1480 Output Total 1400 / 1400 700 / 700 Balance 570 / 570 780 / 780 Weight 60 kg Intake: IV 1250 / 1250 1000 / 1000 Heparin/D5W 25,000 U/250 mL 25, 250 / 250 000 unit In 250 ml @ 700 UNITS/ HR 7 mls/hr IV.CONT TITRATE PRN Rx#:[id number] NS Inj 1,000 ML @ 100 mls/hr IV 1000 / 1000 1000 / 1000 .CONT .Q10H ARGENIS Rx#:[id number] Oral 720 / 720 480 / 480 Output: Urine 1400 / 1400 700 / 700 Other: Date of Last Bowel Movement 07/02/18 # Bowel Movements 2 0 Narrative: GENERAL: No acute distress. CARDIOVASCULAR: Grade 2 systolic murmur left sternal border. Regular rate and rhythm without gallops or rubs. RESPIRATORY: Clear to auscultation. Breath sounds equal bilaterally. GASTROINTESTINAL: Soft, non tender, positive bowel sounds. MUSCULOSKELETAL: No clubbing, cyanosis or edema. right groin dressed. NEUROLOGICAL: Patient is alert and oriented. Results - Labs CBC & Chem 7: 07/03/18 07:00 07/01/18 07:04 Laboratory Results - last 24 hr 06/30/18 07/02/18 07/02/18 05:05 09:46 16:12 WBC RBC Hgb Hct MCV MCH MCHC RDW Plt Count MPV Prelim Diff (Auto) Neut % (Auto) Lymph % (Auto) Anderson % (Auto) Eos % (Auto) Baso % (Auto) Neut # (Auto) Lymph # (Auto) [place] # (Auto) Eos # (Auto) Baso # (Auto) WBC Differential . Diff Scan Auto diff confirmed Differential Comment Platelet Estimate Low L Platelet Morphology Normal PT INR APTT 55.3 H von Willebrand Factor 90 Von Willebrand Act PTT 54 H Phosphatidylserine IgG Less than 10.0 Phosphatidylserine IgA Less than 20.0 Phosphatidylserine IgM Less than 25.0 07/03/18 07/03/18 07:00 07:00 WBC 7.5 RBC 4.25 Hgb 13.4 Hct 38.3 MCV 90.2 MCH 31.5 MCHC 34.9 RDW 13.0 Plt Count 66 L MPV 10.7 Prelim Diff (Auto) Slide review pending Neut % (Auto) 81.7 H Lymph % (Auto) 12.9 Anderson % (Auto) 5.2 Eos % (Auto) 0.0 Baso % (Auto) 0.2 Neut # (Auto) 6.1 Lymph # (Auto) 1.0 Anderson # (Auto) 0.4 Eos # (Auto) 0.0 Baso # (Auto) 0.0 WBC Differential . Diff Scan Auto diff confirmed Differential Comment . Platelet Estimate Low L Platelet Morphology Normal PT 31.1 H D INR 3.1 APTT 89.6 H D von Willebrand Factor Von Willebrand Act PTT Phosphatidylserine IgG Phosphatidylserine IgA Phosphatidylserine IgM - Imaging Chest X-Ray 06/27/18 20:44 CONCLUSION: 1. Compensated cardiomegaly. 2. Lungs remain clear. 3. No significant change from prior. Liver Ultrasound 06/29/18 14:00 CONCLUSION: 1. No evidence of gallstones or biliary tract obstruction. 2. Increased echogenicity of the liver suggestive of fatty infiltration. 3. Mild increased echogenicity of the right renal parenchyma suggestive of chronic medical renal disease. No evidence of hydronephrosis. - Procedures Cardiac Catheterization performed via Right Femoral Artery. Assessment and Plan - Plan This is a pleasant 82 y/o Female with diagnosis of NSTEMI, his Primary assurance specialist Dr. De Oliveira following to perform Cardiac Catheterization, on Heparin drip, recommended title specialist consult due to Thrombocytopenia for this reason discontinued Heparin and started on Argatroban IV, was not possible to perform the Cardiac cath yesterday due to Thrombocytopenia. 06/30: Seen by Hematology and customer account specialist today, the patient has status post Mitral valve replacement, awaiting for Coagulopathy workup, Cardiac cath using radial Approach was unsuccessful due to bleeding, INR over 4, Hepatitis C asked for Bone Marrow Biopsy to rule out Myelodysplastic syndrome. 07/01: Patient refused Bone marrow biopsy. 07/02: not yet therapeutic her INR 1.3 title specialist following she is on chronic anticoagulation with Coumadin due to Mitral valve replacement and on antiplatelet therapy due to stent placement one year ago, found to have thrombocytopenia, negative workup for HIT , Hepatitis C Carrier state suspected, no response to anticoagulant therapy with Argatroban, Peripheral smear shows no occasional giant platelet and multi nucleated red blood cells to suggest myelodysplastic syndrome. A bone marrow biopsy was offered which she declined. She was started on prednisone 20 mg p.o. 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 07/03: Decided now to have her Bone marrow biopsy probable for tomorrow, INR 3.1 as per Protocol may overlap for 2 days will follow Cardiology and Hematology recommendations. History of CAD with heart artery stents: Plan for cardiac catheterization unsuccessful Cardiac cath yesterday and now status post Right groin Cardiac cath and not found pathology by Dr. De Oliveira, started on heparin while Warfarin gives INR therapeutic. Abnormal CTA/Atypical Pneumonia Seen yesterday by ID specialist doctor Jeff Desir unclear about infection after evaluation of the CTA chest, recommended to continue Vancomycin and Aztreonam , follow blood cultures, asked for Mycoplasma for probable atypical Pneumonia, Thrombocytopenia: Hematology oncology consulted. DC heparin. used Argatroban with no improvement, started on Prednisone 20 mg bid to rule out ITP. Hypertension: Continue medication. Hyperlipidemia: Continue medication. Pacemaker: Patient is ventricularly paced. Continue follow-up with her cotton ball bagger. DVT prophylaxis with Argatroban. Code Status: Full code. Discussed Condition With: Patient and Nurse Miss Powell Discharge Planning: Once cleared by specialists.
--- NOTE | 2018-07-03 11:08 | P.PNONC ---
Subjective Interval history: Afebrile Patient sitting up on side of bed States she feels great, wants to ambulate the hallways Feels much more confident about bone marrow biopsy after speaking with Dr. Ambrocio Objective Vital Signs/Intake & Output: Vital Signs 07/02/18 11:48 07/02/18 12:00 07/02/18 13:00 Temperature 98.2 F Pulse Rate 70 62 60 Respiratory Rate 18 Blood Pressure 149/79 H Pulse Oximetry 98 07/02/18 14:00 07/02/18 15:00 07/02/18 16:00 Temperature Pulse Rate 60 65 68 Respiratory Rate Blood Pressure Pulse Oximetry 07/02/18 16:37 07/02/18 17:00 07/02/18 18:00 Temperature 98 F Pulse Rate 62 65 65 Respiratory Rate 18 Blood Pressure 135/62 Pulse Oximetry 98 07/02/18 19:00 07/02/18 20:00 07/02/18 21:00 Temperature 98.1 F Pulse Rate 60 60 62 Respiratory Rate 18 Blood Pressure 146/67 H Pulse Oximetry 97 07/02/18 22:00 07/02/18 23:00 07/03/18 00:00 Temperature 98 F Pulse Rate 65 70 70 Respiratory Rate 18 Blood Pressure 116/64 Pulse Oximetry 96 07/03/18 01:00 07/03/18 02:00 07/03/18 03:00 Temperature 98.2 F Pulse Rate 65 66 61 Respiratory Rate 18 Blood Pressure 130/64 Pulse Oximetry 98 07/03/18 04:00 07/03/18 05:00 07/03/18 06:00 Temperature Pulse Rate 61 62 64 Respiratory Rate Blood Pressure Pulse Oximetry 07/03/18 07:00 07/03/18 08:00 07/03/18 08:22 Temperature 98 F Pulse Rate 63 62 61 Respiratory Rate 17 Blood Pressure 157/70 H Pulse Oximetry 97 07/03/18 09:00 07/03/18 10:00 Temperature Pulse Rate 64 62 Respiratory Rate Blood Pressure Pulse Oximetry Intake & Output 07/02/18 07/03/18 07/03/18 18:59 06:59 18:59 Intake Total 1969 / 1969 1480 / 1480 Output Total 1400 / 1400 700 / 700 Balance 570 / 570 780 / 780 Weight 132 lb 4.438 oz Intake: IV 1250 / 1250 1000 / 1000 Heparin/D5W 25,000 U/250 mL 25, 250 / 250 000 unit In 250 ml @ 700 UNITS/ HR 7 mls/hr IV.CONT TITRATE PRN Rx#:[id number] NS Inj 1,000 ML @ 100 mls/hr IV 1000 / 1000 1000 / 1000 .CONT .Q10H ARGENIS Rx#:[id number] Oral 720 / 720 480 / 480 Output: Urine 1400 / 1400 700 / 700 Other: Date of Last Bowel Movement 07/02/18 # Bowel Movements 2 0 Result Diagrams: 07/03/18 07:00 07/01/18 07:04 Laboratory Results: Laboratory Results - last 24 hr 06/30/18 07/02/18 07/03/18 05:05 16:12 07:00 WBC RBC Hgb Hct MCV MCH MCHC RDW Plt Count MPV Prelim Diff (Auto) Neut % (Auto) Lymph % (Auto) [place] % (Auto) Eos % (Auto) Baso % (Auto) Neut # (Auto) Lymph # (Auto) [place] # (Auto) Eos # (Auto) Baso # (Auto) WBC Differential Diff Scan Differential Comment Platelet Estimate Platelet Morphology PT 31.1 H D INR 3.1 APTT 55.3 H 89.6 H D von Willebrand Factor 90 Von Willebrand Act PTT 54 H Phosphatidylserine IgG Less than 10.0 Phosphatidylserine IgA Less than 20.0 Phosphatidylserine IgM Less than 25.0 07/03/18 07:00 WBC 7.5 RBC 4.25 Hgb 13.4 Hct 38.3 MCV 90.2 MCH 31.5 MCHC 34.9 RDW 13.0 Plt Count 66 L MPV 10.7 Prelim Diff (Auto) Slide review pending Neut % (Auto) 81.7 H Lymph % (Auto) 12.9 [place] % (Auto) 5.2 Eos % (Auto) 0.0 Baso % (Auto) 0.2 Neut # (Auto) 6.1 Lymph # (Auto) 1.0 [place] # (Auto) 0.4 Eos # (Auto) 0.0 Baso # (Auto) 0.0 WBC Differential . Diff Scan Auto diff confirmed Differential Comment . Platelet Estimate Low L Platelet Morphology Normal PT INR APTT von Willebrand Factor Von Willebrand Act PTT Phosphatidylserine IgG Phosphatidylserine IgA Phosphatidylserine IgM Medications: Active Medications Generic Name Dose Route Start Last Admin Trade Name Freq PRN Reason Stop Dose Admin Aspirin 81 mg 06/28/18 18:00 07/03/18 08:39 Aspirin Chew PO 81 mg DAILY ARGENIS Administration Atenolol 50 mg 06/28/18 21:00 07/02/18 20:29 Tenormin PO 50 mg HS ARGENIS Administration Atenolol 25 mg 06/28/18 09:00 07/03/18 08:33 Tenormin PO 25 mg DAILY ARGENIS Administration Digoxin 125 mcg 06/28/18 09:00 07/03/18 08:34 Lanoxin PO 125 mcg DAILY ARGENIS Administration Diltiazem HCl 180 mg 06/28/18 09:00 07/03/18 08:34 Cardizem Cd 24hr PO 180 mg DAILY ARGENIS Administration Sodium Chloride 1,000 mls @ 100 mls/hr 07/01/18 10:00 07/03/18 01:56 Ns Inj IV.CONT 100 mls/hr .Q10H ARGENIS Administration Heparin Sodium/Dextrose 25,000 unit in 250 mls @ 7 mls/hr 07/01/18 13:00 08:30 Heparin/D5w 25,000 U/250 Ml IV.CONT 700 units/hr TITRATE PRN 7 mls/hr Per Protocol Titration Protocol 700 UNITS/HR Isosorbide Mononitrate 60 mg 06/28/18 09:00 07/03/18 08:33 Imdur PO 60 mg DAILY ARGENIS Administration Levothyroxine Sodium 25 mcg 06/28/18 08:00 07/03/18 06:08 Synthroid PO 25 mcg DAILY@0600 ARGENIS Administration Lisinopril 5 mg 06/28/18 09:00 07/03/18 08:33 Prinivil PO 5 mg DAILY [facility] Administration Losartan Potassium 100 mg 06/28/18 09:00 07/03/18 08:33 Cozaar PO 100 mg DAILY [facility] Administration Nitroglycerin 0.5 inch 06/28/18 08:05 07/03/18 06:08 Nitro-Bid 2% Oint TOPICAL Not Given Q6HR [facility] Pravastatin Sodium 10 mg 06/28/18 18:00 07/02/18 17:11 Pravachol PO 10 mg QPM ARGENIS Administration Prednisone 20 mg 06/30/18 21:00 07/03/18 08:33 Deltasone PO 20 mg BID [facility] Administration Sodium Chloride 2 ml 06/27/18 20:44 07/01/18 20:35 Ns Flush IV.FLUSH 2 ml UNSCH PRN Administration FLUSH AFTER USING IV ACCESS Sodium Chloride 2 ml 06/28/18 09:00 07/03/18 08:36 Ns Flush IV.FLUSH 2 ml BID ARGENIS Administration Objective Remarks: ENERAL: Elderly, well-developed patient. SKIN: Warm and dry. Multiple freckles and hyperpigmented skin changes. No bleeding from sites HEAD: Normocephalic. EYES: No scleral icterus. No injection or drainage. NECK: Supple, trachea midline. No JVD or lymphadenopathy. CARDIOVASCULAR: Regular rate and rhythm without murmurs. RESPIRATORY: Breath sounds equal bilaterally. No accessory muscle use. GASTROINTESTINAL: Abdomen soft, non-tender, nondistended. EXTREMITIES: No cyanosis, or edema. MUSCULOSKELETAL: Adequate muscle tone. NEUROLOGICAL: No obvious focal deficit. Awake, alert, and oriented x3. Assessment/Plan (1) Thrombocytopenia Code(s): D69.6 - Thrombocytopenia, unspecified Status: Acute (2) Hepatitis C virus carrier state Code(s): B18.2 - Chronic viral hepatitis C Status: Chronic - Plan Ms. Hill is a pleasant 82-year-old woman valvular heart disease, status post mitral valve replacement. She is on chronic anticoagulant therapy with Coumadin along with antiplatelet therapy for stent placed a year ago. She was admitted with non-STEMI and was found to have new thrombocytopenia. She has had no bleeding event despite the attempted cardiac catheterization through the arm and the cardiac catheterization through a groin approach today. Workup was negative for HIT antibodies. Hepatitis C carrier state is suspected. She also has fatty liver. She had no response to empiric anticoagulant therapy with Argatroban. Microangiopathic hemolytic process is excluded. Peripheral smear shows no occasional giant platelet and multi nucleated red blood cells to suggest myelodysplastic syndrome. A bone marrow biopsy was offered which she declined. She was started on prednisone 20 mg p.o. 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 1. Platelet count continues to increase while on prednisone 20 mg twice daily. 2. As patient is complaining of insomnia; pt has prn Ambien. 3. Her INR is now therapeutic. OK to stop heparin gtt. If she wishes to have bone marrow biopsy while inpatient her INR will need to be reversed. It may be a better option to discharge patient and then bring her back as outpatient for procedure. - Attending Statement Pt doing very well. Coumadin therapeutic. No bleeding. Platelets improving with steroids. May be able to avoid bone marrow if response to steroids is confirmed. Advised to discuss with Dr. Al in AM. D/w Dr. De Oliveira.
--- NOTE | 2018-07-03 11:21 | P.PNCA ---
Subjective Interval history: no angina, no complaints Medications and Allergies Active Medications: Active Medications Acetaminophen (Tylenol) 500 mg PO Q4H PRN PRN Reason: HEADACHE Aspirin (Aspirin Chew) 81 mg PO DAILY [facility] Last Admin: 07/03/18 08:39 Dose: 81 mg Atenolol (Tenormin) 50 mg PO HS [facility] Last Admin: 07/02/18 20:29 Dose: 50 mg Atenolol (Tenormin) 25 mg PO DAILY [facility] Last Admin: 07/03/18 08:33 Dose: 25 mg Digoxin (Lanoxin) 125 mcg PO DAILY [facility] Last Admin: 07/03/18 08:34 Dose: 125 mcg Diltiazem HCl (Cardizem Cd 24hr) 180 mg PO DAILY [facility] Last Admin: 07/03/18 08:34 Dose: 180 mg Sodium Chloride (Ns Inj) 1,000 mls @ 100 mls/hr IV.CONT .Q10H [facility] Last Admin: 07/03/18 01:56 Dose: 100 mls/hr Isosorbide Mononitrate (Imdur) 60 mg PO DAILY [facility] Last Admin: 07/03/18 08:33 Dose: 60 mg Levothyroxine Sodium (Synthroid) 25 mcg PO DAILY@0600 [facility] Last Admin: 07/03/18 06:08 Dose: 25 mcg Lisinopril (Prinivil) 5 mg PO DAILY [facility] Last Admin: 07/03/18 08:33 Dose: 5 mg Losartan Potassium (Cozaar) 100 mg PO DAILY [facility] Last Admin: 07/03/18 08:33 Dose: 100 mg Nitroglycerin (Nitro-Bid 2% Oint) 0.5 inch TOPICAL Q6HR [facility] Last Admin: 07/03/18 06:08 Dose: Not Given Pravastatin Sodium (Pravachol) 10 mg PO QPM [facility] Last Admin: 07/02/18 17:11 Dose: 10 mg Prednisone (Deltasone) 20 mg PO BID [facility] Last Admin: 07/03/18 08:33 Dose: 20 mg Sodium Chloride (Ns Flush) 2 ml IV.FLUSH UNSCH PRN PRN Reason: FLUSH AFTER USING IV ACCESS Last Admin: 07/01/18 20:35 Dose: 2 ml Sodium Chloride (Ns Flush) 2 ml IV.FLUSH BID [facility] Last Admin: 07/03/18 08:36 Dose: 2 ml Sodium Chloride (Ns Flush) 2 ml IV.FLUSH PRN PRN PRN Reason: FLUSH AFTER USING IV ACCESS Warfarin Sodium (Coumadin) 3 mg PO DAILY@1600 ARGENIS Warfarin Sodium (Coumadin) 1 mg PO ONCE ONE Stop: 07/03/18 16:01 Zolpidem Tartrate (Ambien) 5 mg PO HS PRN PRN Reason: INSOMNIA Allergies Allergy/AdvReac Type Severity Reaction Status Date / Time metronidazole Allergy Severe RASH Verified 06/27/18 20:21 diphenhydramine AdvReac Anxiety Verified 06/27/18 20:21 [From [facility]] Home Medications Medication Instructions Recorded Confirmed Type atenolol 25 mg PO DAILY 06/27/18 06/28/18 History digoxin 0.125 mg PO DAILY 06/27/18 06/27/18 History diltiazem HCl 180 mg PO DAILY 06/27/18 06/27/18 History isosorbide mononitrate 60 mg PO QAM 06/27/18 06/27/18 History levothyroxine 25 mcg PO DAILY 06/27/18 06/27/18 History lisinopril 5 mg PO DAILY 06/27/18 06/27/18 History losartan 100 mg PO DAILY 06/27/18 06/27/18 History magnesium 250 mg PO DAILY 06/27/18 06/27/18 History nitroglycerin [Nitrostat] 0.4 mg SUBLINGUAL Q5-15M PRN 06/27/18 06/27/18 History simvastatin 5 mg PO QPM 06/27/18 06/27/18 History warfarin 5 mg PO [id number] 06/27/18 06/27/18 History atenolol 50 mg PO HS 06/28/18 06/28/18 History Physical Exam Vital signs: Vital Signs 07/02/18 11:48 07/02/18 12:00 07/02/18 13:00 Temperature 98.2 F Pulse Rate 70 62 60 Respiratory Rate 18 Blood Pressure 149/79 H Pulse Oximetry 98 07/02/18 14:00 07/02/18 15:00 07/02/18 16:00 Temperature Pulse Rate 60 65 68 Respiratory Rate Blood Pressure Pulse Oximetry 07/02/18 16:37 07/02/18 17:00 07/02/18 18:00 Temperature 98 F Pulse Rate 62 65 65 Respiratory Rate 18 Blood Pressure 135/62 Pulse Oximetry 98 07/02/18 19:00 07/02/18 20:00 07/02/18 21:00 Temperature 98.1 F Pulse Rate 60 60 62 Respiratory Rate 18 Blood Pressure 146/67 H Pulse Oximetry 97 07/02/18 22:00 07/02/18 23:00 07/03/18 00:00 Temperature 98 F Pulse Rate 65 70 70 Respiratory Rate 18 Blood Pressure 116/64 Pulse Oximetry 96 07/03/18 01:00 07/03/18 02:00 07/03/18 03:00 Temperature 98.2 F Pulse Rate 65 66 61 Respiratory Rate 18 Blood Pressure 130/64 Pulse Oximetry 98 07/03/18 04:00 07/03/18 05:00 07/03/18 06:00 Temperature Pulse Rate 61 62 64 Respiratory Rate Blood Pressure Pulse Oximetry 07/03/18 07:00 07/03/18 08:00 07/03/18 08:22 Temperature 98 F Pulse Rate 63 62 61 Respiratory Rate 17 Blood Pressure 157/70 H Pulse Oximetry 97 07/03/18 09:00 07/03/18 10:00 Temperature Pulse Rate 64 62 Respiratory Rate Blood Pressure Pulse Oximetry Intake & Output 07/02/18 07/03/18 07/03/18 18:59 06:59 18:59 Intake Total 1969 / 1969 1480 / 1480 Output Total 1400 / 1400 700 / 700 Balance 570 / 570 780 / 780 Weight 60 kg Intake: IV 1250 / 1250 1000 / 1000 Heparin/D5W 25,000 U/250 mL 25, 250 / 250 000 unit In 250 ml @ 700 UNITS/ HR 7 mls/hr IV.CONT TITRATE PRN Rx#:[id number] NS Inj 1,000 ML @ 100 mls/hr IV 1000 / 1000 1000 / 1000 .CONT .Q10H ARGENIS Rx#:[id number] Oral 720 / 720 480 / 480 Output: Urine 1400 / 1400 700 / 700 Other: Date of Last Bowel Movement 07/02/18 # Bowel Movements 2 0 Narrative: GENERAL: No acute distress. CARDIOVASCULAR: Click S1, nl S2 RRR, Grade 2 systolic murmur left sternal border. RESPIRATORY: Clear to auscultation. Breath sounds equal bilaterally. GASTROINTESTINAL: Soft, non tender, positive bowel sounds. MUSCULOSKELETAL: No clubbing, cyanosis or edema. right groin dressed. NEUROLOGICAL: Patient is alert and oriented. Results 07/03/18 07:00 07/01/18 07:04 Coagulation 07/01/18 07/02/18 07/02/18 Range/Units 18:35 01:06 07:15 PT 13.4 H (9.8-11.6) sec APTT 30.9 H 38.7 H D 56.2 H D (24.3-30.1) sec 07/02/18 07/03/18 Range/Units 16:12 07:00 PT 31.1 H D (9.8-11.6) sec APTT 55.3 H 89.6 H D (24.3-30.1) sec CBC 07/02/18 07/03/18 Range/Units 09:46 07:00 WBC 8.1 7.5 (4.0-11.0) th/mm3 RBC 4.78 4.25 (4.00-5.30) mil/mm3 Hgb 15.1 13.4 (11.6-15.3) gm/dL Hct 43.3 38.3 (35.0-46.0) % Plt Count 59 L 66 L (150-450) th/mm3 Neut # (Auto) 6.4 6.1 (1.8-7.7) th/mm3 Lymph # (Auto) 1.3 1.0 (1.0-4.8) th/mm3 [place] # (Auto) 0.4 0.4 (0.0-0.9) th/mm3 Eos # (Auto) 0.0 0.0 (0.0-0.4) th/mm3 Baso # (Auto) 0.0 0.0 (0.0-0.2) th/mm3 Intake and Output 07/02/18 07/03/18 07/03/18 22:59 06:59 14:59 Intake Total 1969 / 1969 1480 / 1480 Output Total 1400 / 1400 700 / 700 Balance 570 / 570 780 / 780 Intake: IV 1250 / 1250 1000 / 1000 Heparin/D5W 25,000 U/250 mL 25, 250 / 250 000 unit In 250 ml @ 700 UNITS/ HR 7 mls/hr IV.CONT TITRATE PRN Rx#:[id number] NS Inj 1,000 ML @ 100 mls/hr IV 1000 / 1000 1000 / 1000 .CONT .Q10H ARGENIS Rx#:[id number] Oral 720 / 720 480 / 480 Output: Urine 1400 / 1400 700 / 700 Other: Date of Last Bowel Movement 07/02/18 # Bowel Movements 2 0 Weight 60 kg Assessment and Plan - Assessment (1) Non-STEMI (non-ST elevated myocardial infarction) Code(s): I21.4 - Non-ST elevation (NSTEMI) myocardial infarction Status: Acute Plan: No obstructive CAD found/ med therapy (2) History of mitral valve replacement with mechanical valve Code(s): Z95.2 - Presence of prosthetic heart valve Status: Acute Plan: needs INR 2.5-3.5. Will give only 1mg today and then 3mg daily. INR might "overshoot" tomorrow. (3) Thrombocytopenia Code(s): D69.6 - Thrombocytopenia, unspecified Status: Acute Plan: Improved (4) terminal gauger (current) use of anticoagulants Code(s): Z79.01 - group home (current) use of anticoagulants Status: Acute
[2018-07-03] MEDS: Atenolol 50 MG Tablet PO SCH (20:27)
[2018-07-03] MEDS ORDERED: Zolpidem Tartrate 5 MG Tablet PO PRN (21:00)
[2018-07-04 04:57] LABS: Baso % (Auto) 0.1 % (0.0-2.0); Hematocrit 38.8 % (35.0-46.0); Hemoglobin 13.3 gm/dL (11.6-15.3); Lymph # (Auto) 0.6 th/mm3 (1.0-4.8); Lymph % (Auto) 10.2 % (9.0-44.0); Mean Corpuscular HGB Conc 34.2 % (32.0-36.0); Mean Corpuscular Hemoglobin 31.2 pg (27.0-34.0); Mean Corpuscular Volume 91.4 fL (80.0-100.0); Mean Platelet Volume 10.5 fL (7.0-11.0); Mono # (Auto) 0.2 th/mm3 (0.0-0.9); Mono % (Auto) 2.8 % (0.0-8.0); Neut # (Auto) 5.4 th/mm3 (1.8-7.7); Neut % (Auto) 86.9 % (16.0-70.0); Platelet Count 74 th/mm3 (150-450); Red Blood Count 4.25 mil/mm3 (4.00-5.30); Red Cell Distribution Width 12.8 % (11.6-17.2); White Blood Count 6.2 th/mm3 (4.0-11.0)
[2018-07-04 05:22] LABS: INR 4.9 Ratio; Prothrombin Time 49.4 sec (9.8-11.6)
[2018-07-04 07:38] LABS: Platelet Morphology Normal (Normal)
[2018-07-04] MEDS: predniSONE 20 MG Tablet PO SCH (09:52)
[2018-07-04] MEDS: dilTIAZem CD 180 MG Capsule PO SCH (09:52)
[2018-07-04] MEDS: Digoxin 125 MCG Tablet PO SCH (09:52)
[2018-07-04] MEDS: Isosorbide Mononitrate 60 MG ER 24HR Tablet (Imdur) PO SCH (09:52)
[2018-07-04] MEDS: Lisinopril 5 MG Tablet PO SCH (09:53)
[2018-07-04] MEDS: Atenolol 25 MG Tablet PO SCH (09:53)
--- NOTE | 2018-07-04 09:57 | P.PN ---
Subjective Interval history: This is a pleasant 82 y/o Female with diagnosis of NSTEMI, his Primary water rights specialist Dr. De Oliveira following to perform Cardiac Catheterization, on Heparin drip, recommended employee communications specialist consult due to Thrombocytopenia for this reason discontinued Heparin and started on Argatroban IV, was not possible to perform the Cardiac cath yesterday due to Thrombocytopenia. 06/30: he was seen yesterday by ID specialist doctor Jeff Desir unclear about infection after evaluation of the CTA chest, recommended to continue Vancomycin and Aztreonam, follow blood cultures, asked for Mycoplasma for probable atypical Pneumonia. I have been called by [facility] [employer] the patient meets inpatient management will switch to inpatient. Seen by Hematology and cryptologic support specialist today, the patient has status post Mitral valve replacement, awaiting for Coagulopathy workup, Cardiac cath using radial Approach was unsuccessful due to bleeding, INR over 4, Hepatitis C asked for Bone Marrow Biopsy to rule out Myelodysplastic syndrome. 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 07/02: Stable. not yet therapeutic her INR 1.3 employee communications specialist following she is on chronic anticoagulation with Coumadin due to Mitral valve replacement and on antiplatelet therapy due to stent placement one year ago, found to have thrombocytopenia, negative workup for HIT , Hepatitis C Carrier state suspected, no response to anticoagulant therapy with Argatroban, Peripheral smear shows no occasional giant platelet and multi nucleated red blood cells to suggest myelodysplastic syndrome. A bone marrow biopsy was offered which she declined. She was started on prednisone 20 mg p.o. 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 07/03: No nausea, vomit or diarrhea, today therapeutic INR 3.1 as per Protocol must overlap two days will follow, also she is waiting for probable Bone Marrow Biopsy for tomorrow. 07/04:as per cryptologic support specialist wont have Bone marrow biopsy while in house they want to follow outpatient and decide she was recommended for discharge on Steroids and follow from there. no nausea, vomit or diarrhea. as per Cardiology hold dose of Warfarin today and follow in his office tomorrow by Doctor De Oliveira. Physical Exam Vital signs: Vital Signs 07/03/18 10:00 07/03/18 11:00 07/03/18 11:33 Temperature 98.2 F Pulse Rate 62 62 61 Respiratory Rate 18 Blood Pressure 151/76 H Pulse Oximetry 97 07/03/18 12:00 07/03/18 13:00 07/03/18 14:00 Temperature Pulse Rate 65 62 62 Respiratory Rate Blood Pressure Pulse Oximetry 07/03/18 15:00 07/03/18 16:00 07/03/18 17:00 Temperature Pulse Rate 62 60 60 Respiratory Rate Blood Pressure Pulse Oximetry 07/03/18 17:06 07/03/18 18:00 07/03/18 19:00 Temperature 98 F 98.2 F Pulse Rate 60 65 60 Respiratory Rate 18 20 Blood Pressure 135/66 149/77 H Pulse Oximetry 97 97 07/03/18 20:00 07/03/18 21:00 07/03/18 22:00 Temperature Pulse Rate 60 64 62 Respiratory Rate Blood Pressure Pulse Oximetry 07/03/18 23:00 07/04/18 00:00 07/04/18 01:00 Temperature 98 F Pulse Rate 60 60 60 Respiratory Rate 18 Blood Pressure 118/54 L Pulse Oximetry 96 07/04/18 02:00 07/04/18 03:00 07/04/18 04:00 Temperature 98.3 F Pulse Rate 61 60 60 Respiratory Rate 18 Blood Pressure 149/67 H Pulse Oximetry 96 07/04/18 05:00 07/04/18 05:58 Temperature Pulse Rate 61 60 Respiratory Rate Blood Pressure Pulse Oximetry Intake & Output 07/03/18 07/04/18 07/04/18 18:59 06:59 18:59 Intake Total 1460 / 1460 480 / 480 Output Total 1100 / 1100 900 / 900 Balance 360 / 360 -420 / -420 Weight 59 kg Intake: IV 810 / 810 Heparin/D5W 25,000 U/250 mL 25, 110 / 110 000 unit In 250 ml @ 700 UNITS/ HR 7 mls/hr IV.CONT TITRATE PRN Rx#:[id number] NS Inj 1,000 ML @ 100 mls/hr IV 700 / 700 .CONT .Q10H ARGENIS Rx#:[id number] Oral 650 / 650 480 / 480 Output: Urine 1100 / 1100 900 / 900 Other: Date of Last Bowel Movement 07/03/18 # Bowel Movements 3 0 Narrative: GENERAL: No acute distress. CARDIOVASCULAR: Click S1, nl S2 RRR, Grade 2 systolic murmur left sternal border. RESPIRATORY: Clear to auscultation. Breath sounds equal bilaterally. GASTROINTESTINAL: Soft, non tender, positive bowel sounds. MUSCULOSKELETAL: No clubbing, cyanosis or edema. right groin dressed. NEUROLOGICAL: Patient is alert and oriented. Results - Labs CBC & Chem 7: 07/04/18 03:57 07/01/18 07:04 Laboratory Results - last 24 hr 06/30/18 07/03/18 07/04/18 05:05 15:27 03:57 WBC RBC Hgb Hct MCV MCH MCHC RDW Plt Count MPV Prelim Diff (Auto) Neut % (Auto) Lymph % (Auto) [place] % (Auto) Eos % (Auto) Baso % (Auto) Neut # (Auto) Lymph # (Auto) [place] # (Auto) Eos # (Auto) Baso # (Auto) WBC Differential Diff Scan Differential Comment Platelet Estimate Platelet Morphology PT 49.4 H D INR 4.9 APTT 29.4 D Beta-2-GPI IgG Ab Less than 9.0 Beta-2-GPI IgA Ab Less than 9.0 Beta-2-GPI IgM Ab Less than 9.0 Anti-Cardiolipin IgG Ab Less than 14.0 Anti-Cardiolipin IgA Ab Less than 11.0 Anti-Cardiolipin IgM Ab Less than 12.0 07/04/18 03:57 WBC 6.2 RBC 4.25 Hgb 13.3 Hct 38.8 MCV 91.4 MCH 31.2 MCHC 34.2 RDW 12.8 Plt Count 74 L MPV 10.5 Prelim Diff (Auto) Slide review pending Neut % (Auto) 86.9 H Lymph % (Auto) 10.2 [place] % (Auto) 2.8 Eos % (Auto) 0.0 Baso % (Auto) 0.1 Neut # (Auto) 5.4 Lymph # (Auto) 0.6 L [place] # (Auto) 0.2 Eos # (Auto) 0.0 Baso # (Auto) 0.0 WBC Differential . Diff Scan Auto diff confirmed Differential Comment . Platelet Estimate Low L Platelet Morphology Normal PT INR APTT Beta-2-GPI IgG Ab Beta-2-GPI IgA Ab Beta-2-GPI IgM Ab Anti-Cardiolipin IgG Ab Anti-Cardiolipin IgA Ab Anti-Cardiolipin IgM Ab - Imaging Chest X-Ray 06/27/18 20:44 CONCLUSION: 1. Compensated cardiomegaly. 2. Lungs remain clear. 3. No significant change from prior. Liver Ultrasound 06/29/18 14:00 CONCLUSION: 1. No evidence of gallstones or biliary tract obstruction. 2. Increased echogenicity of the liver suggestive of fatty infiltration. 3. Mild increased echogenicity of the right renal parenchyma suggestive of chronic medical renal disease. No evidence of hydronephrosis. - Procedures Cardiac Catheterization performed via Right Femoral Artery. Assessment and Plan - Plan This is a pleasant 82 y/o Female with diagnosis of NSTEMI, his Primary water rights specialist Dr. De Oliveira following to perform Cardiac Catheterization, on Heparin drip, recommended employee communications specialist consult due to Thrombocytopenia for this reason discontinued Heparin and started on Argatroban IV, was not possible to perform the Cardiac cath yesterday due to Thrombocytopenia. 06/30: Seen by Hematology and cryptologic support specialist today, the patient has status post Mitral valve replacement, awaiting for Coagulopathy workup, Cardiac cath using radial Approach was unsuccessful due to bleeding, INR over 4, Hepatitis C asked for Bone Marrow Biopsy to rule out Myelodysplastic syndrome. 07/01: Patient refused Bone marrow biopsy. 07/02: not yet therapeutic her INR 1.3 employee communications specialist following she is on chronic anticoagulation with Coumadin due to Mitral valve replacement and on antiplatelet therapy due to stent placement one year ago, found to have thrombocytopenia, negative workup for HIT , Hepatitis C Carrier state suspected, no response to anticoagulant therapy with Argatroban, Peripheral smear shows no occasional giant platelet and multi nucleated red blood cells to suggest myelodysplastic syndrome. A bone marrow biopsy was offered which she declined. She was started on prednisone 20 mg p.o. 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 07/03: Decided now to have her Bone marrow biopsy probable for tomorrow, INR 3.1 as per Protocol may overlap for 2 days will follow Cardiology and Hematology recommendations. 07/04: as per Oncology okay to discharge her INR 4.1 will be off Warfarin today and follow tomorrow by Doctor De Oliveira's Office. will follow as outpatient by Oncology and decide if needs bone marrow biopsy she is improving on Steroids. recommended to continue Prednisone 20 mg BID. History of CAD with heart artery stents: Plan for cardiac catheterization unsuccessful Cardiac cath yesterday and now status post Right groin Cardiac cath and not found pathology by Dr. De Oliveira, started on heparin while Warfarin gives INR therapeutic. Abnormal CTA/Atypical Pneumonia Seen yesterday by ID specialist doctor Jeff Desir unclear about infection after evaluation of the CTA chest, recommended to continue Vancomycin and Aztreonam , follow blood cultures, asked for Mycoplasma for probable atypical Pneumonia, Thrombocytopenia: Hematology oncology consulted. DC heparin. used Argatroban with no improvement, started on Prednisone 20 mg bid to rule out ITP. Hypertension: Continue medication. Hyperlipidemia: Continue medication. Pacemaker: Patient is ventricularly paced. Continue follow-up with her extrusion operator. DVT prophylaxis Warfarin. Code Status: Full code. Discussed Condition With: Patient and Nurse. Discharge Planning: Discharge home now.
[2018-07-04 10:56] VITALS: O2SAT 97
[2018-07-04 11:13] VITALS: BP 110/70; RESP 18; TEMP 98.3
--- NOTE | 2018-07-04 12:44 | P.PNONC ---
Subjective Interval history: Patient sitting at the bedside reading, no acute distress. She states she is ready to go home. She denies any bleeding. Denies pain. She is aware that she should follow-up with hematology once discharged to monitor her platelets. Objective Vital Signs/Intake & Output: Vital Signs 07/03/18 13:00 07/03/18 14:00 07/03/18 15:00 Temperature Pulse Rate 62 62 62 Respiratory Rate Blood Pressure Pulse Oximetry 07/03/18 16:00 07/03/18 17:00 07/03/18 17:06 Temperature 98 F Pulse Rate 60 60 60 Respiratory Rate 18 Blood Pressure 135/66 Pulse Oximetry 97 07/03/18 18:00 07/03/18 19:00 07/03/18 20:00 Temperature 98.2 F Pulse Rate 65 60 60 Respiratory Rate 20 Blood Pressure 149/77 H Pulse Oximetry 97 07/03/18 21:00 07/03/18 22:00 07/03/18 23:00 Temperature 98 F Pulse Rate 64 62 60 Respiratory Rate 18 Blood Pressure 118/54 L Pulse Oximetry 96 07/04/18 00:00 07/04/18 01:00 07/04/18 02:00 Temperature Pulse Rate 60 60 61 Respiratory Rate Blood Pressure Pulse Oximetry 07/04/18 03:00 07/04/18 04:00 07/04/18 05:00 Temperature 98.3 F Pulse Rate 60 60 61 Respiratory Rate 18 Blood Pressure 149/67 H Pulse Oximetry 96 07/04/18 05:58 07/04/18 07:00 07/04/18 08:00 Temperature 97 F L Pulse Rate 60 60 60 Respiratory Rate 20 Blood Pressure 130/62 Pulse Oximetry 97 07/04/18 09:00 07/04/18 10:00 07/04/18 11:00 Temperature 98.3 F Pulse Rate 60 60 62 Respiratory Rate 18 Blood Pressure 110/70 Pulse Oximetry 97 Intake & Output 07/03/18 07/04/18 07/04/18 18:59 06:59 18:59 Intake Total 1460 / 1460 480 / 480 Output Total 1100 / 1100 900 / 900 Balance 360 / 360 -420 / -420 Weight 59 kg Intake: IV 810 / 810 Heparin/D5W 25,000 U/250 mL 25, 110 / 110 000 unit In 250 ml @ 700 UNITS/ HR 7 mls/hr IV.CONT TITRATE PRN Rx#:[id number] NS Inj 1,000 ML @ 100 mls/hr IV 700 / 700 .CONT .Q10H ARGENIS Rx#:[id number] Oral 650 / 650 480 / 480 Output: Urine 1100 / 1100 900 / 900 Other: Date of Last Bowel Movement 07/03/18 07/03/18 # Bowel Movements 3 0 Result Diagrams: 07/04/18 03:57 07/01/18 07:04 Laboratory Results: Laboratory Results - last 24 hr 06/30/18 07/03/18 07/04/18 05:05 15:27 03:57 WBC RBC Hgb Hct MCV MCH MCHC RDW Plt Count MPV Prelim Diff (Auto) Neut % (Auto) Lymph % (Auto) [place] % (Auto) Eos % (Auto) Baso % (Auto) Neut # (Auto) Lymph # (Auto) [place] # (Auto) Eos # (Auto) Baso # (Auto) WBC Differential Diff Scan Differential Comment Platelet Estimate Platelet Morphology PT 49.4 H D INR 4.9 APTT 29.4 D Beta-2-GPI IgG Ab Less than 9.0 Beta-2-GPI IgA Ab Less than 9.0 Anti-Cardiolipin IgG Ab Less than 14.0 Anti-Cardiolipin IgA Ab Less than 11.0 Anti-Cardiolipin IgM Ab Less than 12.0 07/04/18 03:57 WBC 6.2 RBC 4.25 Hgb 13.3 Hct 38.8 MCV 91.4 MCH 31.2 MCHC 34.2 RDW 12.8 Plt Count 74 L MPV 10.5 Prelim Diff (Auto) Slide review pending Neut % (Auto) 86.9 H Lymph % (Auto) 10.2 [place] % (Auto) 2.8 Eos % (Auto) 0.0 Baso % (Auto) 0.1 Neut # (Auto) 5.4 Lymph # (Auto) 0.6 L [place] # (Auto) 0.2 Eos # (Auto) 0.0 Baso # (Auto) 0.0 WBC Differential . Diff Scan Auto diff confirmed Differential Comment . Platelet Estimate Low L Platelet Morphology Normal PT INR APTT Beta-2-GPI IgG Ab Beta-2-GPI IgA Ab Anti-Cardiolipin IgG Ab Anti-Cardiolipin IgA Ab Anti-Cardiolipin IgM Ab Medications: Active Medications Generic Name Dose Route Start Last Admin Trade Name Freq PRN Reason Stop Dose Admin Aspirin 81 mg 06/28/18 18:00 07/04/18 09:53 Aspirin Chew PO 81 mg DAILY ARGENIS Administration Atenolol 50 mg 06/28/18 21:00 07/03/18 20:27 Tenormin PO 50 mg HS ARGENIS Administration Atenolol 25 mg 06/28/18 09:00 07/04/18 09:53 Tenormin PO 25 mg DAILY ARGENIS Administration Digoxin 125 mcg 06/28/18 09:00 07/04/18 09:52 Lanoxin PO 125 mcg DAILY ARGENIS Administration Diltiazem HCl 180 mg 06/28/18 09:00 07/04/18 09:52 Cardizem Cd 24hr PO 180 mg DAILY ARGENIS Administration Isosorbide Mononitrate 60 mg 06/28/18 09:00 07/04/18 09:52 Imdur PO 60 mg DAILY ARGENIS Administration Levothyroxine Sodium 25 mcg 06/28/18 08:00 07/04/18 05:32 Synthroid PO 25 mcg DAILY@0600 ARGENIS Administration Lisinopril 5 mg 06/28/18 09:00 07/04/18 09:53 Prinivil PO 5 mg DAILY ARGENIS Administration Losartan Potassium 100 mg 06/28/18 09:00 07/04/18 09:52 Cozaar PO 100 mg DAILY ARGENIS Administration Pravastatin Sodium 10 mg 06/28/18 18:00 07/03/18 17:10 Pravachol PO 10 mg QPM ARGENIS Administration Prednisone 20 mg 06/30/18 21:00 07/04/18 09:52 Deltasone PO 20 mg BID ARGENIS Administration Sodium Chloride 2 ml 06/27/18 20:44 07/01/18 20:35 Ns Flush IV.FLUSH 2 ml UNSCH PRN Administration FLUSH AFTER USING IV ACCESS Sodium Chloride 2 ml 06/28/18 09:00 07/04/18 09:53 Ns Flush IV.FLUSH 2 ml BID ARGENIS Administration Zolpidem Tartrate 5 mg 07/03/18 21:00 07/03/18 20:30 Ambien PO 5 mg HS PRN Administration INSOMNIA Objective Remarks: GENERAL: Well-nourished, well-developed female patient, in no acute distress. SKIN: Warm and dry. 2 IV to right forearm. HEAD: Normocephalic. EYES: No scleral icterus. No injection or drainage. NECK: Supple, trachea midline. CARDIOVASCULAR: Regular rate and rhythm. RESPIRATORY: Breath sounds equal bilaterally. Nonlabored at rest. GASTROINTESTINAL: Abdomen soft, non-tender, nondistended. EXTREMITIES: No cyanosis, or edema. MUSCULOSKELETAL: Adequate muscle tone. NEUROLOGICAL: No obvious focal deficit. Awake, alert, and oriented x3. PSYCHIATRIC: Appropriate mood and affect; insight and judgment normal. Assessment/Plan (1) Thrombocytopenia Code(s): D69.6 - Thrombocytopenia, unspecified Status: Acute (2) Hepatitis C virus carrier state Code(s): B18.2 - Chronic viral hepatitis C Status: Chronic - Plan Ms. Hill is a pleasant 82-year-old woman valvular heart disease, status post mitral valve replacement. She is on chronic anticoagulant therapy with Coumadin along with antiplatelet therapy for stent placed a year ago. She was admitted with non-STEMI and was found to have new thrombocytopenia. She has had no bleeding event despite the attempted cardiac catheterization through the arm and the cardiac catheterization through a groin approach today. Workup was negative for HIT antibodies. Hepatitis C carrier state is suspected. She also has fatty liver. She had no response to empiric anticoagulant therapy with Argatroban. Microangiopathic hemolytic process is excluded. Peripheral smear shows no occasional giant platelet and multi nucleated red blood cells to suggest myelodysplastic syndrome. A bone marrow biopsy was offered which she declined. She was started on prednisone 20 mg p.o. 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 1. Platelet count continues to increase, 74,000 today. Currently on prednisone 20 mg twice daily. 2. Patient does not need a bone marrow biopsy at this time, as her platelets continue to increase on prednisone. 3. Her INR is supratherapeutic, 4.9 today. Management per cardiology and attending. 4. Patient is cleared for discharge from a hematology standpoint. He should follow-up with . Patient's information sent a new patient referrals and she has been provided with the outpatient telephone numbers.
--- NOTE | 2018-07-04 14:09 | P.PNCA ---
Subjective Interval history: no complaints Medications and Allergies Active Medications: Active Medications Acetaminophen (Tylenol) 500 mg PO Q4H PRN PRN Reason: HEADACHE Aspirin (Aspirin Chew) 81 mg PO DAILY [facility] Last Admin: 07/04/18 09:53 Dose: 81 mg Atenolol (Tenormin) 50 mg PO HS [facility] Last Admin: 07/03/18 20:27 Dose: 50 mg Atenolol (Tenormin) 25 mg PO DAILY [facility] Last Admin: 07/04/18 09:53 Dose: 25 mg Digoxin (Lanoxin) 125 mcg PO DAILY [facility] Last Admin: 07/04/18 09:52 Dose: 125 mcg Diltiazem HCl (Cardizem Cd 24hr) 180 mg PO DAILY [facility] Last Admin: 07/04/18 09:52 Dose: 180 mg Isosorbide Mononitrate (Imdur) 60 mg PO DAILY [facility] Last Admin: 07/04/18 09:52 Dose: 60 mg Levothyroxine Sodium (Synthroid) 25 mcg PO DAILY@0600 [facility] Last Admin: 07/04/18 05:32 Dose: 25 mcg Lisinopril (Prinivil) 5 mg PO DAILY [facility] Last Admin: 07/04/18 09:53 Dose: 5 mg Losartan Potassium (Cozaar) 100 mg PO DAILY [facility] Last Admin: 07/04/18 09:52 Dose: 100 mg Pravastatin Sodium (Pravachol) 10 mg PO QPM [facility] Last Admin: 07/03/18 17:10 Dose: 10 mg Prednisone (Deltasone) 20 mg PO BID [facility] Last Admin: 07/04/18 09:52 Dose: 20 mg Sodium Chloride (Ns Flush) 2 ml IV.FLUSH UNSCH PRN PRN Reason: FLUSH AFTER USING IV ACCESS Last Admin: 07/01/18 20:35 Dose: 2 ml Sodium Chloride (Ns Flush) 2 ml IV.FLUSH BID [facility] Last Admin: 07/04/18 09:53 Dose: 2 ml Sodium Chloride (Ns Flush) 2 ml IV.FLUSH PRN PRN PRN Reason: FLUSH AFTER USING IV ACCESS Warfarin Sodium (Coumadin) 3 mg PO DAILY@1600 [facility] Zolpidem Tartrate (Ambien) 5 mg PO HS PRN PRN Reason: INSOMNIA Last Admin: 07/03/18 20:30 Dose: 5 mg Allergies Allergy/AdvReac Type Severity Reaction Status Date / Time metronidazole Allergy Severe RASH Verified 06/27/18 20:21 diphenhydramine AdvReac Anxiety Verified 06/27/18 20:21 [From Jennie] Home Medications Medication Instructions Recorded Confirmed Type atenolol 25 mg PO DAILY 06/27/18 06/28/18 History digoxin 0.125 mg PO DAILY 06/27/18 06/27/18 History diltiazem HCl 180 mg PO DAILY 06/27/18 06/27/18 History isosorbide mononitrate 60 mg PO QAM 06/27/18 06/27/18 History levothyroxine 25 mcg PO DAILY 06/27/18 06/27/18 History lisinopril 5 mg PO DAILY 06/27/18 06/27/18 History losartan 100 mg PO DAILY 06/27/18 06/27/18 History magnesium 250 mg PO DAILY 06/27/18 06/27/18 History nitroglycerin [Nitrostat] 0.4 mg SUBLINGUAL Q5-15M PRN 06/27/18 06/27/18 History simvastatin 5 mg PO QPM 06/27/18 06/27/18 History warfarin 5 mg PO [id number] 06/27/18 06/27/18 History atenolol 50 mg PO HS 06/28/18 06/28/18 History Physical Exam Vital signs: Vital Signs 07/03/18 15:00 07/03/18 16:00 07/03/18 17:00 Temperature Pulse Rate 62 60 60 Respiratory Rate Blood Pressure Pulse Oximetry 07/03/18 17:06 07/03/18 18:00 07/03/18 19:00 Temperature 98 F 98.2 F Pulse Rate 60 65 60 Respiratory Rate 18 20 Blood Pressure 135/66 149/77 H Pulse Oximetry 97 97 07/03/18 20:00 07/03/18 21:00 07/03/18 22:00 Temperature Pulse Rate 60 64 62 Respiratory Rate Blood Pressure Pulse Oximetry 07/03/18 23:00 07/04/18 00:00 07/04/18 01:00 Temperature 98 F Pulse Rate 60 60 60 Respiratory Rate 18 Blood Pressure 118/54 L Pulse Oximetry 96 07/04/18 02:00 07/04/18 03:00 07/04/18 04:00 Temperature 98.3 F Pulse Rate 61 60 60 Respiratory Rate 18 Blood Pressure 149/67 H Pulse Oximetry 96 07/04/18 05:00 07/04/18 05:58 07/04/18 07:00 Temperature 97 F L Pulse Rate 61 60 60 Respiratory Rate 20 Blood Pressure 130/62 Pulse Oximetry 97 07/04/18 08:00 07/04/18 09:00 07/04/18 10:00 Temperature Pulse Rate 60 60 60 Respiratory Rate Blood Pressure Pulse Oximetry 07/04/18 11:00 Temperature 98.3 F Pulse Rate 62 Respiratory Rate 18 Blood Pressure 110/70 Pulse Oximetry 97 Intake & Output 07/03/18 07/04/18 07/04/18 18:59 06:59 18:59 Intake Total 1460 / 1460 480 / 480 Output Total 1100 / 1100 900 / 900 Balance 360 / 360 -420 / -420 Weight 59 kg Intake: IV 810 / 810 Heparin/D5W 25,000 U/250 mL 25, 110 / 110 000 unit In 250 ml @ 700 UNITS/ HR 7 mls/hr IV.CONT TITRATE PRN Rx#:[id number] NS Inj 1,000 ML @ 100 mls/hr IV 700 / 700 .CONT .Q10H ARGENIS Rx#:[id number] Oral 650 / 650 480 / 480 Output: Urine 1100 / 1100 900 / 900 Other: Date of Last Bowel Movement 07/03/18 07/03/18 # Bowel Movements 3 0 Narrative: GENERAL: No acute distress. CARDIOVASCULAR: Click S1, nl S2 RRR, Grade 2 systolic murmur left sternal border. RESPIRATORY: Clear to auscultation. Breath sounds equal bilaterally. GASTROINTESTINAL: Soft, non tender, positive bowel sounds. MUSCULOSKELETAL: No clubbing, cyanosis or edema. right groin dressed. NEUROLOGICAL: Patient is alert and oriented. Results 07/04/18 03:57 07/01/18 07:04 Coagulation 07/02/18 07/03/18 07/03/18 Range/Units 16:12 07:00 15:27 PT 31.1 H D (9.8-11.6) sec APTT 55.3 H 89.6 H D 29.4 D (24.3-30.1) sec 07/04/18 Range/Units 03:57 PT 49.4 H D (9.8-11.6) sec APTT (24.3-30.1) sec CBC 07/03/18 07/04/18 Range/Units 07:00 03:57 WBC 7.5 6.2 (4.0-11.0) th/mm3 RBC 4.25 4.25 (4.00-5.30) mil/mm3 Hgb 13.4 13.3 (11.6-15.3) gm/dL Hct 38.3 38.8 (35.0-46.0) % Plt Count 66 L 74 L (150-450) th/mm3 Neut # (Auto) 6.1 5.4 (1.8-7.7) th/mm3 Lymph # (Auto) 1.0 0.6 L (1.0-4.8) th/mm3 [place] # (Auto) 0.4 0.2 (0.0-0.9) th/mm3 Eos # (Auto) 0.0 0.0 (0.0-0.4) th/mm3 Baso # (Auto) 0.0 0.0 (0.0-0.2) th/mm3 Intake and Output 07/03/18 07/04/18 07/04/18 22:59 06:59 14:59 Intake Total 1350 / 1350 480 / 480 Output Total 1100 / 1100 900 / 900 Balance 250 / 250 -420 / -420 Intake: IV 700 / 700 NS Inj 1,000 ML @ 100 mls/hr IV 700 / 700 .CONT .Q10H ARGENIS Rx#:[id number] Oral 650 / 650 480 / 480 Output: Urine 1100 / 1100 900 / 900 Other: Date of Last Bowel Movement 07/03/18 07/03/18 # Bowel Movements 3 0 Weight 59 kg Assessment and Plan - Assessment (1) Non-STEMI (non-ST elevated myocardial infarction) Code(s): I21.4 - Non-ST elevation (NSTEMI) myocardial infarction Status: Acute Plan: No obstructive CAD found/ med therapy (2) History of mitral valve replacement with mechanical valve Code(s): Z95.2 - Presence of prosthetic heart valve Status: Acute Plan: INR 4.9 - no warfarin today. Checheck INR my office tomorrow. (3) Thrombocytopenia Code(s): D69.6 - Thrombocytopenia, unspecified Status: Acute Plan: Improved (4) USP (current) use of anticoagulants Code(s): Z79.01 - USP (current) use of anticoagulants Status: Acute - Plan OK to DC home and I will follow as OP.
[2018-07-04 16:11] VITALS: PULSE 60
--- NOTE | 2018-07-04 18:09 | P.DS ---
Date of admission: 06/30/18 12:07 Primary care physician: UNKNOWN Attending physician on discharge: Ben Davis Anticipated date of discharge: 07/04/18 Brief History from admission: This is an 82-year-old female history of CAD with total of 3 stents most recently April 2017 that presents to ED with complaint of last evening around 6 :00 developing a left arm pain and then a pressure in the top of her head with some shortness of breath. She states these are the symptoms that she has had in the past when needing stents. Denies diaphoresis. Symptoms lasted about 3 hours. She tried nitroglycerin at home without any change in symptoms. She was given sublingual nitroglycerin in the emergency department which did seem to help. Currently denies chest discomfort. Voices compliance with all medications. Takes warfarin as she has a mechanical mitral valve. History of CAD with stents. History of mitral valve replacement. Hypertension and hyperlipidemia. There is family history of CAD. She is a non-smoker. DS: Diagnosis - Discharge Diagnosis (1) CAD (coronary artery disease) Status: Acute (2) Chest pain, rule out acute myocardial infarction Status: Acute (3) History of mitral valve replacement with mechanical valve Status: Acute (4) Thrombocytopenia Status: Acute DS: Medications - Discharge Medications Prescriptions: aspirin 81 mg PO DAILY #30 tab prednisone 20 mg PO BID #60 tab DS: Summary Hospital Course: This is a pleasant 82 y/o Female with diagnosis of NSTEMI, his Primary business account specialist Dr. De Oliveira following to perform Cardiac Catheterization, on Heparin drip, recommended senior procurement specialist consult due to Thrombocytopenia for this reason discontinued Heparin and started on Argatroban IV, was not possible to perform the Cardiac cath yesterday due to Thrombocytopenia. 06/30: he was seen yesterday by ID specialist doctor Jeff Desir unclear about infection after evaluation of the CTA chest, recommended to continue Vancomycin and Aztreonam, follow blood cultures, asked for Mycoplasma for probable atypical Pneumonia. I have been called by [employer] the patient meets inpatient management will switch to inpatient. Seen by Hematology and redevelopment specialist today, the patient has status post Mitral valve replacement, awaiting for Coagulopathy workup, Cardiac cath using radial Approach was unsuccessful due to bleeding, INR over 4, Hepatitis C asked for Bone Marrow Biopsy to rule out Myelodysplastic syndrome. 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 07/02: Stable. not yet therapeutic her INR 1.3 senior procurement specialist following she is on chronic anticoagulation with Coumadin due to Mitral valve replacement and on antiplatelet therapy due to stent placement one year ago, found to have thrombocytopenia, negative workup for HIT , Hepatitis C Carrier state suspected, no response to anticoagulant therapy with Argatroban, Peripheral smear shows no occasional giant platelet and multi nucleated red blood cells to suggest myelodysplastic syndrome. A bone marrow biopsy was offered which she declined. She was started on prednisone 20 mg p.o. 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 07/03: No nausea, vomit or diarrhea, today therapeutic INR 3.1 as per Protocol must overlap two days will follow, also she is waiting for probable Bone Marrow Biopsy for tomorrow. 07/04:as per redevelopment specialist wont have Bone marrow biopsy while in house they want to follow outpatient and decide she was recommended for discharge on Steroids and follow from there. no nausea, vomit or diarrhea. as per Cardiology hold dose of Warfarin today and follow in his office tomorrow by Doctor De Oliveira. Assessment and Plan - Plan This is a pleasant 82 y/o Female with diagnosis of NSTEMI, his Primary business account specialist Dr. De Oliveira following to perform Cardiac Catheterization, on Heparin drip, recommended senior procurement specialist consult due to Thrombocytopenia for this reason discontinued Heparin and started on Argatroban IV, was not possible to perform the Cardiac cath yesterday due to Thrombocytopenia. 06/30: Seen by Hematology and redevelopment specialist today, the patient has status post Mitral valve replacement, awaiting for Coagulopathy workup, Cardiac cath using radial Approach was unsuccessful due to bleeding, INR over 4, Hepatitis C asked for Bone Marrow Biopsy to rule out Myelodysplastic syndrome. 07/01: Patient refused Bone marrow biopsy. 07/02: not yet therapeutic her INR 1.3 senior procurement specialist following she is on chronic anticoagulation with Coumadin due to Mitral valve replacement and on antiplatelet therapy due to stent placement one year ago, found to have thrombocytopenia, negative workup for HIT , Hepatitis C Carrier state suspected, no response to anticoagulant therapy with Argatroban, Peripheral smear shows no occasional giant platelet and multi nucleated red blood cells to suggest myelodysplastic syndrome. A bone marrow biopsy was offered which she declined. She was started on prednisone 20 mg p.o. 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 07/03: Decided now to have her Bone marrow biopsy probable for tomorrow, INR 3.1 as per Protocol may overlap for 2 days will follow Cardiology and Hematology recommendations. 07/04: as per Oncology okay to discharge her INR 4.1 will be off Warfarin today and follow tomorrow by Doctor De Oliveira's Office. will follow as outpatient by Oncology and decide if needs bone marrow biopsy she is improving on Steroids. recommended to continue Prednisone 20 mg BID. History of CAD with heart artery stents: Plan for cardiac catheterization unsuccessful Cardiac cath yesterday and now status post Right groin Cardiac cath and not found pathology by Dr. De Oliveira, started on heparin while Warfarin gives INR therapeutic. Abnormal CTA/Atypical Pneumonia Seen yesterday by ID specialist doctor Jeff Desir unclear about infection after evaluation of the CTA chest, recommended to continue Vancomycin and Aztreonam , follow blood cultures, asked for Mycoplasma for probable atypical Pneumonia, Thrombocytopenia: Hematology oncology consulted. DC heparin. used Argatroban with no improvement, started on Prednisone 20 mg bid to rule out ITP. Hypertension: Continue medication. Hyperlipidemia: Continue medication. Pacemaker: Patient is ventricularly paced. Continue follow-up with her paleobotanist. DVT prophylaxis Warfarin. Code Status: Full code. Discussed Condition With: Patient and Nurse. Discharge Planning: Discharge home now. - Time Spent with Patient Total time spent providing and/or coordinating discharge services: Greater than 30 minutes - Quality: VTE Deep Vein Thrombosis/Pulmonary Embolism Present on Admission: No Exam Vital signs: Vital Signs 07/03/18 19:00 07/03/18 20:00 07/03/18 21:00 Temperature 98.2 F Pulse Rate 60 60 64 Respiratory Rate 20 Blood Pressure 149/77 H Pulse Oximetry 97 07/03/18 22:00 07/03/18 23:00 07/04/18 00:00 Temperature 98 F Pulse Rate 62 60 60 Respiratory Rate 18 Blood Pressure 118/54 L Pulse Oximetry 96 07/04/18 01:00 07/04/18 02:00 07/04/18 03:00 Temperature 98.3 F Pulse Rate 60 61 60 Respiratory Rate 18 Blood Pressure 149/67 H Pulse Oximetry 96 07/04/18 04:00 07/04/18 05:00 07/04/18 05:58 Temperature Pulse Rate 60 61 60 Respiratory Rate Blood Pressure Pulse Oximetry 07/04/18 07:00 07/04/18 08:00 07/04/18 09:00 Temperature 97 F L Pulse Rate 60 60 60 Respiratory Rate 20 Blood Pressure 130/62 Pulse Oximetry 97 07/04/18 10:00 07/04/18 11:00 07/04/18 12:00 Temperature 98.3 F Pulse Rate 60 62 60 Respiratory Rate 18 Blood Pressure 110/70 Pulse Oximetry 97 Intake & Output 07/03/18 07/04/18 07/04/18 18:59 06:59 18:59 Intake Total 1460 / 1460 480 / 480 Output Total 1100 / 1100 900 / 900 Balance 360 / 360 -420 / -420 Weight 59 kg Intake: IV 810 / 810 Heparin/D5W 25,000 U/250 mL 25, 110 / 110 000 unit In 250 ml @ 700 UNITS/ HR 7 mls/hr IV.CONT TITRATE PRN Rx#:[id number] NS Inj 1,000 ML @ 100 mls/hr IV 700 / 700 .CONT .Q10H ARGENIS Rx#:[id number] Oral 650 / 650 480 / 480 Output: Urine 1100 / 1100 900 / 900 Other: Date of Last Bowel Movement 07/03/18 07/03/18 # Bowel Movements 3 0 Narrative: GENERAL: No acute distress. CARDIOVASCULAR: Click S1, nl S2 RRR, Grade 2 systolic murmur left sternal border. RESPIRATORY: Clear to auscultation. Breath sounds equal bilaterally. GASTROINTESTINAL: Soft, non tender, positive bowel sounds. MUSCULOSKELETAL: No clubbing, cyanosis or edema. right groin dressed. NEUROLOGICAL: Patient is alert and oriented. Results Procedures completed during hospitalization: Cardiac Catheterization performed via Right Femoral Artery. Labs on day of discharge: Labs from last 24 hours 07/04/18 07/04/18 07/01/18 03:57 03:57 01:18 WBC 6.2 RBC 4.25 Hgb 13.3 Hct 38.8 MCV 91.4 MCH 31.2 MCHC 34.2 RDW 12.8 Plt Count 74 L MPV 10.5 Prelim Diff (Auto) Slide review pending Neut % (Auto) 86.9 H Lymph % (Auto) 10.2 [place] % (Auto) 2.8 Eos % (Auto) 0.0 Baso % (Auto) 0.1 Neut # (Auto) 5.4 Lymph # (Auto) 0.6 L [place] # (Auto) 0.2 Eos # (Auto) 0.0 Baso # (Auto) 0.0 WBC Differential . Diff Scan Auto diff confirmed Differential Comment . Platelet Estimate Low L Platelet Morphology Normal PT 49.4 H D INR 4.9 HCV RNA (PCR) IUs/ml Less than 15 HCV RNA PCR log IUs/ml Less than 1.18 - Impressions ITS Impressions Chest X-Ray 06/27/18 20:44 CONCLUSION: 1. Compensated cardiomegaly. 2. Lungs remain clear. 3. No significant change from prior. Liver Ultrasound 06/29/18 14:00 CONCLUSION: 1. No evidence of gallstones or biliary tract obstruction. 2. Increased echogenicity of the liver suggestive of fatty infiltration. 3. Mild increased echogenicity of the right renal parenchyma suggestive of chronic medical renal disease. No evidence of hydronephrosis. Discharge Plan - Discharge Disposition Patient Disposition: 01 Discharge Home - Discharge Condition Condition: Good - Discharge Order Discharge Orders: Discharge Order (Routine); Ordered 07/04/18 Ordered By: Ben Davis Cardiology Clear for Discharge (Routine); Ordered 07/04/18 Ordered By: Bubba De Oliveira Oncology Clear for Discharge (Routine); Ordered 07/04/18 Ordered By: Madeline Franco - Discharge Details Anticipated Discharge Date: 07/04/18 Discharge Comment: Follow up with PCP in three days - Physicians Team Primary Care Provider: UNKNOWN, Attending Provider: Ben Davis Other Providers: Pedro Crum MD ; Spring Al MD
== END 2018-07-04 16:52 | disposition home or self-care (01) ==
LOC: NEPC 20:11 → NEDA 20:11 → NEPGCP 23:45 → HDIC 06-29 07:31 → HCIS 06-29 07:38 → NEPGCP 06-29 09:10 → H6YA 06-29 09:16 → NEPGCP 06-29 09:22 → HCIS 06-29 15:32
PROVIDERS: ADMIT Internal Medicine; ATTEND Internal Medicine

== ENCOUNTER 2018-08-24 12:49 | Observation (INO) ==
--- NOTE | 2018-08-24 13:23 | ED ---
HPI General Chief Complaint: Chest Pain Stated Complaint: chest pain Time Seen by Provider: 08/24/18 13:20 Source: patient Mode of arrival: ambulatory Limitations: no limitations History of Present Illness HPI narrative: 82-year-old female patient with history of [place], CAD, hypertension , pacemaker, follows up with Dr. De Oliveira, presents to the ER today because substernal chest pains that started while she was shopping. She states is about a 5 out of 10 now, and she had taken 2 doses of her nitroglycerin but states that it did not take her chest discomfort away. She denies any shortness of breath, vomiting, or other symptoms. Modifying Factors: None Associated Signs & Symptoms: Chest pains Risk Factors: Cardiac history Related Data Home Medications Medication Instructions Recorded Confirmed atenolol 25 mg PO DAILY 06/27/18 08/12/18 digoxin 0.125 mg PO DAILY 06/27/18 08/12/18 diltiazem HCl 180 mg PO DAILY 06/27/18 08/12/18 isosorbide mononitrate 60 mg PO QAM 06/27/18 08/12/18 levothyroxine 25 mcg PO DAILY 06/27/18 08/12/18 lisinopril 5 mg PO DAILY 06/27/18 08/12/18 losartan 100 mg PO DAILY 06/27/18 08/12/18 magnesium 250 mg PO DAILY 06/27/18 08/12/18 nitroglycerin [Nitrostat] 0.4 mg SUBLINGUAL Q5-15M PRN 06/27/18 08/12/18 simvastatin 5 mg PO QPM 06/27/18 08/12/18 atenolol 50 mg PO HS 06/28/18 08/12/18 Previous Rx's Medication Instructions Recorded aspirin 81 mg PO DAILY #30 tab 07/04/18 prednisone 20 mg PO BID #60 tab 07/04/18 warfarin 5 mg PO QTUTHSASU #0 tab 07/04/18 Allergies Allergy/AdvReac Type Severity Reaction Status Date / Time metronidazole Allergy Severe RASH Verified 06/27/18 20:21 diphenhydramine AdvReac Anxiety Verified 06/27/18 20:21 [From Benadryl] Review of Systems ROS: all other systems reviewed are negative [facility] Medical History Medical History A-fib (Acute) Anxiety (Acute) GI bleed (Acute) H/O one miscarriage (Acute) Hypertension (Acute) Kidney stone (Acute) Menopause (Acute) Mitral valve disease (Acute) Pacemaker (Acute) Surgical History Surgical History H/O mitral valve replacement (Acute) History of cardiac cath (Acute) Hx of CABG (Acute) Social History Social History Substance History: No History of Abuse Second Hand Smoke Exposure: No Smoking Status: Never smoker How Often Do You Have a Drink Containing Alcohol: Monthly or less Recent Travel in [facility] within the Last 8 Weeks: No Recent Out of Country Travel within the Last 8 Weeks: No Immunization History Tetanus Immunization: Unsure Exam Narrative Exam Narrative: GENERAL: Well-developed elderly white female patient currently in mild distress. Awake and oriented x3. SKIN: Focused skin assessment warm/dry. HEAD: Atraumatic. Normocephalic. EYES: Pupils equal and round. No scleral icterus. No injection or drainage. ENT: No nasal bleeding or discharge. Mucous membranes pink and moist. NECK: Trachea midline. No JVD. CARDIOVASCULAR: Regular rate and rhythm. No murmur appreciated. RESPIRATORY: No accessory muscle use. Clear to auscultation. Breath sounds equal bilaterally. GASTROINTESTINAL: Abdomen soft, non-tender, nondistended. Hepatic and splenic margins not palpable. MUSCULOSKELETAL: No obvious deformities. No clubbing. No cyanosis. No edema. NEUROLOGICAL: Awake and alert. No obvious cranial nerve deficits. Motor grossly within normal limits. Normal speech. PSYCHIATRIC: Appropriate mood and affect; insight and judgment normal. Course Initial Documented Vital Signs Temperature 98 F 08/24/18 13:00 Pulse Rate 72 08/24/18 13:00 Respiratory Rate 20 08/24/18 13:00 Blood Pressure 111/62 08/24/18 13:00 Pulse Oximetry 95 08/24/18 13:00 Last Documented Vital Signs Temperature 98 F 08/24/18 13:00 Pulse Rate 66 08/24/18 13:16 Respiratory Rate 20 08/24/18 13:16 Blood Pressure 111/55 L 08/24/18 13:16 Pulse Oximetry 98 08/24/18 13:16 Medical Decision Making MDM Narrative Medical decision making narrative: Lab work and workup was fairly unremarkable. Considering her history, at this point my plan would be to admit the patient for further cardiac evaluation. Case was briefly discussed with cardiology on- call, Dr. Monroy he would like me to admit patient to chest pain center. Medical Screen Exam Complete: Yes Emergency Medical Condition: Yes Differential Diagnosis Differential Diagnosis: Unstable angina versus ACS versus dysrhythmias versus electrolyte abnormalities versus pneumonia Lab Data Lab results reviewed: Yes I reviewed the patient's lab results. Result diagrams: 08/24/18 13:10 08/24/18 13:10 Lab Results 08/24/18 08/24/18 08/24/18 Range/Units 13:10 13:10 13:10 WBC 8.2 (4.0-11.0) th/mm3 RBC 3.73 L (4.00-5.30) mil/mm3 Hgb 12.6 (11.6-15.3) gm/dL Hct 36.0 (35.0-46.0) % MCV 96.6 (80.0-100.0) fL MCH 33.8 (27.0-34.0) pg MCHC 35.0 (32.0-36.0) % RDW 15.3 (11.6-17.2) % Plt Count 61 L (150-450) th/mm3 MPV 9.5 (7.0-11.0) fL Prelim Diff (Auto) Slide review pending Neut % (Auto) 94.9 H (16.0-70.0) % Lymph % (Auto) 3.2 L (9.0-44.0) % Villalba % (Auto) 1.5 (0.0-8.0) % Eos % (Auto) 0.1 (0.0-4.0) % Baso % (Auto) 0.3 (0.0-2.0) % Neut # (Auto) 7.7 (1.8-7.7) th/mm3 Lymph # (Auto) 0.3 L (1.0-4.8) th/mm3 Villalba # (Auto) 0.1 (0.0-0.9) th/mm3 Eos # (Auto) 0.0 (0.0-0.4) th/mm3 Baso # (Auto) 0.0 (0.0-0.2) th/mm3 WBC Differential . Diff Scan Auto diff confirmed Differential Comment . Platelet Estimate Low L (Normal) Platelet Morphology Normal (Normal) RBC Morphology Normal (Normal) Sodium 140 (136-145) meq/L Potassium 4.5 (3.5-5.1) meq/L Chloride 107 (98-107) meq/L Carbon Dioxide 25.8 (21.0-32.0) meq/L Anion Gap 7 (5-15) meq/L BUN 30 H (7-18) mg/dL Creatinine 0.80 (0.50-1.00) mg/dL Estimated GFR 68 L (>89) mL/min Random Glucose 121 H (74-106) mg/dL Calcium 8.5 (8.5-10.1) mg/dL Total Bilirubin 0.5 (0.2-1.0) mg/dL AST 36 (15-37) U/L ALT 77 H (10-53) U/L Alkaline Phosphatase 54 (45-117) U/L Troponin I Less than 0.02 L (0.02-0.05) ng/mL B-Natriuretic Peptide 100 (0-100) pg/mL Total Protein 5.9 L (6.4-8.2) g/dL Albumin 2.9 L (3.4-5.0) g/dL Imaging Data Attestation: I personally reviewed and interpreted this imaging study as follows : Radiologist's impression: Chest X-Ray 08/24/18 13:21 CONCLUSION: 1. Cardiomegaly. 2. No focal infiltrate or pulmonary vascular congestion. ECG Data Attestation: I personally reviewed and interpreted this ECG as follows: Interpretation: EKG shows a intermittently paced rhythm at a rate of 63 bpm. Discharge Plan Discharge Disposition Patient Disposition: ED Admit(ED Internal Use Only) Discharge Condition Condition: Stable Discharge Order Discharge Orders: ED Use Only Admit Order (Routine); Ordered 08/24/18 Ordered By: Dylan Peralta Discharge Details Anticipated Discharge Date: 08/24/18 Diagnosis: Chest pain Physicians Team ED Provider: Dylan Peralta Primary Care Provider: Radha Tucker Rxs /Orders / Referrals /Forms Prescriptions: No Action diltiazem HCl 180 mg Capsule,Extended Release 24 Hr 180 mg PO DAILY RF: 0 atenolol 25 mg Tablet 25 mg PO DAILY RF: 0 isosorbide mononitrate 60 mg Tablet Extended Release 24 Hr 60 mg PO QAM RF: 0 simvastatin 5 mg Tablet 5 mg PO QPM RF: 0 nitroglycerin [Nitrostat] 0.4 mg Tablet, Sublingual 0.4 mg SUBLINGUAL Q5-15M PRN (Reason: Chest Pain) RF: 0 magnesium 250 mg Tablet 250 mg PO DAILY RF: 0 lisinopril 5 mg Tablet 5 mg PO DAILY RF: 0 digoxin 125 mcg Tablet 0.125 mg PO DAILY RF: 0 losartan 100 mg Tablet 100 mg PO DAILY RF: 0 levothyroxine 25 mcg Capsule 25 mcg PO DAILY RF: 0 atenolol 50 mg Tablet 50 mg PO HS RF: 0 prednisone 20 mg Tablet 20 mg PO BID Qty: 60 RF: 0 aspirin 81 mg Tablet,Chewable 81 mg PO DAILY Qty: 30 RF: 0 warfarin 5 mg Tablet 5 mg PO QTUTHSASU Qty: 0 RF: 0 Discharge Instructions Patient Printed Instructions: Chest Pain (ED) Status ED Status: Admitted Patient
--- NOTE | 2018-08-24 14:05 | XR ---
EXAM DATE: 08/24/2018 1:44 PM EST AGE/SEX: 82 years / Female INDICATIONS: Chest pain and short of breath. CLINICAL DATA: This is the patient's initial encounter. Patient reports that signs and symptoms have been present for 1 month and indicates a pain score of 4/10. MEDICAL/SURGICAL HISTORY: Cardiovascular disease. . Pacemaker. Mitral valve replacement. COMPARISON: [facility] – [place] CHEST 1V SINGLE AP, 06/27/2018. . FINDINGS: The heart is enlarged. Median sternotomy wires are noted status post cardiac surgery. Left subclavian dual lead pacemaker has its tips in right atrium and right ventricle. No pneumothorax is noted. No p ulmonary vascular congestion is noted. The lungs are clear. CONCLUSION: 1. Cardiomegaly. 2. No focal infiltrate or pulmonary vascular congestion. Electronically signed by: Seb Awad MD Board Certified Radiologist 08/24/2018 2:03 PM EST
[2018-08-24 14:23] LABS: Baso % (Auto) 0.3 % (0.0-2.0); Eos % (Auto) 0.1 % (0.0-4.0); Hemoglobin 12.6 gm/dL (11.6-15.3); Lymph # (Auto) 0.3 th/mm3 (1.0-4.8); Lymph % (Auto) 3.2 % (9.0-44.0); Mean Corpuscular Hemoglobin 33.8 pg (27.0-34.0); Mean Corpuscular Volume 96.6 fL (80.0-100.0); Mean Platelet Volume 9.5 fL (7.0-11.0); Mono # (Auto) 0.1 th/mm3 (0.0-0.9); Mono % (Auto) 1.5 % (0.0-8.0); Neut # (Auto) 7.7 th/mm3 (1.8-7.7); Neut % (Auto) 94.9 % (16.0-70.0); Platelet Count 61 th/mm3 (150-450); Red Blood Count 3.73 mil/mm3 (4.00-5.30); Red Cell Distribution Width 15.3 % (11.6-17.2); White Blood Count 8.2 th/mm3 (4.0-11.0)
[2018-08-24 14:42] LABS: Alanine Aminotransferase 77 U/L (10-53); Albumin 2.9 g/dL (3.4-5.0); Anion Gap 7 meq/L (5-15); Aspartate Aminotransferase 36 U/L (15-37); Blood Urea Nitrogen 30 mg/dL (7-18); Calcium 8.5 mg/dL (8.5-10.1); Carbon Dioxide 25.8 meq/L (21.0-32.0); Chloride 107 meq/L (98-107); Glomerular Filtration Rate 68 mL/min (>89); Glucose,Random 121 mg/dL (74-106); Potassium 4.5 meq/L (3.5-5.1); Sodium 140 meq/L (136-145)
[2018-08-24 14:46] LABS: Alkaline Phosphatase 54 U/L (45-117); Total Protein 5.9 g/dL (6.4-8.2)
[2018-08-24 15:10] LABS: RBC Morphology Normal (Normal)
[2018-08-24 15:11] LABS: Platelet Morphology Normal (Normal)
[2018-08-24] MEDS ORDERED: Acetaminophen 500 MG Tablet PO PRN (15:51)
[2018-08-24 17:27] LABS: Creatine Kinase 24 U/L (26-192)
--- NOTE | 2018-08-24 18:39 | P.HPCA ---
History of Present Illness Primary Care Physician: Radha Tucker DO Chief Complaint: Chest pain History of Present Illness: 82 year old female with history of CAD, lipidemia, hypertension, mechanical mitral valve, atrial fibrillation, thrombocytopenia presents emergency room for further evaluation of nonexertional chest pain. Onset occurred intermittently over the last 2-3 weeks. Today discomfort began between 0930-100 becoming constant around 1030 after finishing shopping. Location left anterior chest. Characterized as a crushing, sharp stabbing pain. No radiation. Associated symptoms included dyspnea. Duration 3-4 hours. Denied nausea, vomiting, or diaphoresis. Took x1 nitro Sl with some relief which allowed her to drive home. Once home pain persisted so she took additional Nitro without relief therefore came to ER for further evaluation. No precipitating factors. Follows with Dr. De Oliveira, last cardiac catheterization 06/30/18 s/p NSTEMI. During that hospitalization was found to have thrombocytopenia. Following with Dr. Al and currently on a tapering Prednisone dose. Past cardiac testing 07/01/2018 Cardiac catheterization (Dr. De Oliveira) Conclusions: 1. Normal hemodynamics. 2. Normal left ventricular systolic function. 3. Mild nonocclusive coronary artery disease 2 previous stents being widely patent. 04/08/2017 Cardiac catheterization (Dr. Hardwick) Conclusions: 1. successful percutaneous coronary intervention/bare metal stent to proximal LAD. 2. Positive FFR to the proximal left anterior descending. 06/13/2015 Cardiac catheterization (Dr. De Oliveira) Impression: Two-vessel coronary artery disease, but the fractional flow reserve measurements indicate that both lesion should be treated medically at this time. I am going to add nitrate therapy on top of her existing medications. 11/29/2013 Cardiac catheterization (Dr. Quintero) Conclusions: Normal ventricular function with known normal valvular function and normal functioning prosthetic mitral valve is seen on transesophageal electrocardiogram and bowel fluoroscopy. 2. Double vessel coronary artery disease as above. 3. Excess full bare-metal stent of the circumflex obtuse marginal #1. [facility] mitral valve replacement 2001 Social history Known coronary artery disease, recalls having either 2-3 cardiac stents. Known hyperlipidemia and hypertension. No known diabetes. - Diagnosis (1) Chest pain, rule out acute myocardial infarction (2) CAD (coronary artery disease) (3) Thrombocytopenia (4) History of mitral valve replacement with mechanical valve Review of Systems All other systems reviewed negative except as stated in HPI PMFSH - History History Provided By: Patient - Medical History Medical History: Medical History (Last Updated 08/24/18 @ 18:30 by LEWIS Caceres) Hyperlipidemia Hypothyroidism Pacemaker A-fib Anxiety GI bleed H/O one miscarriage Hypertension Kidney stone Menopause Mitral valve disease Pacemaker - Surgical History Surgical History: Surgical History (Last Updated 08/24/18 @ 18:30 by LEWIS Caceres) H/O mitral valve replacement with mechanical valve History of cardiac cath - Tobacco History Second Hand Smoke Exposure: No Smoking Status: Never smoker - Alcohol History How Often Do You Have a Drink Containing Alcohol: Monthly or less - Substance Use History Substance History: No History of Abuse - Travel History Recent Travel in the [place] Within the Last 8 Weeks: No Recent Travel Out of the Country Within the Last 8 Weeks: No - Immunization History Tetanus Immunization: Unsure Medications and Allergies Active Medications: Active Medications Acetaminophen (Tylenol) 500 mg PO Q4H PRN PRN Reason: HEADACHE Atenolol (Tenormin) 25 mg PO DAILY ARGENIS Nitroglycerin (Nitrostat Sl) 0.4 mg SL Q5M PRN PRN Reason: CHEST PAIN Ondansetron HCl (Zofran Inj) 4 mg IV.PUSH Q6H PRN PRN Reason: NAUSEA Sodium Chloride (Ns Flush) 2 ml IV.FLUSH UNSCH PRN PRN Reason: FLUSH AFTER USING IV ACCESS Sodium Chloride (Ns Flush) 2 ml IV.FLUSH BID ARGENIS Sodium Chloride (Ns Flush) 2 ml IV.FLUSH PRN PRN PRN Reason: FLUSH AFTER USING IV ACCESS Allergies Allergy/AdvReac Type Severity Reaction Status Date / Time metronidazole Allergy Severe RASH Verified 08/24/18 16:27 diphenhydramine AdvReac Anxiety Verified 08/24/18 16:27 [From Benadryl] Home Medications Medication Instructions Recorded Confirmed Type atenolol 25 mg PO DAILY 06/27/18 08/24/18 History digoxin 0.125 mg PO DAILY 06/27/18 08/24/18 History diltiazem HCl 180 mg PO DAILY 06/27/18 08/24/18 History isosorbide mononitrate 60 mg PO QAM 06/27/18 08/24/18 History levothyroxine 25 mcg PO DAILY 06/27/18 08/24/18 History lisinopril 5 mg PO DAILY 06/27/18 08/24/18 History losartan 100 mg PO DAILY 06/27/18 08/24/18 History magnesium 250 mg PO DAILY 06/27/18 08/24/18 History nitroglycerin [Nitrostat] 0.4 mg SUBLINGUAL Q5-15M PRN 06/27/18 08/24/18 History simvastatin 5 mg PO QPM 06/27/18 08/24/18 History atenolol 50 mg PO HS 06/28/18 08/24/18 History Exam Vital signs: Vital Signs 08/24/18 13:00 08/24/18 13:16 08/24/18 13:35 Temperature 98 F Pulse Rate 72 66 Respiratory Rate 20 20 Blood Pressure 111/62 111/55 L Pulse Oximetry 95 98 97 08/24/18 15:50 08/24/18 16:00 Temperature 98.0 F Pulse Rate 68 64 Respiratory Rate 15 16 Blood Pressure 110/58 L 118/61 Pulse Oximetry 97 94 L Intake & Output 08/23/18 08/24/18 08/24/18 18:59 06:59 18:59 Weight 62 kg Other: Date of Last Bowel Movement 08/24/18 Weight On Admission 62 kg Narrative: GENERAL: Alert WN, WD, NAD, pleasant, elderly, female HEAD: NC, AT EYES: Sclera clear, conjunctiva without injection NECK: Supple, no masses, trachea midline CV: RRR, without murmur, rub, gallop, no JVD, crisp mitral sound RESP: Clear lungs throughout bilateral, no crackles, wheeze, rhonchi, symmetrical chest rise, nonlabored, able to speak in full sentences ABD: Soft, NT, ND, no masses, positive bowel tones EXT: Pulses +2x4, trace dependent edema MS: Normal tone x4 extremities, nontender, no obvious deformities, full range of motion NEURO: Motor strength 5/5 PSYCH: A+O x3, pleasant affect, appropriate speech, mood, insight and judgment SKIN: Normal turgor, normal texture, no lesions, no rashes Results 08/24/18 13:10 08/24/18 13:10 Cardiac Enzymes 08/24/18 08/24/18 08/24/18 Range/Units 13:10 13:10 16:10 AST 36 (15-37) U/L Troponin I Less than 0.02 L Less than 0.02 L (0.02-0.05) ng/mL B-Natriuretic Peptide 100 (0-100) pg/mL Coagulation 08/24/18 Range/Units 13:10 B-Natriuretic Peptide 100 (0-100) pg/mL CBC 08/24/18 Range/Units 13:10 WBC 8.2 (4.0-11.0) th/mm3 RBC 3.73 L (4.00-5.30) mil/mm3 Hgb 12.6 (11.6-15.3) gm/dL Hct 36.0 (35.0-46.0) % Plt Count 61 L (150-450) th/mm3 Neut # (Auto) 7.7 (1.8-7.7) th/mm3 Lymph # (Auto) 0.3 L (1.0-4.8) th/mm3 Tompkins # (Auto) 0.1 (0.0-0.9) th/mm3 Eos # (Auto) 0.0 (0.0-0.4) th/mm3 Baso # (Auto) 0.0 (0.0-0.2) th/mm3 Comprehensive Metabolic Panel 08/24/18 Range/Units 13:10 Sodium 140 (136-145) meq/L Potassium 4.5 (3.5-5.1) meq/L Chloride 107 (98-107) meq/L Carbon Dioxide 25.8 (21.0-32.0) meq/L BUN 30 H (7-18) mg/dL Creatinine 0.80 (0.50-1.00) mg/dL Calcium 8.5 (8.5-10.1) mg/dL AST 36 (15-37) U/L ALT 77 H (10-53) U/L Alkaline Phosphatase 54 (45-117) U/L Total Protein 5.9 L (6.4-8.2) g/dL Albumin 2.9 L (3.4-5.0) g/dL Intake and Output 08/24/18 08/24/18 08/24/18 06:59 14:59 22:59 Other: Date of Last Bowel Movement 08/24/18 Weight 59.874 kg 62 kg Weight On Admission 62 kg Patient Weight 08/25/18 06:59 Weight 62 kg - Imaging and Cardiology Imaging: Impressions Chest X-Ray 08/24/18 13:21 CONCLUSION: 1. Cardiomegaly. 2. No focal infiltrate or pulmonary vascular congestion. EKG interpretations - NM, pacemaker, normal Pacemaker: ventricular pacing w/capture (except when refractory) Caprini VTE Risk Assessment Caprini VTE Risk Assessment: Moderate/High Risk (score >= 2) Caprini Risk Assessment Model: Point Value = 1 Point Value = 2 Point Value = 3 Point Value = 5 Age 41-60 Minor surgery BMI > 25 kg/m2 Swollen legs Varicose veins or History of unexplained or recurrent spontaneous Oral contraceptives or hormone replacement Sepsis (< 1 month) Serious lung disease, including pneumonia (< 1 month) Abnormal pulmonary function Acute myocardial infarction Congestive heart failure (< 1 month) History of inflammatory bowel disease Medical patient at bed rest Age 61-74 Arthroscopic surgery Major open surgery (> 45 min) Laparoscopic surgery (> 45 min) Malignancy Confined to bed (> 72 hours) Immobilizing plaster cast Central venous access Age >= 75 History of VTE Family history of VTE Factor V Leiden Prothrombin [id number] Lupus anticoagulant Anticardiolipin antibodies Elevated serum homocysteine Heparin-induced thrombocytopenia Other congenital or acquired thrombophilia Stroke (< 1 month) Elective arthroplasty Hip, pelvis, or leg fracture Acute spinal cord injury (< 1 month) Prophylaxis Regimen: Total Risk Factor Score Risk Level Prophylaxis Regimen 0-1 Low Early ambulation 2 Moderate Order ONE of the following: *Sequential Compression Device (SCD) *Heparin 5000 units SQ BID 3-4 Higher Order ONE of the following medications: *Heparin 5000 units SQ TID *Enoxaparin/Lovenox 40 mg SQ daily (WT < 150 kg, CrCl > 30 mL/min) *Enoxaparin/Lovenox 30 mg SQ daily (WT < 150 kg, CrCl > 10-29 mL/min) *Enoxaparin/Lovenox 30 mg SQ BID (WT < 150 kg, CrCl > 30 mL/min) AND/OR *Sequential Compression Device (SCD) 5 or more Highest Order ONE of the following medications: *Heparin 5000 units SQ TID (Preferred with Epidurals) *Enoxaparin/Lovenox 40 mg SQ daily (WT < 150 kg, CrCl > 30 mL/min) *Enoxaparin/Lovenox 30 mg SQ daily (WT < 150 kg, CrCl > 10-29 mL/min) *Enoxaparin/Lovenox 30 mg SQ BID (WT < 150 kg, CrCl > 30 mL/min) AND *Sequential Compression Device (SCD) Assessment and Plan - Assessment (1) Chest pain, rule out acute myocardial infarction Code(s): R07.9 - Chest pain, unspecified Status: Acute Plan: Admitted chest pain center. Monitor on telemetry overnight. Rule out a EKGs and cardiac enzymes. Will be seen and evaluated by Dr. Jcarlos Blakely. Recently cardiac catheterization revealed mild nonocclusive coronary artery disease 2 patent stents. 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 De Oliveira in the morning. Further disposition to follow. (2) CAD (coronary artery disease) Code(s): I25.10 - Atherosclerotic heart disease of eek coronary artery without angina pectoris Status: Chronic Plan: Continue atenolol, simvastatin, and isosorbide. (3) Thrombocytopenia Code(s): D69.6 - Thrombocytopenia, unspecified Status: Acute Plan: Continue prednisone 15 mg. Follow up as previously instructed by Dr. Oneil. (4) History of mitral valve replacement with mechanical valve Code(s): Z95.2 - Presence of prosthetic heart valve Status: Chronic Plan: Continue warfarin, scheduled for 2 mg this evening. H&P: Quality - VTE Deep Vein Thrombosis/Pulmonary Embolism Present on Admission: No (2) CAD (coronary artery disease) Qualifiers: Associated angina: angina presence unspecified
[2018-08-24 19:48] LABS: Creatine Kinase 24 U/L (26-192)
[2018-08-24] MEDS: Isosorbide Mononitrate 60 MG ER 24HR Tablet (Imdur) PO SCH (20:23)
[2018-08-24] MEDS ORDERED: Atenolol 50 MG Tablet PO SCH (21:00)
[2018-08-25 03:39] VITALS: O2SAT 98
[2018-08-25 08:07] VITALS: BP 146/67; RESP 18; TEMP 97.9
[2018-08-25] MEDS ORDERED: Magnesium Oxide 400 MG Tablet PO SCH (09:00)
[2018-08-25] MEDS ORDERED: Atenolol 25 MG Tablet PO SCH (09:00)
[2018-08-25] MEDS ORDERED: predniSONE 5 MG Tablet PO ONE (09:00)
[2018-08-25] MEDS ORDERED: Lisinopril 5 MG Tablet PO SCH (09:00)
[2018-08-25] MEDS ORDERED: Digoxin 125 MCG Tablet PO SCH (09:00)
--- NOTE | 2018-08-25 10:39 | P.PNCA ---
Subjective Interval history: Offers no complaints. No further chest discomfort. Medications and Allergies Active Medications: Active Medications Acetaminophen (Tylenol) 500 mg PO Q4H PRN PRN Reason: HEADACHE Atenolol (Tenormin) 25 mg PO DAILY [facility] Last Admin: 08/25/18 09:21 Dose: 25 mg Atenolol (Tenormin) 50 mg PO HS [facility] Last Admin: 08/24/18 20:24 Dose: 50 mg Digoxin (Lanoxin) 125 mcg PO DAILY [facility] Last Admin: 08/25/18 09:21 Dose: 125 mcg Isosorbide Mononitrate (Imdur) 60 mg PO DAILY [facility] Last Admin: 08/24/18 20:23 Dose: 60 mg Levothyroxine Sodium (Synthroid) 25 mcg PO DAILY@0600 [facility] Last Admin: 08/25/18 05:29 Dose: 25 mcg Lisinopril (Prinivil) 5 mg PO DAILY [facility] Last Admin: 08/25/18 09:21 Dose: 5 mg Losartan Potassium (Cozaar) 100 mg PO DAILY [facility] Last Admin: 08/25/18 09:20 Dose: 100 mg Magnesium Oxide (Mag-Ox) 400 mg PO DAILY [facility] Last Admin: 08/25/18 09:20 Dose: 400 mg Nitroglycerin (Nitrostat Sl) 0.4 mg SL Q5M PRN PRN Reason: CHEST PAIN Ondansetron HCl (Zofran Inj) 4 mg IV.PUSH Q6H PRN PRN Reason: NAUSEA Pravastatin Sodium (Pravachol) 10 mg PO HS [facility] Last Admin: 08/24/18 20:22 Dose: 10 mg Sodium Chloride (Ns Flush) 2 ml IV.FLUSH UNSCH PRN PRN Reason: FLUSH AFTER USING IV ACCESS Sodium Chloride (Ns Flush) 2 ml IV.FLUSH BID [facility] Last Admin: 08/25/18 09:21 Dose: 2 ml Sodium Chloride (Ns Flush) 2 ml IV.FLUSH PRN PRN PRN Reason: FLUSH AFTER USING IV ACCESS Allergies Allergy/AdvReac Type Severity Reaction Status Date / Time metronidazole Allergy Severe RASH Verified 08/24/18 16:27 diphenhydramine AdvReac Anxiety Verified 08/24/18 16:27 [From [facility]ie] Home Medications Medication Instructions Recorded Confirmed Type atenolol 25 mg PO DAILY 06/27/18 08/24/18 History digoxin 0.125 mg PO DAILY 06/27/18 08/24/18 History diltiazem HCl 180 mg PO DAILY 06/27/18 08/24/18 History isosorbide mononitrate 60 mg PO QAM 06/27/18 08/24/18 History levothyroxine 25 mcg PO DAILY 06/27/18 08/24/18 History lisinopril 5 mg PO DAILY 06/27/18 08/24/18 History losartan 100 mg PO DAILY 06/27/18 08/24/18 History magnesium 250 mg PO DAILY 06/27/18 08/24/18 History nitroglycerin [Nitrostat] 0.4 mg SUBLINGUAL Q5-15M PRN 06/27/18 08/24/18 History simvastatin 5 mg PO QPM 06/27/18 08/24/18 History atenolol 50 mg PO HS 06/28/18 08/24/18 History Physical Exam Vital signs: Vital Signs 08/24/18 13:00 08/24/18 13:16 08/24/18 13:35 Temperature 98 F Pulse Rate 72 66 Respiratory Rate 20 20 Blood Pressure 111/62 111/55 L Pulse Oximetry 95 98 97 08/24/18 15:50 08/24/18 16:00 08/24/18 19:30 Temperature 98.0 F 98.2 F Pulse Rate 68 64 72 Respiratory Rate 15 16 17 Blood Pressure 110/58 L 118/61 109/53 L Pulse Oximetry 97 94 L 94 L 08/24/18 20:00 08/24/18 22:47 08/25/18 00:00 Temperature 98.2 F Pulse Rate 66 62 Respiratory Rate 17 Blood Pressure 120/58 L Pulse Oximetry 95 94 L 95 08/25/18 03:37 08/25/18 04:00 08/25/18 08:00 Temperature 98.3 F 97.9 F Pulse Rate 65 65 66 Respiratory Rate 17 18 Blood Pressure 133/63 146/67 H Pulse Oximetry 98 98 Intake & Output 08/24/18 08/25/18 08/25/18 18:59 06:59 18:59 Intake Total 240 / 240 Balance 240 / 240 Weight 62 kg Intake: Oral 240 / 240 Other: # Voids 2 3 Date of Last Bowel Movement 12/19/18 12/19/18 Weight On Admission 62 kg - Constitutional no acute distress - Routine HEENT Exam Head: Present: normocephalic, atraumatic - Routine Neck Exam Present: supple. Absent: JVD, carotid bruit - Routine Respiratory Exam Present: CTA bilaterally. Absent: rhonchi, wheezes, crackles - Routine Cardiovascular Exam Present: RRR, click. Absent: murmur, gallop, rubs - Routine Abdominal Exam Present: soft, normoactive bowel sounds - Routine Extremities Exam Present: full ROM, pulses intact, normal capillary refill - Routine Skin Exam Present: intact Results 08/24/18 13:10 08/24/18 13:10 Cardiac Enzymes 08/24/18 08/24/18 08/24/18 Range/Units 13:10 13:10 16:10 AST 36 (15-37) U/L Troponin I Less than 0.02 L Less than 0.02 L (0.02-0.05) ng/mL B-Natriuretic Peptide 100 (0-100) pg/mL 08/24/18 Range/Units 19:02 AST (15-37) U/L Troponin I Less than 0.02 L (0.02-0.05) ng/mL B-Natriuretic Peptide (0-100) pg/mL Coagulation 08/24/18 Range/Units 13:10 B-Natriuretic Peptide 100 (0-100) pg/mL CBC 08/24/18 Range/Units 13:10 WBC 8.2 (4.0-11.0) th/mm3 RBC 3.73 L (4.00-5.30) mil/mm3 Hgb 12.6 (11.6-15.3) gm/dL Hct 36.0 (35.0-46.0) % Plt Count 61 L (150-450) th/mm3 Neut # (Auto) 7.7 (1.8-7.7) th/mm3 Lymph # (Auto) 0.3 L (1.0-4.8) th/mm3 Louisa # (Auto) 0.1 (0.0-0.9) th/mm3 Eos # (Auto) 0.0 (0.0-0.4) th/mm3 Baso # (Auto) 0.0 (0.0-0.2) th/mm3 Comprehensive Metabolic Panel 08/24/18 Range/Units 13:10 Sodium 140 (136-145) meq/L Potassium 4.5 (3.5-5.1) meq/L Chloride 107 (98-107) meq/L Carbon Dioxide 25.8 (21.0-32.0) meq/L BUN 30 H (7-18) mg/dL Creatinine 0.80 (0.50-1.00) mg/dL Calcium 8.5 (8.5-10.1) mg/dL AST 36 (15-37) U/L ALT 77 H (10-53) U/L Alkaline Phosphatase 54 (45-117) U/L Total Protein 5.9 L (6.4-8.2) g/dL Albumin 2.9 L (3.4-5.0) g/dL Intake and Output 08/24/18 08/25/18 08/25/18 22:59 06:59 14:59 Intake Total 240 / 240 Balance 240 / 240 Intake: Oral 240 / 240 Other: # Voids 2 3 Date of Last Bowel Movement 08/24/18 Weight 62 kg Weight On Admission 62 kg - Imaging and Cardiology Imaging: Impressions Chest X-Ray 08/24/18 13:21 CONCLUSION: 1. Cardiomegaly. 2. No focal infiltrate or pulmonary vascular congestion. Assessment and Plan - Assessment (1) Chest pain, rule out acute myocardial infarction Code(s): R07.9 - Chest pain, unspecified Status: Acute Plan: Admitted chest pain center. Ruled out ACS with EKGs and cardiac enzymes, monitored on telemetry overnight. Recently cardiac catheterization revealed mild nonocclusive coronary artery disease 2 patent stents. Attempted to call patient's radio host, however MD is not in office today. Seen and evaluated by Dr. Blakely. No further cardiac testing. Reassurance discomfort unlikely to be cardiac related. Instructed to follow up with shaft sinker and PCP. (2) CAD (coronary artery disease) Code(s): I25.10 - Atherosclerotic heart disease of [place] coronary artery without angina pectoris Status: Chronic Plan: Continue atenolol, simvastatin, and isosorbide. (3) Thrombocytopenia Code(s): D69.6 - Thrombocytopenia, unspecified Status: Acute Plan: Continue prednisone 15 mg. Follow up as previously instructed by Dr. Oneil. (4) History of mitral valve replacement with mechanical valve Code(s): Z95.2 - Presence of prosthetic heart valve Status: Chronic Plan: Continue warfarin, scheduled for 2 mg this evening. (2) CAD (coronary artery disease) Qualifiers: Associated angina: angina presence unspecified
[2018-08-25 10:46] LABS: Activated Partial Thrombo Time 39.1 sec (23.4-31.7); INR 3.1 Ratio
[2018-08-25 11:49] VITALS: PULSE 84
[2018-08-25] MEDS: Isosorbide Mononitrate 60 MG ER 24HR Tablet (Imdur) PO SCH (12:49)
--- NOTE | 2018-08-25 16:59 | ECG ---
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
--- NOTE | 2018-08-25 17:05 | ECG ---
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
== END 2018-08-25 12:59 | disposition home or self-care (01) ==
LOC: NEDA 12:49 → NEPC 12:49 → NEDA 16:40 → NEPGCP 16:45
PROVIDERS: ADMIT Internal Medicine Cardiovascular Disease; ATTEND Internal Medicine Cardiovascular Disease